=== PATIENT | female | born 2000 | race Caucasian/White ===

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

== ENCOUNTER → 2024-06-02 | Outpatient (CLI) | payer SELFPAY ==
[2024-06-02 17:40] LABS: Estradiol 39.9 pg/mL; Follicle Stimulating Hormone 7.5 mIU/mL; T4 Free Direct 1.64 ng/dL (0.76-1.46); Thyroid Stim Hormone (TSH) 1.61 uIU/mL (0.358-3.74)
[2024-06-04 04:08] LABS: PROLACTIN 21.2 ng/mL (4.8-33.4)
[2024-06-09 09:10] LABS: 17-Hydroxyprogesterone 49 ng/dL (.)
== END | disposition home or self-care (01) ==
LOC: LAB 16:26
PROVIDERS: Referring Provider Nurse Practitioner Family; Visit Provider Nurse Practitioner Family
DX: N97.9 Female infertility, unspecified (principal)
CPT/HCPCS: 36415; 82627; 82670; 83001; 83498; 84146; 84439; 84443; 82626

== ENCOUNTER → 2024-06-11 | Outpatient (CLI) | payer SELFPAY ==
--- NOTE | 2024-06-11 | US_ITS ---
STUDY: ULTRASOUND OF THE FEMALE PELVIS - COMPLETE REASON FOR EXAM: Female, 23 years old. Female infertility LMP: Unknown. TECHNIQUE: Transabdominal and Transvaginal TECHNICAL QUALITY: Adequate. COMPARISON: None. FINDINGS: The uterus is anteflexed and is in a midline position. The uterus measures 8.4 x 4.6 x 3.5 cm. Normal uterine cervix. The endometrium measures 9.7 mm in thickness, and is hyperechoic. There is no demonstrated endometrial mass. There is no demonstrated myometrial mass. I.U.D. - The patient does not have an I.U.D. The right ovary is visualized. The right ovary measures 2. 2 x 1.4 x 1.5 cm. There is no right ovarian cyst or ovarian mass. There is no visualized right adnexal mass or complex lesion. There is normal arterial and normal venous vascularity. The left ovary is visualized. The left ovary measures 2.6 x 1.6 x 1.5 cm. There is no left ovarian cyst or ovarian mass. There is no visualized left adnexal mass or complex lesion. There is normal arterial and normal venous vascularity. There is no fluid in the cul-de-sac. The pre void volume of the bladder was 356 ml. The post void volume of the bladder was less than 5 ml. Polycystic ovary disease: No. US/Pelvic w/ Transvaginal IMPRESSION: No suspicious sonographic findings Electronically Signed: Latrell Munoz MD at 11:28 EDT ,
== END | disposition home or self-care (01) ==
LOC: US 14:15
PROVIDERS: Referring Provider Nurse Practitioner Family; Visit Provider Nurse Practitioner Family
DX: N97.9 Female infertility, unspecified (principal)
CPT/HCPCS: 76830; 76856

== ENCOUNTER → 2024-08-03 | Outpatient (CLI) | payer SELFPAY ==
[2024-08-03 16:38] LABS: Absolute Lymphocyte Count 4.67 X10^3/uL (0.83-4.51); Absolute Neutrophil Count 6.8 X10^3/uL (2.0-7.7); Basophil# 0.08 X10^3/uL; Basophil% 0.6 % (0-1); Eosinophil# 0.27 X10^3/uL; Eosinophils% 2.1 % (0-5); Hemoglobin 13.6 g/dL (12.0-15.0); Lymphocyte # 4.67 X10^3/ul (0.83-4.51); Lymphocyte % 36.4 % (19-41); Mean Corp Hgb Conc 32.4 g/dL (32-36); Mean Corpuscular Hgb 28.4 pg (27.0-32.0); Mean Corpuscular Volume 87.7 fL (81-99); Mean Platelet Vol. 10.1 fl (6.2-12.0); Monocyte# 0.96 X10^3/uL; Monocyte% 7.5 % (0-10); NRBC Flagged by Analyzer 0 % (0-5); Platelet Count 484 K/mm3 (150-450); RBC Distribution Width CV 12.4 % (11.6-14.6); RBC Distribution Width SD 39.8 fl (35.1-43.9); Red Blood Count 4.79 M/mm3 (4.2-5.4); White Blood Count 12.8 K/mm3 (4.4-11.0)
== END | disposition home or self-care (01) ==
LOC: LAB 15:36
PROVIDERS: Referring Provider Nurse Practitioner Women's Health; Visit Provider Nurse Practitioner Women's Health
DX: N97.9 Female infertility, unspecified (principal)
CPT/HCPCS: 36415; 85025

== ENCOUNTER → 2024-10-19 | Outpatient (CLI) | payer SELFPAY | END | disposition home or self-care (01) | PROVIDERS: Referring Provider Nurse Practitioner Women's Health; Visit Provider Nurse Practitioner Women's Health | DX: N97.0 Female infertility associated with anovulation (principal) ==

== ENCOUNTER → 2024-11-19 | Outpatient (CLI) | payer SELFPAY ==
[2024-11-19 17:22] LABS: Free T3 3.3 pg/mL (2.18-3.98); T4 Free Direct 1.87 ng/dL (0.76-1.46)
[2024-11-24 18:07] LABS: Testosterone Free 2.8 pg/mL (0.0-4.2)
== END | disposition home or self-care (01) ==
PROVIDERS: Referring Provider Obstetrics & Gynecology; Visit Provider Obstetrics & Gynecology
DX: E28.2 Polycystic ovarian syndrome (principal); N94.6 Dysmenorrhea, unspecified
CPT/HCPCS: 36415; 84402; 84439; 84443; 84481

== ENCOUNTER 2024-12-28 07:54 | Day surgery (SDC) | payer SELFPAY ==
[2024-12-11 10:43] LABS: Hematocrit 44.7 % (37-47); Hemoglobin 15.2 g/dL (12.0-15.0); Mean Corpuscular Volume 85.1 fL (81-99); Mean Platelet Vol. 9.5 fl (6.2-12.0); Platelet Count 485 K/mm3 (150-450); RBC Distribution Width CV 12.9 % (11.6-14.6); Red Blood Count 5.25 M/mm3 (4.2-5.4); White Blood Count 10.4 K/mm3 (4.4-11.0)
[2024-12-11 10:44] LABS: Internal QC Validated? YES +Cl - CLEAR BKGD; Pregnancy, Urine Negative Negative
--- NOTE | 2024-12-27 17:28 | HP.PCM_ITS ---
History and Physical Date of Admission: 12/28/24 [facility] [address], [address] [place] [address] OFFICE VISIT Date of Service: 11/19/24 MR#: [id number] Acct: [id number] Name: LEATHA JESSICA Rep #: [id number] : 2000 Provider: Dr. Navya Lloyd MD Age/Sex: 24/F Location: [facility] [place] Status: Signed Intake Vital Signs 07/21/2408:47 11/19/2514:17 Height 5 ft 7 in 5 ft 7 in Weight: 254 lb 4 oz BMI 39.8 BP 132/83 H Intake Visit Reasons: Surgical consult Chief Complaint: Fertility consult Creative Specialist Required: No Is patient in pain?: No Allergies No Known Allergies Allergy (Verified 11/19/24 15:19) Medications ?Medication ?Instructions ?Recorded ?Confirmed ?Type Saccharomyces boulardii 250 mg 250 mg PO BID 07/21/24 11/19/24 History capsule (Daily Probiotic (S. boulardii)) cyanocobalamin-liver extract tablet tab PO 07/21/24 11/19/24 History vitamin no.167-folic acid tab PO 07/21/24 11/19/24 History 400 mcg-dha 25 mg chewable tablet (One-A-Day ) letrozole 2.5 mg tablet 2.5 mg PO DAILY #5 tabs 10/01/24 11/19/24 Rx Is last menstrual period known: Yes Last Menstrual Period: 10/11/24 Post menopausal: No Patient : No : No PFSH Surgical History (Updated 11/19/24 @ 15:[address] 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 she take ibuprofen with some relief. 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 any additional risk factors identified: none Female Reproductive History Last Menstrual Period: 10/11/24 Cycle Length: >35 Questions: metorrhagia: No, sexually active: Yes, dyspareunia: No and PCB: No History 0 Elective abortions Hx Para Spontaneous abortions Hx # Term Pregnancies Ectopic pregnancies Hx # Pregnancies Multiple births # of living children ROS Const Constitutional: Reports system reviewed and no additional complaints, except as documented Eyes Eyes: Reports system reviewed and no additional complaints, except as documented ENT ENT: Reports system reviewed and no additional complaints, except as documented Cardio Card: Denies chest pain Resp Resp: Denies cough or dyspnea GI GI: Denies abdominal pain or change in bowel habits : Reports as per HPI; Denies nipple discharge Musc Musc: Denies arthralgias, back pain or muscle weakness Skin Skin/Breast: Denies alopecia, change in hair, dry skin, breast mass, breast pain, breast skin changes or nipple discharge Neuro Neuro: Reports system reviewed and no additional complaints, except as documented Psych Psych: Reports system reviewed and no additional complaints, except as documented Endo Endo: Denies cold intolerance, excessive sweating, heat intolerance or polydipsia Law/Lymph Hematologic/Lymphatic: Denies easy bleeding, Denies easy bruising and Denies lymphadenopathy Exam Const General: cooperative and no acute distress Orientation: oriented x3 HENMT Head: normal to inspection and normocephalic Ears: hearing grossly normal bilaterally and external ears normal Nose: external nose normal and nares normal Face and sinus: normal facial exam Eyes General: appearance normal, both eyes and all related structures Neck Neck: normal visual inspection Thyroid: thyroid normal Chest Chest palpation & inspection: normal inspection of the chest Resp Effort & Inspection: normal respiratory effort GI Inspection: normal to inspection and non-distended Palpation: soft and no hepatosplenomegaly Musc Other: gross motor intact no deficits, full bilateral strength Skin General: no rashes or lesions noted Neuro General: patient alert, patient awake, moves all extremities and no focal motor deficits Cognition: normal cognition Speech: speech normal Motor: muscle tone normal throughout Extrem General: normal to inspection and no pedal edema Psych Appearance: grossly normal Mental Status: mental status grossly normal Mood: congruent mood Affect: normal affect Speech and Movement: speech and movement normal Attitude: cooperative Judgment: judgment good Coding Level of Care Code Off vis,est,level 4 Diagnoses Irregular periods/menstrual cycles N92.6 Infertility Polycystic ovarian syndrome E28.2 Dysmenorrhea N94.6 Assessment and Plan Assessment and Plan (1) Irregular periods/menstrual cycles: Status: Acute (2) Infertility: Status: Acute Comment: Normal OAR and spouse's SA. couldn't tolerate HSG (3) Polycystic ovarian syndrome: Status: Acute (4) Dysmenorrhea: Status: Acute Comment: plan diagnostic laparoscopy chromotubation Plan After discussing the patient's diagnosis and treatment plan options, patient wishes to proceed with surgical management. I have discussed with the patient the risks, benefits, and alternatives of the procedure which include but are not limited to risks of anesthesia, bleeding, infection, possible damage to bowel, bladder, or surrounding vasculature which could lead to additional surgery to evaluate any complications. Patient agrees to procedure and wishes to proceed. ACOG/uptodate references given for additional information regarding procedure. 11/19/24 1556 <Electronically signed by Navya Lloyd MD> Date Navya Lloyd MD Cosigner Signature: Date (if applicable) CC: ~
[2024-12-28] VITALS (12 sets, daily range): BP systolic 96–142; BP diastolic 55–97; PULSE 75–101; RESP 16; TEMP 36.4–37; O2SAT 92–100; BMI 39.4
[2024-12-28 08:24] LABS: Internal QC Validated? YES +Cl - CLEAR BKGD; Pregnancy, Urine Negative Negative
[2024-12-28] MEDS: 0.9% Normal Saline (1000mL) 1,000 ML 15 ML IV (08:29)
--- NOTE | 2024-12-28 08:47 | PCM.PRE.AN2 ---
ASA Classification* ASA Classification ASA Classification: 3 Assessment & Plan Anesthesia* Anesthesia Assessment Anesthesia Assessment: Discussed sedation and/or anesthesia options, risks, benefits, and alternatives with patient/parents/legal guardian/POA. Questions invited. The patient/parents/legal guardian/POA seems to understand and agrees to proceed with anesthesia plan. Reviewed the physical assessment, medical history, allergy history and patient home medications list prior to surgery/procedure/anesthetic and documented any changes. Performed airway and anesthesia risk assessments. Anesthesia Type Anesthesia Type: General History Source History Obtained from:: Patient and Chart Anesthesia Focused Assessment* Temperature: 97.5 F Pulse Rate: 101 Blood Pressure: 142/97 Respiratory Rate: 16 Pulse Ox: 100 Oxygen Delivery Method: Room Air Airway Assessment Mouth opens: >3 cm Mallampati Score: IV Teeth Condition: Intact Neck Range of motion (ROM): Full ROM Focused Labs Anesthesia Preop lab: CBC WBC 10.4 K/mm3 (4.4-11.0) 12/11/24 10:12/11/24 RBC 5.25 M/mm3 (4.2-5.4) 12/11/24 10:24 12/11/24 Hgb 15.2 g/dL (12.0-15.0) H 12/11/24 10:24 12/11/24 Hct 44.7 % (37-47) 12/11/24 10:24 12/11/24 Plt Count 485 K/mm3 (150-450) H 12/11/24 10:24 12/11/24 CHEMISTRY Potassium 3.4 mmol/L (3.5-5.1) L 07/28/19 03:35 07/28/19 Sodium 139 mmol/L (136-145) 07/28/19 03:35 07/28/19 BUN 6 mg/dL (7-18) L 07/28/19 03:35 07/28/19 Creatinine 0.88 mg/dL (0.55-1.02) 07/28/19 03:35 07/28/19 Glucose 102 mg/dL (74-106) 07/28/19 03:35 07/28/19 TSH 1.560 uIU/mL (0.358-3.740) 11/19/24 16:23 11/19/24 COAG Urine Test Negative Negative 12/28/24 08:10 12/28/24 Pre-Assessment Diagnosis/Proposed Procedure Planned Operative Procedure(s): Diagnostic Laparoscopy, Chromtubation Anesthesia History Anesthesia History - doctor chiropractic: Anesthesia History - doctor chiropractic Hx Hospitalization No 12/03/24 10:05 Any Problems With Anesthesia No 12/03/24 10:05 Cholinesterase deficiency No 12/03/24 10:05 You/Your Family Experience No 12/03/24 10:05 fever (hyperthermia) with Relationship Recent Exposure to Contagious No 12/28/24 08:20 Disease Does patient have nerve No 12/03/24 10:05 stimulator Patient instructed to have device shut off --Does patient have Pacemaker No 12/28/24 08:20 or ICD? When Was Last Pacemaker Check QUESTION #4 FULL TEXT: You/Your Family Experience fever (hyperthermia) with Anesthesia Last Oral Intake Last Oral intake: Last Oral Intake NPO since 04:00 12/28/24 08:20 Meds taken in AM with sips of water? Meds patient instructed to take am of surgery Any additional information?: Yes NPO since: 04:00 (Patient water at 4 AM.) PONV PONV - doctor chiropractic: PONV - doctor chiropractic Female Yes 12/03/24 10:05 HX of Motion Sickness Yes 12/03/24 10:05 HX of N/V After Surgery No 12/03/24 10:05 Non-Smoker Yes 12/03/24 10:05 Duration of Surgery greater No 12/03/24 10:05 than 60 minutes Number of Risk Factors 3 12/03/24 10:05 PONV Score Moderate Risk 12/03/24 10:05 Height & Weight Height & Weight: Anesthesia: Height & Weight Height 5 ft 7 in 12/28/24 08:20 Weight: 114.305 kg 12/28/24 08:20 Body Mass Index (BMI) 39.4 12/28/24 08:20 Respiratory Assessment Respiratory Assessment - doctor chiropractic: Respiratory Tract Infection Hx - doctor chiropractic Hx Respiratory Tract Infection No 12/03/24 10:05 STOP Sleep Apnea STOP Sleep Apnea - doctor chiropractic: STOP Sleep Apnea - doctor chiropractic Hx Hypertension No 12/03/24 10:05 Hx Sleep Apnea No 12/03/24 10:05 CPAP BIPAP Do you snore loudly (louder No 12/03/24 10:05 than talking or can be heard Do you often feel tired/ No 12/03/24 10:05 fatigued/ sleepy during daytime? Has anyone observed you stop No 12/03/24 10:05 breathing during sleep? STOP Results Negative 12/03/24 10:05 QUESTION #5 FULL TEXT : Do you snore loudly (louder than talking or can be heard through closed doors)? 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 Specify any problems Hx of Preganancy in last 3 No 12/03/24 10:05 Months Nurse Filling Out Transfusion VLEHMAN 12/03/24 10:05 & Questions: Date: 12/03/24 12/03/24 10:05 Time: 10:10 12/03/24 10:05 Patient unable to answer at this time (ie. confused, unrespo /Reproduction History /Reproductive History - doctor chiropractic: /Reproductive Hx- doctor chiropractic Hx Now No 12/03/24 10:05 Gestational Age (in weeks): EDC: Hx Hx Para Hx Section SAB No 12/03/24 10:05 Active Medications Active Medications: Current Medications Generic Name Dose Route Start Last Admin Trade Name Freq PRN Reason Stop Dose Admin Sodium Chloride 1,000 mls @ 15 mls/hr 12/28/24 08:10 12/28/24 08:29 IV 01/02/25 21:29 15 mls/hr .Q48H WILIAN Administration Protocol PFSH Medical History Vertigo Wears contact lenses Non-smoker Home Medications ?Medication ?Instructions ?Recorded ?Last Taken ?Type Saccharomyces boulardii 250 mg 250 mg PO BID 07/21/24 Unknown History capsule (Daily Probiotic (S. 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
[2024-12-28] MEDS: Methylene Blue 1% 100 MG/10 ML VIAL (09:39)
[2024-12-28] MEDS: Bupivacaine 0.25% 30 ML Vial (10:07)
--- NOTE | 2024-12-28 10:21 | PCM.POST.ANE ---
Anesthesia: Postop Eval I Current Vital Signs Temperature: 97.6 F Pulse Rate: 98 Blood Pressure: 107/74 Respiratory Rate: 16 Pulse Ox: 95 Oxygen Delivery Method: Room Air Assessment Airway patent: Yes Spontaneous unlabored respirations: Yes Mental status: Awake and Calm nausea: No Vomiting: No Anesthesia Complication: No Fluid Hydration Crystalloid volume administer (ml): 800 Total IV fluid infused: 800 Progress Note Anesthesia document: Postop Eval 1 completed: Yes
[2024-12-28] MEDS: HYDROcodone Bitartrate/Apap 5/325 Tablet PO (11:41)
--- NOTE | 2024-12-28 12:00 | DCINST_ITS ---
Discharge Instructions Diet Discharge Diet: No restrictions DC O2, CPAP, BIPAP needs Home O2 Discharge instructions: No Dressing / Incision Discharge Activity: Return to Normal Activity, May Not Drive ( while taking narcotic pain meds, when pain free), May Shower and May Take a Tub Bath (in 7 days) May resume sexual activity in: 1 week Weight Bearing Status: Full weight bearing Dressing / Incision Call your doctor if your incision/area has: Continuous Slow Oozing, Sudden Increased Bleeding, Increased Pain/ Swelling, Increased Redness and Foul Smelling Discharge Call your doctor if you observe: Fever of 101 or Higher, Using more than 1 pad per hour, Shortness of breath, Chest pain and Uncontrolled pain Suture Line Care: Avoid Pulling/Pushing and Avoid Pinching/Bending Remove Dressing in: 1 week (if present) Cleanse incision/area with: Soap & Water and Keep Dressing Clean & Dry Follow Up Care When: Call to make an appointment with your doctor for a fu/incision check in 1- 2 weeks. Test Results: Test results from this visit will be discussed in further detail at your follow- up appointment, if applicable. Discharge Plan Admission Attending Provider: Navya Lloyd Primary Care Provider: Yuli Silveira Primary Instructions Print Language: Bengali Discharge Orders/Prescriptions Prescriptions: New oxycodone-acetaminophen [Percocet] 5-325 mg tablet 1 tab PO Q4H PRN (Reason: pain) 7 Days Qty: 10 0RF naproxen 500 mg tablet 500 mg PO BID PRN PRN (Reason: Pain) Qty: 30 1RF No Action One-A-Day 400 mcg- 25 mg tablet,chewable 1 tab PO DAILY Saccharomyces boulardii [Daily Probiotic (S. boulardii)] 250 mg capsule 250 mg PO BID cyanocobalamin-liver extract Tablet 1 tab PO DAILY letrozole 2.5 mg tablet 2.5 mg PO DAILY Qty: 5 2RF Patient Comments: STARTING AFTER SURGERY Rx Instructions: start on day 3 of cycle and take for 5 days Referrals / Follow Up: Care PhysicianYuli Primary [Primary Care Provider] - Disposition Disposition (needs filled in before D/C Order can be placed): Home, Self Care
--- NOTE | 2024-12-28 12:00 | PCM.OPRPT ---
Problems Associated Problem List Diagnoses (1) Dysmenorrhea: (2) Polycystic ovarian syndrome: (3) Infertility: (4) Irregular periods/menstrual cycles: Multi Select Codes Urinary/Genital Urinary/Genital CPT Codes: 31974 Chromotubation, 30786 Lysis of adhesions, laproscopic and Other Procedure See Report (89870) Operative Report (Standard) Operative Information Date of Procedure: 12/28/24 Pre-Operative Diagnosis: See problem list Post-Operative Diagnosis: Same plus pelvic adhesions and bilateral tubal patency Surgery/Procedure Performed: Diagnostic laparoscopy lysis of adhesions chromotubation microsoft net developer: Yes Finish Photographer: Mitzy Gotti Tasks completed by billing assistant: Opening & closing Additional assistant clinical nurse manager?: No Type of Anesthesia: General RN Documented Start/Stop Times: Operation Date: 12/28/24 09:30 Case Time Into Pre-Op 12/28/24 08:05 Anesthesia Start 12/28/24 09:08 Into Room 12/28/24 09:08 Procedure Start 12/28/24 09:39 Procedure End 12/28/24 10:08 Anesthesia End 12/28/24 10:16 Out of Room 12/28/24 10:16 Into Recovery 12/28/24 10:21 Into Phase II Recovery 12/28/24 11:27 Out of Recovery 12/28/24 11:27 Out of Phase II 12/28/24 12:48 Out of Pre-Op Procedure Start Time: 09:39 Procedure Stop Time: 10:08 Select all DRAINS/GRAFTS/IMPLANTS that apply: Drains (toledo) Drain details: removed after draining bladder at beginning of procedure Estimated Blood Loss: 50 Specimen collected: No Description of surgery: Patient was taken to the operating room and placed under general anesthesia was prepped and draped in normal sterile fashion in the dorsolithotomy position. Cervix was grasped with a single-tooth tenaculum and dilated to allow passage of a uterine manipulator. Attention was then paid to the abdomen and umbilicus was grasped with towel clamps after injecting with quarter percent Marcaine and an intraumbilical incision was made with a scalpel and Veress needle entering into the abdomen confirmed to be intra-abdominal with a low opening pressure and the abdomen was insufflated with CO2 gas. 5 mm trocar was placed under direct visualization without complication. 5 mm left lower quadrant port was placed without complication. Pelvis was noted to be within normal limits except for small amount of left sigmoid colon adhesions to the left pelvic sidewall and left ovarian to ovarian fossa adhesions. These were taken down with the LigaSure device without complication. Hemoblast was placed over the area. Chromotubation was performed and bilateral tubal patency was seen. Upper abdomen was inspected and no abnormality seen. All instruments were removed from the abdomen and vagina and port sites were closed with 4-0 Monocryl. No other abnormalities or complications seen. Surgical Findings: sigmoid colon to abdominal wall adhesions mild Complications Complications: No
--- NOTE | 2024-12-28 18:18 | POSTOPAN2_ITS ---
Anesthesia Postop Eval I Sum Postop Eval Completion status Anesthesia document: Postop Eval 1 completed: Yes Anesthesia Postop Eval I Summary Anesthesia Postop Eval I Summary: Anesthesia Postop Eval I: Assessment Summary Airway patent Yes 12/28/24 10:29 DIRECTOR SMB SALES.[email or web address] Spontaneous unlabored Yes 12/28/24 10:29 DIRECTOR SMB SALES.GDOTT respirations Mental status Awake,Calm 12/28/24 10:29 DIRECTOR SMB SALES.GDOTT nausea No 12/28/24 10:29 DIRECTOR SMB SALES.GDOTT Vomiting No 12/28/24 10:29 DIRECTOR SMB SALES.GDOTT Anesthesia Postop Eval I: Fluid Summary Crystalloid volume administer 800 12/28/24 10:29 DIRECTOR SMB SALES.GDOTT (ml) Colloids volume administered ( ml) Blood Product volume administered (ml) Total IV fluid infused 800 12/28/24 10:29 DIRECTOR SMB SALES.GDOTT Anesthesia Postop Eval I: Summary Notes Anesthesia Complication No 12/28/24 10:29 DIRECTOR SMB SALES.GDOTT Anesthesia Complication Comment: Post-operative progress note Anesthesia: Postop Eval II Evaluation Mental status: Awake and Calm Pain Level: 1 nausea: No Vomiting: No Complications Anesthesia Complication: No
--- NOTE | 2024-12-28 18:18 | PCM.POSTANE2 ---
Anesthesia Postop Eval I Sum Postop Eval Completion status Anesthesia document: Postop Eval 1 completed: Yes Anesthesia Postop Eval I Summary Anesthesia Postop Eval I Summary: Anesthesia Postop Eval I: Assessment Summary Airway patent Yes 12/28/24 10:29 PROFESSOR OF INDUSTRIAL TECHNOLOGY.GDOTT Spontaneous unlabored Yes 12/28/24 10:29 PROFESSOR OF INDUSTRIAL TECHNOLOGY.GDOTT respirations Mental status Awake,Calm 12/28/24 10:29 PROFESSOR OF INDUSTRIAL TECHNOLOGY.GDOTT nausea No 12/28/24 10:29 PROFESSOR OF INDUSTRIAL TECHNOLOGY.GDOTT Vomiting No 12/28/24 10:29 PROFESSOR OF INDUSTRIAL TECHNOLOGY.GDOTT Anesthesia Postop Eval I: Fluid Summary Crystalloid volume administer 800 12/28/24 10:29 PROFESSOR OF INDUSTRIAL TECHNOLOGY.GDOTT (ml) Colloids volume administered ( ml) Blood Product volume administered (ml) Total IV fluid infused 800 12/28/24 10:29 PROFESSOR OF INDUSTRIAL TECHNOLOGY.GDOTT Anesthesia Postop Eval I: Summary Notes Anesthesia Complication No 12/28/24 10:29 PROFESSOR OF INDUSTRIAL TECHNOLOGY.GDOTT Anesthesia Complication Comment: Post-operative progress note Anesthesia: Postop Eval II Evaluation Mental status: Awake and Calm Pain Level: 1 nausea: No Vomiting: No Complications Anesthesia Complication: No
== END 2024-12-28 12:49 | disposition home or self-care (01) ==
LOC: SDC 07:55 → AC 07:57
PROVIDERS: Referring Provider Obstetrics & Gynecology; Visit Provider Obstetrics & Gynecology
PROC: (CPT 49320; principal; 2024-12-28 09:15)
DX: N97.9 Female infertility, unspecified (principal); N94.6 Dysmenorrhea, unspecified; N92.6 Irregular menstruation, unspecified; E28.2 Polycystic ovarian syndrome; N73.6 Female pelvic peritoneal adhesions (postinfective)
CPT/HCPCS: 58660; 58350; 00840; 36415; 81025; 85027; 86850; 86900; 86901; J2405

== ENCOUNTER → 2025-01-21 | Outpatient (CLI) | payer SELFPAY ==
--- NOTE | 2025-01-21 11:46 | US_ITS ---
PROCEDURE: THYROID REASON FOR EXAM: ABNORMAL THYROID BLOOD TEST TECHNIQUE: Thyroid ultrasound COMPARISON: None. FINDINGS: Right thyroid lobe measures 5.4 cm x 1.6 cm x 1.7 cm. Left thyroid lobe measures 4 cm x 1.5 cm x 1.2 cm. Isthmus thickness is3.6 mm. Thyroid Size: Mild enlargement of the right lobe of the thyroid. Background Echotexture: Normal Thyroid Nodules: None US/Thyroid IMPRESSION: Mild enlargement of the right lobe of the thyroid gland. No sonographic abnorm ality is seen. Reading Location: [place] [id number]
== END | disposition home or self-care (01) ==
LOC: US 11:44
PROVIDERS: Referring Provider Obstetrics & Gynecology; Visit Provider Obstetrics & Gynecology
DX: R79.89 Other specified abnormal findings of blood chemistry (principal)
CPT/HCPCS: 76536

== ENCOUNTER → 2025-01-27 | Outpatient (CLI) | payer SELFPAY ==
[2025-01-27 12:30] LABS: ALB/GLOB Ratio 1.3 RATIO (0.9-2.4); AST(SGOT) 20 U/L (<=31); Alanine Aminotransfer ALT/SGPT 7 U/L (<=34); Albumin, Serum 4.4 g/dL (3.5-5.0); Alkaline Phosphatase 72 U/L (35-104); Anion Gap 14 (5-15); BUN 12 mg/dL (4-19); BUN/Creat Ratio 16.6 RATIO (10-20); Calcium,Total 9.9 mg/dL (7.6-11.0); Carbon Dioxide 22.7 mmol/L (21.0-32.0); Chloride 104 mmol/L (98-108); Creatinine, Serum 0.69 mg/dL (0.70-1.20); EST Glomerular Filtration Rate 126 (>60); Globulin 3.5 g/dL (2.2-4.2); Glucose 84 mg/dL (70-99); Potassium 3.8 mmol/L (3.3-5.1); Sodium Level 140 mmol/L (133-145); Total Bilirubin 0.38 mg/dL (0.00-1.30)
[2025-01-31 10:08] LABS: Anti-Centromere B Ab <0.2 AI (0.0-0.9); Anti-Chromatin 0.3 AI (0.0-0.9); Anti-Jo <0.2 AI (0.0-0.9); Anti-Nuclear Antibody Test Positive (.); Anti-Scleroderma-70 AB <0.2 AI (0.0-0.9); Anti-dsDNA Ab <1 IU/mL (0-9); RNP Ab 0.3 AI (0.0-0.9); SJOGREN'S Anti-SS-A test < 0.2 AI (0.0-0.9); SJOGREN'S Anti-SS-B test < 0.2 AI (0.0-0.9); Smith Ab <0.2 AI (0.0-0.9)
== END | disposition home or self-care (01) ==
LOC: BIMLAB 10:46
PROVIDERS: PCP Internal Medicine; Visit Provider Internal Medicine
DX: R79.89 Other specified abnormal findings of blood chemistry (principal)
CPT/HCPCS: 36415; 80053; 86038; 86225; 86235

== ENCOUNTER 2025-03-15 07:16 | Day surgery (SDC) | payer SELFPAY ==
--- NOTE | 2025-03-01 08:38 | PAT.ANE_ITS ---
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 When Was Last Pacemaker Check QUESTION #4 FULL TEXT: You/Your Family Experience fever (hyperthermia) with Anesthesia Last Oral Intake Last Oral intake: Last Oral Intake NPO since Meds taken in AM with sips of water? Meds patient instructed to take am of surgery PONV PONV - government affairs specialist: PONV - government affairs specialist Female Yes 03/01/25 08:34 HX of Motion Sickness No 03/01/25 08:34 HX of N/V After Surgery No 03/01/25 08:34 Non-Smoker Yes 03/01/25 08:34 Duration of Surgery greater No 03/01/25 08:34 than 60 minutes Number of Risk Factors 2 03/01/25 08:34 PONV Score Moderate Risk 03/01/25 08:34 Height & Weight Height & Weight: Anesthesia: Height & Weight Height 5 ft 7 in 01/17/25 13:07 Respiratory Assessment Respiratory Assessment - government affairs specialist: Respiratory Tract Infection Hx - government affairs specialist Hx Respiratory Tract Infection No 03/01/25 08:34 STOP Sleep Apnea STOP Sleep Apnea - government affairs specialist: STOP Sleep Apnea - government affairs specialist Hx Hypertension No 03/01/25 08:34 Hx Sleep Apnea No 03/01/25 08:34 CPAP BIPAP Do you snore loudly (louder No 03/01/25 08:34 than talking or can be heard Do you often feel tired/ No 03/01/25 08:34 fatigued/ sleepy during daytime? Has anyone observed you stop No 03/01/25 08:34 breathing during sleep? STOP Results Negative 03/01/25 08:34 QUESTION #5 FULL TEXT : Do you snore loudly (louder than talking or can be heard through closed doors)? 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 Specify any problems Hx of Preganancy in last 3 No 03/01/25 08:34 Months Nurse Filling Out Transfusion NBUCHER 03/01/25 08:34 & Questions: Date: 03/01/25 03/01/25 08:34 Time: 08:35 03/01/25 08:34 Patient unable to answer at this time (ie. confused, unrespo /Reproduction History /Reproductive History - government affairs specialist: /Reproductive Hx- government affairs specialist Hx Now No 03/01/25 08:34 Gestational Age (in weeks): EDC: Hx Hx Para Hx Section SAB No 03/01/25 08:34 PFSH Medical History Vertigo Wears contact lenses Non-smoker Home Medications ?Medication ?Instructions ?Recorded ?Last Taken ?Type Saccharomyces boulardii 250 mg 250 mg PO BID 07/21/24 Unknown History capsule (Daily Probiotic (S. boulardii)) cyanocobalamin-liver extract tablet 1 tab PO DAILY 10/03 Unknown History vitamin no.167-folic acid 1 tab PO DAILY 07/11 12/03 Unknown History 400 mcg-dha 25 mg chewable tablet (One-A-Day ) CONTINUOUS STILL OPERATOR 2 cap PO DAILY 01/27/25 Unkn own History black cumin seed 2 cap PO DAILY 01/27/25 Unkn own History magnesium 200 mg tablet 200 mg PO QDAY 01/27/25 Unkn own History meth cpg 2 cap PO DAILY 01/27/25 Unkn own History inositol 2,000 mg-D chiro inositol 1 ea PO DAILY 03/01 Unknown History 50 mg oral powder packet (Ovasitol) Allergy/AdvReac Type Severity Reaction Status Date / Time No Known Allergies Allergy Verified 03/01/25 08:30 Family History (Updated 01/27/25 @ 10:[address] Abby Haas MD) Father Hemolytic anemia Lupus Surgical History (Updated 03/01/25 @ 08:36 by Reba Pan) H/O laparoscopy (~12/2024) H/O eye surgery Social History (Updated 01/27/25 @ 10:[address] 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 current occupational exposures/hazards: No pets and animals: Yes leisure activities: fishing history of recent travel: No sexually active: Yes Smoking Status: Never smoker second hand exposure: No alcohol intake: current alcohol intake frequency: holidays/special occasions only substance use type: does not use well-balanced diet: about half the time caffeine: Yes eating out: 1-3 times/week during the past year weight has: increased > 10 lbs what type of physical activity do you participate in: none frequency: 1-2 times per week duration: other rashmi/shinto: Pentecostalism seatbelt use: always do you feel safe at home: Yes additional social history: - Dashawn Audit: Pertinent Findings Pertinent Findings EKG Perinent findings: July 28, 2019. Sinus tachycardia at 107 bpm. Nonspecific T wave abnormality. Recommendation Anesthesia Recommendation Anesthesia recommendation: OPTIMIZED for anesthesia
[2025-03-15] VITALS (8 sets, daily range): BP systolic 92–140; BP diastolic 64–85; PULSE 80–110; RESP 16–18; TEMP 36.4–37.2; O2SAT 92–99; BMI 39.6
[2025-03-15 07:35] LABS: Internal QC Validated? YES +Cl - CLEAR BKGD; Pregnancy, Urine Negative Negative
[2025-03-15] MEDS: Lactated Ringers 1,000 ML 15 ML IV (07:44)
--- NOTE | 2025-03-15 08:06 | PCM.PRE.AN2 ---
ASA Classification* ASA Classification ASA Classification: 2 Assessment & Plan Anesthesia* Anesthesia Assessment Anesthesia Assessment: Discussed sedation and/or anesthesia options, risks, benefits, and alternatives with patient/parents/legal guardian/POA. Questions invited. The patient/parents/legal guardian/POA seems to understand and agrees to proceed with anesthesia plan. Reviewed the physical assessment, medical history, allergy history and patient home medications list prior to surgery/procedure/anesthetic and documented any changes. Performed airway and anesthesia risk assessments. Anesthesia Type Anesthesia Type: MAC History Source History Obtained from:: Patient and Chart Anesthesia Focused Assessment* Temperature: 97.6 F Pulse Rate: 110 Blood Pressure: 139/85 Respiratory Rate: 18 Pulse Ox: 99 Oxygen Delivery Method: Room Air Airway Assessment Mouth opens: >3 cm Mallampati Score: III Teeth Condition: Intact Neck Range of motion (ROM): Full ROM Focused Labs Anesthesia Preop lab: CBC WBC 10.4 K/mm3 (4.4-11.0) 12/11/24 10:12/11/24 RBC 5.25 M/mm3 (4.2-5.4) 12/11/24 10:12/11/24 Hgb 15.2 g/dL (12.0-15.0) H 12/11/24 10:24 12/11/24 Hct 44.7 % (37-47) 12/11/24 10:24 12/11/24 Plt Count 485 K/mm3 (150-450) H 12/11/24 10:24 12/11/24 CHEMISTRY Potassium 3.8 mmol/L (3.3-5.1) 01/27/25 10:47 01/27/25 Sodium 140 mmol/L (133-145) 01/27/25 10:47 01/27/25 BUN 12 mg/dL (4-19) 01/27/25 10:47 01/27/25 Creatinine 0.69 mg/dL (0.70-1.20) L 01/27/25 10:47 01/27/25 Glucose 84 mg/dL (70-99) 01/27/25 10:47 01/27/25 TSH 1.560 uIU/mL (0.358-3.740) 11/19/24 16:23 11/19/24 COAG Urine Test Negative Negative 03/15/25 07:25 03/15/25 Pre-Assessment Diagnosis/Proposed Procedure Planned Operative Procedure(s): HYMENECTOMY Anesthesia History Anesthesia History - education teacher: Anesthesia History - education teacher Hx Hospitalization No 03/01/25 08:34 Any Problems With Anesthesia No 03/01/25 08:34 Cholinesterase deficiency No 03/01/25 08:34 You/Your Family Experience No 03/01/25 08:34 fever (hyperthermia) with Relationship Recent Exposure to Contagious No 03/15/25 07:38 Disease Does patient have nerve No 03/01/25 08:34 stimulator Patient instructed to have device shut off --Does patient have Pacemaker No 03/15/25 07:38 or ICD? When Was Last Pacemaker Check QUESTION #4 FULL TEXT: You/Your Family Experience fever (hyperthermia) with Anesthesia Last Oral Intake Last Oral intake: Last Oral Intake NPO since 04:00 03/15/25 07:38 Meds taken in AM with sips of water? Meds patient instructed to take am of surgery Any additional information?: Yes NPO since: 04:00 (Patient water at 4 AM.) PONV PONV - education teacher: PONV - education teacher Female Yes 03/01/25 08:34 HX of Motion Sickness No 03/01/25 08:34 HX of N/V After Surgery No 03/01/25 08:34 Non-Smoker Yes 03/01/25 08:34 Duration of Surgery greater No 03/01/25 08:34 than 60 minutes Number of Risk Factors 2 03/01/25 08:34 PONV Score Moderate Risk 03/01/25 08:34 Height & Weight Height & Weight: Anesthesia: Height & Weight Height 5 ft 7 in 03/15/25 07:38 Weight: 115 kg 03/15/25 07:38 Body Mass Index (BMI) 39.6 03/15/25 07:38 Respiratory Assessment Respiratory Assessment - education teacher: Respiratory Tract Infection Hx - education teacher Hx Respiratory Tract Infection No 03/01/25 08:34 STOP Sleep Apnea STOP Sleep Apnea - education teacher: STOP Sleep Apnea - education teacher Hx Hypertension No 03/01/25 08:34 Hx Sleep Apnea No 03/01/25 08:34 CPAP BIPAP Do you snore loudly (louder No 03/01/25 08:34 than talking or can be heard Do you often feel tired/ No 03/01/25 08:34 fatigued/ sleepy during daytime? Has anyone observed you stop No 03/01/25 08:34 breathing during sleep? STOP Results Negative 03/01/25 08:34 QUESTION #5 FULL TEXT : Do you snore loudly (louder than talking or can be heard through closed doors)? 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 Specify any problems Hx of Preganancy in last 3 No 03/01/25 08:34 Months Nurse Filling Out Transfusion [facility]BU[facility] 03/01/25 08:34 & Questions: Date: 03/01/25 03/01/25 08:34 Time: 08:35 03/01/25 08:34 Patient unable to answer at this time (ie. confused, unrespo /Reproduction History /Reproductive History - education teacher: /Reproductive Hx- education teacher Hx Now No 03/01/25 08:34 Gestational Age (in weeks): EDC: Hx Hx Para Hx Section SAB No 03/11/25 15:50 Active Medications Active Medications: Current Medications Generic Name Dose Route Start Last Admin Trade Name Freq PRN Reason Stop Dose Admin Lactated Ringer's 1,000 mls @ 15 mls/hr 03/15/25 07:30 03/15/25 07:44 IV 15 mls/hr .Q48H WILIAN Administration Cefazolin Sodium 2 gm/ Sodium 110 mls @ 150 mls/hr 03/15/25 07:27 Chloride IV 03/15/25 08:10 X1 ONE PFSH Medical History Vertigo Wears contact lenses Non-smoker Home Medications ?Medication ?Instructions ?Recorded ?Last Taken ?Type Saccharomyces boulardii 250 mg 250 mg PO BID 07/21/24 03/14/25 History capsule (Daily Probiotic (S. boulardii)) cyanocobalamin-liver extract tablet 1 tab PO DAILY 07/21/24 03/14/25 History vitamin no.167-folic acid 1 tab PO DAILY 07/21/24 03/14/25 History 400 mcg-dha 25 mg chewable tablet (One-A-Day ) VIDEO TECHNICIAN 2 cap PO DAILY 01/27/25 03/14/25 History black cumin seed 2 cap PO DAILY 01/27/25 03/14/25 History magnesium 200 mg tablet 200 mg PO QDAY 01/27/25 03/14/25 History meth cpg 2 cap PO DAILY 01/27/25 03/14/25 History inositol 2,000 mg-D chiro inositol 1 ea PO DAILY 03/01/25 03/14/25 History 50 mg oral powder packet (Ovasitol) Allergy/AdvReac Type Severity Reaction Status Date / Time No Known Allergies Allergy Verified 03/15/25 07:38 Family History Father Hemolytic anemia Lupus Surgical History H/O laparoscopy (~12/2024) H/O eye surgery Social History adopted: No household members: spouse number of children: 0 current occupational status: employed 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[employer], 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 current occupational exposures/hazards: No pets and animals: Yes leisure activities: fishing history of recent travel: No sexually active: Yes Smoking Status: Never smoker second hand exposure: No alcohol intake: current alcohol intake frequency: holidays/special occasions only substance use type: does not use well-balanced diet: about half the time caffeine: Yes eating out: 1-3 times/week during the past year weight has: increased > 10 lbs what type of physical activity do you participate in: none frequency: 1-2 times per week duration: other rashmi/zoroastrian: Yazidi seatbelt use: always do you feel safe at home: Yes additional social history: - Dashawn Review of Systems (Anesthesia) ROS Narrative System reviewed and no additional complaints, except as documented.
--- NOTE | 2025-03-15 09:39 | PCM.HP.BLA ---
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 2 cap PO DAILY 01/27/25 03/01/25 History black cumin seed 2 cap PO DAILY 01/27/25 03/01/25 History magnesium 200 mg tablet 200 mg PO QDAY 01/27/25 03/01/25 History meth cpg 2 cap PO DAILY 01/27/25 03/01/25 History inositol 2,000 mg-D chiro inositol 1 ea PO DAILY 03/01/25 03/01/25 History 50 mg oral powder packet (Ovasitol) Is last menstrual period known: Yes Last Menstrual Period: 02/16/25 Post menopausal: No Patient : No : No PFSH Medical History Vertigo Wears contact lenses Non-smoker Surgical History H/O laparoscopy (~12/2024) H/O eye surgery Family History Father Hemolytic anemia Lupus Social History adopted: No household members: spouse number of children: 0 current occupational status: employed 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[employer], 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 current occupational exposures/hazards: No pets and animals: Yes leisure activities: fishing history of recent travel: No sexually active: Yes Smoking Status: Never smoker second hand exposure: No alcohol intake: current alcohol intake frequency: holidays/special occasions only substance use type: does not use well-balanced diet: about half the time caffeine: Yes eating out: 1-3 times/week during the past year weight has: increased > 10 lbs what type of physical activity do you participate in: none frequency: 1-2 times per week duration: other rashmi/catholic: Mormon seatbelt use: always do you feel safe at home: Yes additional social history: - Dashawn HPI 6 wk FU/preop Hymenectomy Details: LEATHA JESSICA is a 24 year old who presents for preop prior to hymenetcomy for dyspareunia. Female Reproductive History Last Menstrual Period: 02/16/25 Menopausal Symptoms: No night sweats History 0 Elective abortions Hx Para Spontaneous abortions Hx # Term Pregnancies Ectopic pregnancies Hx # Pregnancies Multiple births # of living children ROS Const Constitutional: Denies fatigue, night sweats, weight gain or weight loss ENT ENT: Reports system reviewed and no additional complaints, except as documented Cardio Card: Denies chest pain Resp Resp: Denies cough or dyspnea GI GI: Reports as per HPI; Denies abdominal pain, constipation, nausea or vomiting : Denies nipple discharge, urinary frequency, urinary incontinence, urinary hesitancy, urinary urgency, vaginal discharge, vaginal dryness, vaginal odor or vaginal pruritus Musc Musc: Denies arthralgias, back pain or muscle weakness Skin Skin/Breast: Denies alopecia, change in hair, dry skin, breast mass, breast pain, breast skin changes or nipple discharge Neuro Neuro: Reports system reviewed and no additional complaints, except as documented Psych Psych: Reports system reviewed and no additional complaints, except as documented Endo Endo: Denies cold intolerance, excessive sweating, heat intolerance or polydipsia Law/Lymph Hematologic/Lymphatic: Denies easy bleeding, Denies easy bruising and Denies lymphadenopathy Exam Const General: cooperative, healthy appearing, comfortable and no acute distress Orientation: alert HENMT Head: normal to inspection and normocephalic Ears: hearing grossly normal bilaterally and external ears normal Nose: external nose normal and nares normal Face and sinus: normal facial exam Neck Neck: normal visual inspection and no lymphadenopathy Thyroid: thyroid normal Chest Chest palpation & inspection: normal inspection of the chest Resp Effort & Inspection: normal respiratory effort Auscultation: clear to auscultation bilaterally Cardio Rate: regular rate Rhythm: regular rhythm Heart Sounds: S1 normal and S2 normal GI Inspection: normal to inspection and non-distended Palpation: soft and no hepatosplenomegaly Musc Other: gross motor intact no deficits, full bilateral strength Skin General: no rashes or lesions noted Neuro General: patient alert, patient awake, moves all extremities and no focal motor deficits Motor: muscle tone normal throughout Extrem General: normal to inspection and no pedal edema Psych Appearance: grossly normal Mental Status: mental status grossly normal Affect: normal affect Speech and Movement: speech and movement normal Coding Level of Care Code No Charge Diagnoses Dyspareunia Assessment and Plan Assessment and Plan (1) Dyspareunia: Status: Acute Comment: discussed hymenectomy if PFPT and dilators unsuccessful now after some dilation done at time of laparoscopy Plan After discussing the patient's diagnosis and treatment plan options, patient wishes to proceed with surgical management. I have discussed with the patient the risks, benefits, and alternatives of the procedure which include but are not limited to risks of anesthesia, bleeding, infection, possible damage to bowel, bladder, or surrounding vasculature which could lead to additional surgery to evaluate any complications. Patient agrees to procedure and wishes to proceed. ACOG/uptodate references given for additional information regarding procedure. UPDATE- I have seen the patient and performed any clinically relevant updates to the history and physical exam. Navya Lloyd MD
[2025-03-15] MEDS: Bupivacaine 0.25% 30 ML Vial (10:16)
[2025-03-15] MEDS: Cefazolin 2 GM in 0.9% Normal Saline (100mL Bag) 100 ML IV (10:23)
--- NOTE | 2025-03-15 10:30 | PCM.OPRPT ---
Problems Associated Problem List Diagnoses (1) Dyspareunia: Procedures Urinary/Genital [id number]: [id number] PARTIAL HYMENECTOMY OR REVISION Operative Report (Standard) Operative Information Date of Procedure: 03/15/25 Pre-Operative Diagnosis: Dyspareunia intact hymen Post-Operative Diagnosis: Same Surgery/Procedure Performed: Hymenectomy cartridge loader: No Type of Anesthesia: Local and MAC RN Documented Start/Stop Times: Operation Date: 03/15/25 08:50 Case Time Into Pre-Op 03/15/25 07:22 Out of Pre-Op 03/15/25 09:52 Anesthesia Start 03/15/25 09:55 Into Room 03/15/25 09:55 Procedure Start 03/15/25 10:15 Procedure Start Time: 10:15 Procedure Stop Time: 10:30 Select all DRAINS/GRAFTS/IMPLANTS that apply: None Estimated Blood Loss: 75 Specimen collected: No Description of surgery: Patient was prepped and draped in the normal sterile fashion in the dorsolithotomy position. The perineal body and vaginal navarro were injected with quarter percent Marcaine. Area was inspected and the posterior and lateral aspects of the hymenal ring were excised and interrupted sutures of 3-0 Vicryl Rapide were used to close and obtain hemostasis. 2 fingers were inserted easily without complication at the end of the procedure. Surgical Findings: Intact hymen Complications Complications: No
--- NOTE | 2025-03-15 10:33 | DCINST_ITS ---
Discharge Instructions Diet Discharge Diet: No restrictions DC O2, CPAP, BIPAP needs Home O2 Discharge instructions: No Dressing / Incision Discharge Activity: Return to Normal Activity, May Shower and May Take a Tub Bath (after 1 week) May resume sexual activity in: 4-6 weeks (after seen by physician ) Weight Bearing Status: Weight bearing as tolerated Lifting Restrictions: none Dressing / Incision Call your doctor if you observe: Fever of 101 or Higher, Using more than 1 pad per hour, Shortness of breath and Uncontrolled pain Follow Up Care Please Follow Up With: Navya Lloyd MD When: Call [phone] to schedule appointment. Test Results: Test results from this visit will be discussed in further detail at your follow- up appointment, if applicable. Discharge Plan Admission Attending Provider: Navya Lloyd Primary Care Provider: Abby Haas Instructions Print Language: Spanish Discharge Orders/Prescriptions Prescriptions: No Action One-A-Day 400 mcg- 25 mg tablet,chewable 1 tab PO DAILY Saccharomyces boulardii [Daily Probiotic (S. 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
--- NOTE | 2025-03-15 10:44 | PCM.POST.ANE ---
Anesthesia: Postop Eval I Current Vital Signs Temperature: 98.3 F Pulse Rate: 95 Blood Pressure: 140/72 Respiratory Rate: 18 Pulse Ox: 92 Oxygen Delivery Method: Room Air Assessment Airway patent: Yes Spontaneous unlabored respirations: Yes Mental status: Awake nausea: No Vomiting: No Anesthesia Complication: No Fluid Hydration Crystalloid volume administer (ml): 500 Total IV fluid infused: 500 Progress Note Anesthesia document: Postop Eval 1 completed: Yes
--- NOTE | 2025-03-15 12:00 | POSTOPAN2_ITS ---
Anesthesia Postop Eval I Sum Postop Eval Completion status Anesthesia document: Postop Eval 1 completed: Yes Anesthesia Postop Eval I Summary Anesthesia Postop Eval I Summary: Anesthesia Postop Eval I: Assessment Summary Airway patent Yes 03/15/25 10:45 HAND [email or web address] Spontaneous unlabored Yes 03/15/25 10:45 HAND [email or web address].ACAR respirations Mental status Awake 03/15/25 10:45 HAND [email or web address].ACAR nausea No 03/15/25 10:45 HAND [email or web address].ACAR Vomiting No 03/15/25 10:45 HAND [email or web address].ACAR Anesthesia Postop Eval I: Fluid Summary Crystalloid volume administer 500 03/15/25 10:45 HAND [email or web address].ACAR (ml) Colloids volume administered ( ml) Blood Product volume administered (ml) Total IV fluid infused 500 03/15/25 10:45 HAND [email or web address].ACAR Anesthesia Postop Eval I: Summary Notes Anesthesia Complication No 03/15/25 10:45 HAND [email or web address].ACAR Anesthesia Complication Comment: Post-operative progress note Anesthesia: Postop Eval II Evaluation Mental status: Awake and Calm Pain Level: 0 nausea: No Vomiting: No Complications Anesthesia Complication: No
--- NOTE | 2025-03-15 12:00 | PCM.POSTANE2 ---
Anesthesia Postop Eval I Sum Postop Eval Completion status Anesthesia document: Postop Eval 1 completed: Yes Anesthesia Postop Eval I Summary Anesthesia Postop Eval I Summary: Anesthesia Postop Eval I: Assessment Summary Airway patent Yes 03/15/25 10:45 DIRECTOR BUSINESS MANAGEMENT.[email or web address] Spontaneous unlabored Yes 03/15/25 10:45 DIRECTOR BUSINESS MANAGEMENT.ACAR respirations Mental status Awake 03/15/25 10:45 DIRECTOR BUSINESS MANAGEMENT.ACAR nausea No 03/15/25 10:45 DIRECTOR BUSINESS MANAGEMENT.ACAR Vomiting No 03/15/25 10:45 DIRECTOR BUSINESS MANAGEMENT.ACAR Anesthesia Postop Eval I: Fluid Summary Crystalloid volume administer 500 03/15/25 10:45 DIRECTOR BUSINESS MANAGEMENT.ACAR (ml) Colloids volume administered ( ml) Blood Product volume administered (ml) Total IV fluid infused 500 03/15/25 10:45 DIRECTOR BUSINESS MANAGEMENT.ACAR Anesthesia Postop Eval I: Summary Notes Anesthesia Complication No 03/15/25 10:45 DIRECTOR BUSINESS MANAGEMENT.ACAR Anesthesia Complication Comment: Post-operative progress note Anesthesia: Postop Eval II Evaluation Mental status: Awake and Calm Pain Level: 0 nausea: No Vomiting: No Complications Anesthesia Complication: No
== END 2025-03-15 11:21 | disposition home or self-care (01) ==
LOC: SDC 07:16 → AC 07:28
PROVIDERS: Anesthesiology; PCP Internal Medicine; Referring Provider Obstetrics & Gynecology; Visit Provider Obstetrics & Gynecology
PROC: (CPT 56700; principal; 2025-03-15 08:40)
DX: N94.10 Unspecified dyspareunia (principal)
CPT/HCPCS: 56700; 00940; 81025; J2405

== ENCOUNTER → 2025-05-30 | Outpatient (CLI) | payer SELFPAY ==
[2025-06-02 05:08] LABS: Chlamydia By Nucleic Acid AMP Negative (Negative); Gonococcus By Nucleic Acid AMP Negative (Negative)
== END | disposition home or self-care (01) ==
LOC: LABSPEC 15:57
PROVIDERS: PCP Internal Medicine; Referring Provider Obstetrics & Gynecology; Visit Provider Obstetrics & Gynecology
DX: O09.90 Supervision of high risk pregnancy, unspecified, unspecified trimester (principal); Z3A.00 Weeks of gestation of pregnancy not specified
CPT/HCPCS: 87086; 87088; 87491; 87591

== ENCOUNTER → 2025-06-11 | Outpatient (CLI) | payer SELFPAY ==
--- OUTSIDE RECORDS SUMMARY | 2025-06-11 11:39 | XMS RPT_ITS | CCD ---
Author Organization [facility] Care Team Providers Care Rehabilitation Tech Name Role Phone HERLORELEI, CHICA Unavailable Unavailable BURNSTINE, JUSTO Unavailable Unavailable STRONG, PEGGY H Unavailable Unavailable HERTLE, CHICA Unavailable Unavailable STRONG, PEGGY H Unavailable Unavailable AHMET MCGRAW Unavailable Unavailabl e HERTLE, CHICA Unavailable Unavailable HERTLE, CHICA Unavailable Unavailable STRONG, PEGGY H Unavailable Unavailable HERTLE, CHICA Unavailable Unavailable STRONG, PEGGY H Unavailable Unavailable STRONG, PEGGY H Unavailable Unavailable O'RAMIREZ, KAVON SURFACE LOGGING SYSTEMS LOGGER Admitting Unavailable O'RAMIREZ, KAVON SURFACE LOGGING SYSTEMS LOGGER Attending Unavailable O'RAMIREZ, KAVON SURFACE LOGGING SYSTEMS LOGGER Primary Care Unavailable Care Physician, No Primary Primary Care Provider Unavailable Patrick SURFACE LOGGING SYSTEMS LOGGER-CLigia Attending Provider [phone] [place] SURFACE LOGGING SYSTEMS LOGGER-CLigia Referring Provider [phone] Care Physician, No Primary Referring Provider Un available Dr. Navya Lloyd MD Attending Provider Dr. Navya Lloyd MD Referring Provider Dr. Navya Lloyd MD Other Provider [phone] Dr. Abby Haas MD Attending Provider Dr. Abby Haas MD Primary Care Provider [phone] Care Physician, No Primary Primary Care Provider Unavailable Dr. Navya Lloyd MD Attending Provider Dr. Navya Lloyd MD Referring Provider Care Physician, No Primary Referring Provider Un available Care Physician, No Primary Primary Care Provider Unavailable Care Physician, No Primary Referring Provider Un available Dr. Navya Lloyd MD Attending Provider Dr. Navya Lloyd MD Referring Provider Dr. Navya Lloyd MD Other Provider Samina ESTES, Dr. Mora Referring Provider Care Physician, No Primary Referring Provider Un available Samina ESTES, Dr. Mora Primary Care Provider [place], Abby Primary Care Unavailable Marcanthony, Navya Attending Unavailable Marcanthony, Navya Consulting Unavailable Marcanthony, Navya Referring Unavailable Patrick, Ligia Referring Unavailable [place], Ligia Attending Unavailable Care Physician, No Primary Primary Care Unava ilable Patrick, Ligia Referring Unavailable [place], Ligia Attending Unavailable Care Physician, No Primary Primary Care Unava ilable Marcanthony, Navya Referring Unavailable Care Physician, No Primary Primary Care Unava ilable Marcanthony, Navya Attending Unavailable Marcanthony, Navya Consulting Unavailable Marcanthony, Navya Referring Unavailable Marcanthony, Navya Attending Unavailable Marcanthony, Navya Consulting Unavailable Care Physician, No Primary Primary Care Unava ilable Care Physician, No Primary Referring Unava ilable [place], Abby Primary Care Unavailable Marcanthony, Navya Attending Unavailable Care Physician, No Primary Primary Care Unava ilable Cheyenne Son Referring Unavailable Cheyenne Son Attending Unavailable MarcanthNavya bañuelos Referring Unavailable Care Physician, No Primary Primary Care Unava ilable Marcanthony, Navya Attending Unavailable Care Physician, No Primary Primary Care Unava ilable Marcanthsarmad, Navya Attending Unavailable MarcanthonyNavya Referring Unavailable [place], Abby Primary Care Unavailable Marcanthony, Navya Referring Unavailable Marcanthony, Navya Attending Unavailable Care Physician, No Primary Referring Unava ilable Samina, Abby Primary Care Unavailable Marcanthony, Navya Attending Unavailable Marcanthony, Navya Referring Unavailable Samina, Abby Primary Care Unavailable Marcanthony, Navya Attending Unavailable Marcanthony, Navya Referring Unavailable Marcanthony, Navya Attending Unavailable Care Physician, No Primary Primary Care Unava ilable Samina, Abby Primary Care Unavailable Samina, Abby Attending Unavailable Samina, Abby Referring Unavailable [place], Abby Primary Care Unavailable Marcanthony, Navya Attending Unavailable [place], Abby Referring Unavailable [place], Abby Primary Care Unavailable Navya Lloyd Attending Unavailable Care Physician, No Primary Referring Unava ilable Care Physician, No Primary Primary Care Unava ilable Navya Lloyd Attending Unavailable Care Physician, No Primary Referring Unava ilable Navya Lloyd Attending Unavailable Care Physician, No Primary Primary Care Unava ilable Care Physician, No Primary Referring Unava ilable Abby Haas Attending Unavailable Care Physician, No Primary Primary Care Unava ilable Care Physician, No Primary Referring Unava ilable Ligia Nguyen Attending Unavailable Care Physician, No Primary Primary Care Unava ilable Medications Current Medications Medication Drug Class(es) Dates Sig (Normalized) Sig (Original) Cyanocobalamin-Liver Extract tablet (6 sources) Start: 07-21-2024 Cyanocobalamin-Live r Extract tablet Active 1 {tbl} PO DAILY July 21, 2024 12:00am COUNTRY PRINTER (6 sources) Start: 01-27-2025 COUNTRY PRINTER Active 2 NMA PO DAILY January 27, 2025 12:00am Start: 01-27-2025 COUNTRY PRINTER Active PO DAILY January 27, 2025 12:00am 2 capsules Magnesium (9 sources) Start: 05-27-2025 take 1 tablet by jaden th once daily as needed Magnesium 200 mg tablet Active 200 mg PO daily as needed May 27, 2025 1:09pm Start: 01-27-2025 End: 05-27-2025 take 1 tablet by mouth once daily Magnesium 200 mg tablet Discontinued 200 mg PO daily January 27, 2025 12:00am May 27, 2025 1:10pm Start: 01-27-2025 take 1 tablet by jaden th once daily Magnesium 200 mg tablet Active 200 mg PO daily January 27, 2025 12:00am meth cpg capsule (6 sources) Start: 01-27-2025 take 2 capsules by m outh once daily meth cpg capsule Active 2 NMA PO DAILY January 27, 2025 12:00am 2 capsules daily Start: 01-27-2025 take 2 capsules by m outh once daily meth cpg capsule Active PO January 27, 2025 12:00am 2 capsules daily Mv-Mins 33-Owfw-Gmgna No.1-Dha (Pnv-[place]burg) 28-1-300 mg capsule (3 sources) Start: 05-27-2025 Mv-Mins 71-Iro n-Folic No.1-Dha (Pnv-[place]) 28-1-300 mg capsule Active NMA PO May 27, 2025 12:00am saccharomyces boulardii 250 mg oral capsule (6 sources) Start: 07-21-2024 take 1 capsule by mouth twice daily Saccharomyces Boulardii (Daily Probiotic (S. Boulardii)) 250 mg capsule Active 250 mg PO TWICE A DAY July 21, 2024 12:00am Completed/Discontinued Medications Medication Drug Class(es) Dates Sig (Normalized) Sig (Original) acetaminophen 325 mg / oxyCODONE hydrochloride 5 mg oral tablet (6 sources) Opioid Agonist Start: 12-28-2024 End: 01-17-2025 Oxycodone-Acetamin ophen (Percocet) 5-325 mg tablet Discontinued 1 {tbl} PO Q4H as needed for pain 10 7 0 December 28, 2024 January 17, 2025 1:05pm Dysmenorrhea Dysmenorrhea, unspecified azithromycin 500 mg oral tablet (6 sources) Macrolide Antimicrobial Start: 07-28-2019 End: 06-02-2024 take 1 tablet by mouth once daily Azithromycin 500 MG tablet Discontinued 500 mg PO DAILY 4 0 July 28, 2019 12:00am June 02, 2024 3:26pm black cumin seed capsule (6 sources) Start: 01-27-2025 End: 05-27-2025 take 1 capsule by mouth once daily black cumin seed capsule Discontinued 2 NMA PO DAILY January 27, 2025 12:00am May 27, 2025 1:08pm 3 capsules Start: 01-27-2025 take 1 capsule by mo uth once daily black cumin seed capsule Active 2 NMA PO DAILY January 27, 2025 12:00am 3 capsules Start: 01-27-2025 take 1 capsule by mo uth once daily black cumin seed capsule Active PO DAILY January 27, 2025 12:00am 3 capsules escitalopram 5 mg oral tablet (4 sources) Serotonin Reuptake Inhibitor Start: 02-09-2025 End: 03-01-2025 take 1 tablet by mouth once daily Escitalopram Oxalate (Lexapro) 5 mg tablet Discontinued 5 mg PO daily 30 1 February 09, 2025 12:00am March 01, 2025 8:31am Inositol-D Chiro Inositol (Ovasitol) 2,000-50 mg powder in packet (4 sources) Start: 03-01-2025 End: 05-27-2025 Inositol-D Chiro Inositol (Ovasitol) 2,000-50 mg powder in packet Discontinued 1 NMA PO DAILY March 01, 2025 12:00am May 27, 2025 1:09pm Start: 03-01-2025 Inositol-D Chi ro Inositol (Ovasitol) 2,000-50 mg powder in packet Active 1 NMA PO DAILY March 01, 2025 12:00am letrozole 2.5 mg oral tablet (6 sources) Aromatase Inhibitor Start: 10-01-2024 End: 01-27-2025 take 3 tablets by mouth once daily Letrozole 2.5 mg tablet Discontinued 2.5 mg PO DAILY 03 11October 01, 2024 1:00am January 27, 2025 9:59am start on day 3 of cycle and take for 5 days LORazepam 0.5 mg oral tablet (6 sources) Benzodiazepine Start: 10-11-2024 End: 11-19-2024 take 1 tablet by mouth once daily as needed Lorazepam (Ativan) 0.5 mg tablet Discontinued 0.5 mg PO daily as needed for take 30 min prior to appointment October 11, 2024 1:00am November 19, 2024 4:19pm medroxyPROGESTERone acetate 10 mg oral tablet (6 sources) Progestin Start: 09-13-2024 End: 11-19-2024 Medroxyprogesterone 10 mg tablet Discontinued 10 mg PO daily September 13, 2024 1:00am November 19, 2024 4:19pm Take daily X 10 days to induce menses. Repeat every 3 months if no spontaneous menses naproxen 500 mg oral tablet (6 sources) Nonsteroidal Anti-inflammatory Drug Start: 12-28-2024 End: 01-17-2025 take 1 tablet by mouth twice daily as needed for pain Naproxen 500 mg tablet Discontinued 500 mg PO TWICE DAILY NEEDED as needed for Pain 30 December 28, 2024 1:00am January 17, 2025 1:05pm No.167-Folic Acid-Dha (One-A-Day ) 400 mcg- 25 mg tablet,chewable (6 sources) Start: 07-21-2024 End: 05-27-2025 No.167-Folic Acid-Dha (One-A-Day ) 400 mcg- 25 mg tablet,chewable Discontinued 1 {tbl} PO DAILY July 21, 2024 12:00am May 27, 2025 1:09pm Start: 07-21-2024 No.16 7-Folic Acid-Dha (One-A-Day ) 400 mcg- 25 mg tablet,chewable Active 1 {tbl} PO DAILY July 21, 2024 12:00am Problems Active Problems Problem Classification Problem Date Documented Date Episodic/Chronic Administrative/social admission (4 sources) First encounter by subject; Translations: [Persons encountering health services in other specified circumstances] 01-27-2025 Episodic Anxiety disorders (10 sources) Mild anxiety; Translations: [Anxiety disorder, unspecified] Onset: 05-30-2025 01-27-2025 Chronic Comment on above: mild, non-medicated Female infertility (2 sources) Female infertility, unspecified; Translations: [Female infertility associated with anovulation] Onset: 11-18-2024 Chronic Hemorrhage during ; abruptio placenta; placenta previa (5 sources) Subchorionic hematoma; Translations: [Other hemorrhage in early ] Onset: 05-30-2025 05-30-2025 Episodic Menstrual disorders (20 sources) Irregular menstruation, unspecified; Translations: [Irregular periods] Onset: 03-26-2024 06-02-2024 Chronic Comment on above: plan diagnostic lapa roscopy chromotubation Other complications of (5 sources) Maternal obesity complicating , childbirth and the puerperium, antepartum; Translations: [Obesity complicating , unspecified trimester] 05-27-2025 Chronic Comment on above: HgbA1c Other complications of (1 source) Obesity complicating , unspecified trimester; Translations: [Obesity complicating , unspecified trimester] Onset: 05-30-2025 Chronic Other complications of (5 sources) High risk ; Translations: [Supervision of high risk , unspecified, unspecified trimester] 05-30-2025 Episodic Comment on above: , [place] 01/05/26, H magali Tamez Other complications of (1 source) Supervision of high risk , unspecified, unspecified trimester; Translations: [Supervision of high risk , unspecified, unspecified trimester] Onset: 06-05-2025 Episodic Other endocrine disorders (14 sources) Polycystic ovary syndrome; Translations: [Polycystic ovarian syndrome] 11-19-2024 Chronic Comment on above: hga1c ordered Other endocrine disorders (2 sources) Polycystic ovarian syndrome; Translations: [Polycystic ovarian syndrome] Onset: 01-11-2025 Chronic Other female genital disorders (20 sources) Dyspareunia; Translations: [Dyspareunia] 01-17-2025 Chronic Comment on above: discussed hymenectom y if PFPT and dilators unsuccessful now after some dilation done at time of laparoscopy Other female genital disorders (1 source) Unspecified dyspareunia; Translations: [Unspecified dyspareunia] Onset: 03-23-2025 Chronic Other and delivery including normal (5 sources) ; Translations: [Encounter for supervision of normal , unspecified, unspecified trimester] 05-30-2025 Episodic Comment on above: elects NIPT with gen gino Pneumonia (except that caused by tuberculosis or sexually transmitted disease) (6 sources) Community acquired pneumonia; Translations: [Pneumonia, unspecified organism] 07-29-2019 Episodic Residual codes; unclassified (11 sources) Infertile 11-19-2024 Episodic Comment on above: Normal OAR and spous e's SA. couldn't tolerate HSG Residual codes; unclassified (6 sources) History of eye AND/OR adnexa surgery; Translations: [Other specified postprocedural states] 11-19-2024 Episodic Comment on above: NASTAGMIS Residual codes; unclassified (4 sources) Medication refused; Translations: [Immunization not carried out because of patient refusal] 01-27-2025 Episodic Residual codes; unclassified (6 sources) Family history of lupus erythematosus 01-27-2025 Episodic Comment on above: Pt Father Residual codes; unclassified (5 sources) Varicella status; Translations: [Other specified health status] 05-30-2025 Episodic Comment on above: labs ordered, thinks she may have been vaccinated Residual codes; unclassified (1 source) Other specified health status; Translations: [Other specified health status] Onset: 05-30-2025 Episodic Residual codes; unclassified (1 source) 9 weeks gestation of ; Translations: [9 weeks gestation of ] Onset: 05-30-2025 Episodic Thyroid disorders (4 sources) Goiter; Translations: [Nontoxic goiter, unspecified] 01-27-2025 Chronic Past or Other Problems Problem Classification Problem Date Documented Da te Episodic/Chronic Other screening for suspected conditions (not mental disorders or infectious disease) (11 sources) Thyroid function tests abnormal; Translations: [Other specified abnormal findings of blood chemistry] Onset: 02-03-2025 11-26-2024 Episodic Results Test Name Value Interpretation Reference Range Facility Chlamydia/GC JESUS aptimaon CHLAMY,NUC ACID Negative Normal Negative [facility] Comment on above: Performed By: #### M 100.2200, L7000.1800 ####[facility] [address] [place], [place], [id number] GC BY NUC ACID Negative Normal Negative [facility] Comment on above: Result Comment: Perf ormed at: =G - [facility] [address] [id number] Er Medical Technician: Amaya Tompkins MD, Phone: [phone] Performed By: #### Dontae 100.2200, L7000.1800 ####[facility] [address] [place], [address] Urine Cultureon 06-02-2025 [facility] Mixed Gram Positive Organisms Franklin Count 11,000-25,000 MIXC Mixed contaminants. Submit a new specimen if indicated. Normal [facility] Comment on above: Performed By: #### Dontae 100.2200, L7000.1800 ####[facility] [address] [place], [address] Chlamydia trachomatis rRNA d etection by probe and target amplification methodOrdered By: Navya Lloyd on 05-30-2025 C. trachomatis rRNA JESUS+probe Ql (Unsp spec) Negative Negative [facility] Neisseria gonorrhoeae nuclei c acid detection by amplified probe techniqueOrdered By: Navya Lloyd on 05-30-2025 N. gonorrhoeae DNA JESUS+probe Ql (Unsp spec) Negative Negative [facility] Comment on above: Performed at: =G - [facility] [address] [place] [id number] Director: Amaya Tompkins MD, Phone: [phone] Supervisor Inspecting Office Visit Reporton 05-30-2025 Supervisor Inspecting Office Visit Report [facility] [place] [address], [address] [place] [address] OFFICE VISIT Date of Service: 05/30/25 MR#: [id number] Acct: [id number] Name: LEATHA JESSICA Rep #: [id number] : 2000 Provider: Dr. Navya hyde MD Age/Sex: 24/F Location: [facility] Status: Signed Intake Vital Signs 04/26/25 13:10 05/27/25 14:14 05/30/25 13:06 Height 5 ft 7 in 5 ft 7 in 5 ft 7 in Weight: 250 lb BMI 39.1 BP 133/85 H Intake Visit Reasons: *EST* NOB LMP 03/25, [place] 12/30 Planimeter Operator Required: No Is patient in pain?: No Allergies No Known Allergies Allergy (Verified 05/30/25 13:09) Medications ???Medication ???Instructions ???Recorded ???Confirmed ???Type Saccharomyces boulardii 250 mg 250 mg PO BID 07/21/24 05/30/25 Hi story capsule (Daily Probiotic (S. boulardii)) cyanocobalamin-liver extract tablet 1 tab PO DAILY 07/21/24 5 History COUNTRY PRINTER 2 cap PO DAILY 01/27/25 05/30/25 H istory meth cpg 2 cap PO DAILY 01/27/25 05/30/25 H istory magnesium 200 mg tablet 200 mg PO QDAY PRN 05/27/25 History multivit-min no.71-iron fum 28 cap PO 05/27/25 05/30/25 History mg-folate no.1 1 mg-dha 300 mg capsule (PNV-[place]burg) Last Menstrual Period: 03/25/25 Zika: Zika virus screening: Negative : No PFSH PFSH Medical History Irregular periods/menstrual cycles Vertigo Wears contact lenses Non-smoker Surgical History History of hymenectomy H/O laparoscopy ( 12/2024) H/O eye surgery Family History Father Hemolytic anemia Lupus Social History adopted: No household members: spouse housing: house number of children: 0 current occupational status: employed 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[employer], 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 current occupational exposures/hazards: No pets and animals: Yes pets and animals: dog(s) leisure activities: fishing history of recent travel: Yes ([place], [place], [place]- [place]) out of state: Yes out of country: No sexually active: Yes Smoking Status: Never smoker second hand exposure: No alcohol intake: current alcohol intake frequency: holidays/special occasions only details: Not while substance use type: does not use well-balanced diet: about half the time caffeine: Yes (occasionally) Type: carbonated beverages Number of servings: 1 eating out: 1-3 times/week during the past year weight has: remained stable what type of physical activity do you participate in: none rashmi/quaker: Presybeterian seatbelt use: always do you feel safe at home: Yes additional social history: - [employer] History 1 Elective abortions Hx Para 0 Spontaneous abortions Hx # Term Pregnancies Ectopic pregnancies Hx # Pregnancies Multiple births # of living children HPI *EST* NOB LMP 03/25, [place] 12/30 Details: LEATHA JESSICA is a 24 year old who presents for New OB visit. OB Visit [place] Calculator Estimated Delivery Date Method Current WG Current Estimate 01/05/26 Ultrasound #1 8w 4d Other Estimates 12/30/25 LMP (Certain) 9w 3d Estimated Due Date: 12/30/25 Expected Delivery Route/Plan Labor Preferences- CB/BF classes: [] labor support person: [] labor intervention preferences: [] pain management options preferred: [] cut cord/dad catch: [] : [] PP control planned: [] discussed possible routes of delivery and associated risks: [] special requests: [] Specific Issue/Plans Covid status: [] Flu vaccine: [] Tdap vaccine: [] Rhogam: [] LARC form signed: [] Problem list reviewed and updated with the most current plan of care details and appropriate orders placed. Relevant counseling for the gestational age provided. Continue routine care and follow up unless otherwise noted in visit notes/problem list details Initial Weight: Not Recorded Date -???-???-???-???-???-??? -???-???-???-???-???-??? - EGA Weight BP Urine Prot -???-???-???-???-???-??? -???-???-???-???-???-??? - Glucose FHR FuHt Pres Dilation -???-???-???-???-???-??? -???-???-???-???-???-??? - Effaced St Visit Note 05/30/25 -???-???-???-???-???-??? -???-???-???-???-???-??? - 8w 4d 250 lb 133/85 -???-???-???-???-???-??? -???-???-???-???-???-??? - 175 -???-???-???-???-???-??? -???-???-???-???-???-??? - SM- CRL 2.05 cm NOT cons with lmp but consistent with day 19 LH and day 20 intercourse Menstrual History Last Menstrual Period: 03/25/25 Reported LMP: definite Normal amount/duration: Yes Frequency in days: 30-32 since December On hormonal BC at conception: No hCG+: 04/25/25 Antepartum Record Genetic (more content not included)... Normal [facility] Urine cultureOrdered By: Nadir Lloyd on 05-30-2025 Bacteria identified Cx Nom (U) Positive Abnormal [facility] Office Visit Reporton 2024 Office Visit Report [facility] [address] [place] [address] OFFICE VISIT Date of Service: 05/27/25 MR#: [id number] Acct: [id number] Patient: LEATHA JESSICA Rep #: [id number] : 2000 Provider: Dr. Navya hyde MD Age/Sex: 24/F Location: [facility] Status: Signed Intake Vital Signs 04/26/25 13:10 05/27/25 14:14 Height 5 ft 7 in 5 ft 7 in Weight: 250 lb 6 oz BMI 39.2 BP 118/68 Blood Pressure Location Lt brachial Position Sitting Intake Visit Reasons: PRE NEW OB, COMFIRM PREG, VITALS 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 EST CARE- WC PT/CONSENT ONLY Planimeter Operator Required: No Is patient in pain?: No Allergies No Known Allergies Allergy (Verified 05/30/25 13:09) Medications ???Medication ???Instructions ???Recorded ???Confirmed ???Type Saccharomyces boulardii 250 mg 250 mg PO BID 07/21/24 05/30/25 Hi story capsule (Daily Probiotic (S. boulardii)) cyanocobalamin-liver extract tablet 1 tab PO DAILY 07/21/24 5 History COUNTRY PRINTER 2 cap PO DAILY 01/27/25 05/30/25 H istory meth cpg 2 cap PO DAILY 01/27/25 05/30/25 H istory magnesium 200 mg tablet 200 mg PO QDAY PRN 05/27/25 History multivit-min no.71-iron fum 28 cap PO 05/27/25 05/30/25 History mg-folate no.1 1 mg-dha 300 mg capsule (PNV-Freeburg) Is last menstrual period known: Yes Last menstrual period: 03/25/25 Post menopausal: No Patient : Yes Nurse's Note: Pt here for secondary amenorrhea. Vitals WNL. PNOB questions completed. Problem list, allergies, and medications updated. First trimester ACOG education completed. Assessment and Plan Assessment and Plan (1) Unknown varicella vaccination status: Status: Acute Comment: labs ordered, thinks she may have been vaccinated (2) Supervision of high-risk : Status: Acute Comment: , [place] 01/05/26, Dashawn (3) : Status: Acute Qualifiers: Weeks of gestation: 9 weeks Qualified Code(s): Z3A.09 - 9 weeks gestation of Comment: elects NIPT with gender (4) Obesity affecting : Status: Acute Comment: HgbA1c (5) Anxiety: Status: Acute Comment: mild, non-medicated (6) Polycystic ovarian syndrome: Status: Acute Comment: hga1c ordered Orders: Orders CBC W/Diff, Automated 05/27/25 O09.90 - Supervision of high risk , unspecified, unspecified trimester Type Screen 05/27/25 O09.90 - Supervision of high risk , unspecified, unspecified trimester Rubella IgG 05/27/25 O09.90 - Supervision of high risk , unspecified, unspecified trimester Hepatitis C Antibody 05/27/25 O09.90 - Supervision of high risk , unspecified, unspecified trimester Hepatitis B Surface Antigen 05/27/25 O09.90 - Supervision of high risk , unspecified, unspecified trimester Culture, Urine 05/30/25 O09.90 - Supervision of high risk , unspecified, unspecified trimester Syphilis Antibodies 05/27/25 O09.90 - Supervision of high risk , unspecified, unspecified trimester Chlamydia/GC JESUS aptima 05/30/25 O09.90 - Supervision of high risk , unspecified, unspecified trimester HIV 05/27/25 O09.90 - Supervision of high risk , unspecified, unspecified trimester Hemoglobin A1c 05/27/25 O09.90 - Supervision of high risk , unspecified, unspecified trimester, O99.210 - Obesity complicating , unspecified trimester EWELINA 05/27/25 O09.90 - Supervision of high risk , unspecified, unspecified trimester 05/31/25 1359 Date Navya Cordero Signature: Date (if applicable) CC: Normal [facility] Supervisor Inspecting Office Visit Reporton 04-07-2025 Supervisor Inspecting Office Visit Report [facility] [place] [address], [address] [place] [address] OFFICE VISIT Date of Service: 04/07/25 MR#: [id number] Acct: [id number] Name: LEATHA JESSICA Rep #: [id number] : 2000 Provider: Dr. Navya hyde MD Age/Sex: 24/F Location: [facility] Status: Signed Intake Vital Signs 01/17/25 13:07 03/15/25 07:38 04/07/25 10:59 04/07/25 11:03 Height 5 ft 7 in 5 ft 7 in 5 ft 7 in 5 ft 7 in Weight: 251 lb 2 oz BMI 39.3 BP 147/78 H Intake Visit Reasons: 2 wk Hymenectomy Planimeter Operator Required: No Is patient in pain?: No Allergies No Known Allergies Allergy (Verified 04/07/25 10:59) Medications ???Medication ???Instructions ???Recorded ???Confirmed ???Type Saccharomyces boulardii 250 mg 250 mg PO BID 07/21/24 04/07/25 Hi story capsule (Daily Probiotic (S. boulardii)) cyanocobalamin-liver extract tablet 1 tab PO DAILY 07/21/24 5 History vitamin no.167-folic acid 1 tab PO DAILY 07/21/24 04/07/25 History 400 mcg-dha 25 mg chewable tablet (One-A-Day ) COUNTRY PRINTER 2 cap PO DAILY 01/27/25 04/07/25 H istory black cumin seed 2 cap PO DAILY 01/27/25 04/07/25 H istory magnesium 200 mg tablet 200 mg PO QDAY 01/27/25 04/07/25 H istory meth cpg 2 cap PO DAILY 01/27/25 04/07/25 H istory inositol 2,000 mg-D chiro inositol 1 ea PO DAILY 03/01/25 04/07/25 History 50 mg oral powder packet (Ovasitol) Post menopausal: No Patient : No : No PFSH Medical History Vertigo Wears contact lenses Non-smoker Surgical History H/O laparoscopy ( 12/2024) H/O eye surgery Family History Father Hemolytic anemia Lupus Social History adopted: No household members: spouse number of children: 0 current occupational status: employed 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[employer] current occupational exposures/hazards: No pets and animals: Yes leisure activities: fishing history of recent travel: No sexually active: Yes Smoking Status: Never smoker second hand exposure: No alcohol intake: current alcohol intake frequency: holidays/special occasions only substance use type: does not use well-balanced diet: about half the time caffeine: Yes eating out: 1-3 times/week during the past year weight has: increased > 10 lbs what type of physical activity do you participate in: none frequency: 1-2 times per week duration: other rashmi/quaker: Presybeterian seatbelt use: always do you feel safe at home: Yes additional social history: - Dashawn HPI 2 wk Hymenectomy Details: LEATHA JESSICA is a 24 year old who presents for postop visit doing well felt like it was an easy recovery no significant bleeding or crmaping stitches didn't bother her. History 0 Elective abortions Hx Para Spontaneous abortions Hx # Term Pregnancies Ectopic pregnancies Hx # Pregnancies Multiple births # of living children ROS Const Constitutional: Reports system reviewed and no additional complaints, except as documented : Reports system reviewed and no additional complaints, except as documented Exam Const General: cooperative, healthy appearing, comfortable and no acute distress Other: well healed normal introitus with good capacity Coding Level of Care Code No Charge Diagnoses Dyspareunia Assessment and Plan Assessment and Plan (1) Dyspareunia: Status: Acute Comment: discussed hymenectomy if PFPT and dilators unsuccessful now after some dilation done at time of laparoscopy Plan if persistent dysparuenia recommend PFPT referral 04/07/25 1126 Date Navya Lloyd MD Cosigner Signature: Date (if applicable) CC: Normal [facility] Discharge Instructionon Discharge Instruction [facility] Medical Records Department [address] [place] [address] Instructions for Home/Discharge Instructions 03/15/25 1033 MR#: [id number] Acct: [id number] Name: LEATHA JESSICA Rep #: [id number] : 2000 From: Navya Lloyd MD PCP: Dr. Abby Haas MD Status:REG [facility] [place] Discharge Instructions Diet Discharge Diet: No restrictions DC O2, CPAP, BIPAP needs Home O2 Discharge instructions: No Dressing / Incision Discharge Activity: Return to Normal Activity, May Shower and May Take a Tub Bath (after 1 week) May resume sexual activity in: 4-6 weeks (after seen by physician ) Weight Bearing Status: Weight bearing as tolerated Lifting Restrictions: none Dressing / Incision Call your doctor if you observe: Fever of 101 or Higher, Using more than 1 pad per hour, Shortness of breath and Uncontrolled pain Follow Up Care Please Follow Up With: Navya Lloyd MD When: Call [phone] to schedule appointment. Test Results: Test results from this visit will be discussed in further detail at your follow-up appointment, if applicable. Discharge Plan Admission Attending Provider: Navya Lloyd Primary Care Provider: Abby Haas Instructions Print Language: Swedish Discharge Orders/Prescriptions Prescriptions: No Action One-A-Day 400 mcg- 25 mg tablet,chewable 1 tab PO DAILY Saccharomyces boulardii [Daily Probiotic (S. boulardii)] 250 mg capsule 250 mg PO BID cyanocobalamin-liver extract Tablet 1 tab PO DAILY magnesium 200 mg tablet 200 mg PO QDAY COUNTRY PRINTER 2 cap PO DAILY black cumin seed capsule 2 cap PO DAILY Rx Instructions: 3 capsules meth cpg capsule 2 cap PO DAILY Patient Comments: cardiovascular health Rx Instructions: 2 capsules daily Ovasitol 2,000-50 mg powder in packet 1 ea PO DAILY Referrals / Follow Up: Abby Haas MD [Primary Care Provider] - Disposition Disposition (needs filled in before D/C Order can be placed): Home, Self Care 03/15/25 103 Navya Lloyd MD CC: Dr. Abby Haas MD Signed [facility] MR/POSTOP.ANE 03-15-2025 MR/POSTOP.[facility] Medical Records Department [address] [place] [address] Anesthesia Postop Eval I 03/15/251043 MR#: [id number] Acct: [id number] Name: LEATHA JESSICA Rep #: [id number] : 2000 24 From: Demarco Swartz CRNA PCP: Dr. Abby Haas MD Status:REG [facility] [place] Y Race: C Location: [place] [address] Anesthesia: Postop Eval I Current Vital Signs Temperature: 98.3 F Pulse Rate: 95 Blood Pressure: 140/72 Respiratory Rate: 18 Pulse Ox: 92 Oxygen Delivery Method: Room Air Assessment Airway patent: Yes Spontaneous unlabored respirations: Yes Mental status: Awake nausea: No Vomiting: No Anesthesia Complication: No Fluid Hydration Crystalloid volume administer (ml): 500 Total IV fluid infused: 500 Progress Note Anesthesia document: Postop Eval 1 completed: Yes 03/15/251044 Date Demarco Swartz LACROSSE COACH Cosigner Signature: Date CC: Signed [facility] MR/JCNBOBYE3or 03-15-2025 MR/POSTOPAN2 [facility] Medical Records Department [address] [place] [address] Anesthesia Postop Eval II 03/15/25 1200 MR#: [id number] Acct: [id number] Name: LEATHA JESSICA RANJAN Rep #: [id number] : 2000 24 From: Rika Toussaint PCP: Dr. Abby Haas MD Status:DEP [facility] [place] Y Race: C Location: [facility] [place] Anesthesia Postop Eval I Sum Postop Eval Completion status Anesthesia document: Postop Eval 1 completed: Yes Anesthesia Postop Eval I Summary Anesthesia Postop Eval I Summary: Anesthesia Postop Eval I: Assessment Summary Airway patent Yes 03/15/25 10:45 LACROSSE [email or web address].ACAR Spontaneous unlabored Yes 03/15/25 10:45 LACROSSE COACH.ACAR respirations Mental status Awake 03/15/25 10:45 LACROSSE COACH.ACAR nausea No 03/15/25 10:45 LACROSSE COACH.ACAR Vomiting No 03/15/25 10:45 LACROSSE COACH.ACAR Anesthesia Postop Eval I: Fluid Summary Crystalloid volume administer 500 03/15/25 10:45 LACROSSE COACH.ACAR (ml) Colloids volume administered ( ml) Blood Product volume administered (ml) Total IV fluid infused 500 03/15/25 10:45 LACROSSE COACH.ACAR Anesthesia Postop Eval I: Summary Notes Anesthesia Complication No 03/15/25 10:45 LACROSSE COACH.ACAR Anesthesia Complication Comment: Post-operative progress note Anesthesia: Postop Eval II Evaluation Mental status: Awake and Calm Pain Level: 0 nausea: No Vomiting: No Complications Anesthesia Complication: No 03/15/25 1201 Date Rika Cordero Signature: Date CC: Signed Normal [facility] Operative Reporton 5 Operative Report [facility] Medical Records Department [address] [place] [address] Operative Report 03/15/25 1030 MR#: [id number] Acct: [id number] Name: LEATHA JESSICA Rep #: [id number] : 2000 24 From: Navya Lloyd MD PCP: Dr. Abby Haas MD Status:[facility] Location: [place] [address] Problems Associated Problem List Diagnoses (1) Dyspareunia: Procedures Urinary/Genital 52xxx-59xxx: 47954 PARTIAL HYMENECTOMY OR REVISION Operative Report (Standard) Operative Information Date of Procedure: 03/15/25 Pre-Operative Diagnosis: Dyspareunia intact hymen Post-Operative Diagnosis: Same Surgery/Procedure Performed: Hymenectomy air hoist operator: No Type of Anesthesia: Local and MAC RN Documented Start/Stop Times: Operation Date: 03/15/25 08:50 Case Time Into Pre-Op 03/15/25 07:22 Out of Pre-Op 03/15/25 09:52 Anesthesia Start 03/15/25 09:55 Into Room 03/15/25 09:55 Procedure Start 03/15/25 10:15 Procedure Start Time: 10:15 Procedure Stop Time: 10:30 Select all DRAINS/GRAFTS/IMPLANTS that apply: None Estimated Blood Loss: 75 Specimen collected: No Description of surgery: Patient was prepped and draped in the normal sterile fashion in the dorsolithotomy position. The perineal body and vaginal navarro were injected with quarter percent Marcaine. Area was inspected and the posterior and lateral aspects of the hymenal ring were excised and interrupted sutures of 3-0 Vicryl Rapide were used to close and obtain hemostasis. 2 fingers were inserted easily without complication at the end of the procedure. Surgical Findings: Intact hymen Complications Complications: No 03/15/25 1033 Cosigner Signature (if applicable): CC: Dr. Abby Haas MD; Dr. Navya Lloyd MD Signed Normal [facility] ,Urineon 03-15-2025 Beta HCG ( test) Ql (U) Negative Normal [facility] Comment on above: Result Comment: Very dilute urine specimens, as indicated by a low specific gravity, may not contain inside sales account representative levels of hCG. If is still suspected, a first morning urine specimen should be collected 48 hours later and tested. Performed By: #### L 400.7600 ####[facility] [address] [place], [place], [id number] Urine testOrdered By: Nathanael Krishnamurthy on 03-15-2025 HCG ( test) Ql (U) Negative [facility] Comment on above: Very dilute urine sp ecimens, as indicated by a low specificgravity, may not contain inside sales account representative levels of hCG. If is still suspected, a first morning urinespecimen should be collected 48 hours later and tested. Supervisor Inspecting Office Visit Reporton 03-11-2025 Supervisor Inspecting Office Visit Report [facility] [address] [place] [address], [address] [place] [address] OFFICE VISIT Date of Service: 03/11/25 MR#: [id number] Acct: [id number] Name: LEATHA JESSICA Rep #: [id number] : 2000 Provider: Dr. Navya hyde MD Age/Sex: 24/F Location: [facility] [place] Status: Signed Intake Vital Signs 01/17/25 13:07 01/27/25 10:01 03/11/25 15:43 Height 5 ft 7 in 5 ft 7 in 5 ft 7 in Weight: 250 lb 253 lb BMI 39.1 39.6 BP 130/82 H 135/82 H Blood Pressure Location Lt brachial Position Sitting Respiration 18 Pulse 94 Pulse Source Monitor Temp 97.6 F L Pulse Oximetry (%) 97 Oxygen Delivery Method room air Intake Visit Reasons: 6 wk FU/preop Hymenectomy Planimeter Operator Required: No Is patient in pain?: No Allergies No Known Allergies Allergy (Verified 03/11/25 15:46) Medications ???Medication ???Instructions ???Recorded ???Confirmed ???Type Saccharomyces boulardii 250 mg 250 mg PO BID 07/21/24 03/01/25 Hi story capsule (Daily Probiotic (S. boulardii)) cyanocobalamin-liver extract tablet 1 tab PO DAILY 07/21/24 5 History vitamin no.167-folic acid 1 tab PO DAILY 07/21/24 03/01/25 History 400 mcg-dha 25 mg chewable tablet (One-A-Day ) COUNTRY PRINTER 2 cap PO DAILY 01/27/25 03/01/25 H istory black cumin seed 2 cap PO DAILY 01/27/25 03/01/25 H istory magnesium 200 mg tablet 200 mg PO QDAY 01/27/25 03/01/25 H istory meth cpg 2 cap PO DAILY 01/27/25 03/01/25 H istory inositol 2,000 mg-D chiro inositol 1 ea PO DAILY 03/01/25 03/01/25 History 50 mg oral powder packet (Ovasitol) Is last menstrual period known: Yes Last Menstrual Period: 02/16/25 Post menopausal: No Patient : No : No PFSH Medical History Vertigo Wears contact lenses Non-smoker Surgical History H/O laparoscopy ( 12/2024) H/O eye surgery Family History Father Hemolytic anemia Lupus Social History adopted: No household members: spouse number of children: 0 current occupational status: employed 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[employer] current occupational exposures/hazards: No pets and animals: Yes leisure activities: fishing history of recent travel: No sexually active: Yes Smoking Status: Never smoker second hand exposure: No alcohol intake: current alcohol intake frequency: holidays/special occasions only substance use type: does not use well-balanced diet: about half the time caffeine: Yes eating out: 1-3 times/week during the past year weight has: increased > 10 lbs what type of physical activity do you participate in: none frequency: 1-2 times per week duration: other rashmi/quaker: Presybeterian seatbelt use: always do you feel safe at home: Yes additional social history: - Dashawn HPI 6 wk FU/preop Hymenectomy Details: LEAHTA JESSICA is a 24 year old who presents for preop prior to hymenetcomy for dyspareunia. Female Reproductive History Last Menstrual Period: 02/16/25 Menopausal Symptoms: No night sweats History 0 Elective abortions Hx Para Spontaneous abortions Hx # Term Pregnancies Ectopic pregnancies Hx # Pregnancies Multiple births # of living children ROS Const Constitutional: Denies fatigue, night sweats, weight gain or weight loss ENT ENT: Reports system reviewed and no additional complaints, except as documented Cardio Card: Denies chest pain Resp Resp: Denies cough or dyspnea GI GI: Reports as per HPI; Denies abdominal pain, constipation, nausea or vomiting : Denies nipple discharge, urinary frequency, urinary incontinence, urinary hesitancy, urinary urgency, vaginal discharge, vaginal dryness, vaginal odor or vaginal pruritus Musc Musc: Denies arthralgias, back pain or muscle weakness Skin Skin/Breast: Denies alopecia, change in hair, dry skin, breast mass, breast pain, breast skin changes or nipple discharge Neuro Neuro: Reports system reviewed and no additional complaints, except as documented Psych Psych: Reports system reviewed and no additional complaints, except as documented Endo Endo: Denies cold intolerance, excessive sweating, heat intolerance or polydipsia Law/Lymph Hematologic/Lymphatic: Denies easy bleeding, Denies easy bruising and Denies lymphadenopathy Exam Const General: cooperative, healthy appearing, comfortable and no acute distress Orientation: alert HENMT Head: normal to inspection and normocephalic Ears: hearing grossly normal bilaterally and external ears normal Nose: external nose normal and nares normal Face and sinus: normal facia (more content not included)... Normal [facility] MR/PAT.ANEon 03-01-2025 MR/PAT.[facility] Medical Records Department [address] [place] [address] PAT - Anesthesia 03/01/25 0838 MR#: [id number] Acct: [id number] Name: LEATHA JESSICA Rep #: [id number] : 2000 24 From: Nathanael Krishnamurthy MD PCP: Dr. Abby Haas MD Status:PRE [facility] [place] Y Race: C Location: [facility] Pre-Assessment Diagnosis/Proposed Procedure Planned Operative Procedure(s): HYMENECTOMY Anesthesia History Anesthesia History - scalper operator: Anesthesia History - scalper operator Hx Hospitalization No 03/01/25 08:34 Any Problems With Anesthesia No 03/01/25 08:34 Cholinesterase deficiency No 03/01/25 08:34 You/Your Family Experience No 03/01/25 08:34 fever (hyperthermia) with Relationship Recent Exposure to Contagious No 12/28/24 08:20 Disease Does patient have nerve No 03/01/25 08:34 stimulator Patient instructed to have device shut off --Does patient have Pacemaker or ICD? When Was Last Pacemaker Check QUESTION #4 FULL TEXT: You/Your Family Experience fever (hyperthermia) with Anesthesia Last Oral Intake Last Oral intake: Last Oral Intake NPO since Meds taken in AM with sips of water? Meds patient instructed to take am of surgery PONV PONV - scalper operator: PONV - scalper operator Female Yes 03/01/25 08:34 HX of Motion Sickness No 03/01/25 08:34 HX of N/V After Surgery No 03/01/25 08:34 Non-Smoker Yes 03/01/25 08:34 Duration of Surgery greater No 03/01/25 08:34 than 60 minutes Number of Risk Factors 2 03/01/25 08:34 PONV Score Moderate Risk 03/01/25 08:34 Height Weight Height Weight: Anesthesia: Height Weight Height 5 ft 7 in 01/17/25 13:07 Respiratory Assessment Respiratory Assessment - scalper operator: Respiratory Tract Infection Hx - scalper operator Hx Respiratory Tract Infection No 03/01/25 08:34 STOP Sleep Apnea STOP Sleep Apnea - scalper operator: STOP Sleep Apnea - scalper operator Hx Hypertension No 03/01/25 08:34 Hx Sleep Apnea No 03/01/25 08:34 CPAP BIPAP Do you snore loudly (louder No 03/01/25 08:34 than talking or can be heard Do you often feel tired/ No 03/01/25 08:34 fatigued/ sleepy during daytime? Has anyone observed you stop No 03/01/25 08:34 breathing during sleep? STOP Results Negative 03/01/25 08:34 QUESTION #5 FULL TEXT : Do you snore loudly (louder than talking or can be heard through closed doors)? Tobacco Use History Tobacco Use History - scalper operator: Tobacco Use History - scalper operator Tobacco Use Smoking Status Never smoker 03/01/25 08:34 Hx Tobacco Use No 03/01/25 08:34 Years Smoking Packs Smoked per Day Smoking Cessation Date was within the last 15 years Hx Smoking Cessation Date Hx Smoking Cessation Counseling Hematologic Medial History Hematologic Hx - scalper operator: Hematologic Medical Hx - patient transition specialist Hx of Blood Transfusion No 03/01/25 08:34 Hx of Transfusion in last 3 No 03/01/25 08:34 Months Date of Last Transfusion (if within last 3 months) Ever experience any problems No 04/22/25 08:34 with transfusion(s)? Specify any problems Hx of Preganancy in last 3 No 03/01/25 08:34 Months Nurse Filling Out Transfusion NBUCHER 03/01/25 08:34 Questions: Date: 03/01/25 03/01/25 08:34 Time: 08:35 03/01/25 08:34 Patient unable to answer at this time (ie. confused, unrespo /Reproduction History /Reproductive History - scalper operator: /Reproductive Hx- scalper operator Hx Now No 03/01/25 08:34 Gestational Age (in weeks): EDC: Hx Hx Para Hx Section SAB No 03/01/25 08:34 PFSH Medical History Vertigo Wears contact lenses Non-smoker Home Medications ???Medication ???Instructions ???Recorded ???Last Taken ???Type Saccharomyces boulardii 250 mg 250 mg PO BID 07/21/24 Unknown His tory capsule (Daily Probiotic (S. boulardii)) cyanocobalamin-liver extract tablet 1 tab PO DAILY 07/21/24 Unknown History vitamin no.167-folic acid 1 tab PO DAILY 07/21/24 Unknown History 400 mcg-dha 25 mg chewable tablet (One-A-Day ) COUNTRY PRINTER 2 cap PO DAILY 01/27/25 Unknown Hi story black cumin seed 2 cap PO DAILY 01/27/25 Unknown Hi story magnesium 200 mg tablet 200 mg PO QDAY 01/27/25 Unknown Hi story meth cpg 2 cap PO DAILY 01/27/25 Unknown Hi story inositol 2,000 mg-D chiro inositol 1 ea PO DAILY 03/01/25 Unknown H istory 50 mg oral powder packet (Ovasitol) Allergy/AdvReac Type Severity Reaction Status Date / Time No Known Allergies Allergy Verified 03/01/25 08:30 (more content not included)... Normal [facility] NAS Comprehensive Panelon ANTI-DNA (DS)AB <1 Normal 0-9 [facility] Comment on above: Result Comment: Nega tive <5 Equivocal 5 - 9 Positive >9 Performed By: #### L 3100.7950, L3410.9998, L500.4050, L3100.5440 ####[facility] [address] [place], [place], [id number] ANTISCLERODERM <0.2 Normal 0.0-0.9 [facility] Comment on above: Performed By: #### L 3100.7950, L3410.9998, L500.4050, L3100.5440 ####[facility] [address] [place], [place], [phone] Antinuclear Antibody, IFAon 01-31-2025 NAS, IFA Positive Abnormal . [facility] Comment on above: Result Comment: Nega tive <1:80 Borderline 1:80 Positive >1:80 Performed By: #### L 3100.7950, L3410.9998, L500.4050, L3100.5440 ####[facility] [address] [place], [place], [id number] NAS-NOTE Comment Normal . [facility] Comment on above: Result Comment: Inez dunlap Potential Disease Association Homogeneous Systemic Lupus Erythematosus, Drug Induced Systemic Lupus Erythematosus, Chronic Autoimmune hepatitis, Juvenile Idiopathic Arthritis Speckled Sjogren Syndrome, Systemic Lupus Erythematosus, Subacute Cutaneous Lupus, Lupus, Congenital Heart Block, Mixed Connective Tissue Disease, Scleroderma-diffuse, Scleroderma-Autoimmune Myositis Overlap Syndrome, Systemic Lupus Uchjecwsgczif-Neflrdyczub-Fhuuacccll Myositis Overlap Syndrome, Systemic Autoimmune Rheumatic Disease, Undifferentiated Connective Tissue Disease Nucleolar Systemic Sclerosis, Scleroderma-Autoimmune Myositis Overlap Syndrome, Sjogren Syndrome, Raynaud phenomenon, Pulmonary Arterial Hypertension, Systemic Autoimmune Rheumatic Disease, Cancer Centromere Scleroderma-CREST, Limited Cutaneous SSc, Raynaud's Phenomenon, Primary Biliary Cholangitis Nuclear Dot Primary Biliary Cholangitis Nuclear Primary Biliary Cholangitis, Autoimmune Membrane Hepatitis/Liver disease, Systemic Autoimmune Rheumatic Disease, Autoimmune Cytopenias, Linear Scleroderma, Antiphospholipid Syndrome Performed at: [address] [id number] Er Medical Technician: Thony Patel PhD, Phone: [phone] Performed By: #### L 3100.7950, L3410.9998, L500.4050, L3100.5440 ####[facility] [address], [address] CENTRIOLE TNP Normal . [facility] Comment on above: Performed By: #### L 3100.7950, L3410.9998, L500.4050, L3100.5440 ####[facility] [address] [place], [address] CENTROMERE PAT. TNP Normal . [facility] Comment on above: Performed By: #### L 3100.7950, L3410.9998, L500.4050, L3100.5440 ####[facility] [address] [place], [address] HOMOGENEOUS PAT 1:640 Abnormal . [facility] Comment on above: Result Comment: ICAP nomenclature: AC-1 Performed By: #### L 3100.7950, L3410.9998, L500.4050, L3100.5440 ####[facility] [address] [place], [address] MIDBODY TNP Normal . [facility] Comment on above: Performed By: #### L 3100.7950, L3410.9998, L500.4050, L3100.5440 ####[facility] [address] [place], [address] NUCLEAR DOT TNP Normal . [facility] Comment on above: Performed By: #### L 3100.7950, L3410.9998, L500.4050, L3100.5440 ####[facility] [address] [place], [address] NUCLEAR MEMBRAN TNP Normal . [facility] Comment on above: Performed By: #### L 3100.7950, L3410.9998, L500.4050, L3100.5440 ####[facility] [address] [place], [address] NUCLEOLAR PAT. TNP Normal . [facility] Comment on above: Performed By: #### L 3100.7950, L3410.9998, L500.4050, L3100.5440 ####[facility] [address] [place], [address] PNCA TNP Normal . [facility] Comment on above: Performed By: #### L 3100.7950, L3410.9998, L500.4050, L3100.5440 ####[facility] [address] [place], [address] SPECKLED PAT. TNP Normal . [facility] Comment on above: Performed By: #### L 3100.7950, L3410.9998, L500.4050, L3100.5440 ####[facility] [address] [place], [address] SPINDLE APPARAT TNP Normal . [facility] Comment on above: Performed By: #### L 3100.7950, L3410.9998, L500.4050, L3100.5440 ####[facility] [address] [place], [address] L3410.9998on 01-28-2025 [facility] Mis. COMMENT Normal . [facility] Comment on above: Order Comment: [id number] 5Thyroid Profile Result Comment: Test Ordered: [id number] Thyroid Panel Thyroxine (T4) 13.8 [H ] ug/dL CB Reference Range: 4.5-12.0 T3 Uptake 27 % CB Reference Range: 24-39 Free Thyroxine Index 3.7 CB Reference Range: 1.2-4.9 Performed at: - [facility] [address] [id number] Er Medical Technician: Thony Patel PhD, Phone: [phone] Performed By: #### L 3100.7950, L3410.9998, L500.4050, L3100.5440 ####[facility] [address] [place], [address] Anion gap in Serum or Plasma Ordered By: Abby Haas on 01-27-2025 Anion gap [Moles/Vol] 14 mmol/L -15 [facility] Antinuclear antibody (NAS) a ssayOrdered By: Abby Haas on 01-27-2025 Anti-Nuclear Antibody Screen Positive High . [facility] Comment on above: Negative <1:80 Borde rline 1:80 Positive >1:80 BUN/creatinine ratioOrdered By: Abby Haas on 01-27-2025 Urea nitrogen/Creatinine [Mass ratio] 16.6 mg/mg 10-20 [facility] Bilirubin, totalOrdered By: Abby Haas on 01-27-2025 Bilirubin [Mass/Vol] 0.38 mg/dL 0.00-1.30 [facility] Carbon dioxide, total [Moles /volume] in Central venous bloodOrdered By: Abby Haas on 01-27-2025 CO2 [Moles/Vol] 22.7 mmol/L 21.0-32.0 [facility] Centromere B antibody assayO rdered By: Abby Haas on 01-27-2025 Centromere B Antibody [facility] Comment on above: Test not performed Centromere B Antibody <0.2 AI 0.0-0.9 [facility] Comment on above: Previous reported re sult: TNP AIEdited by: STEVE on 01/31/25:1008 AMENDED REPORT 01/31/25 1008 ANTI-CENT B previously reported as: Test not performed Centromere pattern antinucle ar antibody (NAS) detectionOrdered By: Abby Haas on 01-27-2025 Centrosomal nuclear Ab pattern IF Ql (S) [facility] Comment on above: Test not performed Centrosomal nuclear Ab patte rn IF Ql (S)Ordered By: Abby Haas on 01-27-2025 Anti-Nuclear Ab Centromere Pattern [facility] Comment on above: Test not performed Chloride assayOrdered By: Raghav Haas on 01-27-2025 Chloride [Moles/Vol] 104 mmol/L 98-108 [facility] Chromatin antibody assayOrde red By: Abby Haas on 01-27-2025 Antichromatin Antibodies [facility] Comment on above: Test not performed Antichromatin Antibodies 0.3 AI 0.0-0.9 [facility] Comment on above: Previous reported re sult: TNP AIEdited by: STEVE on 01/31/25:1008 AMENDED REPORT 01/31/25 1008 ANTICHROMATIN previously reported as: Test not performed Comprehensive Metabolic Prof ilon 01-27-2025 Albumin [Mass/Vol] 4.4 g/dL Normal 3.5-5.0 [facility] Comment on above: Order Comment: with free T4 index Performed By: #### L 3100.7950, L3410.9998, L500.4050, L3100.5440 ####[facility] [address] [place], [address] Albumin/Globulin [Mass ratio] 1.3 {ratio} Normal 0.9-2.4 [facility] Comment on above: Order Comment: with free T4 index Performed By: #### L 3100.7950, L3410.9998, L500.4050, L3100.5440 ####[facility] [address] [place], [address] ALK PHOS 72 U/L Normal 35-104 [facility] Comment on above: Order Comment: with free T4 index Performed By: #### L 3100.7950, L3410.9998, L500.4050, L3100.5440 ####[facility] [address] [place], [address] ALT [Catalytic activity/Vol] 7 U/L Normal <=34 [facility] Comment on above: Order Comment: with free T4 index Performed By: #### L 3100.7950, L3410.9998, L500.4050, L3100.5440 ####[facility] [address] [place], [address] AST [Catalytic activity/Vol] 20 U/L Normal <=31 [facility] Comment on above: Order Comment: with free T4 index Performed By: #### L 3100.7950, L3410.9998, L500.4050, L3100.5440 ####[facility] [address] [place], [address] Bilirubin [Mass/Vol] 0.38 mg/dL Normal 0.00-1.30 [facility] Comment on above: Order Comment: with free T4 index Performed By: #### L 3100.7950, L3410.9998, L500.4050, L3100.5440 ####[facility] [address] [place], [address] BUN/CRE 16.6 RATIO Normal 10-20 [facility] Comment on above: Order Comment: with free T4 index Performed By: #### L 3100.7950, L3410.9998, L500.4050, L3100.5440 ####[facility] [address] [place], [address] Calcium [Mass/Vol] 9.9 mg/dL Normal 7.6-11.0 [facility] Comment on above: Order Comment: with free T4 index Performed By: #### L 3100.7950, L3410.9998, L500.4050, L3100.5440 ####[facility] [address] [place], [address] Chloride [Moles/Vol] 104 mmol/L Normal 98-108 [facility] Comment on above: Order Comment: with free T4 index Performed By: #### L 3100.7950, L3410.9998, L500.4050, L3100.5440 ####[facility] [address] [place], [address] CO2 [Moles/Vol] 22.7 mmol/L Normal 21.0-32.0 [facility] Comment on above: Order Comment: with free T4 index Performed By: #### L 3100.7950, L3410.9998, L500.4050, L3100.5440 ####[facility] [address] [place], [address] Creatinine [Mass/Vol] 0.69 mg/dL Low 0.70-1.20 [facility] Comment on above: Order Comment: with free T4 index Performed By: #### L 3100.7950, L3410.9998, L500.4050, L3100.5440 ####[facility] [address] [place], [address] GAP 14 Normal 5-15 [facility] Comment on above: Order Comment: with free T4 index Performed By: #### L 3100.7950, L3410.9998, L500.4050, L3100.5440 ####[facility] [address] [place], [address] GFR/1.73 sq M.predicted among non-blacks MDRD (S/P/Bld) [Vol rate/Area] 126 mL/min/{1.73_m2} Normal >60 [facility] Comment on above: Order Comment: with free T4 index Result Comment: mL/m in/1.73m2 CKD-EPI Creatinine Equation (2020) Performed By: #### L 3100.7950, L3410.9998, L500.4050, L3100.5440 ####[facility] [address] [place], [address] Globulin (S) [Mass/Vol] 3.5 g/dL Normal 2.2-4.2 [facility] Comment on above: Order Comment: with free T4 index Performed By: #### L 3100.7950, L3410.9998, L500.4050, L3100.5440 ####[facility] [address] [place], [address] Glucose [Mass/Vol] 84 mg/dL Normal 70-99 [facility] Comment on above: Order Comment: with free T4 index Performed By: #### L 3100.7950, L3410.9998, L500.4050, L3100.5440 ####[facility] [address] [place], [address] Potassium [Moles/Vol] 3.8 mmol/L Normal 3.3-5.1 [facility] Comment on above: Order Comment: with free T4 index Performed By: #### L 3100.7950, L3410.9998, L500.4050, L3100.5440 ####[facility] [address] [place], [address] Sodium [Moles/Vol] 140 mmol/L Normal 133-145 [facility] Comment on above: Order Comment: with free T4 index Performed By: #### L 3100.7950, L3410.9998, L500.4050, L3100.5440 ####[facility] [address] [place], [address] T PROT 8.0 g/dL Normal 5.9-8.4 [facility] Comment on above: Order Comment: with free T4 index Performed By: #### L 3100.7950, L3410.9998, L500.4050, L3100.5440 ####[facility] [address] [place], [address] Urea nitrogen [Mass/Vol] 12 mg/dL Normal 4-19 [facility] Comment on above: Order Comment: with free T4 index Performed By: #### L 3100.7950, L3410.9998, L500.4050, L3100.5440 ####[facility] [address] [place], [address] DNA double strand Ab Qn (S)O rdered By: Abby Haas on 01-27-2025 Anti-Double Strand DNA Antibody <1 IU/mL 0-9 [facility] Comment on above: Negative <5 Equivoca l 5 - 9 Positive >9 GFR/1.73 sq M.predicted nithya g non-blacks MDRD (S/P/Bld) [Vol rate/Area]Ordered By: Abby Haas on 01-27-2025 Estimated GFR (MDRD) Non-Af Amer 126 >60 [facility] Comment on above: mL/min/1.73m2 CKD-EP I Creatinine Equation (2020) Glomerular filtration rate ( GFR) estimation/1.73 sq m using serum, plasma, or whole bOrdered By: Abby Haas on 01-27-2025 GFR/1.73 sq M.predicted among non-blacks MDRD (S/P/Bld) [Vol rate/Area] 126 mL/min/{1.73_m2} >60 [facility] Comment on above: mL/min/1.73m2 CKD-EP I Creatinine Equation (2020) Nerissa-1 antibody assayOrdered B y: Abby Haas on 01-27-2025 NERISSA-1 Antibody [facility] Comment on above: Test not performed NERISSA-1 Antibody <0.2 AI 0.0-0.9 [facility] Comment on above: Previous reported re sult: TNP AIEdited by: STEVE on 01/31/25:1008 AMENDED REPORT 01/31/25 1008 ANTI-NERISSA previously reported as: Test not performed Laboratory - Chemistry and C hemistry - challengeOrdered By: Abby Haas on 01-27-2025 AST [Catalytic activity/Vol] 20 U/L <32 [facility] Midbody Ab IF (S) [Titer]Ord ered By: Abby Haas on 01-27-2025 Anti-Nuclear Ab Midbody Pattern [facility] Comment on above: Test not performed Mitotic spindle apparatus Ab [Titer]Ordered By: Abby Haas on 01-27-2025 NAS Spindle Apparatus Pattern [facility] Comment on above: Test not performed Multiple nuclear dots nuclea r IgG pattern IF (S) [Titer]Ordered By: Abby Haas on 01-27-2025 Anti-Nuclear Ab Nuclear Dot Pattern [facility] Comment on above: Test not performed No Panel InformationOrdered By: Abby Haas on 01-27-2025 Anti-Nuclear Antibody Comment 2 Comment . [facility] Comment on above: Pattern Potential Di sease Association Homogeneous Systemic Lupus Erythematosus, Drug Induced Systemic Lupus Erythematosus, Chronic Autoimmune hepatitis, Juvenile Idiopathic Arthritis Speckled Sjogren Syndrome, Systemic Lupus Erythematosus, Subacute Cutaneous Lupus, Lupus, Congenital Heart Block, Mixed Connective Tissue Disease, Scleroderma-diffuse, Scleroderma-Autoimmune Myositis Overlap Syndrome, Systemic Lupus Myxgmcarbafun-Qdcnzjvcmqj-Tlduuheabu Myositis Overlap Syndrome, Systemic Autoimmune Rheumatic Disease, Undifferentiated Connective Tissue Disease Nucleolar Systemic Sclerosis, Scleroderma-Autoimmune Myositis Overlap Syndrome, Sjogren Syndrome, Raynaud phenomenon, Pulmonary Arterial Hypertension, Systemic Autoimmune Rheumatic Disease, Cancer Centromere Scleroderma-CREST, Limited Cutaneous SSc, Raynaud's Phenomenon, Primary Biliary Cholangitis Nuclear Dot Primary Biliary Cholangitis Nuclear Primary Biliary Cholangitis, AutoimmuneMembrane Hepatitis/Liver disease, Systemic Autoimmune Rheumatic Disease, Autoimmune Cytopenias, Linear Scleroderma, Antiphospholipid Syndrome Performed at: [address] [id number] Director: Thony Patel PhD, Phone: [phone] Nuclear membrane pores nucle ar Ab pattern IF Ql (S)Ordered By: Abby Haas on 01-27-2025 NAS Nuclear Membrane Pattern [facility] Comment on above: Test not performed Nucleolar nuclear Ab pattern (S) [Titer]Ordered By: Abby Haas on 01-27-2025 Anti-Nuclear Ab Nucleolar Pattern [facility] Comment on above: Test not performed PCNA extractable nuclear Ab IF (S) [Titer]Ordered By: Abby Haas on 01-27-2025 Anti-Nuclear Ab PCNA Pattern [facility] Comment on above: Test not performed Potassium (Unsp spec) [Mass/ Vol]Ordered By: Abby Haas on 01-27-2025 Potassium [Moles/Vol] 3.8 mmol/L 3.3-5.1 [facility] Potassium measurement (mass/ volume)Ordered By: Abby Haas on 01-27-2025 Potassium (Unsp spec) [Mass/Vol] 3.8 mmol/L 3.3-5.1 [facility] MANAGER INPATIENT abOrdered By: Abby dorman on 01-27-2025 MANAGER INPATIENT Antibody [facility] Comment on above: Test not performed MANAGER INPATIENT Antibody 0.3 AI 0.0-0.9 [facility] Comment on above: Previous reported re sult: TNP AIEdited by: STEVE on 01/31/25:1008 AMENDED REPORT 01/31/25 1008 MANAGER INPATIENT Ab previously reported as: Test not performed Rim nuclear Ab pattern (S) [ Titer]Ordered By: Abby Haas on 01-27-2025 Anti-Nuclear Ab Homogeneous Pattern 1:640 High . [facility] Comment on above: ICAP nomenclature: A C-1 SCL-70 extractable nuclear A b Qn (S)Ordered By: Abby Haas on 01-27-2025 Scl-70 (Scleroderma) Antibody <0.2 AI 0.0-0.9 [facility] SS-A IgG antibody assayOrder ed By: Abby Haas on 01-27-2025 SS-A/Ro IgG Antibody TNP [facility] Comment on above: Test not performed SS-A/Ro IgG Antibody < 0.2 AI 0.0-0.9 [facility] Comment on above: Previous reported re sult: TNP AIEdited by: STEVE on 01/31/25:1008 AMENDED REPORT 01/31/25 1008 Anti-SS-A previously reported as: Test not performed SS-B IgG antibody assayOrder ed By: Abby Haas on 01-27-2025 SS-B/La IgG Antibody [facility] Comment on above: Test not performed SS-B/La IgG Antibody < 0.2 AI 0.0-0.9 [facility] Comment on above: Previous reported re sult: TNP AIEdited by: STEVE on 01/31/25:1008 AMENDED REPORT 01/31/25 1008 Anti-SS-B previously reported as: Test not performed Serum DNA double strand anti body assay (units/volume)Ordered By: Abby Haas on 01-27-2025 DNA double strand Ab Qn (S) [IU]/mL 0-9 [facility] Comment on above: Negative <5 Equivoca l 5 - 9 Positive >9 Serum Scl-70 antibody assay (units/volume)Ordered By: Abby Haas on 01-27-2025 SCL-70 extractable nuclear Ab Qn (S) <0.2 AI 0.0-0.9 [facility] Serum antinuclear antibody ( NAS) detection with nuclear membrane pores pattern by immOrdered By: Abby Haas on 01-27-2025 Nuclear membrane pores nuclear Ab pattern IF Ql (S) [facility] Comment on above: Test not performed Serum centriole antibody tit er by immunofluorescenceOrdered By: Abby Haas on 01-27-2025 Anti-Nuclear Ab Centriole Pattern [facility] Comment on above: Test not performed Serum creatinine measurement (mass/volume)Ordered By: Abby Haas on 01-27-2025 Creatinine [Mass/Vol] 0.69 mg/dL Low 0.70-1.20 [facility] Serum globulin measurementOr dered By: Abby Haas on 01-27-2025 Globulin (S) [Mass/Vol] 3.5 g/dL 2.2-4.2 [facility] Serum glucose measurement (m ass/volume)Ordered By: Abby Haas on 01-27-2025 Glucose [Mass/Vol] 84 mg/dL 70-99 [facility] Serum midbody antibody titer by immunofluorescenceOrdered By: Abby Haas on 01-27-2025 Midbody Ab IF (S) [Titer] [facility] Comment on above: Test not performed Serum multiple nuclear dot p attern antinuclear IgG antibody (NAS) titer by immunofluoOrdered By: Abby Haas on 01-27-2025 Multiple nuclear dots nuclear IgG pattern IF (S) [Titer] [facility] Comment on above: Test not performed Serum nucleolar nuclear anti body pattern titerOrdered By: Abby Haas on 01-27-2025 Nucleolar nuclear Ab pattern (S) [Titer] [facility] Comment on above: Test not performed Serum or plasma alanine gtz otransferase (ALT) measurementOrdered By: Abby Haas on 01-27-2025 ALT [Catalytic activity/Vol] 7 U/L <35 [facility] Serum or plasma albumin mary urement (mass/volume)Ordered By: Abby Haas on 01-27-2025 Albumin [Mass/Vol] 4.4 g/dL 3.5-5.0 [facility] Serum or plasma albumin/glob ulin mass ratioOrdered By: Abby aHas on 01-27-2025 Albumin/Globulin [Mass ratio] 1.3 {ratio} 0.9-2.4 [facility] Serum or plasma alkaline jeny sphatase measurementOrdered By: Abby Haas on 01-27-2025 ALP [Catalytic activity/Vol] 72 U/L 35-104 [facility] Serum or plasma calcium mary urement (mass/volume)Ordered By: Abby Haas on 01-27-2025 Calcium [Mass/Vol] 9.9 mg/dL 7.6-11.0 [facility] Serum or plasma mitotic spin dle apparatus antibody titerOrdered By: Abby Haas on 01-27-2025 Mitotic spindle apparatus Ab [Titer] [facility] Comment on above: Test not performed Serum or plasma urea nitroge n measurement (mass/volume)Ordered By: Abby Haas on 01-27-2025 Urea nitrogen [Mass/Vol] 12 mg/dL - [facility] Serum proliferating cell nuc lear antigen (PCNA) antibody titer by immunofluorescenceOrdered By: Abby aHas on 01-27-2025 PCNA extractable nuclear Ab IF (S) [Titer] [facility] Comment on above: Test not performed Serum smooth nuclear envelop e pattern antinuclear antibody (NAS) titerOrdered By: Abby Haas on 01-27-2025 Rim nuclear Ab pattern (S) [Titer] 1:640 High . [facility] Comment on above: ICAP nomenclature: A C-1 Serum speckled pattern antin uclear antibody (NAS) titerOrdered By: Abby Haas on 01-27-2025 Speckled nuclear Ab pattern (S) [Titer] [facility] Comment on above: Test not performed Titus antibody assayOrdered By: Abby Haas on 01-27-2025 SM Antibody [facility] Comment on above: Test not performed SM Antibody <0.2 AI 0.0-0.9 [facility] Comment on above: Previous reported re sult: TNP AIEdited by: STEVE on 01/31/25:1008 AMENDED REPORT 01/31/25 1008 TITUS Ab previously reported as: Test not performed Sodium levelOrdered By: Jaime Haas on 01-27-2025 Sodium [Moles/Vol] 140 mmol/L 133-145 [facility] Speckled nuclear Ab pattern (S) [Titer]Ordered By: Abby Haas on 01-27-2025 Anti-Nuclear Ab Atyp Speckled Inez [facility] Comment on above: Test not performed Total proteinOrdered By: Joe Haas on 01-27-2025 Protein [Mass/Vol] 8.0 g/dL 5.9-8.4 [facility] Internal Medicine Office Vis saloni 01-26-2025 Internal Medicine Office Visit [facility] [address] [place] [address] [place] [address] OFFICE VISIT Date of Service: 01/27/25 MR#: [id number] Acct: [id number] Name: LEATHA JESSICA Rep #: [id number] : 2000 Provider: Dr. 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 boulardii)) cyanocobalamin-liver extract tablet 1 tab PO DAILY 07/21/24 5 History vitamin no.167-folic acid 1 tab PO DAILY 07/21/24 01/27/25 History 400 mcg-dha 25 mg chewable tablet (One-A-Day ) COUNTRY [employer]INTER PO DAILY 01/27/25 History black cumin seed PO DAILY 01/27/25 History magnesium 200 mg tablet 200 mg PO QDAY 01/27/25 01/27/25 H istory meth cpg PO 01/27/25 History PFSH Medical History Vertigo Wears contact lenses Non-smoker Surgical History (Updated 01/27/25 @ 10:[address] Abby Haas MD) H/O laparoscopy H/O eye surgery Family History (Updated 01/27/25 @ 10:[address] 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 current occupational exposures/hazards: No pets and animals: Yes leisure activities: fishing history of recent travel: No sexually active: Yes Smoking Status: Never smoker second hand exposure: No alcohol intake: current alcohol intake frequency: holidays/special occasions only substance use type: does not use well-balanced diet: about half the time caffeine: Yes eating out: 1-3 times/week during the past year weight has: increased > 10 lbs what type of physical activity do you participate in: none frequency: 1-2 times per week duration: other rashmi/quaker: Presybeterian seatbelt use: always do you feel safe at home: Yes additional social history: - Dashawn HPI HPI 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 EST CARE- PT/CONSENT ONLY Details: LEATHA JESSICA, is a 24 F who presents to the office today to establish care. She hasn't had a PCP before. She is not due for any routine blood work. She is up to date on her pap smear and follows with OBGYN. She doesn't want any immunizations. She doesn't smoke and doesn't take any prescription medications. She reports she is eating healthy and staying active. The patient had been having some problems with infertility, irregular menstrual periods as well as weight difficulties for which her OBGYN did thyroid labs. Her TSH was normal, however, her free T4 was elevated on two different draws and she recommended she see a PCP for further assessment. The patient later underwent a thyroid US which showed mild thyromegaly without other findings. She has no other questions or concerns at this time. ROS Const Constitutional: Positive for fatigue; No body ache, chills, excessive sweating, fever(s), frequent falls, headache(s), snoring, weakness, weight change, sleep problems, abnormal sleep pattern or change in appetite Eyes Eyes: No blurry vision, change in vision, eye pain or Light sensitivity ENT ENT: No abnormal hearing, ear or mastoid pain, tinnitus, nasal congestion, headache(s), difficulty swallowing, neck pain or sore throat Resp Respiratory: No cough, shortness of breath, snoring or wheezing Cardio Cardiology: Positive for palpitations (with anxiety); No chest pain at rest, chest pain with exertion, excessive sweating, shortness of breath, dyspnea on exertion, lightheadedness, orthopnea or other (no leg swelling) Gastro GI: No abdominal pain, change in bowel habits, constipation, cramping, diarrhea, difficulty swallowing, nausea/dyspepsia or vomiting Genitourinary-Female: Positive for other (irregular menstrual periods); No difficulty urinating, burning urination, painful urination, urinary incontinence, urinary frequency, abnormal vaginal bleeding or pelvic pain Musc Musculoskeletal: No abnormal gait, joint pain, back pain, limited range of motion, neck pain, numbness or tingling Skin (more content not included)... Normal [facility] Thyroidon 01-21-2025 Thyroid [facility] [address] [place] [address] [id number] Thyroid MR#: [id number] Acct: [id number] Name: LEATHA JESSICA Rep #: [id number] : 2000 F 24 From: Berry lucas MD PCP: Care Physician,No Primary Status: [facility] Study: Thyroid Date of Exam: 01/21/25 Exam# [id number] Ordering Dr: Navya Lloyd PROCEDURE: THYROID REASON FOR EXAM: ABNORMAL THYROID BLOOD TEST TECHNIQUE: Thyroid ultrasound COMPARISON: None. FINDINGS: Right thyroid lobe measures 5.4 cm x 1.6 cm x 1.7 cm. Left thyroid lobe measures 4 cm x 1.5 cm x 1.2 cm. Isthmus thickness is3.6 mm. Thyroid Size: Mild enlargement of the right lobe of the thyroid. Background Echotexture: Normal Thyroid Nodules: None US/Thyroid IMPRESSION: Mild enlargement of the right lobe of the thyroid gland. No sonographic abnormality is seen. Reading Location: [place] [address] CC: Dr. Navya Lloyd MD; No Primary Care Physician Associate Curator: Signed Normal [facility] Supervisor Inspecting Office Visit Reporton 01-17-2025 Supervisor Inspecting Office Visit Report [facility] [address], [address] [place] [address] OFFICE VISIT Date of Service: 01/17/25 MR#: [id number] Acct: [id number] Name: LEATHA JESSICA Rep #: [id number] : 2000 Provider: Dr. 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 admits to unable to have penetrative sex, has bene using at home insemination kits. History 0 Elective abortions Hx Para Spontaneous abortions Hx # Term Pregnancies Ectopic pregnancies Hx # Pregnancies Multiple births # of living children ROS Const Constitutional: Reports system reviewed and no additional complaints, except as documented GI GI: Denies abdominal pain, cramping, nausea or vomiting : Denies pelvic pain, urinary frequency, urinary incontinence, urinary urgency, vaginal discharge, vaginal dryness or vaginal odor Exam Const General: cooperative, healthy appearing, comfortable and no acute distress GI Inspection: normal to inspection Palpation: soft and nontender Other: Incisions: C/D/I Coding Level of Care Code No Charge Diagnoses Dyspareunia Assessment and Plan Assessment and Plan (1) Dyspareunia: Status: Acute Comment: discussed hymenectomy if PFPT and dilators unsuccessful now after some dilation done at time of laparoscopy Orders: Orders Thyroid Today R79.89 - Other specified abnormal findings of blood chemistry Plan Problem list updated and treatment plans were reviewed with the patient and relevant educational handouts given. See problem list details for specific plan information. thyroid us ordered. hold off on femara for now 01/17/25 6889 Date Navya Cordero Signature: Date (if applicable) CC: Normal [facility] Discharge Instructionon 12-11 Discharge Instruction [facility] Medical Records Department [address] [place] [address] Instructions for Home/Discharge Instructions 12/28/24 1200 MR#: [id number] Acct: [id number] Name: LEATHA JESSICA Rep #: [id number] : 2000 24 From: Navya Lloyd MD PCP: Care Physician,No Primary Status:REG SDC Discharge Instructions Diet Discharge Diet: No restrictions DC O2, CPAP, BIPAP needs Home O2 Discharge instructions: No Dressing / Incision Discharge Activity: Return to Normal Activity, May Not Drive ( while taking narcotic pain meds, when pain free), May Shower and May Take a Tub Bath (in 7 days) May resume sexual activity in: 1 week Weight Bearing Status: Full weight bearing Dressing / Incision Call your doctor if your incision/area has: Continuous Slow Oozing, Sudden Increased Bleeding, Increased Pain/ Swelling, Increased Redness and Foul Smelling Discharge Call your doctor if you observe: Fever of 101 or Higher, Using more than 1 pad per hour, Shortness of breath, Chest pain and Uncontrolled pain Suture Line Care: Avoid Pulling/Pushing and Avoid Pinching/Bending Remove Dressing in: 1 week (if present) Cleanse incision/area with: Soap Water and Keep Dressing Clean Dry Follow Up Care When: Call to make an appointment with your doctor for a fu/incision check in 1-2 weeks. Test Results: Test results from this visit will be discussed in further detail at your follow-up appointment, if applicable. Discharge Plan Admission Attending Provider: Navya Lloyd Primary Care Provider: Care Physician,No Primary Instructions Print Language: Swedish Discharge Orders/Prescriptions Prescriptions: New oxycodone-acetaminophen [Percocet] 5-325 mg tablet 1 tab PO Q4H PRN (Reason: pain) 7 Days Qty: 10 0RF naproxen 500 mg tablet 500 mg PO BID PRN PRN (Reason: Pain) Qty: 30 1RF No Action One-A-Day 400 mcg- 25 mg tablet,chewable 1 tab PO DAILY Saccharomyces boulardii [Daily Probiotic (S. boulardii)] 250 mg capsule 250 mg PO BID cyanocobalamin-liver extract Tablet 1 tab PO DAILY letrozole 2.5 mg tablet 2.5 mg PO DAILY Qty: 5 2RF Patient Comments: STARTING AFTER SURGERY Rx Instructions: start on day 3 of cycle and take for 5 days Referrals / Follow Up: Care Physician,No Primary [Primary Care Provider] - Disposition Disposition (needs filled in before D/C Order can be placed): Home, Self Care 12/28/24 1204 Navya Lloyd MD CC: No Primary Care Physician Signed [facility] MR/POSTOP.ANE 12-28-2024 MR/POSTOP.[facility] Medical Records Department [address] [place] [address] Anesthesia Postop Eval I 12/28/24 102 MR#: [id number] Acct: [id number] Name: LEATHA JESSICA Rep #: [id number] : 2000 24 From: Rika Toussaint PCP: Care Physician,No Primary Status:REG SDC Y Race: C Location: [place] [address] Anesthesia: Postop Eval I Current Vital Signs Temperature: 97.6 F Pulse Rate: 98 Blood Pressure: 107/74 Respiratory Rate: 16 Pulse Ox: 95 Oxygen Delivery Method: Room Air Assessment Airway patent: Yes Spontaneous unlabored respirations: Yes Mental status: Awake and Calm nausea: No Vomiting: No Anesthesia Complication: No Fluid Hydration Crystalloid volume administer (ml): 800 Total IV fluid infused: 800 Progress Note Anesthesia document: Postop Eval 1 completed: Yes 12/28/24 1029 Date Rika Cordero Signature: Date CC: Signed [facility] MR/[id number] 12-28-2024 [facility] Records Department [address] [facility] [place] [address] Anesthesia Postop Eval II 12/28/24 1818 MR#: [id number] Acct: [id number] Name: JASKARANLEATHA Rep #: [id number] : 2000 24 From: Nathanael Krishnamurthy MD PCP: Care Physician,No Primary Status:[facility] Y Race: C Location: [facility] [place] Anesthesia Postop Eval I Sum Postop Eval Completion status Anesthesia document: Postop Eval 1 completed: Yes Anesthesia Postop Eval I Summary Anesthesia Postop Eval I Summary: Anesthesia Postop Eval I: Assessment Summary Airway patent Yes 12/28/24 10:29 [email or web address] [email or web address] Spontaneous unlabored Yes 12/28/24 10:29 LACROSSE COACH.GDOTT respirations Mental status Awake,Calm 12/28/24 10:29 LACROSSE COACH.GDOTT nausea No 12/28/24 10:29 LACROSSE COACH.GDOTT Vomiting No 12/28/24 10:29 LACROSSE COACH.GDOTT Anesthesia Postop Eval I: Fluid Summary Crystalloid volume administer 800 12/28/24 10:29 LACROSSE COACH.GDOTT (ml) Colloids volume administered ( ml) Blood Product volume administered (ml) Total IV fluid infused 800 12/28/24 10:29 LACROSSE COACH.GDOTT Anesthesia Postop Eval I: Summary Notes Anesthesia Complication No 12/28/24 10:29 LACROSSE COACH.GDOTT Anesthesia Complication Comment: Post-operative progress note Anesthesia: Postop Eval II Evaluation Mental status: Awake and Calm Pain Level: 1 nausea: No Vomiting: No Complications Anesthesia Complication: No 12/28/248 Date Nathanael Krishnamurthy MD Cosigner Signature: Date CC: Signed Normal [facility] Operative Reporton 5 Operative Report [facility] Medical Records Department [address] [place] [address] Operative Report 12/28/24 1200 MR#: [id number] Acct: [id number] Name: LEATHA JESSICA Rep #: [id number] : 2000 24 From: Navya Lloyd MD PCP: Care Physician,No Primary Status:[facility] Location: [facility] [place] Problems Associated Problem List Diagnoses (1) Dysmenorrhea: (2) Polycystic ovarian syndrome: (3) Infertility: (4) Irregular periods/menstrual cycles: Multi Select Codes Urinary/Genital Urinary/Genital CPT Codes: 16118 Chromotubation, 29659 Lysis of adhesions, laproscopic and Other Procedure See Report ([id number]) Operative Report (Standard) Operative Information Date of Procedure: 12/28/24 Pre-Operative Diagnosis: See problem list Post-Operative Diagnosis: Same plus pelvic adhesions and bilateral tubal patency Surgery/Procedure Performed: Diagnostic laparoscopy lysis of adhesions chromotubation air hoist operator: Yes Electrician Powerhouse: Mitzy Gotti Tasks completed by casting assistant: Opening closing Additional language assistant?: No Type of Anesthesia: General RN Documented Start/Stop Times: Operation Date: 12/28/24 09:30 Case Time Into Pre-Op 12/28/24 08:05 Anesthesia Start 12/28/24 09:08 Into Room 12/28/24 09:08 Procedure Start 12/28/24 09:39 Procedure End 12/28/24 10:08 Anesthesia End 12/28/24 10:16 Out of Room 12/28/24 10:16 Into Recovery 12/28/24 10:21 Into Phase II Recovery 12/28/24 11:27 Out of Recovery 12/28/24 11:27 Out of Phase II 12/28/24 12:48 Out of Pre-Op Procedure Start Time: 09:39 Procedure Stop Time: 10:08 Select all DRAINS/GRAFTS/IMPLANTS that apply: Drains (toledo) Drain details: removed after draining bladder at beginning of procedure Estimated Blood Loss: 50 Specimen collected: No Description of surgery: Patient was taken to the operating room and placed under general anesthesia was prepped and draped in normal sterile fashion in the dorsolithotomy position. Cervix was grasped with a single-tooth tenaculum and dilated to allow passage of a uterine manipulator. Attention was then paid to the abdomen and umbilicus was grasped with towel clamps after injecting with quarter percent Marcaine and an intraumbilical incision was made with a scalpel and Veress needle entering into the abdomen confirmed to be intra-abdominal with a low opening pressure and the abdomen was insufflated with CO2 gas. 5 mm trocar was placed under direct visualization without complication. 5 mm left lower quadrant port was placed without complication. Pelvis was noted to be within normal limits except for small amount of left sigmoid colon adhesions to the left pelvic sidewall and left ovarian to ovarian fossa adhesions. These were taken down with the LigaSure device without complication. Hemoblast was placed over the area. Chromotubation was performed and bilateral tubal patency was seen. Upper abdomen was inspected and no abnormality seen. All instruments were removed from the abdomen and vagina and port sites were closed with 4-0 Monocryl. No other abnormalities or complications seen. Surgical Findings: sigmoid colon to abdominal wall adhesions mild Complications Complications: No 12/28/24 1643 Cosigner Signature (if applicable): CC: Dr. Navya Lloyd MD; No Primary Care Physician Signed Normal [facility] ,Urineon 12-28-2024 Beta HCG ( test) Ql (U) Negative [facility] Comment on above: Result Comment: Very dilute urine specimens, as indicated by a low specific gravity, may not contain inside sales account representative levels of hCG. If is still suspected, a first morning urine specimen should be collected 48 hours later and tested. Performed By: #### L 400.7600 #### [facility] [address] [facility] [place], [place], [address] Type AND Screenon 12-28-2024 Ab SCREEN GEL Negative Normal [facility] Comment on above: Order Comment: S Performed By: #### B TS ####[facility] [address] [place], [place], [address] Urine testOrdered By: Navya Lloyd on 12-28-2024 HCG ( test) Ql (U) Negative [facility] Comment on above: Very dilute urine sp ecimens, as indicated by a low specificgravity, may not contain inside sales account representative levels of hCG. If is still suspected, a first morning urinespecimen should be collected 48 hours later and tested. ,Urineon 12-14-2024 Beta HCG ( test) Ql (U) Normal [facility] Comment on above: Result Comment: NO U RINE COLLECTED. PATIENT HAD PREG URINE TEST DONE ON 12-11-24 Performed By: #### L 400.7600 #### [facility] [address] [place], [address] INTERNAL QC OK? Normal [facility] Comment on above: Result Comment: NO U RINE COLLECTED. PATIENT HAD PREG URINE TEST DONE ON 12-11-24 Performed By: #### L 400.7600 #### [facility] [address] [place], [address] RECORD KIT LOT# Normal [facility] Comment on above: Result Comment: NO U RINE COLLECTED. PATIENT HAD PREG URINE TEST DONE ON 12-11-24 Performed By: #### L 400.7600 #### [facility] [address] [place], [address] CBC-Complete Blood Cnt No Di ffon 12-11-2024 Erythrocyte distribution width (RBC) [Ratio] 12.9 % Normal 11.6-14.6 [facility] Comment on above: Performed By: #### L 400.7600, L100.0500, BTSPAT #### [facility] [address] [place], [address] Hematocrit (Bld) [Volume fraction] 44.7 % Normal 37-47 [facility] Comment on above: Performed By: #### L 400.7600, L100.0500, BTSPAT #### [facility] [address] [place], [address] Hemoglobin (Bld) [Mass/Vol] 15.2 g/dL High 12.0-15.0 [facility] Comment on above: Performed By: #### L 400.7600, L100.0500, BTSPAT #### [facility] [address] [place], [address] MCH (RBC) [Entitic mass] 29.0 pg Normal 27.0-32.0 [facility] Comment on above: Performed By: #### L 400.7600, L100.0500, BTSPAT #### [facility] [address] [place], [address] MCHC (RBC) [Mass/Vol] 34.0 g/dL Normal 32-36 [facility] Comment on above: Performed By: #### L 400.7600, L100.0500, BTSPAT #### [facility] [address] [place], [address] MCV (RBC) [Entitic vol] 85.1 fL Normal 81-99 [facility] Comment on above: Performed By: #### L 400.7600, L100.0500, BTSPAT #### [facility] [address] [place], [address] Platelet mean volume (Bld) [Entitic vol] 9.5 fL Normal 6.2-12.0 [facility] Comment on above: Performed By: #### L 400.7600, L100.0500, BTSPAT #### [facility] [address] [place], [address] Platelets (Bld) [#/Vol] 485 10*3/uL High 150-450 [facility] Comment on above: Performed By: #### L 400.7600, L100.0500, BTSPAT #### [facility] [address] [place], [address] RBC (Bld) [#/Vol] 5.25 10*6/uL Normal 4.2-5.4 [facility] Comment on above: Performed By: #### L 400.7600, L100.0500, BTSPAT #### [facility] [address] [place], [address] RDW SD 40.0 fl Normal 35.1-43.9 [facility] Comment on above: Performed By: #### L 400.7600, L100.0500, BTSPAT #### [facility] [address] [place], [place], [address] WBC (Bld) [#/Vol] 10.4 10*3/uL Normal 4.4-11.0 [facility] Comment on above: Performed By: #### L 400.7600, L100.0500, BTSPAT #### [facility] [address] [place], [address] Erythrocyte distribution wid th ratioOrdered By: Navya Lloyd on 12-11-2024 Erythrocyte distribution width (RBC) [Ratio] 12.9 % 11.6-14.6 [facility] Erythrocyte distribution wid th standard deviationOrdered By: Navya Lloyd on 12-11-2024 Erythrocyte distribution width (RBC) [Entitic vol] 40.0 fL 35.1-43.9 [facility] Erythrocyte distribution width (RBC) [Ratio] 40.0 fl 35.1-43.9 [facility] Hematocrit Auto (Bld) [Volum e fraction]Ordered By: Navya Lloyd on 12-11-2024 Hematocrit (Bld) [Volume fraction] 44.7 % 37-47 [facility] Hemoglobin measurementOrdere d By: Navya Lloyd on 12-11-2024 Hemoglobin (Bld) [Mass/Vol] 15.2 g/dL High 12.0-15.0 [facility] MCV (mean corpuscular volume ) determinationOrdered By: Navya Lloyd on 12-11-2024 MCV (RBC) [Entitic vol] 85.1 fL 81-99 [facility] Mean corpuscular hemoglobin (MCH) determinationOrdered By: Navya Lloyd on 12-11-2024 MCH (RBC) [Entitic mass] 29.0 pg 27.0-32.0 [facility] Mean corpuscular hemoglobin concentration (MCHC) determinationOrdered By: Navya Lloyd on 12-11-2024 MCHC (RBC) [Mass/Vol] 34.0 g/dL 32-36 [facility] Mean platelet volume determi nationOrdered By: Navya Lloyd on 12-11-2024 Platelet mean volume (Bld) [Entitic vol] 9.5 fL 6.2-12.0 [facility] Platelet countOrdered By: Ajit Lloyd on 12-11-2024 Platelets (Bld) [#/Vol] 485 10*3/uL High 150-450 [facility] ,Urineon 12-11-2024 Beta HCG ( test) Ql (U) Negative Normal [facility] Comment on above: Result Comment: Very dilute urine specimens, as indicated by a low specific gravity, may not contain inside sales account representative levels of hCG. If is still suspected, a first morning urine specimen should be collected 48 hours later and tested. Performed By: #### L 400.7600, L100.0500, BTSPAT #### [facility] [address], [address] RBC Auto (Bld) [#/Vol]Ordere d By: Navya Lloyd on 12-11-2024 RBC (Bld) [#/Vol] 5.25 10*6/uL 4.2-5.4 [facility] Type AND Screen - PAT ONLYon 12-11-2024 Ab SCREEN GEL Negative Normal [facility] Comment on above: Order Comment: Surge ry Date: 12/14/24 Reason for Laboratory Test PREOP [id number] No N N S DIAG LAP, CHROMOTUBATION Performed By: #### L 400.7600, L100.0500, BTSPAT #### [facility] [address] [place], [address] ABO and Rh group Nom (Bld) Blood group O Rh(D) positive Normal [facility] Comment on above: Order Comment: Surge ry Date: 12/14/24 Reason for Laboratory Test PREOP [id number] No N N S DIAG LAP, CHROMOTUBATION Performed By: #### L 400.7600, L100.0500, BTSPAT #### [facility] [address] [place], [address] White blood cell (WBC) count Ordered By: Navya Lloyd on 12-11-2024 WBC (Bld) [#/Vol] 10.4 10*3/uL 4.4-11.0 [facility] Testosterone Freeon 11-24-19 TESTOSTER FREE 2.8 pg/mL Normal 0.0-4.2 [facility] Comment on above: Result Comment: Perf ormed at: [facility] [id number] [place] Medical Technician: Johan Engel MD, Phone: [phone] Performed By: #### L 3400.4800, L501.85635, L506.0400, L501.9520 ####[facility] [address] [place], [place], [id number] Direct serum free thyroxine (FT4) measurementOrdered By: Navya Lloyd on 11-19-2024 Free T4 [Mass/Vol] 1.87 ng/dL High 0.76-1.46 [facility] Free T3on 11-19-2024 Free T3 [Mass/Vol] 3.3 pg/mL Normal 2.18-3.98 [facility] Comment on above: Performed By: #### L 3400.4800, L501.27166, L506.0400, L501.9520 #### [facility] [address] [place], [place], [address] Free [id number] By: Navya le on 11-19-2024 Free Triiodothyronine (T3) pg/dL 3.3 pg/mL 2.18-3.98 [facility] Supervisor Inspecting Office Visit Reporton 11-19-2024 Supervisor Inspecting Office Visit Report [facility] [address], [address] [place] [address] OFFICE VISIT Date of Service: 11/19/24 MR#: [id number] Acct: [id number] Name: LEATHA JESSICA Rep #: [id number] : 2000 Provider: Dr. Navya hyde MD Age/Sex: 24/F Location: [facility] Status: Signed Intake Vital Signs 07/21/24 08:47 11/19/24 15:17 Height 5 ft 7 in 5 ft 7 in Weight: 254 lb 4 oz BMI 39.8 BP 132/83 H Intake Visit Reasons: Surgical consult Chief Complaint: Fertility consult Planimeter Operator Required: No Is patient in pain?: No Allergies No Known Allergies Allergy (Verified 11/19/24 15:19) Medications ???Medication ???Instructions ???Recorded ???Confirmed ???Type Saccharomyces boulardii 250 mg 250 mg PO BID 07/21/24 11/19/24 History capsule (Daily Probiotic (S. boulardii)) cyanocobalamin-liver extract tablet tab PO 07/21/24 11/19/24 History vitamin no.167-folic acid tab PO 07/21/24 11/19/24 History 400 mcg-dha 25 mg chewable tablet (One-A-Day ) letrozole 2.5 mg tablet 2.5 mg PO DAILY #5 tabs 10/01/24 11/19/24 Rx Is last menstrual period known: Yes Last Menstrual Period: 10/11/24 Post menopausal: No Patient : No : No PFSH Surgical History (Updated 11/19/24 @ 15:[address] 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 she take ibuprofen with some relief. 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 any additional risk factors identified: none Female Reproductive History Last Menstrual Period: 10/11/24 Cycle Length: >35 Questions: metorrhagia: No, sexually active: Yes, dyspareunia: No and PCB: No History 0 Elective abortions Hx Para Spontaneous abortions Hx # Term Pregnancies Ectopic pregnancies Hx # Pregnancies Multiple births # of living children ROS Const Constitutional: Reports system reviewed and no additional complaints, except as documented Eyes Eyes: Reports system reviewed and no additional complaints, except as documented ENT ENT: Reports system reviewed and no additional complaints, except as documented Cardio Card: Denies chest pain Resp Resp: Denies cough or dyspnea GI GI: Denies abdominal pain or change in bowel habits : Reports as per HPI; Denies nipple discharge Musc Musc: Denies arthralgias, back pain or muscle weakness Skin Skin/Breast: Denies alopecia, change in hair, dry skin, breast mass, breast pain, breast skin changes or nipple discharge Neuro Neuro: Reports system reviewed and no additional complaints, except as documented Psych Psych: Reports system reviewed and no additional complaints, except as documented Endo Endo: Denies cold intolerance, excessive sweating, heat intolerance or polydipsia Law/Lymph Hematologic/Lymphatic: Denies easy bleeding, Denies easy bruising and Denies lymphadenopathy Exam Const General: cooperative and no acute distress Orientation: oriented x3 HENMN Head: normal to inspection and normocephalic Ears: hearing grossly normal bilaterally and external ears normal Nose: external nose normal and nares normal Face and sinus: normal facial exam Eyes General: appearance normal, both eyes and all related structures Neck Neck: normal visual inspection Thyroid: thyroid normal Chest Chest palpation inspection: normal inspection of the chest Resp Effort Inspection: normal respiratory effort GI Inspection: normal to inspection and non-distended Palpation: soft and (more content not included)... Normal [facility] T4 Free Directon 11-19-2024 T4 FREE DIRECT 1.87 ng/dL High 0.76-1.46 [facility] Comment on above: Performed By: #### L 3400.4800, L501.25936, L506.0400, L501.9520 ####[facility] [address] [place], [address] TSH QnOrdered By: aNvya martinimohan on 11-19-2024 Thyroid Stimulating Hormone (TSH) 1.560 uIU/mL 0.358-3.74 0 [facility] Testosterone Free [Mass/Vol] Ordered By: Navya Lloyd on 11-19-2024 Free Testosterone 2.8 pg/mL 0.0-4.2 [facility] Comment on above: Performed at: [address] [id number] Director: Johan Engel MD, Phone: [phone] Thyroid Stim Hormone (TSH)on 11-19-2024 TSH 1.560 uIU/mL Normal 0.358-3.74 0 [facility] Comment on above: Performed By: #### L 3400.4800, L501.70080, L506.0400, L501.9520 #### [facility] [address] [place], [address] Miscellaneous Lab Procedureo n 08-11-2024 [facility] LAB TEST Normal [facility] Comment on above: Order Comment: DIREC T SENDOUT REPROSOURSE Result Comment: Sent directly to testing facility per ordering physician. Performed By: #### L 801.1541, L100.0100 ####[facility] [address] [place], [address] CBC W/Diff, Automatedon 09-2 Absolute Lymph 4.67 X10 3/uL High 0.83-4.51 [facility] Comment on above: Performed By: #### L 801.1541, L100.0100 ####[facility] [address] [place], [address] Absolute Neut 6.8 X10 3/uL Normal 2.0-7.7 [facility] Comment on above: Performed By: #### L 801.1541, L100.0100 ####[facility] [address] [place], [address] Basophils/100 WBC (Bld) 0.6 % Normal 0-1 [facility] Comment on above: Performed By: #### L 801.1541, L100.0100 ####[facility] [address] [place], [address] Eosinophils/100 WBC (Bld) 2.1 % Normal 0-5 [facility] Comment on above: Performed By: #### L 801.1541, L100.0100 ####[facility] [address] [place], [address] Erythrocyte distribution width (RBC) [Ratio] 12.4 % Normal 11.6-14.6 [facility] Comment on above: Performed By: #### L 801.1541, L100.0100 ####[facility] [address] [place], [address] Hematocrit (Bld) [Volume fraction] 42.0 % Normal 37-47 [facility] Comment on above: Performed By: #### L 801.1541, L100.0100 ####[facility] [address] [place], [address] Hemoglobin (Bld) [Mass/Vol] 13.6 g/dL Normal 12.0-15.0 [facility] Comment on above: Performed By: #### L 801.1541, L100.0100 ####[facility] [address] [place], [address] IG% 0.400 Normal 0.0-0.9 [facility] Comment on above: Result Comment: IG% - Immature Granulocytes (promyelocytes, myelocytes and metamyelocytes) > 1% indicates that a LEFT SHIFT is Present. Performed By: #### L 801.1541, L100.0100 ####[facility] [address] [place], [address] Lymphocytes/100 WBC (Bld) 36.4 % Normal 19-41 [facility] Comment on above: Performed By: #### L 801.1541, L100.0100 ####[facility] [address] [place], [address] MCH (RBC) [Entitic mass] 28.4 pg Normal 27.0-32.0 [facility] Comment on above: Performed By: #### L 801.1541, L100.0100 ####[facility] [address] [place], [address] MCHC (RBC) [Mass/Vol] 32.4 g/dL Normal 32-36 [facility] Comment on above: Performed By: #### L 801.1541, L100.0100 ####[facility] [address] [place], [address] MCV (RBC) [Entitic vol] 87.7 fL Normal 81-99 [facility] Comment on above: Performed By: #### L 801.1541, L100.0100 ####[facility] [address] [place], [address] Monocytes/100 WBC (Bld) 7.5 % Normal 0-10 [facility] Comment on above: Performed By: #### L 801.1541, L100.0100 ####[facility] [address] [place], [address] Neutrophils/100 WBC (Bld) 53.0 % Normal 47-70 [facility] Comment on above: Performed By: #### L 801.1541, L100.0100 ####[facility] [address] [place], [address] Nucleated RBC (Bld) [#/Vol] 0 10*3/uL Normal 0-5 [facility] Comment on above: Performed By: #### L 801.1541, L100.0100 ####[facility] [address] [place], [address] Platelet mean volume (Bld) [Entitic vol] 10.1 fL Normal 6.2-12.0 [facility] Comment on above: Performed By: #### L 801.1541, L100.0100 ####[facility] [address] [place], [address] Platelets (Bld) [#/Vol] 484 10*3/uL High 150-450 [facility] Comment on above: Performed By: #### L 801.1541, L100.0100 ####[facility] [address] [place], [address] RBC (Bld) [#/Vol] 4.79 10*6/uL Normal 4.2-5.4 [facility] Comment on above: Performed By: #### L 801.1541, L100.0100 ####[facility] [address] [place], [address] RDW SD 39.8 fl Normal 35.1-43.9 [facility] Comment on above: Performed By: #### L 801.1541, L100.0100 ####[facility] [address] [place], [address] WBC (Bld) [#/Vol] 12.8 10*3/uL High 4.4-11.0 [facility] Comment on above: Performed By: #### L 801.1541, L100.0100 ####[facility] [address] [place], [address] Supervisor Inspecting Office Visit Reporton 07-21-2024 Supervisor Inspecting Office Visit Report [facility]'[address], [address] [place] [id number] OFFICE VISIT Date of Service: 07/21/24 MR#: [id number] Acct: [id number] Name: LEATHA JESSICA Rep #: [id number] : 2000 Provider: HELDER kc Age/Sex: 24/F Location: [facility] Status: Signed Intake Vital Signs 06/02/24 15:50 07/21/24 08:35 07/21/24 08:47 Height 5 ft 7 in 5 ft 7 in 5 ft 7 in Weight: 248 lb 8 oz BMI 38.9 BP 118/74 Intake Visit Reasons: Fertility Consult Chief Complaint: Fertility consult Planimeter Operator Required: No Is patient in pain?: No Allergies No Known Allergies Allergy (Verified 07/21/24 08:34) Medications ???Medication ???Instructions ???Recorded ???Confirmed ???Type Saccharomyces boulardii 250 mg 250 mg PO BID 07/21/24 07/21/24 History capsule (Daily Probiotic (S. boulardii)) cyanocobalamin-liver extract tablet tab PO 07/21/24 07/21/24 History vitamin no.167-folic acid tab PO 07/21/24 07/21/24 History 400 mcg-dha 25 mg chewable tablet (One-A-Day ) Is last menstrual period known: Yes Last Menstrual Period: 06/25/24 Post menopausal: No Patient : No : No PFSH Family History Father Hemolytic anemia Social History Smoking Status: Never smoker alcohol intake: current alcohol intake frequency: holidays/special occasions only substance use type: does not use caffeine: Yes what type of physical activity do you participate in: none seatbelt use: always do you feel safe at home: Yes additional social history: - Dashawn HPI Fertility Consult Details: LEATHA JESSICA is a 24 year old who presents for infertility consult. Menses are every 33-38 days, lasting 5 days. This is more regular then had been. No contraception >1 year. Does have +OPT about 15 days prior to onset of menses. Both she and , [place] see naturopathic chiropractor. She stopped her supplements of adrenals and her estrogen cream. He is taking adrenal supp and SP cleanse and she is unsure what that is. She did see Michael Son SURFACE LOGGING SYSTEMS LOGGER for initially and labs normal. 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 any additional risk factors identified: none Female Reproductive History Last Menstrual Period: 06/25/24 Cycle Length: >35 Questions: metorrhagia: No, sexually active: Yes, dyspareunia: No and PCB: No History 0 Elective abortions Hx Para Spontaneous abortions Hx # Term Pregnancies Ectopic pregnancies Hx # Pregnancies Multiple births # of living children ROS Const Constitutional: Reports system reviewed and no additional complaints, except as documented Eyes Eyes: Reports system reviewed and no additional complaints, except as documented GI GI: Denies abdominal pain or change in bowel habits : Reports as per HPI Exam Const General: cooperative and no acute distress Orientation: oriented x3 HENMT Head: normal to inspection and normocephalic Eyes General: appearance normal, both eyes and all related structures Neck Neck: normal visual inspection Resp Effort Inspection: normal respiratory effort Neuro Cognition: normal cognition Speech: speech normal Psych Appearance: grossly normal Mood: congruent mood Affect: normal affect Speech and Movement: speech and movement normal Attitude: cooperative Judgment: judgment good Coding Level of Care Code Off vis,est,level 3 Diagnoses Irregular periods/menstrual cycles N92.6 Infertility Assessment and Plan Assessment and Plan (1) Irregular periods/menstrual cycles: Status: Acute (2) Infertility: Status: Acute Orders: Orders CBC W/Diff, Automated Today N92.6 - Irregular menstruation, unspecified Plan Day 3 labs and semen analysis for spouse. Check progesterone but she typically ovulates after day 28 and will have done with +OPT at home HSG If above normal will do femara for 3 cycles. Discussed use, benefits, risks and side effects of femara. Written information given. 07/21/24912 Date Ligia Patrick NP SURFACE [employer]GGING [employer]S LOGGER-C Cosigner Signature: Date (more content not included)... Normal [facility] Pelvic w/ Transvaginalon Pelvic w/ Transvaginal [facility] [address] [place] [address] Pelvic w/ Transvaginal MR#: [id number] Acct: [id number] Name: LEATHA JESSICA Rep #: [id number] : 2000 F 23 From: Chavez Munoz MD PCP: Care Physician,No Primary Status: REG CLI Study: Pelvic w/ Transvaginal Date of Exam: 06/11/24 Exam# [id number] Ordering Dr: Cheyenne Son [id number] STUDY: ULTRASOUND OF THE FEMALE PELVIS - COMPLETE REASON FOR EXAM: Female, 23 years old. Female infertility LMP: Unknown. TECHNIQUE: Transabdominal and Transvaginal TECHNICAL QUALITY: Adequate. COMPARISON: None. FINDINGS: The uterus is anteflexed and is in a midline position. The uterus measures 8.4 x 4.6 x 3.5 cm. Normal uterine cervix. The endometrium measures 9.7 mm in thickness, and is hyperechoic. There is no demonstrated endometrial mass. There is no demonstrated myometrial mass. I.U.D. - The patient does not have an I.U.D. The right ovary is visualized. The right ovary measures 2. 2 x 1.4 x 1.5 cm. There is no right ovarian cyst or ovarian mass. There is no visualized right adnexal mass or complex lesion. There is normal arterial and normal venous vascularity. The left ovary is visualized. The left ovary measures 2.6 x 1.6 x 1.5 cm. There is no left ovarian cyst or ovarian mass. There is no visualized left adnexal mass or complex lesion. There is normal arterial and normal venous vascularity. There is no fluid in the cul-de-sac. The pre void volume of the bladder was 356 ml. The post void volume of the bladder was less than 5 ml. Polycystic ovary disease: No. US/Pelvic w/ Transvaginal IMPRESSION: No suspicious sonographic findings Electronically Signed: Latrell Munoz MD at 11:28 EDT , CC: HELDER Son; No Primary Care Physician Associate Curator: Signed Normal [facility] Progress Noteon 09-30-2017 Director Of Optimization Authentication Interface Message Text Chief ComplaintPatient presents with Post-op ExamHistory of Presenting Problem:HPI Post S/P EOM Surgery 5 days ago, magali pO sleeping minimal pian eyes openBilateral medial rectus recession of 3.0 mm, and bilateral inferior rectusrecession of 5.0 mm. Last edited by Chica Brady MD on 09/30/2017 2:47 PM. (History)Ocular History:Ocular HistoryPast Medical History:History reviewed. No pertinent past medical history.Past Surgical History:Procedure Laterality Date EYE MUSCLE SURGERY Bilateral 09/25/2017 EYE SIX MUSCLE SURGERY performed by Chica Brady [place] [facility] [place] Systems:ABEL complete ROS was performed. Pertinent positives have been documented above orare in the HPI. All other systems were negative.Allergies:No Known AllergiesMedications:Cur rent Outpatient PrescriptionsMedication Sig Dispense Refill HYDROcodone-Acetaminophe n (HYCET) 2.5-108 MG/5ML solution Take 16.2 mL (8.1mg) by mouth every 6 hours as needed for Pain for up to 5 days 120 mL 0 HYDROcodone-Acetaminophe n (HYCET) 2.5-108 MG/5ML solution Take 16.2 mL (8.1mg) by mouth every 6 hours as needed for Pain for up to 5 days 120 mL 0No current facility-administered medications for this visit.Family Medical History:Family HistoryProblem Relation Age of Onset Amblyopia Brother Other Brother oculocutaneous albanism Glaucoma Neg Hx Macular Degen Neg Hx ChildHD Cataract Neg Hx Diabetes Neg HxSocial History:Social HistorySocial HistorySocial History Marital status: Single Spouse name: N/A Number of children: N/A Years of education: N/ASocial History Main Topics Smoking status: Never Smoker Smokeless tobacco: Never Used Alcohol use No Drug use: No Sexual activity: Not AskedOther Topics Concern NoneSocial History Narrative NoneExam:Physical ExamBase Eye Exam Visual Acuity (HOTV - Blocked) Right Left Dist sc 20/100 20/200 Tonometry (10:53 AM) Right Left Pressure sft sft Pupils Pupils APD Right PERRL None Left PERRL None Visual Cnaales (Counting fingers) Right Left Full FullStrabismus Exam Method: Alternate cover Ortho 0 0 0 Ortho 0 0 0 Ortho 0 0 Ortho 0 0 Ortho 0 0 0 Ortho 0 0 0 Nystagmus: Yes: Infantile Nystagmus AHP: Yes: straight Jerk r in r jerk l in l, M/A, M/F horizontal all positions, no LC, ++++decreases with convergence, 12-14 OTTO SBV and decreased [place] and improved VASlit Lamp and Fundus Exam External Exam Right Left External Normal Normal Slit Lamp Exam Right Left Lids/Lashes Normal Normal Conjunctiva/Sclera Subconjunctival hemorrhage Subconjunctival hemorrhage Cornea Clear Clear Anterior Chamber Deep and quiet Deep and quiet Iris Transillumination defects Transillumination defects Lens Clear Clear Vitreous Normal Normal Fundus Exam Right Left Disc Small disc Small disc C/D Ratio 0.2 0.2 Macula Foveal hypoplasia Foveal hypoplasia Vessels Normal NormalRefraction Wearing Rx Sphere Right -2.25 Left -3.25Impression/Plan/Rec ommendations:The patient was oriented to time, place, and person as appropriate for age andcomorbidities.1. Infantile nystagmus syndrome2. Albinism3. Anomalous head position4. Myopia, bilateral5. Disorder of optic nerve, bilateral6. Congenital hypoplasia of fovea centralisDOing well p EOM Surgery OUTdex OU BID x 5 daysCL's in 1 weekF/U 3 mos Normal [facility] H&Jerry 09-25-2017 Director Of Optimization Authentication Interface Message Text If an H&P was completed within 30 days prior to registration or inpatientadmission, an updated is required. (See below)____ H&P reviewed, patient examined, no changes have occurred since H&Pcompleted.I discussed the risks benefits and alternatives of operative correction with theparent(s)/guardian(s) /belt sander(s). The risks may include but are notlimited to:1. Loss of vision - partial or complete2. Loss of eye3. Hemorrhage4. Reoperation5. Infection6. Loss of LifeThe benefits may include but are not limited to:1. Improvement of visual functionThe parent(s)/guardian(s)/fo ster parent(s) voiced understanding, were allowed toask questions and had these questions answered. They were presented withalternatives including no surgery and gave permission to proceed. I certify that I have discussed the following with the minor patient and thepatient s parent, legal guardian or authorized adult:1. The risks of addiction and overdose associated with a controlled substancecontaining an opioid;2. The increased risk of addiction to controlled substances of individualssuffering from both mental and substance abuse disorders:3. The dangers of taking controlled substances containing opioids withbenzodiazepines, alcohol or other central nervous system depressants:4. Any other information in the patient counseling information section of [facility] for the medication required by Federal law necessary. Normal [facility] HCG,Urineon 09-25-2017 HCG.beta subunit ( test) Ql (U) Negative Normal [facility] Comment on above: Order Comment: If ur ine specimen unobtainable, please obtain serum HCG. Result Comment: Nonp regnant females and males-Negative females-Positive Performed By: #### H CGUR ####[address] [phone] Progress Noteon 07-29-2017 Director Of Optimization Authentication Interface Message Text Chief ComplaintPatient presents with NystagmusHistory of Presenting Problem:HPI NystagmusIn both eyes. Disease is present since childhood. Duration of 15 years.Movement is side to side. Occurring at random times. Since onset it isgradually worsening. Associated symptoms include blurred vision and head tilt.Negative for headache, eye pain and droopy eyelid. CommentsIs current contact lens wearer Last edited by Eryn Torres MA on 07/29/2017 8:13 AM. (History)Ocular History:Ocular HistoryPast Medical History:History reviewed. No pertinent past medical history.History reviewed. No pertinent surgical history.Review of Systems:Review of SystemsConstitutional: Negative for chills, diaphoresis, fever, malaise/fatigue andweight loss.HENT: Negative for hearing loss.Eyes: Positive for blurred vision. Negative for double vision, photophobia,pain, discharge and redness.Neurological: Negative for dizziness, tingling, sensory change, speech change,focal weakness, seizures and weakness.Endo/Heme/Aller gies: Does not bruise/bleed easily.A complete ROS was performed. Pertinent positives have been documented above orare in the HPI. All other systems were negative.Allergies:No Known AllergiesMedications:No current outpatient prescriptions on file.Current Facility-Administered MedicationsMedication Dose Route Frequency Provider Last Rate Last Dose cyclopentolate (CYCLODRYL) 1 % ophthalmic solution 1 Drop 1 Drop Both EyesOnce Chica Brady MD phenylephrine ophthalmic solution 0.0625 mL 1 Drop Both Eyes Once MD Kristian tropicamide (MYDRIACYL) 1 % ophthalmic solution 1 Drop 1 Drop Both Eyes OnceChica Brady MDFamily Medical History:Family HistoryProblem Relation Age of Onset Amblyopia Brother Glaucoma Neg Hx Macular Degen Neg Hx ChildHD Cataract Neg Hx Diabetes Neg HxSocial History:Social HistorySocial HistorySocial History Marital status: Single Spouse name: N/A Number of children: N/A Years of education: N/ASocial History Main Topics Smoking status: Never Smoker Smokeless tobacco: Never Used Alcohol use None Drug use: None Sexual activity: Not AskedOther Topics Concern NoneSocial History NarrativeExam:Physical ExamBase Eye Exam Visual Acuity (HOTV - Blocked) Right LeftDist cc 20/50 20/60 Correction: Contacts DVA OU 20/50Tonometry (12:47 PM) Right LeftPressure 12 13Pupils Pupils APDRight PERRL NoneLeft PERRL NoneVisual Canales (Counting fingers) Right LeftResult Full FullAdditional Tests Color Right LeftIshihara 08/19 08/19Stereo Fly: + Animals: 0/3 Circles: 11/18Strabismus Exam Method: Alternate cover Distance Near Near +3.00DS Near Bifocals Ortho 0 0 0 Ortho 0 0 0 R Tilt Ortho 0 0 Ortho 0 0 Ortho L Tilt 0 0 0 Ortho 0 0 0 DVD: DVD: Nystagmus: Yes: Infantile Nystagmus AHP: Yes: Chin up, Left face turn Jerk r in r jerk l in l, M/A, M/F horizontal all positions, no LC, ++++decreases with convergence, 12-14 OTTO SBV and decreased [place] and improved VASlit Lamp and Fundus Exam External Exam Right Left External Normal NormalSlit Lamp Exam Right Left Lids/Lashes Normal Normal Conjunctiva/Sclera White and quiet White and quiet Cornea Clear Clear Anterior Chamber Deep and quiet Deep and quiet Iris Transillumination defects Transillumination defects Lens Clear Clear Vitreous Normal NormalFundus Exam Right Left Disc Small disc Small disc C/D Ratio 0.2 0.2 Macula Foveal hypoplasia Foveal hypoplasia Vessels Normal Normal Periphery no pigment no pigmentRefraction Wearing Rx SphereRight -2.25Left -3.25Impression/Plan/Rec ommendations:The patient was oriented to time, place, and person as appropriate for age andcomorbidities.1. Infantile nystagmus syndrome2. Albinism3. Anomalous head position4. Myopia, bilateral5. Disorder of optic nerve, bilateral6. Congenital hypoplasia of fovea centralisEOM Surgery OU BMrecess/BIrecessContact s continueI discussed the risks benefits and alternatives of operative correction with theparent(s)/guardian(s) /belt sander(s). The risks may include but are notlimited to:1. Loss of vision - partial or complete2. Loss of eye3. Hemorrhage4. Reoperation5. Infection6. Loss of LifeThe benefits may include but are not limited to:1. Improvement of visual functionThe parent(s)/guardian(s)/fo ster parent(s) voiced understanding, were allowed toask questions and had these questions answered. They were presented withalternatives including no surgery and gave permission to proceed. Normal [facility] Vital Signs Date Time Vital Sign Value Performing Clinician Radha mcnair 05-30-2025 13:06-0400 Body height 170.18 cm No Primary Care Physician [facility] 05-30-2025 13:06-0400 Body mass index (BMI) [Ratio] 39.1 kg/m2 No Primary Care Physician [facility] 05-30-2025 13:06-0400 Body weight 113.39 kg No Primary Care Physician [facility] 05-30-2025 13:06-0400 Diastolic blood pressure 85 mm[Hg] No Primary Care Physician [facility] 05-30-2025 13:06-0400 Systolic blood pressure 133 mm[Hg] No Primary Care Physician [facility] 05-27-2025 14:14-0400 Body mass index (BMI) [Ratio] 39.2 kg/m2 No Primary Care Physician [facility] 05-27-2025 14:14-0400 Body weight 113.56 kg No Primary Care Physician [facility] 05-27-2025 14:14-0400 Diastolic blood pressure 68 mm[Hg] No Primary Care Physician [facility] 05-27-2025 14:14-0400 Systolic blood pressure 118 mm[Hg] No Primary Care Physician [facility] 04-07-2025 11:03-0400 Body height 170.18 cm No Primary Care Physician [facility] 04-07-2025 11:03-0400 Body mass index (BMI) [Ratio] 39.3 kg/m2 No Primary Care Physician [facility] 04-07-2025 11:03-0400 Body weight 113.9 kg No Primary Care Physician [facility] 04-07-2025 11:03-0400 Diastolic blood pressure 78 mm[Hg] No Primary Care Physician [facility] 04-07-2025 11:03-0400 Systolic blood pressure 147 mm[Hg] No Primary Care Physician [facility] 03-15-2025 10:55-0400 Body temperature 98.9 [degF] No Primary Care Physician [facility] 03-15-2025 10:55-0400 Diastolic blood pressure 82 mm[Hg] No Primary Care Physician [facility] 03-15-2025 10:55-0400 Heart rate 80 /min No Primary Care Physician [facility] 03-15-2025 10:55-0400 Respiratory rate 16 /min No Primary Care Physician [facility] 03-15-2025 10:55-0400 SaO2% (BldA) [Mass fraction] 98 % No Primary Care Physician [facility] 03-15-2025 10:55-0400 Systolic blood pressure 92 mm[Hg] No Primary Care Physician [facility] 03-15-2025 07:38-0400 Body mass index (BMI) [Ratio] 39.6 kg/m2 No Primary Care Physician [facility] 03-15-2025 07:38-0400 Body weight 115 kg No Primary Care Physician [facility] 03-11-2025 15:43-0400 Body mass index (BMI) [Ratio] 39.6 kg/m2 No Primary Care Physician [facility] 03-11-2025 15:43-0400 Body weight 114.75 kg No Primary Care Physician [facility] 03-11-2025 15:43-0400 Diastolic blood pressure 82 mm[Hg] No Primary Care Physician [facility] 03-11-2025 15:43-0400 Systolic blood pressure 135 mm[Hg] No Primary Care Physician [facility] 01-27-2025 10:01-0400 Body height 170.18 cm No Primary Care Physician [facility] 01-27-2025 10:01-0400 Body mass index (BMI) [Ratio] 39.1 kg/m2 No Primary Care Physician [facility] 01-27-2025 10:01-0400 Body temperature 97.6 [degF] No Primary Care Physician [facility] 01-27-2025 10:01-0400 Body weight 113.39 kg No Primary Care Physician [facility] 01-27-2025 10:01-0400 Diastolic blood pressure 82 mm[Hg] No Primary Care Physician [facility] 01-27-2025 10:01-0400 Heart rate 94 /min No Primary Care Physician [facility] 01-27-2025 10:01-0400 Respiratory rate 18 /min No Primary Care Physician [facility] 01-27-2025 10:01-0400 SaO2% (BldA) [Mass fraction] 97 % No Primary Care Physician [facility] 01-27-2025 10:01-0400 Systolic blood pressure 130 mm[Hg] No Primary Care Physician [facility] 01-17-2025 13:06-0400 Body mass index (BMI) [Ratio] 39 kg/m2 No Primary Care Physician [facility] 01-17-2025 13:06-0400 Body weight 113.11 kg No Primary Care Physician [facility] 01-17-2025 13:06-0400 Diastolic blood pressure 78 mm[Hg] No Primary Care Physician [facility] 01-17-2025 13:06-0400 Systolic blood pressure 112 mm[Hg] No Primary Care Physician [facility] 12-28-2024 12:38-0500 Body temperature 98.3 [degF] No Primary Care Physician [facility] 12-28-2024 12:38-0500 Diastolic blood pressure 68 mm[Hg] No Primary Care Physician [facility] 12-28-2024 12:38-0500 Heart rate 97 /min No Primary Care Physician [facility] 12-28-2024 12:38-0500 Respiratory rate 16 /min No Primary Care Physician [facility] 12-28-2024 12:38-0500 SaO2% (BldA) [Mass fraction] 97 % No Primary Care Physician [facility] 12-28-2024 12:38-0500 Systolic blood pressure 113 mm[Hg] No Primary Care Physician [facility] 12-28-2024 10:45-0500 Inhaled oxygen flow rate 2 L/min No Primary Care Physician [facility] 12-28-2024 08:20-0500 Body mass index (BMI) [Ratio] 39.4 kg/m2 No Primary Care Physician [facility] 12-28-2024 08:20-0500 Body weight 114.3 kg No Primary Care Physician [facility] 11-19-2024 15:17-0500 Body mass index (BMI) [Ratio] 39.8 kg/m2 No Primary Care Physician [facility] 11-19-2024 15:17-0500 Body weight 115.32 kg No Primary Care Physician [facility] 11-19-2024 15:17-0500 Diastolic blood pressure 83 mm[Hg] No Primary Care Physician [facility] 11-19-2024 15:17-0500 Systolic blood pressure 132 mm[Hg] No Primary Care Physician [facility] Encounters Encounter Date Encounter Type Care Provider Facility Start: 05-30-2025 End: 05-30-2025 ambulatory No Primary Care Physician -Laboratory Specimen Start: 05-30-2025 End: 05-30-[address] Navya Lloyd MD -Laboratory Specimen Work Phone: Start: 05-30-2025 End: 05-30-[address] Navya Lloyd MD -[facility] Work Phone: Start: 05-30-2025 End: 05-30-2025 ambulatory No Primary Care Physician -[facility] Start: 05-30-2025 End: 05-30-2025 ambulatory Abby [place] Facility:[facility] Start: 05-27-2025 End: 05-27-[address] Navya Lloyd MD -[facility] Work Phone: Start: 05-27-2025 End: 05-27-2025 ambulatory No Primary Care Physician -[facility] Start: 04-07-2025 End: 04-07-[address] Navya Lloyd MD -[facility] Work Phone: Start: 04-07-2025 End: 04-07-2025 ambulatory No Primary Care Physician [facility] Work Phone: Start: 03-23-2025 Encounter for other preprocedural examination Navya Lloyd [facility] Start: 03-15-2025 ambulatory Abby Samina Facility :[facility] Start: 03-15-2025 Non-patient / Non-visit Dr. Ajit Lloyd MD -[facility] Start: 03-15-2025 End: 03-15-2025 Admission to same day surgery center Dr. Navya Lloyd MD -[facility] Start: 03-15-2025 End: 03-15-2025 ambulatory Navya Lloyd Facility:[facility] Start: 03-11-2025 End: 03-11-[address] Navya Lloyd MD -[facility] Work Phone: Start: 03-11-2025 End: 03-11-2025 ambulatory No Primary Care Physician Facility:[facility] Start: 01-27-2025 End: 01-27-[address] Abby Haas MD -[facility] Work Phone: Start: 01-27-2025 End: 01-27-2025 ambulatory No Primary Care Physician [facility] Work Phone: Start: 01-27-2025 End: 01-27-2025 ambulatory Abby Haas Facility:[facility] Start: 01-21-2025 End: 01-21-2025 ambulatory No Primary Care Physician [facility] Work Phone: Start: 01-21-2025 End: 01-21-[address] Navya Lloyd MD -Ultrasound, [facility] Work Phone: Start: 01-21-2025 End: 01-21-2025 ambulatory Navya Lloyd Facility:[facility] Start: 01-17-2025 End: 01-17-[address] Navya Lloyd MD -[facility] Work Phone: Start: 01-17-2025 End: 01-17-2025 ambulatory No Primary Care Physician Facility:[facility] Start: 12-28-2024 Non-patient / Non-visit Dr. Ajit Lloyd MD -[facility] Start: 12-28-2024 End: 12-28-2024 Admission to same day surgery center Dr. Navya Lloyd MD -[facility] Start: 12-28-2024 End: 12-28-2024 ambulatory Navya Lloyd Facility:[facility] Start: 12-27-2024 ambulatory Navya Lloyd Faci lity:[facility] Start: 12-27-2024 Non-patient / Non-visit Dr. Ajit Lloyd MD -[facility] Start: 11-19-2024 End: 11-19-[address] Navya Lloyd MD -[facility] Work Phone: Start: 11-19-2024 End: 11-19-2024 ambulatory No Primary Care Physician Facility:[facility] Start: 11-19-2024 End: 11-19-2024 ambulatory No Primary Care Physician Facility:[facility] Start: 10-19-2024 End: 10-19-2024 Patient encounter procedure Ligia Nguyen [employer] -Radiology, [facility] Work Phone: Start: 10-19-2024 End: 10-19-2024 ambulatory Ligia Nguyen Facility:[facility] Start: 08-03-2024 End: 08-03-2024 ambulatory Ligia Nguyen Facility:[facility] Start: 07-21-2024 End: 07-21-2024 ambulatory No Primary Care Physician Facility:[facility] Start: 06-11-2024 End: 06-11-2024 ambulatory No Primary Care Physician Facility:[facility] Start: 03-26-2024 End: 03-26-2024 ambulatory KAVON [employer] [facility] Start: 09-30-2017 End: 09-30-2017 Ambulatory [facility] Start: 09-25-2017 End: 09-25-2017 Ambulatory [facility] Start: 09-15-2017 End: 09-15-2017 Ambulatory [facility] Start: 07-29-2017 End: 07-29-2017 Ambulatory [facility] Procedures Date Procedure Procedure Detail Performing Clinician Start: 05-30-2025 Urine culture No Primar y Care Physician Start: 01-27-2025 NAS measurement No Prim veronica Care Physician Comment on above: Negative <1:80 Borde rline 1:80 Positive >1:80 Start: 01-27-2025 Antibody titer measurement No Primary Care Physician Comment on above: Test not performed Start: 01-27-2025 Antibody to centrome re measurement No Primary Care Physician Comment on above: Previous reported re sult: TNP AIEdited by: STEVE on 01/31/25:1008 AMENDED REPORT 01/31/25 1008 ANTI-CENT B previously reported as: Test not performed Start: 01-27-2025 Antibody to extracta ble nuclear antigen measurement No Primary Care Physician Comment on above: Previous reported re sult: TNP AIEdited by: JANETTCE on 01/31/25:1008 AMENDED REPORT 01/31/25 1008 TITUS Ab previously reported as: Test not performed Start: 01-27-2025 Antibody to NERISSA-1 measurement No Primary Care Physician Comment on above: Previous reported re sult: TNP AIEdited by: JANETTCE on 01/31/25:1008 AMENDED REPORT 01/31/25 1008 ANTI-NERISSA previously reported as: Test not performed Start: 01-27-2025 Antibody to lupus La protein measurement No Primary Care Physician Comment on above: Previous reported re sult: TNP AIEdited by: STEVE on 01/31/25:1008 AMENDED REPORT 01/31/25 1008 Anti-SS-B previously reported as: Test not performed Start: 01-27-2025 Antibody to SS-A measurement No Primary Care Physician Comment on above: Previous reported re sult: TNP AIEdited by: STEVE on 01/31/25:1008 AMENDED REPORT 01/31/25 1008 Anti-SS-A previously reported as: Test not performed Start: 01-27-2025 Autoantibody measurement No Primary Care Physician Comment on above: Previous reported re sult: TNP AIEdited by: STEVE on 01/31/25:1008 AMENDED REPORT 01/31/25 1008 ANTICHROMATIN previously reported as: Test not performed Start: 01-27-2025 MANAGER INPATIENT antibody measurement No Primary Care Physician Comment on above: Previous reported re sult: TNP AIEdited by: JANETTCE on 01/31/25:1008 AMENDED REPORT 01/31/25 1008 MANAGER INPATIENT Ab previously reported as: Test not performed Start: 01-21-2025 US scan of thyroid No P [facility] Physician Plan of Treatment Date Care Activity Detail Author Start: 03-15-2025 Anesthesia vaginal procedure w/biopsy nos ANESTH VAGINAL PROCEDURES [facility] Start: 03-15-2025 Prtl hymenectomy/revj hymenal ring PRTL HYMNCTMY/REVJ HYMNL RNG [facility] Start: 03-15-2025 Ambulation without limitation [facility] Start: 03-15-2025 Medical regimen orders management [facility] Start: 03-15-2025 Medication education [facility] Start: 03-15-2025 Patient discharge [facility] Start: 03-15-2025 Procedure discontinued [facility] Start: 03-15-2025 Taking patient vital signs [facility] Start: 03-15-2025 Vital signs measurements [facility] Start: 03-15-2025 [facility] Start: 01-27-2025 [facility] Start: 12-28-2024 Anesthesia intraperitoneal lower abd w/laps nos ANESTH SURG LOWER ABDOMEN [facility] Start: 12-28-2024 Chromotubation oviduct w/materials REOPEN FALLOPIAN TUBE [facility] Start: 12-28-2024 Laparoscopy w/lysis of adhesions LAPAROSCOPY LYSIS [facility] Start: 12-28-2024 Ambulation without limitation [facility] Start: 12-28-2024 Medical regimen orders management [facility] Start: 12-28-2024 Medication education [facility] Start: 12-28-2024 Patient discharge [facility] Start: 12-28-2024 Procedure discontinued [facility] Start: 12-28-2024 Taking patient vital signs [facility] Start: 12-28-2024 Vital signs measurements [facility] Start: 12-28-2024 [facility] Antibody to Scl-70 measurement [facility] CBC W Auto Different ial panel - Blood [facility] Chlamydia deoxyribon ucleic acid detection [facility] DNA double strand Ab [Units/volume] in Serum [facility] Hemoglobin A1c/Hemoglobin.total in Blood [facility] Hepatitis C antibody measurement [facility] Nuclear Ab [Titer] i n Serum by Immunofluorescence [facility] Patient referral [facility] Work Phone: Procedure [facility] Rubella IgG measurement [facility] Serologic test for syphilis [facility] Payers Date Payer Category Payer Self-pay 2024 Unknown [id number] 2002 Unknown [id number] 2.16.8 [id number] Unknown [id number] Unknown [id number] 2.16.8 [id number] Unknown [id number] 2.16.8 [id number] Unknown [id number] 2.16.8 [id number] Unknown [id number] 2.16.8 40.1.010820.3.579.2.462 Unknown [id number] 2.16.8 40.1.735586.3.579.2.462 Unknown [id number] 2.16.8 40.1.634814.3.579.2.462 Unknown [id number] 2.16.8 40.1.885243.3.579.2.462 Unknown [id number] 2.16.8 40.1.456820.3.579.2.462 Unknown [id number] 2.16.8 40.1.067304.3.579.2.462 Unknown [id number] 2.16.8 40.1.301964.3.579.2.462 Unknown [id number] 2.16.8 40.1.262646.3.579.2.462 Unknown [id number] 2.16.8 40.1.468988.3.579.2.462 Unknown [id number] 2.16.8 40.1.304731.3.579.2.462 Unknown [id number] 2.16.8 40.1.714670.3.579.2.462 Unknown [id number] 2.16.8 40.1.147605.3.579.2.462 Unknown [id number] 2.16.8 40.1.033642.3.579.2.462 Unknown [id number] 2.16.8 40.1.418404.3.579.2.462 Unknown [id number] 2.16.8 40.1.982845.3.579.2.462 Unknown [id number] 2.16.8 40.1.402275.3.579.2.462 Unknown [id number] 2.16.8 [id number] Social History Date Type Detail Facility Start: 01-27-2025 End: 05-30-2025 Tobacco smoking status NHIS Never smoked tobacco (finding) [facility] Start: 07-28-2019 Non-smoker Non-smoker [facility] Start: 01-31-2025 End: 02-03-2025 Sex Female (finding) [facility] Start: 2000 Sex Assigned At Female [facility] Gender Identity Identifies as fe male gender (finding) [facility] Sexual Orientation Heterosexual (finding) [facility] NEGATED: Highlighted row Not [facility] Medical Equipment Procedure Code Equipment Code Equipment Origin al Text Equipment Identifier Dates Laparoscopy, diagnostic Collagen haemostatic agent, non-antimicrobial ()[id number] FDA Start: 12-28-2024 Goals Date Patient Goal Desired Activity /State Mental Status Date Assessment Result Facility 03-15-2025 Cognitive function Voice/Name [facility] Work Phone: 12-28-2024 Cognitive function Voice/Name;Touch/Shaki ng [facility] Work Phone: Clinical Notes 11-19-2024 to 05-30-2025 Note Date & Type Note Facility 05-30-2025 Progress note Note Date/Time May 30, 2025 1:59pm [facility] [address], [address] [place] [address] OFFICE VISIT Date of Service: 05/30/25 MR#: [id number] Acct: [id number] Name: LEATHA JESSICA Rep #: [id number] : 2000 Provider: Dr. Patrice Lloyd MD Age/Sex: 24/F Location: [facility] Status: Signed Intake Vital Signs 04/26/25 13:10 05/27/25 14:14 05/30/25 13:06 Height 5 ft 7 in 5 ft 7 in 5 ft 7 in Weight: 250 lb BMI 39.1 BP 133/85 H Intake Visit Reasons: *EST* NOB LMP 03/25, [facility] 12/30 Planimeter Operator Required: No Is patient in pain?: No Allergies No Known Allergies Allergy (Verified 05/30/25 13:09) Medications ?Medication ?Instructions ?Recorded ?Confirmed ?Type Saccharomyces boulardii 250 mg 250 mg PO BID 07/21/24 05/30/25 History capsule (Daily Probiotic (S. 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 01/27/2505/11 History meth cpg 2 cap PO DAILY 01/27/2505/11 History magnesium 200 mg tablet 200 mg PO QDAY PRN 05/27/25 05/30/25 History multivit-min no.71-iron fum 28 cap PO 05/27/25 5 History mg-folate no.1 1 mg-dha 300 mg capsule (PNV-[place]) Last Menstrual Period: 03/25/25 Zika: Zika virus screening: Negative : No PFSH PFSH Medical History Irregular periods/menstrual cycles Vertigo Wears contact lenses Non-smoker Surgical History History of hymenectomy H/O laparoscopy (~12/2024) H/O eye surgery Family History Father Hemolytic anemia Lupus Social History adopted: No household members: spouse housing: house number of children: 0 current occupational status: employed 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[employer], 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 current occupational exposures/hazards: No pets and animals: Yes pets and animals: dog(s) leisure activities: fishing history of recent travel: Yes ([place], [place], [place]- May) out of state: Yes out of country: No sexually active: Yes Smoking Status: Never smoker second hand exposure: No alcohol intake: current alcohol intake frequency: holidays/special occasions only details: Not while substance use type: does not use well-balanced diet: about half the time caffeine: Yes (occasionally) Type: carbonated beverages Number of servings: 1 eating out: 1-3 times/week during the past year weight has: remained stable what type of physical activity do you participate in: none rashmi/quaker: Presybeterian seatbelt use: always do you feel safe at home: Yes additional social history: - [employer] History 1 Elective abortions Hx Para 0 Spontaneous abortions Hx # Term Pregnancies Ectopic pregnancies Hx # Pregnancies Multiple births # of living children HPI *EST* NOB LMP 03/25, [place] 12/30 Details: LEATHA JESSICA is a 24 year old who presents for New OB visit. OB Visit [facility] Calculator Estimated Delivery Date Method Current WG Current Estimate 01/05/26 Ultrasound #1 8w 4d Other Estimates 12/30/25 LMP (Certain) 9w 3d Estimated Due Date: 12/30/25 Expected Delivery Route/Plan Labor Preferences- CB/BF classes: [] labor support person: [] labor intervention preferences: [] pain management options preferred: [] cut cord/dad catch: [] : [] PP control planned: [] discussed possible routes of delivery and associated risks: [] special requests: [] Specific Issue/Plans Covid status: [] Flu vaccine: [] Tdap vaccine: [] Rhogam: [] LARC form signed: [] Problem list reviewed and updated with the most current plan of care details and appropriate orders placed. Relevant counseling for the gestational age provided. Continue routine care and follow up unless otherwise noted in visit notes/problem list details Initial Weight: Not Recorded Date -?-?-?-?-?-?-?-?-?-?-?-?- EGA Weight BP Urine Prot -?-?-?-?-?-?-?-?-?-?-?-?- Glucose FHR FuHt Pres Dilation -?-?-?-?-?-?-?-?-?-?-?-?- Effaced St Visit Note 05/30/25 -?-?-?-?-?-?-?-?-?-?-?-?- 8w 4d 250 lb 133/85 -?-?-?-?-?-?-?-?-?-?-?-?- 175 -?-?-?-?-?-?-?-?-?-?-?-?- SM- CRL 2.05 cm NOT cons with lmp but consistent with day 19 LH and day 20 intercourse Menstrual History Last Menstrual Period: 03/25/25 Reported LMP: definite Normal amount/duration: Yes Frequency in days: 30-32 since December On hormonal BC at conception: No hCG+: 04/25/25 Antepartum Record Genetic Screening: Congenital Heart Defect: Other, Neural Tube Defect: Other, Hemoglobinopathy Or Carrier: Patient (Father Lupus & Hemolytic anemia), Cystic Fibrosis: Other, Chromosome Abnormality: Partner (Maternal Uncle Down Syndrome), Jason-Sachs: Other, Hemophilia: Other, Intellectual Disability/Autism: Other, Recurrent Loss/Stillbirth: Other, Other Structural Defect: Other, Other Genetic Disease: Other and Maternal Metabolic Disorder: Other Infection History: Live with someone with TB or Exposed to TB: No, Patient or Partner has history of Genital Herpes: No, Rash or Viral illness since last mentrual period: No, Prior GBS-Infected child: No, History of STD: No, HIV Infection: No, History of Hepatitis: No, Recent travel outside of [place]: No, Concern for hepatitis exposure: No, Varicella immune: No (unknown) and Covid Vaccinated: No Medical History Medical History: Positive: Auto-immune disorder (PCOS), Psychiatric (anxiety-mild non medicated), Tarp Repairer surgery (laparoscopic, hymenectomy), Operations/hospitalizations (eye surgery), 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) and Other (Obesity) and Negative: Diabetes, Hypertension, Heart disease, Kidney disease/UTI, Neurologic/epilepsy, Depression/ depression, Hepatitis/liver disease, Varicosities/phlebitis, Thyroid dysfunction, Trauma/domestic violence, History of blood transfusions, D (Rh) Sensitized, Pulmonary (e.g.,TB,Asthma), Seasonal allergies, Drug/latex allergies/reactions, Breast, Anesthetic complications, History of abnormal pap, Uterine anomaly/xavier, Anti-retroviral treatment and Relevant family history ACOG First Trimester First Trimester: Desire for , Alcohol, Tobacco Cessation, Illicit/Recreational Drug/Substance Use, Intimate Partner Violence, Barriers to care, Unstable Housing, Communication Barriers, Environmental/Work Hazards, Anticipated Course of Care, Toxoplasmosis Precations, Use of Any medications, Sexual activity, Exercise, Dental Care, Sauna/Hot tub use, Seat Belt use, Childbirth classes/Hospital facilities, Travel, Indications for Ultrasound and Screening for Aneuploidy; Discussed ROS Const Reports system reviewed and no additional complaints, except as documented, Reports fatigue and Denies fever(s) Eyes Reports system reviewed and no additional complaints, except as documented ENT Reports system reviewed and no additional complaints, except as documented Card Denies chest pain and Denies dyspnea Resp Reports system reviewed and no additional complaints, except as documented, Denies cough and Denies dyspnea GI Denies abdominal pain and Reports nausea Reports system reviewed and no additional complaints, except as documented Musc Reports system reviewed and no additional complaints, except as documented Skin/Breast Reports system reviewed and no additional complaints, except as documented Neuro Yes system reviewed and no additional complaints, except as documented Psych Reports system reviewed and no additional complaints, except as documented Endo Reports system reviewed and no additional complaints, except as documented and Reports fatigue Exam Const General: healthy appearing, comfortable and no acute distress Orientation: alert [facility] Head: normal to inspection, normocephalic and atraumatic Ears: hearing grossly normal bilaterally and external ears normal Nose: external nose normal and nares normal Mouth: oral mucosae normal Teeth and gingiva: dentition normal Eyes General: appearance normal, both eyes and all related structures Neck Neck: normal visual inspection, no lymphadenopathy and supple Thyroid: thyroid normal Chest Chest palpation & inspection: normal inspection of the chest Breast inspection: normal inspection of the breasts and normal inspection of the axillae Breast palpation: normal palpation of the breasts and normal palpation of the axillae Resp Effort & Inspection: normal respiratory effort GI Inspection: normal to inspection Palpation: soft and no hepatosplenomegaly General: bladder normal to palpation External Female Exam: normal external appearance and normal appearance of the urethra Urethra: normal appearance of the urethra Speculum Exam - Vagina: normal appearance of the vagina and normal vaginal discharge Speculum Exam - Cervix: normal appearance of the cervix Bimanual Exam- Vagina & Uterus: normal bimanual exam, bladder normal to palpation, non-tender and other Bimanual Exam- Adnexa, other: non-tender Skin General: no rashes or lesions noted Neuro Motor: muscle tone normal throughout and no movement abnormalities noted Extrem General: normal to inspection and full ROM Supplemental Info ACOG book given and patient encouraged to read about nutrition, exercise, weight gain, and food avoidance in . Coding Level of Care Code OB Routine Diagnoses Unknown varicella vaccination status Z78.9 Supervision of high-risk O09.90 9 weeks gestation of Z3A.09 Weeks of gestation: 9 weeks Obesity affecting O99.210 Anxiety F41.9 Polycystic ovarian syndrome E28.2 Subchorionic hemorrhage in first trimester O20.8 Assessment and Plan Assessment and Plan (1) Unknown varicella vaccination status: Status: Acute Comment: labs ordered, thinks she may have been vaccinated (2) Supervision of high-risk : Status: Acute Comment: , [place] 01/05/26, [place] (3) : Status: Acute Qualifiers: Weeks of gestation: 9 weeks Qualified Code(s): Z3A.09 - 9 weeks gestation of Comment: elects NIPT with gender (4) Obesity affecting : Status: Acute Comment: HgbA1c (5) Anxiety: Status: Acute Comment: mild, non-medicated (6) Polycystic ovarian syndrome: Status: Acute Comment: hga1c ordered (7) Subchorionic hemorrhage in first trimester: Status: Acute 05/30/25 8515 <Electronically signed by Navya shirley MD> Date _ Navya Lloyd MD [facility] Signature: Date (if applicable) CC: ~ [facility] Work Phone: [phone]) 150-938907-21-2025 [facility] [address] [place] [address], [address] [place], [place] [id number] OFFICE VISIT Date of Service: 05/30/25 MR#: [id number] Acct: [id number] Name: LEATHA JESSICA Rep #: [id number] : 2000 Provider: Dr. Patrice Lloyd MD Age/Sex: 24/F Location: [facility] Status: Signed Intake Vital Signs 04/26/25 13:10 05/27/25 14:14 05/30/25 13:06 Height 5 ft 7 in 5 ft 7 in 5 ft 7 in Weight: 250 lb BMI 39.1 BP 133/85 H Intake Visit Reasons: *EST* NOB LMP 03/25, [place] 12/30 Planimeter Operator Required: No Is patient in pain?: No Allergies No Known Allergies Allergy (Verified 05/30/25 13:09) Medications ?Medication ?Instructions ?Recorded ?Confirmed ?Type Saccharomyces boulardii 250 mg 250 mg PO BID 07/21/24 05/30/25 History capsule (Daily Probiotic (S. 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 01/27/2505/11 History meth cpg 2 cap PO DAILY 01/27/2505/11 History magnesium 200 mg tablet 200 mg PO QDAY PRN 05/27/25 05/30/25 History multivit-min no.71-iron fum 28 cap PO 05/27/25 5 History mg-folate no.1 1 mg-dha 300 mg capsule (PNV-[place]) Last Menstrual Period: 03/25/25 Zika: Zika virus screening: Negative : No PFSH PFSH Medical History Irregular periods/menstrual cycles Vertigo Wears contact lenses Non-smoker Surgical History History of hymenectomy H/O laparoscopy (~12/2024) H/O eye surgery Family History Father Hemolytic anemia Lupus Social History adopted: No household members: spouse housing: house number of children: 0 current occupational status: employed 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[employer], 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 current occupational exposures/hazards: No pets and animals: Yes pets and animals: dog(s) leisure activities: fishing history of recent travel: Yes ([place], [place], [place]- May) out of state: Yes out of country: No sexually active: Yes Smoking Status: Never smoker second hand exposure: No alcohol intake: current alcohol intake frequency: holidays/special occasions only details: Not while substance use type: does not use well-balanced diet: about half the time caffeine: Yes (occasionally) Type: carbonated beverages Number of servings: 1 eating out: 1-3 times/week during the past year weight has: remained stable what type of physical activity do you participate in: none rashmi/quaker: Presybeterian seatbelt use: always do you feel safe at home: Yes additional social history: - [employer]- [employer] History 1 Elective abortions Hx Para 0 Spontaneous abortions Hx # Term Pregnancies Ectopic pregnancies Hx # Pregnancies Multiple births # of living children HPI *EST* NOB LMP 03/25, [place] 12/30 Details: LEATHA JESSICA is a 24 year old who presents for New OB visit. OB Visit [place] Calculator Estimated Delivery Date Method Current WG Current Estimate 01/05/26 Ultrasound #1 8w 4d Other Estimates 12/30/25 LMP (Certain) 9w 3d Estimated Due Date: 12/30/25 Expected Delivery Route/Plan Labor Preferences- CB/BF classes: [] labor support person: [] labor intervention preferences: [] pain management options preferred: [] cut cord/dad catch: [] : [] PP control planned: [] discussed possible routes of delivery and associated risks: [] special requests: [] Specific Issue/Plans Covid status: [] Flu vaccine: [] Tdap vaccine: [] Rhogam: [] LARC form signed: [] Problem list reviewed and updated with the most current plan of care details and appropriate ordersplaced. Relevant counseling for the gestational age provided. Continue routine care and follow up unless otherwise noted in visit notes/problem list details Initial Weight: Not Recorded Date -?-?-?-?-?-?-?-?-?-?-?-?- EGA Weight BP Urine Prot -?-?-?-?-?-?-?-?-?-?-?-?- Glucose FHR FuHt Pres Dilation -?-?-?-?-?-?-?-?-?-?-?-?- Effaced St Visit Note 05/30/25 -?-?-?-?-?-?-?-?-?-?-?-?- 8w 4d 250 lb 133/85 -?-?-?-?-?-?-?-?-?-?-?-?- 175 -?-?-?-?-?-?-?-?-?-?-?-?- SM- CRL 2.05 cm NOT cons with lmp but consistent with day 19 LH and day 20 intercourse Menstrual History Last Menstrual Period: 03/25/25 Reported LMP: definite Normal amount/duration: Yes Frequency in days: 30-32 since December On hormonal BC at conception: No hCG+: 04/25/25 Antepartum Record Genetic Screening: Congenital Heart Defect: Other, Neural Tube Defect: Other, Hemoglobinopathy Or Carrier: Patient (Father Lupus & Hemolytic anemia), Cystic Fibrosis: Other, Chromosome Abnormality: Partner (Maternal Uncle Down Syndrome), Jason-Sachs: Other, Hemophilia: Other, Intellectual Disability/Autism: Other, Recurrent Loss/Stillbirth: Other, Other Structural Defect: Other,Other Genetic Disease: Other and Maternal Metabolic Disorder: Other Infection History: Live with someone with TB or Exposed to TB: No, Patient or Partner has history of Genital Herpes: No, Rash or Viral illness since last mentrual period: No, Prior GBS-Infected child: No, History of STD: No, HIV Infection: No, History of Hepatitis: No, Recent travel outside of [place]: No, Concern for hepatitis exposure: No, Varicella immune: No (unknown) and Covid Vaccinated: No Medical History Medical History: Positive: Auto-immune disorder (PCOS), Psychiatric (anxiety- mild non medicated), Tarp Repairer surgery (laparoscopic, hymenectomy), Operations/hospitalizations (eye surgery), 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) and Other (Obesity) and Negative: Diabetes, Hypertension, Heart disease, Kidney disease/UTI, Neurologic/epilepsy, Depression/ depression, Hepatitis/liver disease, Varicosities/phlebitis, Thyroid dysfunction, Trauma/domestic violence, History of blood transfusions, D (Rh) Sensitized, Pulmonary (e.g.,TB,Asthma), Seasonal allergies, Drug/latex allergies/reactions, Breast, Anesthetic complications, History of abnormal pap, Uterine anomaly/xavier, Anti-retroviral treatment and Relevant family history ACOG First Trimester First Trimester: Desire for , Alcohol, Tobacco Cessation, Illicit/Recreational Drug/Substance Use, Intimate Partner Violence, Barriers to care, Unstable Housing, Communication Barriers, Environmental/Work Hazards, Anticipated Course of Care, Toxoplasmosis Precations, Use of Any med ications, Sexual activity, Exercise, Dental Care, Sauna/Hot tub use, Seat Belt use, Childbirth classes/Hospital facilities, Travel, Indications for Ultrasound and Screening for Aneuploidy; Discussed ROS Const Reports system reviewed and no additional complaints, except as documented, Reports fatigue and Denies fever(s) Eyes Reports system reviewed and no additional complaints, except as documented ENT Reports system reviewed and no additional complaints, except as documented Card Denies chest pain and Denies dyspnea Resp Reports system reviewed and no additional complaints, except as documented, Denies cough and Deniesdyspnea GI Denies abdominal pain and Reports nausea Reports system reviewed and no additional complaints, except as documented Musc Reports system reviewed and no additional complaints, except as documented Skin/Breast Reports system reviewed and no additional complaints, except as documented Neuro Yes system reviewed and no additional complaints, except as documented Psych Reports system reviewed and no additional complaints, except as documented Endo Reports system reviewed and no additional complaints, except as documented and Reports fatigue Exam Const General: healthy appearing, comfortable and no acute distress Orientation: alert [facility] Head: normal to inspection, normocephalic and atraumatic Ears: hearing grossly normal bilaterally and external ears normal Nose: external nose normal and nares normal Mouth: oral mucosae normal Teeth and gingiva: dentition normal Eyes General: appearance normal, both eyes and all related structures Neck Neck: normal visual inspection, no lymphadenopathy and supple Thyroid: thyroid normal Chest Chest palpation & inspection: normal inspection of the chest Breast inspection: normal inspection of the breasts and normal inspection of the axillae Breast palpation: normal palpation of the breasts and normal palpation of the axillae Resp Effort & Inspection: normal respiratory effort GI Inspection: normal to inspection Palpation: soft and no hepatosplenomegaly General: bladder normal to palpation External Female Exam: normal external appearance and normal appearance of the urethra Urethra: normal appearance of the urethra Speculum Exam - Vagina: normal appearance of the vagina and normal vaginal discharge Speculum Exam - Cervix: normal appearance of the cervix Bimanual Exam- Vagina & Uterus: normal bimanual exam, bladder normal to palpation, non-tender and other Bimanual Exam- Adnexa, other: non-tender Skin General: no rashes or lesions noted Neuro Motor: muscle tone normal throughout and no movement abnormalities noted Extrem General: normal to inspection and full ROM Supplemental Info ACOG book given and patient encouraged to read about nutrition, exercise, weight gain, and food avoidance in . Coding Level of Care Code OB Routine Diagnoses Unknown varicella vaccination status Z78.9 Supervision of high-risk O09.90 9 weeks gestation of Z3A.09 Weeks of gestation: 9 weeks Obesity affecting O99.210 Anxiety F41.9 Polycystic ovarian syndrome E28.2 Subchorionic hemorrhage in first trimester O20.8 Assessment and Plan Assessment and Plan (1) Unknown varicella vaccination status: Status: Acute Comment: labs ordered, thinks she may have been vaccinated (2) Supervision of high-risk : Status: Acute Comment: , [place] 01/05/26, [place]awn (3) : Status: Acute Qualifiers: Weeks of gestation: 9 weeks Qualified Code(s): Z3A.09 - 9 weeks gestation of Comment: elects NIPT with gender (4) Obesity affecting : Status: Acute Comment: HgbA1c (5) Anxiety: Status: Acute Comment: mild, non-medicated (6) Polycystic ovarian syndrome: Status: Acute Comment: hga1c ordered (7) Subchorionic hemorrhage in first trimester: Status: Acute 05/30/25 1359 casper ESTES> Date _ Navya Lloyd MD [facility] Signature: Date (if applicable) CC: ~ [facility]05-29-2025 [facility] [address] [place] [address], [address] [place] [address] OFFICE VISIT Date of Service: 04/07/25 MR#: [id number] Acct: [id number] Name: LEATHA JESSICA Rep #: [id number] : 2000 Provider: Dr. Patrice Lloyd MD Age/Sex: 24/F Location: [facility] Status: Signed Intake Vital Signs 01/17/25 13:07 03/15/25 07:38 04/07/25 10:59 04/07/25 11:03 Height 5 ft 7 in 5 ft 7 in 5 ft 7 in 5 ft 7 in Weight: 251 lb 2 oz BMI 39.3 BP 147/78 H Intake Visit Reasons: 2 wk Hymenectomy Planimeter Operator Required: No Is patient in pain?: No Allergies No Known Allergies Allergy (Verified 04/07/25 10:59) Medications ?Medication ?Instructions ?Recorded ?Confirmed ?Type Saccharomyces boulardii 250 mg 250 mg PO BID 07/21/24 04/07/25 History capsule (Daily Probiotic (S. boulardii)) cyanocobalamin-liver extract tablet 1 tab PO DAILY 10/0304/07/25 History vitamin no.167-folic acid 1 tab PO DAILY 07/1104/07/25 History 400 mcg-dha 25 mg chewable tablet (One-A-Day ) COUNTRY PRINTER 2 cap PO DAILY 01/27/2503/11 History black cumin seed 2 cap PO DAILY 01/27/2503/11 History magnesium 200 mg tablet 200 mg PO QDAY 01/27/2503/11 History meth cpg 2 cap PO DAILY 01/27/2503/11 History inositol 2,000 mg-D chiro inositol 1 ea PO DAILY 03/0104/07/25 History 50 mg oral powder packet (Ovasitol) Post menopausal: No Patient : No : No PFSH Medical History Vertigo Wears contact lenses Non-smoker Surgical History H/O laparoscopy (~12/2024) H/O eye surgery Family History Father Hemolytic anemia Lupus Social History adopted: No household members: spouse number of children: 0 current occupational status: employed 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[employer], 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 current occupational exposures/hazards: No pets and animals: Yes leisure activities: fishing history of recent travel: No sexually active: Yes Smoking Status: Never smoker second hand exposure: No alcohol intake: current alcohol intake frequency: holidays/special occasions only substance use type: does not use well-balanced diet: about half the time caffeine: Yes eating out: 1-3 times/week during the past year weight has: increased > 10 lbs what type of physical activity do you participate in: none frequency: 1-2 times per week duration: other rashmi/quaker: Presybeterian seatbelt use: always do you feel safe at home: Yes additional social history: - [employer] HPI 2 wk Hymenectomy Details: LEATHA JESSICA is a 24 year old who presents for postop visit doing well felt like it was an easy recovery no significant bleeding or crmaping stitches didn't bother her. History 0 Elective abortions Hx Para Spontaneous abortions Hx # Term Pregnancies Ectopic pregnancies Hx # Pregnancies Multiple births # of living children ROS Const Constitutional: Reports system reviewed and no additional complaints, except as documented : Reports system reviewed and no additional complaints, except as documented Exam Const General: cooperative, healthy appearing, comfortable and no acute distress Other: well healed normal introitus with good capacity Coding Level of Care Code No Charge Diagnoses Dyspareunia Assessment and Plan Assessment and Plan (1) Dyspareunia: Status: Acute Comment: discussed hymenectomy if PFPT and dilators unsuccessful now after some dilation done at time of laparoscopy Plan if persistent dysparuenia recommend PFPT referral 04/07/25 1126 casper ESTES> Date _ Navya Lloyd MD [facility] Signature: Date (if applicable) CC: ~ [facility]05-06-2025 [facility] Medical Records Department [address] [place] [address] History Physical Exam 03/15/25 0939 MR#: [id number] Acct: [id number] Name: LEATHA JESSICA Rep #: [id number] : 2000 24 From: Navya Lloyd MD PCP: Dr. Abby Haas MD Status:[facility] Location: [place] [address] History and Physical Date of Admission: 03/15/25 Intake Vital Signs 01/17/2513:07 01/27/2510:01 03/11/2515:43 Height 5 ft 7 in 5 ft 7 in 5 ft 7 in Weight: 250 lb 253 lb BMI 39.1 39.6 BP 130/82 H 135/82 H Blood Pressure Location Lt brachial Position Sitting Respiration 18 Pulse 94 Pulse Source Monitor Temp 97.6 F L Pulse Oximetry (%) 97 Oxygen Delivery Method room air Intake Visit Reasons: 6 wk FU/preop Hymenectomy Planimeter Operator Required: No Is patient in pain?: No Allergies No Known Allergies Allergy (Verified 03/11/25 15:46) Medications ???Medication ???Instructions ???Recorded ???Confirmed ???Type Saccharomyces boulardii 250 mg 250 mg PO BID 07/21/24 03/01/25 History capsule (Daily Probiotic (S. boulardii)) cyanocobalamin-liver extract tablet 1 tab PO DAILY 07/21/24 03/01/25 History vitamin no.167-folic acid 1 tab PO DAILY 07/21/24 03/01/25 History 400 mcg-dha 25 mg chewable tablet (One-A-Day ) COUNTRY PRINTER 2 cap PO DAILY 01/27/25 03/01/25 History black cumin seed 2 cap PO DAILY 01/27/25 03/01/25 History magnesium 200 mg tablet 200 mg PO QDAY 01/27/25 03/01/25 History meth cpg 2 cap PO DAILY 01/27/25 03/01/25 History inositol 2,000 mg-D chiro inositol 1 ea PO DAILY 03/01/25 03/01/25 History 50 mg oral powder packet (Ovasitol) Is last menstrual period known: Yes Last Menstrual Period: 02/16/25 Post menopausal: No Patient : No : No PFSH Medical History Vertigo Wears contact lenses Non-smoker Surgical History H/O laparoscopy ( 12/2024) H/O eye surgery Family History Father Hemolytic anemia Lupus Social History adopted: No household members: spouse number of children: 0 current occupational status: employed 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[employer], 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 current occupational exposures/hazards: No pets and animals: Yes leisure activities: fishing history of recent travel: No sexually active: Yes Smoking Status: Never smoker second hand exposure: No alcohol intake: current alcohol intake frequency: holidays/special occasions only substance use type: does not use well-balanced diet: about half the time caffeine: Yes eating out: 1-3 times/week during the past year weight has: increased > 10 lbs what type of physical activity do you participate in: none frequency: 1-2 times per week duration: other rashmi/quaker: Presybeterian seatbelt use: always do you feel safe at home: Yes additional social history: - [place] HPI 6 wk FU/preop Hymenectomy Details: LEATHA JESSICA is a 24 year old who presents for preop prior to hymenetcomy for dyspareunia. Female Reproductive History Last Menstrual Period: 02/16/25 Menopausal Symptoms: No night sweats History 0 Elective abortions Hx Para Spontaneous abortions Hx # Term Pregnancies Ectopic pregnancies Hx # Pregnancies Multiple births # of living children ROS Const Constitutional: Denies fatigue, night sweats, weight gain or weight loss ENT ENT: Reports system reviewed and no additional complaints, except as documented Cardio Card: Denies chest pain Resp Resp: Denies cough or dyspnea GI GI: Reports as per HPI; Denies abdominal pain, constipation, nausea or vomiting : Denies nipple discharge, urinary frequency, urinary incontinence, urinary hesitancy, urinary urgency, vaginal discharge, vaginal dryness, vaginal odor or vaginal pruritus Musc Musc: Denies arthralgias, back pain or muscle weakness Skin Skin/Breast: Denies alopecia, change in hair, dry skin, breast mass, breast pain, breast skin changes or nipple discharge Neuro Neuro: Reports system reviewed and no additional complaints, except as documented Psych Psych: Reports system reviewed and no additional complaints, except as documented Endo Endo: Denies cold intolerance, excessive sweating, heat intolerance or polydipsia Law/Lymph Hematologic/Lymphatic: Denies easy bleeding, Denies easy bruising and Denies lymphadenopathy Exam Const General: cooperative, healthy appearing, comfortable and no acute distress Orientation: alert [facility] Head: normal to inspection and normocephalic Ears: hearing grossly normal bilaterally and external ears normal Nose: external nose normal and nares normal Face and sinus: (more content not included)...[facility] 03-11-2025 Evaluation note* Diagnosis Onset Date Resolution Status Admit Date Dyspareunia resolved March 11, 2025 3:32pm Dyspareunia resolved March 15, 2025 7:16am Dyspareunia resolved April 07 10:53am Anxiety acute May 30 1:00pm Obesity affecting acute May 30, 2025 1:00pm Polycystic ovarian syndrome acute May 30, 2025 1:00pm acute May 30 1:00pm Subchorionic hemorrhage in first trimester acute May 30, 2025 1:00pm Supervision of high-risk acute May 30, 2025 1:00pm Unknown varicella vaccinatio n status acute May 30, 2025 1:00pm [facility] Work Phone: 1(565) 299-228005-02-2025 Evaluation note* Diagnosis Onset Date Resolution Status Admit Date Dyspareunia resolved March 11, 2025 3:32pm Dyspareunia resolved March 15, 2025 7:16am Dyspareunia resolved April 07 10:53am Anxiety acute May 27 12:51pm Obesity affecting acute May 27, 2025 12:51pm Polycystic ovarian syndrome acute May 27, 2025 12:51pm acute May 27 12:51pm Supervision of high-risk acute May 27, 2025 12:51pm Unknown varicella vaccinatio n status acute May 27, 2025 12:51pm Anxiety acute May 30 1:00pm Obesity affecting acute May 30, 2025 1:00pm Polycystic ovarian syndrome acute May 30, 2025 1:00pm acute May 30 1:00pm Subchorionic hemorrhage in first trimester acute May 30, 2025 1:00pm Supervision of high-risk acute May 30, 2025 1:00pm Unknown varicella vaccinatio n status acute May 30, 2025 1:00pm [facility] Work Phone: 1(398) 576-326503-20-2025 Evaluation note* Diagnosis Onset Date Resolution Status Admit Date Abnormal thyroid blood test acute January 27, 2025 9:53am Immunization declined noneactive Mar 2024 9:53am Family history of lupus noneactive M 2024 9:53am Mild anxiety noneactive January 27, 2025 9:53am Establishing care with new doctor, encounter for noneactive January 9:53am Enlarged thyroid noneactive January 272024 9:53am Dyspareunia acute March 11, 2025 3:32pm Dyspareunia acute March 15, 2025 7:16am Dyspareunia acute April 07 10:53am [facility] Work Phone: [phone] Radiology Diagnostic study note [facility] [address] [place] [address] Thyroid MR#: [id number] Acct: [id number] Name: LEATHA JESSICA Rep #: [id number] : 2000 F 24 From: Garth Swartz MD PCP: Care Physician,No Primary Status: REG CLI Study:Thyroid Date of Exam: 01/21/25 Exam# [id number] Ordering Dr: Navya Rivero MD PROCEDURE: THYROID REASON FOR EXAM: ABNORMAL THYROID BLOOD TEST TECHNIQUE: Thyroid ultrasound COMPARISON: None. FINDINGS: Right thyroid lobe measures 5.4 cm x 1.6 cm x 1.7 cm. Left thyroid lobe measures 4 cm x 1.5 cm x 1.2 cm. Isthmus thickness is3.6 mm. Thyroid Size: Mild enlargement of the right lobe of the thyroid. Background Echotexture: Normal Thyroid Nodules: None US/Thyroid IMPRESSION: Mild enlargement of the right lobe of the thyroid gland. No sonographic abnormality is seen. Reading Location: [place] [address] CC: Dr. Navya Lloyd MD; No Primary Care Physician ~ Associate Curator: Signed [facility]02-18-2025 Evaluation note* Diagnosis Onset Date Resolution Status Admit Date Dysmenorrhea acute December 7:54am Infertility acute December 7:54am Irregular periods/menstrual cycles acute December 28 025 7:54am Polycystic ovarian syndrome acute December 28, 2024 7:54am Dyspareunia acute January 17 12:49pm Abnormal thyroid blood test acute January 27, 2025 9:53am Immunization declined noneactive Jan 9:53am Family history of lupus noneactive M 2024 9:53am Mild anxiety noneactive January 27, 2025 9:53am Establishing care with new doctor, encounter for noneactive January 9:53am Enlarged thyroid noneactive January 272024 9:53am Dyspareunia acute March 11, 2025 3:32pm Dyspareunia acute March 15, 2025 7:16am Dyspareunia acute April 07 10:53am [facility] Work Phone: 1(448) 803-834002-17-2025 [facility] Medical Records Department [address] [place], [place] [id number] History Physical Exam 12/27/24 1728 MR#: [id number] Acct: [id number] Name: LEATHA JESSICA Rep #: [id number] : 2000 24 From: Navya Lloyd MD PCP: Care Physician,No Primary Status:PRE [facility] Location: [facility] History and Physical Date of Admission: 12/28/24 [facility] [address] [place] [address], [address] [place] [address] OFFICE VISIT Date of Service: 11/19/24 MR#: [id number] Acct: [id number] Name: LEATHA JESSICA Rep #: [id number] : 2000 Provider: Dr. Navya Lloyd MD Age/Sex: 24/F Location: [facility] Status: Signed Intake Vital Signs 07/21/2408:47 11/19/2514:17 Height 5 ft 7 in 5 ft 7 in Weight: 254 lb 4 oz BMI 39.8 BP 132/83 H Intake Visit Reasons: Surgical consult Chief Complaint: Fertility consult Planimeter Operator Required: No Is patient in pain?: No Allergies No Known Allergies Allergy (Verified 11/19/24 15:19) Medications ???Medication ???Instructions ???Recorded ???Confirmed ???Type Saccharomyces boulardii 250 mg 250 mg PO BID 07/21/24 11/19/24 History capsule (Daily Probiotic (S. boulardii)) cyanocobalamin-liver extract tablet tab PO 07/21/24 11/19/24 History vitamin no.167-folic acid tab PO 07/21/24 11/19/24 History 400 mcg-dha 25 mg chewable tablet (One-A-Day ) letrozole 2.5 mg tablet 2.5 mg PO DAILY #5 tabs 10/01/24 11/19/24 Rx Is last menstrual period known: Yes Last Menstrual Period: 10/11/24 Post menopausal: No Patient : No : No PFSH Surgical History (Updated 11/19/24 @ 15:[address] 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 she take ibuprofen with some relief. 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 any additional risk factors identified: none Female Reproductive History Last Menstrual Period: 10/11/24 Cycle Length: >35 Questions: metorrhagia: No, sexually active: Yes, dyspareunia: No and PCB: No History 0 Elective abortions Hx Para Spontaneous abortions Hx # Term Pregnancies Ectopic pregnancies Hx # Pregnancies Multiple births # of living children ROS Const Constitutional: Reports system reviewed and no additional complaints, except as documented Eyes Eyes: Reports system reviewed and no additional complaints, except as documented ENT ENT: Reports system reviewed and no additional complaints, except as documented Cardio Card: Denies chest pain Resp Resp: Denies cough or dyspnea GI GI: Denies abdominal pain or change in bowel habits : Reports as per HPI; Denies nipple discharge Musc Musc: Denies arthralgias, back pain or muscle weakness Skin Skin/Breast: Denies alopecia, change in hair, dry skin, breast mass, breast pain, breast skin changes or nipple discharge Neuro Neuro: Reports system reviewed and no additional complaints, except as documented Psych Psych: Reports system reviewed and no additional complaints, except as documented Endo Endo: Denies cold intolerance, excessive sweating, heat intolerance or polydipsia Law/Lymph Hematologic/Lymphatic: Denies easy bleeding, Denies easy bruising and Denies lymphadenopathy Exam Const General: cooperative and no acute distress Or (more content not included)...[facility]01-10-2025 Evaluation note* Diagnosis Onset Date Resolution Status Admit Date Dysmenorrhea acute November 3:01pm Infertility acute November 19, 2024 3:01pm Irregular periods/menstrual cycles acute November 19 3:01pm Polycystic ovarian syndrome acute November 19, 2024 3:01pm Dysmenorrhea acute December 7:54am Infertility acute December 7:54am Irregular periods/menstrual cycles acute December 28 025 7:54am Polycystic ovarian syndrome acute December 28, 2024 7:54am Dyspareunia acute January 17 025 12:49pm Abnormal thyroid blood test acute January 27, 2025 9:53am Immunization declined noneactive [facility] 2024 9:53am Family history of lupus noneactive [facility] 2024 9:53am Mild anxiety noneactive January 27, 2025 9:53am Establishing care with new doctor, encounter for noneactive January 9:53am Enlarged thyroid noneactive January 272024 9:53am [facility] Work Phone: Progress note Author Navya Lloyd [facility] Note Date/Time April 07, 2025 11:26 am [facility] [address] [place] [address], [address] [place] [address] OFFICE VISIT Date of Service: 04/07/25 MR#: [id number] Acct: [id number] Name: LEATHA JESSICA Rep #: [id number] : 2000 Provider: Dr. Patrice Lloyd MD Age/Sex: 24/F Location: [facility] Status: Signed Intake Vital Signs 01/17/25 13:07 03/15/25 07:38 04/07/25 10:59 04/07/25 11:03 Height 5 ft 7 in 5 ft 7 in 5 ft 7 in 5 ft 7 in Weight: 251 lb 2 oz BMI 39.3 BP 147/78 H Intake Visit Reasons: 2 wk Hymenectomy Planimeter Operator Required: No Is patient in pain?: No Allergies No Known Allergies Allergy (Verified 04/07/25 10:59) Medications ?Medication ?Instructions ?Recorded ?Confirmed ?Type Saccharomyces boulardii 250 mg 250 mg PO BID 07/21/24 04/07/25 History capsule (Daily Probiotic (S. boulardii)) cyanocobalamin-liver extract tablet 1 tab PO DAILY 10/0304/07/25 History vitamin no.167-folic acid 1 tab PO DAILY 07/1104/07/25 History 400 mcg-dha 25 mg chewable tablet (One-A-Day ) COUNTRY PRINTER 2 cap PO DAILY 01/27/2503/11 History black cumin seed 2 cap PO DAILY 01/27/2503/11 History magnesium 200 mg tablet 200 mg PO QDAY 01/27/2503/11 History meth cpg 2 cap PO DAILY 01/27/2503/11 History inositol 2,000 mg-D chiro inositol 1 ea PO DAILY 03/0104/07/25 History 50 mg oral powder packet (Ovasitol) Post menopausal: No Patient : No : No PFSH Medical History Vertigo Wears contact lenses Non-smoker Surgical History H/O laparoscopy (~12/2024) H/O eye surgery Family History Father Hemolytic anemia Lupus Social History adopted: No household members: spouse number of children: 0 current occupational status: employed 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[employer] current occupational exposures/hazards: No pets and animals: Yes leisure activities: fishing history of recent travel: No sexually active: Yes Smoking Status: Never smoker second hand exposure: No alcohol intake: current alcohol intake frequency: holidays/special occasions only substance use type: does not use well-balanced diet: about half the time caffeine: Yes eating out: 1-3 times/week during the past year weight has: increased > 10 lbs what type of physical activity do you participate in: none frequency: 1-2 times per week duration: other rashmi/quaker: Pres[employer]beterian seatbelt use: always do you feel safe at home: Yes additional social history: - Dashawn HPI 2 wk Hymenectomy Details: LEATHA JESSICA is a 24 year old who presents for postop visit doing well felt like it was an easy recovery no significant bleeding or crmaping stitches didn't bother her. History 0 Elective abortions Hx Para Spontaneous abortions Hx # Term Pregnancies Ectopic pregnancies Hx # Pregnancies Multiple births # of living children ROS Const Constitutional: Reports system reviewed and no additional complaints, except as documented : Reports system reviewed and no additional complaints, except as documented Exam Const General: cooperative, healthy appearing, comfortable and no acute distress Other: well healed normal introitus with good capacity Coding Level of Care Code No Charge Diagnoses Dyspareunia Assessment and Plan Assessment and Plan (1) Dyspareunia: Status: Acute Comment: discussed hymenectomy if PFPT and dilators unsuccessful now after some dilation done at time of laparoscopy Plan if persistent dysparuenia recommend PFPT referral 04/07/25 1126 <Electronically signed by Navya shirley MD> Date _ [facility] Signature: Date (if applicable) CC: ~ [facility] Work Phone: Reason for referral (narrative)No reason for referral information availableWFisher-[facility] Work Phone: Summary Purpose Family History No Family History Records Found Relationship Condition Age at Onset Recorded Date/T mike father Hemolytic anemia Unknown Lupus Unknown Advance Directives No Advanced Directives Records Found Advance Directive Response Recorded Date/ Time Living Will No December 03 11:05am Do you have a Healthcare Power of Surveyor'S Assistant? No December 03, 2024 11:05am Advance Directive Response Recorded Date/ Time Living Will No December 03 11:05am Do you have a Healthcare Power of Surveyor'S Assistant? No December 03, 2024 11:05am Living Will No March 01, 2025 8:34am Do you have a Healthcare Power of Surveyor'S Assistant? No March 01, 2025 8:34am Advance Directive Response Recorded Date/ Time Living Will No March 01, 2025 8:34am Do you have a Healthcare Power of Surveyor'S Assistant? 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 EST CARE - PT/CONSENT ONLY January 27, 2025 9:53am Reason for Visit Admit Date Dysmenorrhea November 19, 2024 3 :01pm Infertility November 19, 2024 3 :01pm Irregular periods/menstrual cycles Janua 2024 3:01pm Polycystic ovarian syndrome November 3:01pm Dysmenorrhea December 28, 2024 7:54am Infertility December 28, 2024 7:54am Irregular periods/menstrual cycles u 2024 7:54am Polycystic ovarian syndrome December 7:54am Dyspareunia January 17, 2025 12: 49pm Abnormal thyroid blood test January 27, 2025 9:53am Immunization declined January 27, 2025 9 :53am Family history of lupus January 27, 2025 9:53am Mild anxiety January 27, 2025 9:5 3am Establishing care with new doctorgracie for January 27, 2025 9:53am Enlarged thyroid January 27, 2025 9:5 3am Chief Complaint Admit Date Diagnostic Laparoscopy, Chromtubation Fe bruary 2024 5:28pm Diagnostic Laparoscopy, Chromtubation Fe bruary 2024 7:54am Diagnostic Laparoscopy, Chromtubation Fe bruary 2024 12:00pm 3 WK F/U January 17, 2025 12: 49pm ABM FINDING IN BLOOD January 21, 2025 11 :44am 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 EST CARE - PT/CONSENT ONLY January 27, 2025 9:53am 6 wk FU/preop Hymenectomy March 11, 2025 3:32pm Hymenectomy March 15, 2025 7:16am Hymenectomy March 15, 2025 9:39am 2 wk Hymenectomy April 07, 2025 10:53 am Reason for Visit Admit Date Dysmenorrhea December 28, 2024 7:54am Infertility December 28, 2024 7:54am Irregular periods/menstrual cycles u 2024 7:54am Polycystic ovarian syndrome December 7:54am Dyspareunia January 17, 2025 12: 49pm Abnormal thyroid blood test January 27, 2025 9:53am Immunization declined January 27, 2025 9 :53am Family history of lupus January 27, 2025 9:53am Mild anxiety January 27, 2025 9:5 3am Establishing care with new doctorgracieer for January 27, 2025 9:53am Enlarged thyroid January 27, 2025 9:5 3am Dyspareunia March 11, 2025 3:32pm Dyspareunia March 15, 2025 7:16am Dyspareunia April 07, 2025 10:53 am Chief Complaint Admit Date 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 EST CARE - WC PT/CONSENT ONLY January 27, 2025 9:53am 6 wk FU/preop Hymenectomy March 11, 2025 3:32pm Hymenectomy March 15, 2025 7:16am Hymenectomy March 15, 2025 9:39am 2 wk Hymenectomy April 07, 2025 10:53 am PRE NEW OB COMFIRM PREG, VITALS May 272024 12:51pm Reason for Visit Admit Date Abnormal thyroid blood test January 27, 2025 9:53am Immunization declined January 27, 2025 9 :53am Family history of lupus January 27, 2025 9:53am Mild anxiety January 27, 2025 9:5 3am Establishing care with new doctorgracie nter for January 27, 2025 9:53am Enlarged thyroid January 27, 2025 9:5 3am Dyspareunia March 11, 2025 3:32pm Dyspareunia March 15, 2025 7:16am Dyspareunia April 07, 2025 10:53 am Chief Complaint Admit Date 6 wk FU/preop Hymenectomy March 11, 2025 3:32pm Hymenectomy March 15, 2025 7:16am Hymenectomy March 15, 2025 9:39am 2 wk Hymenectomy April 07, 2025 10:53 am PRE NEW OB COMFIRM PREG, VITALS May 272024 12:51pm *EST* NOB LMP 03/25, [place] 12/30May 30, 2025 1:00pm Reason for Visit Admit Date Dyspareunia March 11, 2025 3:32pm Dyspareunia March 15, 2025 7:16am Dyspareunia April 07, 2025 10:53 am Anxiety May 30, 2025 1:00 pm Obesity affecting May 30, 2 025 1:00pm Polycystic ovarian syndrome May 30, 2 025 1:00pm May 30, 2025 1:00 pm Subchorionic hemorrhage in first trimest er May 30, 2025 1:00pm Supervision of high-risk May 30, 2025 1:00pm Unknown varicella vaccination status May 1:00pm Reason for Visit Admit Date Dyspareunia March 11, 2025 3:32pm Dyspareunia March 15, 2025 7:16am Dyspareunia April 07, 2025 10:53 am Anxiety May 27, 2025 12:5 1pm Obesity affecting May 27, 2 025 12:51pm Polycystic ovarian syndrome May 27, 2 025 12:51pm May 27, 2025 12:5 1pm Supervision of high-risk May 27, 2025 12:51pm Unknown varicella vaccination status May 12:51pm Anxiety May 30, 2025 1:00 pm Obesity affecting May 30, 2 025 1:00pm Polycystic ovarian syndrome May 30, 2 025 1:00pm May 30, 2025 1:00 pm Subchorionic hemorrhage in first trimest er May 30, 2025 1:00pm Supervision of high-risk May 30, 2025 1:00pm Unknown varicella vaccination status May 1:00pm Additional Source Comments INFORMATION SOURCE (unrecogn ized section and content) DATE CREATED AUTHOR 05/05/2018 [facility] DATE CREATED AUTHOR AUTHOR'S ORGANIZ ATION 03/29/2024 [facility] DATE CREATED AUTHOR AUTHOR'S ORGANIZ ATION [facility] Care Teams (unrecognized sec tion and content) Team Status: Active Member Role Status Dates Dr. Abby Haas MD Primary Care Provider Active Team Status: Active Member Role Status Dates No Primary Care Physician Primary Care Provider Active Start: December 27, 2024 Dr. Navya Lloyd MD Attending Provider Active Start: December 27, 2024 Dr. Navya Lloyd MD Referring Provider Active Start: December 27, 2024 Dr. Navya Lloyd MD Other Provider Active Start: December 27, 2024 Team Status: Inactive Member Role Status Dates No Primary Care Physician Primary Care Provider Active Start: December 28, 2024 End: December 28, 2024 Dr. Navya Lloyd MD Attending Provider Active Start: December 28, 2024 End: December 28, 2024 Dr. Navya Lloyd MD Referring Provider Active Start: December 28, 2024 End: December 28, 2024 Team Status: Active Member Role Status Dates No Primary Care Physician Primary Care Provider Active Start: December 28, 2024 Dr. Navya Lloyd MD Attending Provider Active Start: December 28, 2024 Dr. Navya Lloyd MD Referring Provider Active Start: December 28, 2024 Dr. Navya Lloyd MD Other Provider Active Start: December 28, 2024 Team Status: Inactive Member Role Status Dates No Primary Care Physician Primary Care Provider Active Start: January 17, 2025 End: January 17, 2025 No Primary Care Physician Referring Provider Active Start: January 17, 2025 End: January 17, 2025 Dr. Navya Lloyd MD Attending Provider Active Start: January 17, 2025 End: January 17, 2025 Team Status: Inactive Member Role Status Dates No Primary Care Physician Primary Care Provider Active Start: January 21, 2025 End: January 21, 2025 Dr. Navya Lloyd MD Attending Provider Active Start: January 21, 2025 End: January 21, 2025 Dr. Navya Lloyd MD Referring Provider Active Start: January 21, 2025 End: January 21, 2025 Team Status: Inactive Member Role Status Dates No Primary Care Physician Primary Care Provider Active Start: January 27, 2025 End: January 27, 2025 No Primary Care Physician Referring Provider Active Start: January 27, 2025 End: January 27, 2025 Dr. Abby Haas MD Attending Provider Active Start: January 27, 2025 End: January 27, 2025 Team Status: Inactive Member Role Status Dates Dr. Abby Haas MD Primary Care Provider Active Start: January 27, 2025 End: January 27, 2025 Dr. Abby Haas MD Attending Provider Active Start: January 27, 2025 End: January 27, 2025 Team Status: Inactive Member Role Status Dates No Primary Care Physician Referring Provider Active Start: March 11, 2025 End: March 11, 2025 Dr. Navya Lloyd MD Attending Provider Active Start: March 11, 2025 End: March 11, 2025 Dr. Abby Haas MD Primary Care Provider Active Start: March 11, 2025 End: March 11, 2025 Team Status: Inactive Member Role Status Dates Dr. Navya Lloyd MD Attending Provider Active Start: March 15, 2025 End: March 15, 2025 Dr. Navya Lloyd MD Referring Provider Active Start: March 15, 2025 End: March 15, 2025 Dr. Abby Haas MD Primary Care Provider Active Start: March 15, 2025 End: March 15, 2025 Team Status: Active Member Role Status Dates Dr. Navya Lloyd MD Attending Provider Active Start: March 15, 2025 Dr. Navya Lloyd MD Referring Provider Active Start: March 15, 2025 Dr. Navya Lloyd MD Other Provider Active Start: March 15, 2025 Dr. Abby Haas MD Primary Care Provider Active Start: March 15, 2025 Team Status: Inactive Member Role Status Dates No Primary Care Physician Referring Provider Active Start: April 07, 2025 End: April 07, 2025 Dr. Navya Llyod MD Attending Provider Active Start: April 07, 2025 End: April 07, 2025 Dr. Abby Haas MD Primary Care Provider Active Start: April 07, 2025 End: April 07, 2025 Team Status: Inactive Member Role Status Dates No Primary Care Physician Primary Care Provider Active Start: October 19, 2024 End: October 19, 2024 Ligia Nguyen SURFACE LOGGING SYSTEMS LOGGER, SURFACE LOGGING SYSTEMS LOGGER-C Attending Provider Active Start: October 19, 2024 End: October 19, 2024 Ligia Nguyen SURFACE LOGGING SYSTEMS LOGGER, SURFACE LOGGING SYSTEMS LOGGER-C Referring Provider Active Start: October 19, 2024 End: October 19, 2024 Team Status: Inactive Member Role Status Dates No Primary Care Physician Primary Care Provider Active Start: November 19, 2024 End: November 19, 2024 No Primary Care Physician Referring Provider Active Start: November 19, 2024 End: November 19, 2024 Dr. Navya Lloyd MD Attending Provider Active Start: November 19, 2024 End: November 19, 2024 Team Status: Inactive Member Role Status Dates No Primary Care Physician Primary Care Provider Active Start: November 19, 2024 End: November 19, 2024 Dr. Navya Lloyd MD Attending Provider Active Start: November 19, 2024 End: November 19, 2024 Dr. Navya Lloyd MD Referring Provider Active Start: November 19, 2024 End: November 19, 2024 Team Status: Active Member Role Status Dates Dr. Abby Haas MD Primary Care Provider Active Start: January 27, 2025 Dr. Abby Haas MD Attending Provider Active Start: January 27, 2025 Team Status: Active Member Role/Relationship Status Dates Dr. Abby Haas MD Primary Care Provider Active Team Status: Inactive Member Role/Relationship Status Dates No Primary Care Physician Primary Care Provider Active Start: January 27, 2025 End: January 27, 2025 No Primary Care Physician Referring Provider Active Start: January 27, 2025 End: January 27, 2025 Dr. Abby Haas MD Attending Provider Active Start: January 27, 2025 End: January 27, 2025 Team Status: Inactive Member Role/Relationship Status Dates Dr. Abby Haas MD Primary Care Provider Active Start: January 27, 2025 End: January 27, 2025 Dr. Abby Haas MD Attending Provider Active Start: January 27, 2025 End: January 27, 2025 Team Status: Inactive Member Role/Relationship Status Dates No Primary Care Physician Referring Provider Active Start: March 11, 2025 End: March 11, 2025 Dr. Navya Lloyd MD Attending Provider Active Start: March 11, 2025 End: March 11, 2025 Dr. Abby Haas MD Primary Care Provider Active Start: March 11, 2025 End: March 11, 2025 Team Status: Inactive Member Role/Relationship Status Dates Dr. Navya Lloyd MD Attending Provider Active Start: March 15, 2025 End: March 15, 2025 Dr. Navya Lloyd MD Referring Provider Active Start: March 15, 2025 End: March 15, 2025 Dr. Abby Haas MD Primary Care Provider Active Start: March 15, 2025 End: March 15, 2025 Team Status: Active Member Role/Relationship Status Dates Dr. Navya Lloyd MD Attending Provider Active Start: March 15, 2025 Dr. Navya Lloyd MD Referring Provider Active Start: March 15, 2025 Dr. Navya Lloyd MD Other Provider Active Start: March 15, 2025 Dr. Abby Haas MD Primary Care Provider Active Start: March 15, 2025 Team Status: Inactive Member Role/Relationship Status Dates No Primary Care Physician Referring Provider Active Start: April 07, 2025 End: April 07, 2025 Dr. Navya Lloyd MD Attending Provider Active Start: April 07, 2025 End: April 07, 2025 Dr. Abby Haas MD Primary Care Provider Active Start: April 07, 2025 End: April 07, 2025 Team Status: Inactive Member Role/Relationship Status Dates Dr. Abby Haas MD Primary Care Provider Active Start: May 27, 2025 End: May 27, 2025 Dr. Abby Haas MD Referring Provider Active Start: May 27, 2025 End: May 27, 2025 Dr. Navya Lloyd MD Attending Provider Active Start: May 27, 2025 End: May 27, 2025 Team Status: Inactive Member Role/Relationship Status Dates No Primary Care Physician Referring Provider Active Start: March 11, 2025 End: March 11, 2025 Dr. Navya Lloyd MD Attending Provider Active Start: March 11, 2025 End: March 11, 2025 Dr. Abby Haas MD Primary Care Provider Active Start: March 11, 2025 End: March 11, 2025 Team Status: Inactive Member Role/Relationship Status Dates Dr. Navya Lloyd MD Attending Provider Active Start: March 15, 2025 End: March 15, 2025 Dr. Navya Lloyd MD Referring Provider Active Start: March 15, 2025 End: March 15, 2025 Dr. Abby Haas MD Primary Care Provider Active Start: March 15, 2025 End: March 15, 2025 Team Status: Active Member Role/Relationship Status Dates Dr. Navya Lloyd MD Attending Provider Active Start: March 15, 2025 Dr. Navya Lloyd MD Referring Provider Active Start: March 15, 2025 Dr. Navya Lloyd MD Other Provider Active Start: March 15, 2025 Dr. Abby Haas MD Primary Care Provider Active Start: March 15, 2025 Team Status: Inactive Member Role/Relationship Status Dates No Primary Care Physician Referring Provider Active Start: April 07, 2025 End: April 07, 2025 Dr. Navya Lloyd MD Attending Provider Active Start: April 07, 2025 End: April 07, 2025 Dr. Abby Haas MD Primary Care Provider Active Start: April 07, 2025 End: April 07, 2025 Team Status: Inactive Member Role/Relationship Status Dates Dr. Abby Haas MD Primary Care Provider Active Start: May 27, 2025 End: May 27, 2025 Dr. Abby Haas MD Referring Provider Active Start: May 27, 2025 End: May 27, 2025 Dr. Navya Lloyd MD Attending Provider Active Start: May 27, 2025 End: May 27, 2025 Team Status: Inactive Member Role/Relationship Status Dates Dr. Abby Haas MD Primary Care Provider Active Start: May 30, 2025 End: May 30, 2025 Dr. Abby Haas MD Referring Provider Active Start: May 30, 2025 End: May 30, 2025 Dr. Navya Lloyd MD Attending Provider Active Start: May 30, 2025 End: May 30, 2025 Team Status: Inactive Member Role/Relationship Status Dates Dr. Abby Haas MD Primary Care Provider Active Start: May 30, 2025 End: May 30, 2025 Dr. Navya Lloyd MD Attending Provider Active Start: May 30, 2025 End: May 30, 2025 Dr. Navya Lloyd MD Referring Provider Active Start: May 30, 2025 End: May 30, 2025 FOR RECORDS PERTAINING TO PATIENTS WHO ARE OR HAVE BEEN ENROLLED IN A CHEMICAL DEPENDENCY/SUBSTANCEABUSE PROGRAM, SOME INFORMATION MAY BE OMITTED. This clinical summary was aggregated from multiple sources. Caution should be exercised in using it in the provision of clinical care. This summary normalizes information from multiple sources, and as a consequence, information in this document may materially change the coding, format and clinical context of patient data. In addition, data may be omitted in some cases. CLINICAL DECISIONS SHOULD BE BASED ON THE PRIMARY CLINICAL RECORDS. [facility] [employer] provides no warranty or guarantee of the accuracy or completeness of information in this document.
[2025-06-11 12:11] LABS: Hematocrit 42.0 % (37-47); Hemoglobin 14.3 g/dL (12.0-15.0); Immature Granulocytes Count 0.050 X10^3/uL (0.0-0.0); Mean Corp Hgb Conc 34.0 g/dL (32-36); Mean Corpuscular Volume 85.2 fL (81-99); Mean Platelet Vol. 9.6 fl (6.2-12.0); NRBC Flagged by Analyzer 0 % (0-5); Platelet Count 462 K/mm3 (150-450); RBC Distribution Width CV 13.0 % (11.6-14.6); RBC Distribution Width SD 40.0 fl (35.1-43.9); Red Blood Count 4.93 M/mm3 (4.2-5.4); White Blood Count 12.3 K/mm3 (4.4-11.0)
[2025-06-11 13:25] LABS: HIV Nonreactive (Nonreactive); Hepatitis B Surface Antigen Nonreactive (Nonreactive); Hepatitis C Antibody Nonreactive (Nonreactive); Syphilis Antibodies Nonreactive (Nonreactive)
== END | disposition home or self-care (01) ==
LOC: LAB 11:36
PROVIDERS: PCP Internal Medicine; Referring Provider Obstetrics & Gynecology; Visit Provider Obstetrics & Gynecology
DX: O09.90 Supervision of high risk pregnancy, unspecified, unspecified trimester (principal); Z3A.00 Weeks of gestation of pregnancy not specified
CPT/HCPCS: 36415; 83036; 85025; 86703; 86762; 86780; 86803; 86850; 86900; 86901; 87340

== ENCOUNTER → 2025-06-17 | Outpatient (CLI) | payer SELFPAY | END | disposition home or self-care (01) | LOC: BWCLAB 13:45 | PROVIDERS: PCP Internal Medicine; Referring Provider Obstetrics & Gynecology; Visit Provider Obstetrics & Gynecology | DX: O09.91 Supervision of high risk pregnancy, unspecified, first trimester (principal); Z3A.00 Weeks of gestation of pregnancy not specified | CPT/HCPCS: 36415 ==

== ENCOUNTER 2025-06-28 16:33 | Emergency (ER) | payer SELFPAY ==
[2025-06-28 16:35] VITALS: BP 140/80; PULSE 102; PULSE 108; RESP 18; RESP 19; TEMP 36.6; O2SAT 100; BMI 38.8
--- NOTE | 2025-06-28 16:51 | EKG12_ITS ---
Test Reason : UPPER CHEST PAIN Blood Pressure : */* mmHG Vent. Rate : 93 BPM Atrial Rate : 93 BPM P-R Int : 138 ms QRS Dur : 92 ms QT Int : 356 ms P-R-T Axes : 46 55 5 degrees QTcB Int : 442 ms Normal sinus rhythm Normal ECG Confirmed by MALIA ESTES, GREG ([id number]), editorial specialist LIBAN DEGROOT ([id number]) on 06/29/2025 9:39:07 AM Referred By: Confirmed By: GREG FINLEY MD
--- NOTE | 2025-06-28 17:03 | EX.ED.DYSGE1 ---
HPI History of Present Illness Chief Complaint: Abd Pain Informant: patient Narrative Narrative: Patient is a 24-year-old female with history of anxiety and PCOS presenting with chest pain. Patient states she works from home. She has sudden onset of pain to the left of her sternum (upper area). Started to radiate to the middle of her chest and into her back and then her entire abdomen. States she is never had a pain so severe. She has not worsened over the course of 30 to 40 minutes. She tried to put heat on it with no relief. She called 911 was brought to the emergency room. She denies any associated shortness of breath or difficulty breathing. Denies any fever or chills. Denies any recent cough. Has a history of DVT or PE. Denies any recent urinary symptoms, abnormal vaginal discharge or bleeding. She is 12 weeks 5 days and follows with Dr. Shamar Kerns. She has a hard time describing the pain but states it was severe and initially states it was like an intense pressure and stabbing. When asked if it felt ripping or tearing she did say yes. She notes that and route here she felt a sudden pop and then had relief of her chest pain and now just feels sore. She did have an episode where her right arm felt weak. States she is feeling much better right now. She denies any abnormal indigestion. States her back pain is in her upper back. Denies any family history of any connective tissue disease or Marfan's. States her father did have lupus. PFSH PFS Medical History Irregular periods/menstrual cycles Vertigo Wears contact lenses Non-smoker Home Medications ?Medication ?Instructions ?Recorded ?Last Taken ?Type Saccharomyces boulardii 250 mg 250 mg PO BID 07/21/24 03/14/25 History capsule (Daily Probiotic (S. 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 DAILY 01/27/25 03/14/25 History meth cpg 2 cap PO DAILY 01/27/25 03/14/25 History magnesium 200 mg tablet 200 mg PO QDAY PRN 05/27/25 Unknown History multivit-min no.71-iron fum 28 cap PO 05/27/25 Unknown History mg-folate no.1 1 mg-dha 300 mg capsule ([facility]) Allergy/AdvReac Type Severity Reaction Status Date / Time No Known Allergies Allergy Verified 06/28/25 16:47 Family History Father Hemolytic anemia Lupus Surgical History History of hymenectomy H/O laparoscopy (~12/2024) H/O eye surgery Social History adopted: No household members: spouse housing: house number of children: 0 current occupational status: employed 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[employer], 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 current occupational exposures/hazards: No pets and animals: Yes pets and animals: dog(s) leisure activities: fishing history of recent travel: Yes ([place], [place], [place]- May) out of state: Yes out of country: No sexually active: Yes Smoking Status: Never smoker second hand exposure: No alcohol intake: current alcohol intake frequency: holidays/special occasions only details: Not while substance use type: does not use well-balanced diet: about half the time caffeine: Yes (occasionally) Type: carbonated beverages Number of servings: 1 eating out: 1-3 times/week during the past year weight has: remained stable what type of physical activity do you participate in: none rashmi/moravian: Mormonism seatbelt use: always do you feel safe at home: Yes additional social history: - [employer] ROS ROS ED Constitutional Constitutional ED: Denies chills, fever(s) or sweats Eyes Eyes: Denies change in vision Cardiovascular Cardiovascular: Reports chest pain; Denies palpitations or racing heartbeat Respiratory/Chest Respiratory/Chest: Denies cough or dyspnea Gastrointestinal Gastrointestinal: Reports abdominal pain; Denies constipation, diarrhea, nausea or vomiting Genitourinary Genitourinary ED: Denies dysuria, hematuria or urinary frequency Musculoskeletal Musculoskeletal: Reports back pain; Denies arthralgias or myalgias Integumentary Denies rash Neurologic Neurologic: Reports weakness; Denies paresthesias Psychiatric Psychiatric: Reports anxiety Hematologic/Lymphatic Hematologic/Lymphatic: Denies easy bleeding or easy bruising EXAM Physical Exam Const Vital Signs: 06/28/25 16:35 06/28/25 16:35 06/28/25 16:50 Temperature 97.8 F 97.8 F Temperature Source Oral Oral Pulse Rate 108 H 102 H Respiratory Rate 19 H 18 Respiratory Effort Normal Non-Labored Respiratory Pattern Normal Blood Pressure 140/80 H 140/80 H Blood Pressure Mean 100 100 Pulse Ox 100 100 Oxygen Delivery Method Room Air Room Air 06/28/25 18:34 06/28/25 19:10 06/28/25 20:48 Temperature 98.6 F 98.6 F Temperature Source Oral Pulse Rate 97 96 99 Respiratory Rate 22 H 17 17 Respiratory Effort Respiratory Pattern Blood Pressure 107/63 120/63 108/64 Blood Pressure Mean 77 82 78 Pulse Ox 99 100 97 Oxygen Delivery Method Room Air Room Air Positive well nourished and well developed General Appearance ED: well developed HEENT Reports moist mucous membranes Eyes PERRL Neck supple and no JVD Chest Wall inspection of chest normal and palpation of chest normal Chest Narrative: No chest wall crepitus Resp normal respiratory effort and clear to auscultation bilaterally Cardio regular rhythm and no murmurs Rate: tachycardic GI normal to inspection, nondistended, normoactive bowel sounds and non-tender GI Narrative: No pulsatile mass Inspection: Negative for abdominal distention Back/Spine no CVA tenderness Thoracic Spine / Upper Back: Negative for thoracic spinal tenderness Extremity normal to inspection Extremity Narrative: 2+ radial and DP pulses present General Extremety ED: Negative for edema General Extremity: Negative for edema Neuro oriented x3, CN's II-XII intact bilaterally and no sensory deficits noted Sensorium / Orientation: alert Motor Exam: strength 5/5 throughout; Negative for general weakness Psych mental status grossly normal Mood & Affect: anxious Skin no rashes or lesions noted and no wounds MDM MDM MDM Narrative Medical decision making narrative: Patient is followed for sudden onset of chest pain that radiated to her thoracic back and her diffuse abdomen. She is 13 weeks . Differential includes atypical chest pain, aortic dissection, pulmonary emboli, pneumonia, electrolyte derangements, complication associate with the . Discussed with patient that I am concerned for aortic dissection given her sudden onset of chest pain rating to her back and abdomen. She is mildly tachycardic upon arrival. Did discussed the theoretical risk to the baby with radiation exposure however stated that I would recommend CTA of the chest abdomen pelvis to rule out dissection given that this would be the recommendation from [employer] and if she has a life-threatening illness/process it is more important to have this diagnosis sent to miss it. Patient expresses concern for this. There is any other way for testing. I did states that there are still a chance of missing dissection but we can start with D-dimer and chest x-ray and reevaluate at that point. Patient would prefer to do this. D-dimer, lactate, chest x-ray, EKG, CBC and BMP is obtained. Patient did also request an ultrasound of her abdomen to make sure that everything is okay with the baby given her prior severe abdominal pain. I will perform a bedside ultrasound. Bedside ultrasound shows intrauterine gestation with heart tones of 154 and activity. No free fluid appreciated in the abdomen. Patient continues to have improvement of symptoms despite any intervention in the emergency room. Her D-dimer is normal. Her high since he troponin is less than 6 x 2. Lactate is normal. These would be suggestive of not having an acute aortic dissection. Discussed again with patient's that despite these reassuring labs I cannot definitively rule out aortic dissection given her presentation today. Discussed that if we miss this diagnosis is to be life-threatening to both her and the baby and could cause or permanent disability. Patient understood this but still would like to not undergo CTA. Discussed that she does have a leukocytosis and I cannot explain this at this time. Is no IV source of infection. She states that her white blood cell count was elevated couple days when she had lab work for her [employer]. Suspicion for PE given her normal D-dimer and her HPI however. Patient is discharged home. Given return precautions including worsening chest pain, syncope, numbness, weakness of extremities or any strokelike symptoms. She verbalized understand this. Patient does have capacity for medical decision making at this time in the right to refuse CTA. Lab Data Attestation: I reviewed the patient's lab results. Labs: Laboratory Results - last 24 hr 06/28/25 06/28/25 17:19 19:05 WBC 19.3 H RBC 4.78 Hgb 14.1 Hct 40.7 MCV 85.1 MCH 29.5 MCHC 34.6 RDW Std Deviation 39.0 RDW Coeff of Zhang 12.8 Plt Count 475 H MPV 9.8 Immature Gran % (Auto) 0.400 Neut % (Auto) 79.2 H Lymph % (Auto) 14.0 L Nash % (Auto) 5.1 Eos % (Auto) 0.8 Baso % (Auto) 0.5 Absolute Neuts (auto) 15.3 H Absolute Lymphs (auto) 2.70 Nucleated RBC % 0 D-Dimer Quant (PE/DVT) < 0.27 L Sodium 134 Potassium 3.5 Chloride 100 Carbon Dioxide 18.6 L Anion Gap 16 H BUN 4 Creatinine 0.52 L Estim Creat Clear Calc 219.67 Est GFR (MDRD) Non-Af 135 BUN/Creatinine Ratio 8.2 L Glucose 91 Lactic Acid 1.6 Calcium 9.8 Total Bilirubin 0.16 AST 50 H ALT 22 Alkaline Phosphatase 65 Troponin T High Sens < 6 Troponin T Hi Sens 2 Hr < 6 Total Protein 7.5 Albumin 4.2 Globulin 3.4 Albumin/Globulin Ratio 1.2 Radiography Diagnostic Testing: Clinical Impression(s) from Imaging Studies Chest X-Ray 06/28/25 17:40 IMPRESSION: No acute cardiopulmonary disease. Reading Location: [id number] Rhythm Strip Rhythm Strip: Sinus Rhythm Rate: 93 Ectopy: None EKG Initial EKG: Attestation: I personally reviewed and interpreted this EKG as follows: Interpretation: Sinus Rhythm Comments: Normal sinus rhythm rate of 93 bpm Normal axis Normal intervals Normal ST segments Prior EKG tracings: available for review Prior: Unchanged Discharge Plan Triage Chief Complaint: Abd Pain ED Provider: Amy Ramsey Dx/Rx/DC Orders Clinical Impression: Chest pain during , Instructions: ED Chest Pain, Uncertain Cause Prescriptions: No Action Saccharomyces boulardii [Daily Probiotic (S. 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 The remainder of your workup was largely normal. As we discussed we are not able to fully test for aortic dissection. Should you have further chest pain, feel lightheaded, passout or have any numbness or tingling of your extremities please go to the nearest emergency room. There were no signs of a blood clot based on your blood work today. Please follow-up with your [employer]ER or family doctor as needed. Print Language: Guinean Disposition Disposition: Home, Self Care Discharge Date/Time: 06/28/25 20:49
[2025-06-28 17:36] LABS: Hematocrit 40.7 % (37-47); Hemoglobin 14.1 g/dL (12.0-15.0); Immature Granulocytes Count 0.070 X10^3/uL (0.0-0.0); Mean Corp Hgb Conc 34.6 g/dL (32-36); Mean Corpuscular Volume 85.1 fL (81-99); Mean Platelet Vol. 9.8 fl (6.2-12.0); NRBC Flagged by Analyzer 0 % (0-5); Platelet Count 475 K/mm3 (150-450); RBC Distribution Width CV 12.8 % (11.6-14.6); RBC Distribution Width SD 39.0 fl (35.1-43.9); Red Blood Count 4.78 M/mm3 (4.2-5.4); White Blood Count 19.3 K/mm3 (4.4-11.0)
--- NOTE | 2025-06-28 17:40 | RAD_ITS ---
PROCEDURE: CHEST 1 VIEW (PORTABLE) 06/28/2025 REASON FOR EXAM: CHEST PAIN TECHNIQUE: Frontal view of the chest. COMPARISON: 07/28/2019 FINDINGS: Lungs/Pleura: Clear. No pneumothorax or sizable pleural effusion. Heart/Mediastinum: Normal in size. Bones/Soft tissues: Unremarkable. RAD/Chest 1 View (Portable) IMPRESSION: No acute cardiopulmonary disease. Reading Location: [id number]
[2025-06-28 17:59] LABS: D-Dimer Quantitative (DVT/PE) < 0.27 FEU/ug/m (0.27-0.49)
[2025-06-28 18:34] VITALS: BP 107/63; PULSE 97; RESP 22; O2SAT 99
[2025-06-28 18:34] LABS: AST(SGOT) 50 U/L (<=31); Alanine Aminotransfer ALT/SGPT 22 U/L (<=34); Albumin, Serum 4.2 g/dL (3.5-5.0); Alkaline Phosphatase 65 U/L (35-104); Anion Gap 16 (5-15); BUN 4 mg/dL (4-19); BUN/Creat Ratio 8.2 RATIO (10-20); Calcium,Total 9.8 mg/dL (7.6-11.0); Carbon Dioxide 18.6 mmol/L (21.0-32.0); Chloride 100 mmol/L (98-108); Estimated Creatinine Clearance 219.67 ml/min (50-250); Globulin 3.4 g/dL (2.2-4.2); Glucose 91 mg/dL (70-99); Potassium 3.5 mmol/L (3.3-5.1); Troponin T High Sensitivity < 6 ng/L (<=14)
[2025-06-28 19:10] VITALS: BP 120/63; PULSE 96; RESP 17; TEMP 37; O2SAT 100
[2025-06-28 19:49] LABS: Troponin T High Sens 2 HR < 6 ng/L (<=14)
[2025-06-28 20:48] VITALS: BP 108/64; PULSE 99; RESP 17; TEMP 37; O2SAT 97
== END 2025-06-28 20:49 | disposition home or self-care (01) ==
PROVIDERS: Emergency Provider Emergency Medicine; PCP Internal Medicine; Visit Provider Emergency Medicine
DX: O26.891 Other specified pregnancy related conditions, first trimester (principal); R07.9 Chest pain, unspecified; R10.9 Unspecified abdominal pain; Z3A.13 13 weeks gestation of pregnancy
CPT/HCPCS: 71045; 80053; 83605; 84484; 85025; 85379; 93005; 99285; A4216

== ENCOUNTER → 2025-10-10 | Outpatient (CLI) | payer SELFPAY ==
[2025-10-10 12:03] LABS: Hematocrit 36.3 % (37-47); Hemoglobin 12.2 g/dL (12.0-15.0); Immature Granulocytes Count 0.090 X10^3/uL (0.0-0.0); Mean Corp Hgb Conc 33.6 g/dL (32-36); Mean Corpuscular Volume 88.1 fL (81-99); Mean Platelet Vol. 9.8 fl (6.2-12.0); NRBC Flagged by Analyzer 0 % (0-5); Platelet Count 385 K/mm3 (150-450); RBC Distribution Width CV 13.5 % (11.6-14.6); RBC Distribution Width SD 43.0 fl (35.1-43.9); Red Blood Count 4.12 M/mm3 (4.2-5.4); White Blood Count 13.6 K/mm3 (4.4-11.0)
[2025-10-10 13:06] LABS: Glucose Challenge Gest 1H 50g 115 mg/dL (70-140); HIV Nonreactive (Nonreactive); Syphilis Antibodies Nonreactive (Nonreactive)
== END | disposition home or self-care (01) ==
PROVIDERS: PCP Internal Medicine; Visit Provider Obstetrics & Gynecology
DX: O09.90 Supervision of high risk pregnancy, unspecified, unspecified trimester (principal); Z3A.00 Weeks of gestation of pregnancy not specified
CPT/HCPCS: 36415; 82950; 85025; 86703; 86780

== ENCOUNTER 2025-10-21 22:02 | Emergency (ER) | payer SELFPAY ==
[2025-10-21 22:03] VITALS: BP 136/80; PULSE 99; RESP 18; TEMP 36.7; O2SAT 100; BMI 39.1
--- NOTE | 2025-10-21 22:39 | EKG12_ITS ---
Test Reason : DYSRHYTHMIA Blood Pressure : */* mmHG Vent. Rate : 92 BPM Atrial Rate : 92 BPM P-R Int : 140 ms QRS Dur : 92 ms QT Int : 354 ms P-R-T Axes : 26 42 -8 degrees QTcB Int : 437 ms Normal sinus rhythm Nonspecific ST and T wave abnormality Abnormal ECG Confirmed by DEJA ESTES, KEY ([id number]), video effects editor LIBAN DEGROOT ([id number]) on 10/24/2025 6:39:33 AM Referred By: Confirmed By: KEY SHORT MD
--- OUTSIDE RECORDS SUMMARY | 2025-10-21 22:45 | XMS RPT_ITS | CCD ---
Author Organization [facility] Care Team Providers Care Center Medical Specialist Name Role Phone O'RAMIREZ KAVON FOOD AND BEVERAGE DIRECTOR Admitting Unavailable O'RAMRIEZ, KAVON FOOD AND BEVERAGE DIRECTOR Attending Unavailable O'RAMIREZ, KAVON FOOD AND BEVERAGE DIRECTOR Primary Care Unavailable Care Physician, No Primary Primary Care Provider Unavailable Patrick AVERYCLigia Attending Provider [phone] Patrick FOOD AND BEVERAGE DIRECTOR-CLigia Referring Provider Care Physician, No Primary Referring Provider Un available Dr. Navya Lloyd MD Attending Provider Dr. Navya Lloyd MD Referring Provider [phone] Dr. Navya Lloyd MD Other Provider [phone] Dr. Abby Haas MD Attending Provider Dr. Abby Haas MD Primary Care Provider [phone] Care Physician, No Primary Primary Care Provider Unavailable Dr. Navya Lloyd MD Attending Provider Dr. Navya Lloyd MD Referring Provider [phone] Care Physician, No Primary Referring Provider Un available Care Physician, No Primary Primary Care Provider Unavailable Care Physician, No Primary Referring Provider Un available Dr. Navya Lloyd MD Attending Provider [phone] Dr. Navya Lloyd MD Referring Provider Dr. Navya Lloyd MD Other Provider [phone] Dr. Abby Haas MD Referring Provider Care Physician, No Primary Referring Provider Un available Dr. Abby Haas MD Primary Care Provider [phone] Leyda Capellan CNM Attending Provider Roxy GARCIA, Dr. Reyes Emergency Provider [phone] Care Physician, No Primary Referring Provider Un available Gabino ESTES, Dr. Mendosa Attending Physician Samina ESTES, Dr. Mora Primary Care Physician Dr. Navya Lloyd MD Referring Provider Leyda Capellan CNM Attending Physician Roxy GARCIA, Dr. Reyes Attending Physician Dr. Amy Ramsey DO Emergency Department Physi shameka Chastity Barr DO, Dr. Escalante Attending Physician PEGGY GILLILAND Primary Care Unavailable AVA KIRKLAND Attending Unavailable LEYDA CAPELLAN Referring Unavailable Samina ESTES, Dr. Mora Primary Care Physician Gabino ESTES, Dr. Mendosa Attending Physician Samina, Abby Referring Unavailable Samina, Abby Primary Care Unavailable Leyda Capellan Attending Unavailable Care Physician, No Primary Referring Unava ilable Navya Lloyd Attending Unavailable Leming, Abby Primary Care Unavailable Care Physician, No Primary Primary Care Unava ilable MarcanthNavya bañuelos Referring Unavailable Luis DanielanthNavya bañuelos Attending Unavailable Navya Lloyd Consulting Unavailable Care Physician, No Primary Primary Care Unava ilable MarcanthonyNavya Referring Unavailable MarcanthonyNavya Consulting Unavailable MarcanthonyNavya Attending Unavailable MarcanthonyNavya Attending Unavailable MarcanthNavya bañuelos Referring Unavailable Leming, Abby Primary Care Unavailable Samina, Abby Primary Care Unavailable MarcanthonyNavya Referring Unavailable MarcanthonyNavya Attending Unavailable MarcanthNavya bañuelos Referring Unavailable Samina, Abby Primary Care Unavailable MarcanthNavya bañuelos Attending Unavailable Care Physician, No Primary Primary Care Unava ilable [place] FOOD AND BEVERAGE DIRECTOR, Ligia Referring Unavailable [place] [employer]OD AND BEVERAGE DIRECTOR, Ligia Attending Unavailable Luis DanielanthonyNavya Attending Unavailable Samina, Abby Primary Care Unavailable MarcanthonyNavya Consulting Unavailable MarcanthonyNavya Referring Unavailable Leming, Abby Referring Unavailable Leming, Abby Primary Care Unavailable Leyda Capellan Attending Unavailable Leming, Abby Referring Unavailable Samina, Abby Primary Care Unavailable Marcanthony, Navya Attending Unavailable Care Physician, No Primary Primary Care Unava ilable Care Physician, No Primary Referring Unava ilable Marcanthony, Navya Attending Unavailable Care Physician, No Primary Primary Care Unava ilable Care Physician, No Primary Referring Unava ilable Samina, Abby Attending Unavailable Care Physician, No Primary Referring Unava ilable Marcanthony, Navya Attending Unavailable Samina, Abby Primary Care Unavailable Samina, Abby Referring Unavailable Marcanthony, Navya Attending Unavailable Leming, Abby Primary Care Unavailable Care Physician, No Primary Primary Care Unava ilable Marcanthony, Navya Referring Unavailable Marcanthony, Navya Attending Unavailable Amy Ramsey Attending Unavailable Leming, Abby Primary Care Unavailable Marcanthony, Navya Referring Unavailable Marcanthony, Navya Attending Unavailable Leming, Abby Primary Care Unavailable Care Physician, No Primary Primary Care Unava ilable Marcanthony, Navya Referring Unavailable Marcanthony, Navya Attending Unavailable Leming, Abby Attending Unavailable Leming, Abby Primary Care Unavailable Care Physician, No Primary Primary Care Unava ilable Marcanthony, Navya Referring Unavailable Marcanthony, Navya Attending Unavailable Samina, Abby Referring Unavailable Marcanthony, Navya Attending Unavailable Leming, Abby Primary Care Unavailable Care Physician, No Primary Primary Care Unava ilable Care Physician, No Primary Referring Unava ilable Marcanthony, Navya Attending Unavailable Leming, Abby Referring Unavailable Samina, Abby Primary Care Unavailable Leyda Capellan Attending Unavailable Samina, Abby Referring Unavailable Ava Caro Attending Unavailabl e Leming, Abby Primary Care Unavailable Medications Current Medications Medication Drug Class(es) Dates Sig (Normalized) Sig (Original) Cyanocobalamin-Liver Extract tablet (13 sources) Start: 07-21-2024 Cyanocobalamin-Live r Extract tablet Active 1 {tbl} PO DAILY July 21, 2024 12:00am Complies with drug therapy Start: 07-21-2024 Cyanocobalamin -Liver Extract tablet Active 1 {tbl} PO DAILY July 21, 2024 12:00am WELDING MANAGER (13 sources) Start: 01-27-2025 WELDING MANAGER Active 2 N MA PO DAILY January 27, 2025 12:00am Complies with drug therapy Start: 01-27-2025 WELDING MANAGER Active 2 N MA PO DAILY January 27, 2025 12:00am Start: 01-27-2025 WELDING MANAGER Active PO DAILY January 27, 2025 12:00am 2 capsules Magnesium (20 sources) Start: 05-27-2025 take 1 tablet by jaden th once daily as needed Magnesium 200 mg tablet Active 200 mg PO daily as needed May 27, 2025 1:09pm Complies with drug therapy Start: 05-27-2025 take 1 tablet by jaden [...] January 27, 2025 12:00am meth cpg capsule (13 sources) Start: 01-27-2025 take 2 capsules by m outh once daily meth cpg capsule Active 2 NMA PO DAILY January 27, 2025 12:00am 2 capsules daily Complies with drug therapy Start: 01-27-2025 take 2 capsules by m outh once daily meth cpg capsule Active 2 NMA PO DAILY January 27, 2025 12:00am 2 capsules daily Start: 01-27-2025 take 2 capsules by m outh once daily meth cpg capsule Active PO January 27, 2025 12:00am 2 capsules daily Mv-Mins 21-Omvv-Eqmbv No.1-D silveira (Pnv-Otto) 28-1-300 mg capsule (10 sources) Start: 05-27-2025 Mv-Mins 71-Iro n-Folic No.1-Dha (Pnv-Otto) 28-1-300 mg capsule Active NMA PO May 27, 2025 12:00am Complies with drug therapy Start: 05-27-2025 Mv-Mins 71-Iro n-Folic No.1-Dha (Pnv-Otto) 28-1-300 mg capsule Active NMA PO May 27, 2025 12:00am saccharomyces boulardii 250 mg oral capsule (13 sources) Start: 07-21-2024 take 1 capsule by mouth twice daily Saccharomyces Boulardii (Daily Probiotic (S. Boulardii)) 250 mg capsule Active 250 mg PO TWICE A DAY July 21, 2024 12:00am Complies with drug therapy Completed/Discontinued Medications Medication Drug Class(es) Dates Sig (Normalized) Sig (Original) acetaminophen 325 mg / oxyCODONE hydrochloride 5 mg oral tablet (13 sources) Opioid Agonist Start: 12-28-2024 End: 01-17-2025 Oxycodone-Acetamin ophen (Percocet) 5-325 mg tablet Discontinued 1 {tbl} PO Q4H as needed for pain 10 7 0 December 28, 2024 January 17, 2025 1:05pm Dysmenorrhea Dysmenorrhea, unspecified azithromycin 500 mg oral tablet (13 sources) Macrolide Antimicrobial Start: 07-28-2019 End: 06-02-2024 take 1 tablet by mouth once daily Azithromycin 500 MG tablet Discontinued 500 mg PO DAILY 4 0 July 28, 2019 12:00am June 02, 2024 3:26pm black cumin seed capsule (13 sources) Start: 01-27-2025 End: 05-27-2025 take 1 [...] 3 capsules escitalopram 5 mg oral tablet (11 sources) Serotonin Reuptake Inhibitor Start: 02-09-2025 End: 03-01-2025 take 1 tablet by mouth once daily Escitalopram Oxalate (Lexapro) 5 mg tablet Discontinued 5 mg PO daily 30 1 February 09, 2025 12:00am March 01, 2025 8:31am Inositol-D Chiro Inositol (Ovasitol) 2,000-50 mg powder in packet (11 sources) Start: 03-01-2025 End: 05-27-2025 Inositol-D Chiro Inositol (Ovasitol) 2,000-50 mg powder in packet Discontinued 1 NMA PO DAILY March 01, 2025 12:00am May 27, 2025 1:09pm Start: 03-01-2025 Inositol-D Chi ro Inositol (Ovasitol) 2,000-50 mg powder in packet Active 1 NMA PO DAILY March 01, 2025 12:00am letrozole 2.5 mg oral tablet (13 sources) Aromatase Inhibitor Start: 10-01-2024 End: 01-27-2025 take 3 tablets by mouth once daily Letrozole 2.5 mg tablet Discontinued 2.5 mg PO DAILY 03 11October 01, 2024 1:00am January 27, 2025 9:59am start on day 3 of cycle and take for 5 days LORazepam 0.5 mg oral tablet (13 sources) Benzodiazepine Start: 10-11-2024 End: 11-19-2024 take 1 tablet by mouth once daily as needed Lorazepam (Ativan) 0.5 mg tablet Discontinued 0.5 mg PO daily as needed for take 30 min prior to appointment October 11, 2024 1:00am November 19, 2024 4:19pm medroxyPROGESTERone acetate 10 mg oral tablet (13 sources) Progestin Start: 09-13-2024 End: 11-19-2024 Medroxyprogesterone 10 mg tablet Discontinued 10 mg PO daily September 13, 2024 1:00am November 19, 2024 4:19pm Take daily X 10 days to induce menses. Repeat every 3 months if no spontaneous menses naproxen 500 mg oral tablet (13 sources) Nonsteroidal Anti-inflammatory Drug Start: 12-28-2024 End: 01-17-2025 take 1 tablet by mouth twice daily as needed for pain Naproxen 500 mg tablet Discontinued 500 mg PO TWICE DAILY NEEDED as needed for Pain 30 December 28, 2024 1:00am January 17, 2025 1:05pm No.167-Folic Acid-Dha (One-A-Day ) 400 mcg- 25 mg tablet,chewable (13 sources) Start: 07-21-2024 End: 05-27-2025 No.167-Folic Acid-Dha (One-A-Day ) 400 mcg- 25 mg tablet,chewable Discontinued 1 {tbl} PO DAILY July 21, 2024 12:00am May 27, 2025 1:09pm Start: 07-21-2024 No.16 7-Folic Acid-Dha (One-A-Day ) 400 mcg- 25 mg tablet,chewable Active 1 {tbl} PO DAILY July 21, 2024 12:00am Problems Active Problems Problem Classification Problem Date Documented Date Episodic/Chronic Abdominal pain (1 source) Unspecified abdominal pain; Translations: [Unspecified abdominal pain] Onset: 07-03-2025 Episodic Administrative/social admission (4 sources) First encounter by subject; Translations: [Persons encountering health services in other specified circumstances] 01-27-2025 Episodic Anxiety disorders (20 sources) Mild anxiety; Translations: [Anxiety disorder, unspecified] Onset: 09-15-2025 01-27-2025 Chronic Comment on above: mild, non-medicated Female infertility (2 sources) Female infertility, unspecified; Translations: [Female infertility associated with anovulation] Onset: 11-18-2024 Chronic Hemorrhage during ; abruptio placenta; placenta previa (20 sources) Subchorionic hematoma; Translations: [Other hemorrhage in early ] Onset: 08-15-2025 05-30-2025 Episodic Menstrual disorders (20 sources) Irregular menstruation, unspecified; Translations: [Irregular periods] Onset: 03-26-2024 06-02-2024 Chronic Comment on above: plan diagnostic lapa roscopy chromotubation Other complications of (20 sources) Maternal obesity complicating , childbirth and the puerperium, antepartum; Translations: [Obesity complicating , unspecified trimester] 05-27-2025 Chronic Comment on above: HgbA1c Other complications of (1 source) Obesity complicating , unspecified trimester; Translations: [Obesity complicating , unspecified trimester] Onset: 09-15-2025 Chronic Other complications of (20 sources) High risk ; Translations: [Supervision of high risk , unspecified, unspecified trimester] 05-30-2025 Episodic Comment on above: , [facility] 01/05/26, H magali Tamez Other complications of (7 sources) Chest pain; Translations: [Chest pain during ] 06-28-2025 Episodic Other complications of (1 source) Supervision of high risk , unspecified, unspecified trimester; Translations: [Supervision of high risk , unspecified, unspecified trimester] Onset: 09-15-2025 Episodic Other endocrine disorders (20 sources) Polycystic ovary syndrome; Translations: [Polycystic ovarian [...] 03-23-2025 Chronic Other and delivery including normal (20 sources) ; Translations: [Encounter for supervision of normal , unspecified, unspecified trimester] 05-30-2025 Episodic Comment on above: elects NIPT with gen gino NIPT low risk. gende r male (PT DOESN'T KNOW GENDER YET) Pneumonia (except that caused by tuberculosis or sexually transmitted disease) (13 sources) Community acquired pneumonia; Translations: [Pneumonia, unspecified organism] 07-29-2019 Episodic Residual codes; unclassified (18 sources) Infertile 11-19-2024 Episodic Comment on above: Normal OAR and spous e's SA. couldn't tolerate HSG Residual codes; unclassified (13 sources) History of eye AND/OR adnexa surgery; Translations: [Other specified postprocedural states] 11-19-2024 Episodic Comment on above: NASTAGMIS Residual codes; unclassified (4 sources) Medication refused; Translations: [Immunization not carried out because of patient refusal] 01-27-2025 Episodic Residual codes; unclassified (13 sources) Family history of lupus erythematosus 01-27-2025 Episodic Comment on above: Pt Father Residual codes; unclassified (20 sources) Varicella status; Translations: [Other specified health status] 05-30-2025 Episodic Comment on above: labs ordered, thinks she may have been vaccinated Residual codes; unclassified (1 source) 24 weeks gestation of ; Translations: [24 weeks gestation of ] Onset: 09-15-2025 Episodic Residual codes; unclassified (1 source) Other specified health status; Translations: [Other specified health status] Onset: 08-15-2025 Episodic Residual codes; unclassified (1 source) 19 weeks gestation of ; Translations: [19 weeks gestation of ] Onset: 08-15-2025 Episodic Thyroid disorders (4 sources) Goiter; Translations: [Nontoxic goiter, unspecified] 01-27-2025 Chronic Past or Other Problems Problem Classification Problem Date Documented Da te Episodic/Chronic Other screening for suspected conditions (not mental disorders or infectious disease) (18 sources) Thyroid function tests abnormal; Translations: [Other specified abnormal findings of blood chemistry] Onset: 02-03-2025 11-26-2024 Episodic Residual codes; unclassified (1 source) 9 weeks gestation of ; Translations: [9 weeks gestation of ] Onset: 05-30-2025 Episodic Results Test Name Value Interpretation Reference Range Facility Grey Roll Worker Office Visit Reporton 09-15-2025 Grey Roll Worker Office Visit Report [facility] [address], [address] [place] [address] OFFICE VISIT Date of Service: 09/15/25 MR#: [id number] Acct: [id number] Name: LEATHA JESSICA Rep #: [id number] : 2000 Provider: Dr. Navya hyde MD Age/Sex: 25/F Location: [facility] [place] Status: Signed Intake Vital Signs 07/01/25 11:37 07/28/25 11:01 08/15/25 15:17 09/15/25 08:55 Height 5 ft 7 in 5 ft 7 in 5 ft 7 in 5 ft 7 in Weight: 253 lb 8 oz BMI 39.6 BP 128/83 H Intake Visit Reasons: 23wk ob Manager Urgent Care Required: No Is patient in pain?: No Allergies No Known Allergies Allergy (Verified 09/15/25 08:54) Medications ???Medication ???Instructions ???Recorded ???Confirmed ???Type Saccharomyces boulardii 250 mg 250 mg PO BID 07/21/24 09/15/25 Hi story capsule (Daily Probiotic (S. boulardii)) cyanocobalamin-liver extract tablet 1 tab PO DAILY 07/21/24 5 History WELDING MANAGER 2 cap PO DAILY 01/27/25 09/15/25 H istory meth cpg 2 cap PO DAILY 01/27/25 09/15/25 H istory magnesium 200 mg tablet 200 mg PO QDAY PRN 05/27/25 History multivit-min no.71-iron fum 28 cap PO 05/27/25 09/15/25 History mg-folate no.1 1 mg-dha 300 mg capsule (PNV-Otto) Last Menstrual Period: 03/25/25 Zika: Zika virus [...] physical activity do you participate in: none rahsmi/protestant: Mandaeism seatbelt use: always do you feel safe at home: Yes additional social history: - [employer] History 1 Elective abortions Hx Para 0 Spontaneous abortions Hx # Term Pregnancies Ectopic pregnancies Hx # Pregnancies Multiple births # of living children HPI 23wk ob Details: LEATHA JESSICA is a 25 year old who presents for routine OB visit. OB Visit [place] Calculator Estimated Delivery Date Method Current WG Current Estimate 01/05/26 Ultrasound #1 24w 0d Other Estimates 12/30/25 LMP (Certain) 24w 6d Expected Delivery Route/Plan Labor Preferences- CB/BF classes: [] labor support person: [] labor intervention preferences: [] pain management options preferred: [] cut cord/dad catch: [] : [] PP control planned: [] discussed possible routes of delivery and associated risks: [] special requests: [] Specific Issue/Plans Covid status: [] Flu vaccine: declined Tdap vaccine: [] Rhogam: [] LARC form signed: [] Problem list reviewed and updated with the most current plan of care details and appropriate orders placed. Relevant counseling for the gestational age provided. Continue routine care and follow up unless otherwise noted in visit notes/problem list details Initial Weight: Not Recorded Date -???-???-???-???-??? -???-???-???-???-??? -???-???- EGA Weight BP Urine Prot -???-???-???-???-??? -???-???-???-???-??? -???-???- Glucose FHR FuHt Pres Dilation -???-???-???-???-??? -???-???-???-???-??? -???-???- Effaced St Visit Note 05/30/25 -???-???-???-???-??? -???-???-???-???-??? -???-???- 8w 4d 250 lb 133/85 -???-???-???-???-??? -???-???-???-???-??? -???-???- 175 -???-???-???-???-??? -???-???-???-???-??? -???-???- SM- CRL 2.05 cm NOT cons with lmp but consistent with day 19 LH and day 20 intercourse 06/17/25 -???-???-???-???-??? -???-???-???-???-??? -???-???- 11w 1d 248 lb 5 oz 133/85 Negative -???-???-???-???-??? -???-???-???-???-??? -???-???- Negative 160 -???-???-???-???-??? -???-???-???-???-??? -???-???- KW- no vb/cr amping. NOB labs to (more content not included)... Normal [facility] Grey Roll Worker Office Visit Reporton 08-15-2025 Grey Roll Worker Office Visit Report [facility]'s [address], [address] [place] [address] OFFICE VISIT Date of Service: 08/15/25 MR#: [id number] Acct: [id number] Name: LEATHA JESSICA Rep #: [id number] : 2000 Provider: CARMELITA Rivera ams Age/Sex: 25/F Location: [facility] [place] Status: Signed Intake Vital Signs 06/17/25 14:17 07/28/25 11:01 08/15/25 15:17 Height 5 ft 7 in 5 ft 7 in 5 ft 7 in Weight: 249 lb 9 oz BMI 39.0 BP 133/86 H Intake Visit Reasons: 19wk ob Chief Complaint: 19wk OB Manager Urgent Care Required: No Is patient in pain?: No Allergies No Known Allergies Allergy (Verified 08/15/25 15:15) Medications ???Medication ???Instructions ???Recorded ???Confirmed ???Type Saccharomyces boulardii 250 mg 250 mg PO BID 07/21/24 08/15/25 Hi story capsule (Daily Probiotic (S. boulardii)) cyanocobalamin-liver extract tablet 1 tab PO DAILY 07/21/24 5 History WELDING MANAGER 2 cap PO DAILY 01/27/25 08/15/25 H istory meth cpg 2 cap PO DAILY 01/27/25 08/15/25 H istory magnesium 200 mg tablet 200 mg PO QDAY PRN 05/27/25 History multivit-min no.71-iron fum 28 cap PO 05/27/25 08/15/25 History mg-folate no.1 1 mg-dha 300 mg capsule (PNV-Otto) Last Menstrual Period: 03/25/25 : No Have you fallen in the past year?: No PFSH PFSH Medical History Irregular periods/menstrual cycles Vertigo Wears contact lenses Non-smoker Surgical History History of hymenectomy H/O laparoscopy ( 12/2024) H/O eye surgery Family History Father Hemolytic anemia Lupus Social History adopted: No household members: spouse housing: house number of children: 0 current occupational status: employed 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 OB Visit [facility] Calculator Estimated Delivery Date Method Current WG Current Estimate 01/05/26 Ultrasound #1 19w 4d Other Estimates 12/30/25 LMP (Certain) 20w 3d Expected Delivery Route/Plan Labor Preferences- CB/BF classes: [...] list details Initial Weight: Not Recorded Date -???-???-???-???-??? -???-???-???-???-??? -???-???- EGA Weight BP Urine Prot -???-???-???-???-??? -???-???-???-???-??? -???-???- Glucose FHR FuHt Pres Dilation -???-???-???-???-??? -???-???-???-???-??? -???-???- Effaced St Visit Note 05/30/25 -???-???-???-???-??? -???-???-???-???-??? -???-???- 8w 4d 250 lb 133/85 -???-???-???-???-??? -???-???-???-???-??? -???-???- 175 -???-???-???-???-??? -???-???-???-???-??? -???-???- SM- CRL 2.05 cm NOT cons with lmp but consistent with day 19 LH and day 20 intercourse 06/17/25 -???-???-???-???-??? -???-???-???-???-??? -???-???- 11w 1d 248 lb 5 oz 133/85 Negative -???-???-???-???-??? -???-???-???-???-??? -???-???- Negative 160 -???-???-???-???-??? -???-???-???-???-??? -???-???- KW- no vb/cr amping. NOB labs today. MFM US ordered. / (more content not included)... Normal [facility] - Chemistry and C hemistry - challengeOrdered By: Ava Barr on 07-28-2025 Glucose Ql (U) Negative [facility] - UrinalysisOrder ed By: Ava Barr on 07-28-2025 Protein Ql (U) Negative [facility] Grey Roll Worker Office Visit Reporton 07-28-2025 Grey Roll Worker Office Visit Report [facility]'s [address], [address] [place] [address] OFFICE VISIT Date of Service: 07/28/25 MR#: [id number] Acct: [id number] Name: LEATHA JESSICA Rep #: [id number] : 2000 Provider: Dr. Ava Alba DO Age/Sex: 25/F Location: [facility] [place] Status: Signed Intake Vital Signs 05/30/25 13:06 05/30/25 14:02 07/01/25 11:37 07/28/25 10:57 07/28/25 11:01 Height 5 ft 7 in 5 ft 7 in 5 ft 7 in 5 ft 7 in 5 ft 7 in Weight: 244 lb 3 oz 246 lb 2 oz BMI 38.2 38.5 BP 124/86 H 131/88 H Intake Visit Reasons: 16wk ob Chief Complaint: 16 Week OB Manager Urgent Care Required: No Is patient in pain?: No Allergies No Known Allergies Allergy (Verified 07/28/25 10:57) Medications ???Medication ???Instructions ???Recorded ???Confirmed ???Type Saccharomyces boulardii 250 mg 250 mg PO BID 07/21/24 07/28/25 Hi story capsule (Daily Probiotic (S. boulardii)) cyanocobalamin-liver extract tablet 1 tab PO DAILY 07/21/24 5 History WELDING MANAGER 2 cap PO DAILY 01/27/25 07/28/25 H istory meth cpg 2 cap PO DAILY 01/27/25 07/28/25 H istory magnesium 200 mg tablet 200 mg PO QDAY PRN 05/27/25 History multivit-min no.71-iron fum 28 cap PO 05/27/25 07/28/25 History mg-folate no.1 1 mg-dha 300 mg capsule (PNV-Otto) Last Menstrual Period: 03/25/25 Zika: Zika virus screening: Negative : No PFSH PFSH Medical History Irregular periods/menstrual cycles Vertigo Wears contact lenses Non-smoker Surgical History History of hymenectomy H/O laparoscopy ( 12/2024) H/O eye surgery Family History Father Hemolytic anemia Lupus Social History adopted: No household members: spouse housing: house number of children: 0 current occupational status: employed 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 OB Visit [place] Calculator Estimated Delivery Date Method Current WG Current Estimate 01/05/26 Ultrasound #1 17w 0d Other Estimates 12/30/25 LMP (Certain) 17w 6d Expected Delivery Route/Plan Labor Preferences- CB/BF classes: [...] list details Initial Weight: Not Recorded Date -???-???-???-???-??? -???-???-???-???-??? -???-???- EGA Weight BP Urine Prot -???-???-???-???-??? -???-???-???-???-??? -???-???- Glucose FHR FuHt Pres Dilation -???-???-???-???-??? -???-???-???-???-??? -???-???- Effaced St Visit Note 05/30/25 -???-???-???-???-??? -???-???-???-???-??? -???-???- 8w 4d 250 lb 133/85 -???-???-???-???-??? -???-???-???-???-??? -???-???- 175 -???-???-???-???-??? -???-???-???-???-??? -???-???- SM- CRL 2.05 cm NOT cons with lmp but consistent with day 19 LH and day 20 intercourse 06/17/25 -???-???-???-???-??? -???-???-???-???-??? -???-???- 11w 1d 248 lb 5 oz 133/85 Negative -???-???-???-???-??? -???-???-???-???-??? -???-???- Negative 160 -??? (more content not included)... Normal [facility] - Chemistry and C hemistry - challengeOrdered By: Leyda Capellan on 07-01-2025 Glucose Ql (U) Negative [facility] - UrinalysisOrder ed By: Leyda Capellan on 07-01-2025 Protein Ql (U) Negative [facility] Grey Roll Worker Office Visit Reporton 07-01-2025 [facility] Worker [facility] [address] [place] [address], [address] [place] [address] OFFICE VISIT Date of Service: 07/01/25 MR#: [id number] Acct: [id number] Name: LEATHA JESSICA Rep #: [id number] : 2000 Provider: CARMELITA Rivera ams Age/Sex: 24/F Location: [facility] Status: Signed Intake Vital Signs 04/26/25 13:10 06/28/25 16:35 07/01/25 11:37 Height 5 ft 7 in 5 ft 7 in 5 ft 7 in Weight: 244 lb 3 oz BMI 38.2 BP 124/86 H Intake Visit Reasons: 12 wk ob Chief Complaint: 12wk OB Manager Urgent Care Required: No Is patient in pain?: No Allergies No Known Allergies Allergy (Verified 07/01/25 11:34) Medications ???Medication ???Instructions ???Recorded ???Confirmed ???Type Saccharomyces boulardii 250 mg 250 mg PO BID 07/21/24 07/01/25 Hi story capsule (Daily Probiotic (S. boulardii)) cyanocobalamin-liver extract tablet 1 tab PO DAILY 07/21/24 5 History WELDING MANAGER 2 cap PO DAILY 01/27/25 07/01/25 H istory meth cpg 2 cap PO DAILY 01/27/25 07/01/25 H istory magnesium 200 mg tablet 200 mg PO QDAY PRN 05/27/25 History multivit-min no.71-iron fum 28 cap PO 05/27/25 07/01/25 History mg-folate no.1 1 mg-dha 300 mg capsule (PNV-Otto) Last Menstrual Period: 03/25/25 : No PFSH PFSH Medical History Irregular [...] physical activity do you participate in: none rashmi/protestant: Mandaeism seatbelt use: always do you feel safe at home: Yes additional social history: - [employer]- [employer] History 1 Elective abortions Hx Para 0 Spontaneous abortions Hx # Term Pregnancies Ectopic pregnancies Hx # Pregnancies Multiple births # of living children HPI 12 wk ob Details: LEATHA JESSICA is a 24 year old who presents for routine OB visit. OB Visit [facility] Calculator Estimated Delivery Date Method Current WG Current Estimate 01/05/26 Ultrasound #1 13w 1d Other Estimates 12/30/25 LMP (Certain) 14w 0d Expected Delivery Route/Plan Labor Preferences- CB/BF classes: [...] list details Initial Weight: Not Recorded Date -???-???-???-???-??? -???-???-???-???-??? -???-???- EGA Weight BP Urine Prot -???-???-???-???-??? -???-???-???-???-??? -???-???- Glucose FHR FuHt Pres Dilation -???-???-???-???-??? -???-???-???-???-??? -???-???- Effaced St Visit Note 05/30/25 -???-???-???-???-??? -???-???-???-???-??? -???-???- 8w 4d 250 lb 133/85 -???-???-???-???-??? -???-???-???-???-??? -???-???- 175 -???-???-???-???-??? -???-???-???-???-??? -???-???- SM- CRL 2.05 cm NOT cons with lmp but consistent with day 19 LH and day 20 intercourse 06/17/25 -???-???-???-???-??? -???-???-???-???-??? -???-???- 11w 1d 248 lb 5 oz 133/85 Negative -???-???-???-???-??? -???-???-???-???-??? -???-???- Negative 160 -???-???-???-???-??? -???-???-???-???-??? -???-???- KW- no vb/cr amping. NOB labs today. MFM US ordered. 07/01/25 -???-???-???-???-??? -???-???-? (more content not included)... Normal [facility] 12 Lead EKGon 06-28-2025 12 Lead EKG [facility] Cardiovascular Services [address] [place] [address] 12 Lead EKG 06/28/25 1702 MR#: [id number] Acct: [id number] Name: LEATHA JESSICA Rep #: [id number] : 2000 24 From: Brenton Maria MD Attending Dr: Status: DEP ER Ordering Dr: Amy Ramsey DO Date: 06/28/25 Location: ED Sex: F C Admitted: Test Reason : UPPER CHEST PAIN Blood Pressure : */* mmHG Vent. Rate : 93 BPM Atrial Rate : 93 BPM P-R Int : 138 ms QRS Dur : 92 ms QT Int : 356 ms P-R-T Axes : 46 55 5 degrees QTcB Int : 442 ms Normal sinus rhythm Normal ECG Confirmed by BRENTON MARIA MD ([id number]), editor managing newspaper LIBAN DEGROOT ([id number]) on 06/29/2025 9:39:07 AM Referred By: Confirmed By: BRENTON MARIA MD 06/29/25 0939 Date Brenton Maria MD CC: Dr. Abby Haas MD; Dr. Amy Ramsey DO Signed Normal [facility] Absolute lymphocyte countOrd ered By: Amy Ramsey on 06-28-2025 Lymphocytes Auto (Unsp spec) [#/Vol] 2.70 10*3/uL 0.83-4.51 [facility] Absolute neutrophil countOrd ered By: Amy Ramsey on 06-28-2025 Neutrophils (Bld) [#/Vol] 15.3 10*3/uL High 2.0-7.7 [facility] Anion gap in Serum or Plasma Ordered By: Amy Ramsey on 06-28-2025 Anion gap [Moles/Vol] 16 mmol/L High 5-15 [facility] Automated lymphocyte count a s percentage of total leukocytesOrdered By: Amy Ramsey on 06-28-2025 Lymphocytes/100 WBC Auto (Unsp spec) 14.0 % Low 19-41 [facility] BUN/creatinine ratioOrdered By: Amy Ramsey on 06-28-2025 Urea nitrogen/Creatinine [Mass ratio] 8.2 mg/mg Low 10-20 [facility] Basophil percentageOrdered B y: Amy Ramsey on 06-28-2025 Basophils/100 WBC (Bld) 0.5 % 0-1 [facility] Bilirubin, totalOrdered By: Amy Ramsey on 06-28-2025 Bilirubin [Mass/Vol] 0.16 mg/dL 0.00-1.30 [facility] CBC W/Diff, Automatedon 06-10 Absolute Lymph 2.70 X10 3/uL Normal 0.83-4.51 [facility] Comment on above: Performed By: #### L 100.0100, L500.4050, L503.6005, L501.4021 #### [facility] [address] [place], [address] Absolute Neut 15.3 X10 3/uL High 2.0-7.7 [facility] Comment on above: Performed By: #### L 100.0100, L500.4050, L503.6005, L501.4021 #### [facility] [address] [place], [address] Basophils/100 WBC (Bld) 0.5 % Normal 0-1 [facility] Comment on above: Performed By: #### L 100.0100, L500.4050, L503.6005, L501.4021 #### [facility] [address] [place], [address] Eosinophils/100 WBC (Bld) 0.8 % Normal 0-5 [facility] Comment on above: Performed By: #### L 100.0100, L500.4050, L503.6005, L501.4021 #### [facility] [address] [place], [address] Erythrocyte distribution width (RBC) [Ratio] 12.8 % Normal 11.6-14.6 [facility] Comment on above: Performed By: #### L 100.0100, L500.4050, L503.6005, L501.4021 #### [facility] [address] [place], [address] Hematocrit (Bld) [Volume fraction] 40.7 % Normal 37-47 [facility] Comment on above: Performed By: #### L 100.0100, L500.4050, L503.6005, L501.4021 #### [facility] [address] [place], [address] Hemoglobin (Bld) [Mass/Vol] 14.1 g/dL Normal 12.0-15. 0 [facility] Comment on above: Performed By: #### L 100.0100, L500.4050, L503.6005, L501.4021 #### [facility] [address] [place], [address] IG% 0.400 Normal 0.0-0.9 [facility] Comment on above: Result Comment: IG% - Immature Granulocytes (promyelocytes, myelocytes and metamyelocytes) > 1% indicates that a LEFT SHIFT is Present. Performed By: #### L 100.0100, L500.4050, L503.6005, L501.4021 #### [facility] [address] [place], [address] Lymphocytes/100 WBC (Bld) 14.0 % Low 19-41 [facility] Comment on above: Performed By: #### L 100.0100, L500.4050, L503.6005, L501.4021 #### [facility] [address] [place], [address] MCH (RBC) [Entitic mass] 29.5 pg Normal 27.0-32.0 [facility] Comment on above: Performed By: #### L 100.0100, L500.4050, L503.6005, L501.4021 #### [facility] [address] [place], [address] MCHC (RBC) [Mass/Vol] 34.6 g/dL Normal 32-36 [facility] Comment on above: Performed By: #### L 100.0100, L500.4050, L503.6005, L501.4021 #### [facility] [address] [place], [address] MCV (RBC) [Entitic vol] 85.1 fL Normal 81-99 [facility] Comment on above: Performed By: #### L 100.0100, L500.4050, L503.6005, L501.4021 #### [facility] [address] [place], [address] Monocytes/100 WBC (Bld) 5.1 % Normal 0-10 [facility] Comment on above: Performed By: #### L 100.0100, L500.4050, L503.6005, L501.4021 #### [facility] [address] [place], [address] Neutrophils/100 WBC (Bld) 79.2 % High 47-70 [facility] Comment on above: Performed By: #### L 100.0100, L500.4050, L503.6005, L501.4021 #### [facility] [address] [place], [address] Nucleated RBC (Bld) [#/Vol] 0 10*3/uL Normal 0-5 [facility] Comment on above: Performed By: #### L 100.0100, L500.4050, L503.6005, L501.4021 #### [facility] [address] [place], [address] Platelet mean volume (Bld) [Entitic vol] 9.8 fL Normal 6.2-12.0 [facility] Comment on above: Performed By: #### L 100.0100, L500.4050, L503.6005, L501.4021 #### [facility] [address] [place], [address] Platelets (Bld) [#/Vol] 475 10*3/uL High 150-450 [facility] Comment on above: Performed By: #### L 100.0100, L500.4050, L503.6005, L501.4021 #### [facility] [address] [place], [address] RBC (Bld) [#/Vol] 4.78 10*6/uL Normal 4.2-5.4 [facility] Comment on above: Performed By: #### L 100.0100, L500.4050, L503.6005, L501.4021 #### [facility] [address] [place], [address] RDW SD 39.0 fl Normal 35.1-43.9 [facility] Comment on above: Performed By: #### L 100.0100, L500.4050, L503.6005, L501.4021 #### [facility] [address] [place], [address] WBC (Bld) [#/Vol] 19.3 10*3/uL High 4.4-11.0 [facility] Comment on above: Performed By: #### L 100.0100, L500.4050, L503.6005, L501.4021 #### [facility] [address] [place], [address] Carbon dioxide, total [Moles /volume] in Central venous bloodOrdered By: Amy Ramsey on 08-19-2025 CO2 [Moles/Vol] 18.6 mmol/L Low 21.0-32.0 [facility] Chest 1 View (Portable)on Chest 1 View (Portable) [facility] Imaging Services [address] [place], [place] [address] Chest 1 View (Portable) MR#: [id number] Acct: [id number] Name: LEATHA JESSICA Rep #: [id number] : 2000 F 24 From: Navjot Rene MD PCP: Dr. Abby Haas MD Status: PRE ER Study: Chest 1 View (Portable) Date of Exam: 06/28/25 Exam# [id number] Ordering Dr: Amy Ramsey DO PROCEDURE: CHEST 1 VIEW (PORTABLE) 06/28/2025 REASON FOR EXAM: CHEST PAIN TECHNIQUE: Frontal view of the chest. COMPARISON: 07/28/2019 FINDINGS: Lungs/Pleura: Clear. No pneumothorax or sizable pleural effusion. Heart/Mediastinum: Normal in size. Bones/Soft tissues: Unremarkable. RAD/Chest 1 View (Portable) IMPRESSION: No acute cardiopulmonary disease. Reading Location: [id number] CC: Dr. Abby Haas MD; Dr. Amy Ramsey DO Credit Risk Modeler: Signed Normal [facility] Chloride assayOrdered By: Deangelo Ramsey on 06-28-2025 Chloride [Moles/Vol] 100 mmol/L 98-108 [facility] Comprehensive Metabolic Prof ilon 06-28-2025 Albumin [Mass/Vol] 4.2 g/dL Normal 3.5-5.0 [facility] Comment on above: Performed By: #### L 100.0100, L500.4050, L503.6005, L501.4021 #### [facility] [address] [place], [place], [address] Albumin/Globulin [Mass ratio] 1.2 {ratio} Normal 0.9-2.4 [facility] Comment on above: Performed By: #### L 100.0100, L500.4050, L503.6005, L501.4021 #### [facility] [address] [place], [address] ALK PHOS 65 U/L Normal 35-104 [facility] Comment on above: Performed By: #### L 100.0100, L500.4050, L503.6005, L501.4021 #### [facility] [address] [place], [address] ALT [Catalytic activity/Vol] 22 U/L Normal <=34 [facility] Comment on above: Performed By: #### L 100.0100, L500.4050, L503.6005, L501.4021 #### [facility] [address] [place], [address] AST [Catalytic activity/Vol] 50 U/L High <=31 [facility] Comment on above: Performed By: #### L 100.0100, L500.4050, L503.6005, L501.4021 #### [facility] [address] [place], [address] Bilirubin [Mass/Vol] 0.16 mg/dL Normal 0.00-1.30 [facility] Comment on above: Performed By: #### L 100.0100, L500.4050, L503.6005, L501.4021 #### [facility] [address] [place], [address] BUN/CRE 8.2 RATIO Low 10-20 [facility] Comment on above: Performed By: #### L 100.0100, L500.4050, L503.6005, L501.4021 #### [facility] [address] [place], [address] Calcium [Mass/Vol] 9.8 mg/dL Normal 7.6-11.0 [facility] Comment on above: Performed By: #### L 100.0100, L500.4050, L503.6005, L501.4021 #### [facility] [address] [place], [address] Chloride [Moles/Vol] 100 mmol/L Normal 98-108 [facility] Comment on above: Performed By: #### L 100.0100, L500.4050, L503.6005, L501.4021 #### [facility] [address] [place], [address] CO2 [Moles/Vol] 18.6 mmol/L Low 21.0-32.0 [facility] Comment on above: Performed By: #### L 100.0100, L500.4050, L503.6005, L501.4021 #### [facility] [address] [place], [address] Creatinine [Mass/Vol] 0.52 mg/dL Low 0.70-1.20 [facility] Comment on above: Performed By: #### L 100.0100, L500.4050, L503.6005, L501.4021 #### [facility] [address] [place], [address] ECRCL 219.67 ml/min Normal 50-250 [facility] Comment on above: Performed By: #### L 100.0100, L500.4050, L503.6005, L501.4021 #### [facility] [address] [place], [address] GAP 16 High 5-15 [facility] Comment on above: Performed By: #### L 100.0100, L500.4050, L503.6005, L501.4021 #### [facility] [address] [place], [address] GFR/1.73 sq M.predicted among non-blacks MDRD (S/P/Bld) [Vol rate/Area] 135 mL/min/{1.73_m2} Normal >60 [facility] Comment on above: Result Comment: mL/m in/1.73m2 CKD-EPI Creatinine Equation (2020) Performed By: #### L 100.0100, L500.4050, L503.6005, L501.4021 #### [facility] [address] [place], [address] Globulin (S) [Mass/Vol] 3.4 g/dL Normal 2.2-4.2 [facility] Comment on above: Performed By: #### L 100.0100, L500.4050, L503.6005, L501.4021 #### [facility] [address] [place], [address] Glucose [Mass/Vol] 91 mg/dL Normal 70-99 [facility] Comment on above: Performed By: #### L 100.0100, L500.4050, L503.6005, L501.4021 #### [facility] [address] [place], [address] Potassium [Moles/Vol] 3.5 mmol/L Normal 3.3-5.1 [facility] Comment on above: Performed By: #### L 100.0100, L500.4050, L503.6005, L501.4021 #### [facility] [address] [place], [address] Sodium [Moles/Vol] 134 mmol/L Normal 133-145 [facility] Comment on above: Performed By: #### L 100.0100, L500.4050, L503.6005, L501.4021 #### [facility] [address] [place], [address] T PROT 7.5 g/dL Normal 5.9-8.4 [facility] [facility] Comment on above: Performed By: #### L 100.0100, L500.4050, L503.6005, L501.4021 #### [facility] [address] [place], [address] Urea nitrogen [Mass/Vol] 4 mg/dL Normal - [facility] Comment on above: Performed By: #### L 100.0100, L500.4050, L503.6005, L501.4021 #### [facility] [address] [place], [address] D-Dimer Quantitative (DVT/PE )on 06-28-2025 D-DIMER QUANT < 0.27 Low 0.27-0.49 [facility] Comment on above: Result Comment: NORM AL D-Dimer level (<0.50) indicates no DVT or PE. Performed By: #### L 100.0100, L500.4050, L503.6005, L501.4021 #### [facility] [address] [facility] [place], [address] Emergency Department Summary on 06-28-2025 Emergency Department Summary [facility] Medical Records Department [address] [place] [address] Emergency Department Summary 06/28/25 MR#: [id number] Acct: [id number] Name: LEATHA JESSICA Rep #: [id number] : 2000 24 From: Amy Ramsey DO PCP: Dr. Abby Haas MD Status:DEP ER Location: ED HPI History of Present Illness Chief Complaint: Abd Pain Informant: patient Narrative Narrative: Patient is a 24-year-old female with history of anxiety and PCOS presenting with chest pain. Patient states she works from home. She has sudden onset of pain to the left of her sternum (upper area). Started to radiate to the middle of her chest and into her back and then her entire abdomen. States she is never had a pain so severe. She has not worsened over the course of 30 to 40 minutes. She tried to put heat on it with no relief. She called 911 was brought to the emergency room. She denies any associated shortness of breath or difficulty breathing. Denies any fever or chills. Denies any recent cough. Has a history of DVT or PE. Denies any recent urinary symptoms, abnormal vaginal discharge or bleeding. She is 12 weeks 5 days and follows with Dr. Shamar Kerns. She has a hard time describing the pain but states it was severe and initially states it was like an intense pressure and stabbing. When asked if it felt ripping or tearing she did say yes. She notes that and route here she felt a sudden pop and then had relief of her chest pain and now just feels sore. She did have an episode where her right arm felt weak. States she is feeling much better right now. She denies any abnormal indigestion. States her back pain is in her upper back. Denies any family history of any connective tissue disease or Marfan's. States her father did have lupus. PFSH PFSH Medical History Irregular periods/menstrual cycles Vertigo Wears contact lenses Non-smoker Home Medications ???Medication ???Instructions ???Recorded ???Last Taken ???Type Saccharomyces boulardii 250 mg 250 mg PO BID 07/21/24 03/14/25 Hi story capsule (Daily Probiotic (S. boulardii)) cyanocobalamin-liver extract tablet 1 tab PO DAILY 07/21/24 5 History WELDING MANAGER 2 cap PO DAILY 01/27/25 03/14/25 H istory meth cpg 2 cap PO DAILY 01/27/25 03/14/25 H istory magnesium 200 mg tablet 200 mg PO QDAY PRN 05/27/25 Unknow n History multivit-min no.71-iron fum 28 cap PO 05/27/25 Unknown History mg-folate no.1 1 mg-dha 300 mg capsule (PNV-Otto) Allergy/AdvReac Type Severity Reaction Status Date / Time No Known Allergies Allergy Verified 06/28/25 16:47 Family History Father Hemolytic anemia Lupus Surgical History History of hymenectomy H/O laparoscopy ( 12/2024) H/O eye surgery Social History adopted: No household members: spouse housing: house number of children: 0 current occupational status: employed 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[employer], 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 current occupational exposures/hazards: No pets and animals: Yes pets and animals: dog(s) leisure activities: fishing history of recent travel: Yes ([place], [place], - May) out of state: Yes out of [...] physical activity do you participate in: none rashmi/protestant: Mandaeism seatbelt use: always do you feel safe at home: Yes additional social history: - [employer] ROS ROS ED Constitutional Constitutional ED: Denies chills, fever(s) or sweats Eyes Eyes: Denies change in vision Cardiovascular Cardiovascular: Reports chest pain; Denies palpitations or racing heartbeat Respiratory/Chest Respiratory/Chest: Denies cough or dyspnea Gastrointestinal Gastrointestinal: Reports abdominal pain; Denies constipation, diarrhea, nausea or vomiting Genitourinary Genitourinary ED: Denies dysuria, hematuria or urinary frequency Musculoskeletal Musculoskeletal: Reports back pain; Denies arthralgias or myalgias Integumentary Denies rash Neurologic Neurologic: Reports weakness; Denies paresthesias Psychiatric Psychiatric: Reports anxiety Hematologic/Lymphati c Hematologic/Lymphati c: Denies easy bleeding or easy bruising EXAM Physical Exam Const Vital Signs: 06/28/25 16:35 06/28/25 16:35 06/28/25 16:50 (more content not included)... Normal [facility] Eosinophil percentageOrdered By: Amy Ramsey on 06-28-2025 Eosinophils/100 WBC (Bld) 0.8 % 0-5 [facility] Erythrocyte distribution wid th ratioOrdered By: Amy Ramsey on 06-28-2025 Erythrocyte distribution width (RBC) [Ratio] 12.8 % 11.6-14.6 [facility] Erythrocyte distribution wid th standard deviationOrdered By: Amy Ramsey on 06-28-2025 Erythrocyte distribution width (RBC) [Ratio] 39.0 fl 35.1-43.9 [facility] Glomerular filtration rate ( GFR) estimation/1.73 sq m using serum, plasma, or whole bOrdered By: Amy Ramsey on 06-28-2025 GFR/1.73 sq M.predicted among non-blacks MDRD (S/P/Bld) [Vol rate/Area] 135 mL/min/{1.73_m2} >60 [facility] Comment on above: mL/min/1.73m2 CKD-EP I Creatinine Equation (2020) Hematocrit Auto (Bld) [Volum e fraction]Ordered By: Amy Ramsey on 06-28-2025 Hematocrit (Bld) [Volume fraction] 40.7 % 37-47 [facility] Hemoglobin measurementOrdere d By: Amy Ramsey on 06-28-2025 Hemoglobin (Bld) [Mass/Vol] 14.1 g/dL 12.0-15. 0 [facility] Immature granulocytes/100 WB C Auto (Bld)Ordered By: Amy Ramsey on 06-28-2025 Immature granulocytes/100 WBC (Bld) 0.400 % 0.0-0.9 [facility] Comment on above: IG% - Immature Granu locytes (promyelocytes, myelocytes and metamyelocytes) > 1% indicates that a LEFT SHIFT is Present. L501.4021on 06-28-2025 Trop T High Sen < 6 Normal <=14 [facility] Comment on above: Performed By: #### L 100.0100, L500.4050, L503.6005, L501.4021 #### [facility] [address] [place], [address] Laboratory - Chemistry and C hemistry - challengeOrdered By: Amy Ramsey on 06-28-2025 AST [Catalytic activity/Vol] 50 U/L High <32 [facility] Lactic Acidon 06-28-2025 Lactate [Moles/Vol] 1.6 mmol/L Normal 0.0-2.0 [facility] Comment on above: Order Comment: Y Performed By: #### L 100.0100, L500.4050, L503.6005, L501.4021 #### [facility] [address] [place], [address] Lactic acid measurementOrder ed By: Amy Ramsey on 06-28-2025 Lactate [Moles/Vol] 1.6 mmol/L 0.0-2.0 [facility] MCV (mean corpuscular volume ) determinationOrdered By: Amy Ramsey on 06-28-2025 MCV (RBC) [Entitic vol] 85.1 fL 81-99 [facility] Mean corpuscular hemoglobin (MCH) determinationOrdered By: Amy Ramsey on 06-28-2025 MCH (RBC) [Entitic mass] 29.5 pg 27.0-32.0 [facility] Mean corpuscular hemoglobin concentration (MCHC) determinationOrdered By: Amy Ramsey on 06-28-2025 MCHC (RBC) [Mass/Vol] 34.6 g/dL 32-36 [facility] Mean platelet volume determi nationOrdered By: Amy Ramsey on 06-28-2025 Platelet mean volume (Bld) [Entitic vol] 9.8 fL 6.2-12.0 [facility] Monocyte percentageOrdered B y: Amy Ramsey on 06-28-2025 Monocytes/100 WBC (Bld) 5.1 % 0-10 [facility] Neutrophil percentageOrdered By: Amy Ramsey on 06-28-2025 Neutrophils/100 WBC (Bld) 79.2 % High 47-70 [facility] Nucleated red blood cell per centageOrdered By: Amy Ramsey on 06-28-2025 Nucleated RBC/100 WBC (Bld) [Ratio] 0 % 0-5 [facility] Platelet countOrdered By: Deangelo Ramsey on 06-28-2025 Platelets (Bld) [#/Vol] 475 10*3/uL High 150-450 [facility] Potassium measurement (mass/ volume)Ordered By: Amy Ramesy on 06-28-2025 Potassium (Unsp spec) [Mass/Vol] 3.5 mmol/L 3.3-5.1 [facility] RBC Auto (Bld) [#/Vol]Ordere d By: Amy Ramsey on 06-28-2025 RBC (Bld) [#/Vol] 4.78 10*6/uL 4.2-5.4 [facility] Serum creatinine measurement (mass/volume)Ordered By: Amy Ramsey on 06-28-2025 Creatinine [Mass/Vol] 0.52 mg/dL Low 0.70-1.20 [facility] Serum globulin measurementOr dered By: Amy Ramsey on 06-28-2025 Globulin (S) [Mass/Vol] 3.4 g/dL 2.2-4.2 [facility] Serum glucose measurement (m ass/volume)Ordered By: Amy Ramsey on 06-28-2025 Glucose [Mass/Vol] 91 mg/dL 70-99 [facility] Serum or plasma alanine gtz otransferase (ALT) measurementOrdered By: Amy Ramsey on 06-28-2025 ALT [Catalytic activity/Vol] 22 U/L <35 [facility] Serum or plasma albumin mary urement (mass/volume)Ordered By: Amy Ramsey on 06-28-2025 Albumin [Mass/Vol] 4.2 g/dL 3.5-5.0 [facility] Serum or plasma albumin/glob ulin mass ratioOrdered By: Amy Ramsey on 06-28-2025 Albumin/Globulin [Mass ratio] 1.2 {ratio} 0.9-2.4 [facility] Serum or plasma alkaline jeny sphatase measurementOrdered By: Amy Ramsey on 06-28-2025 ALP [Catalytic activity/Vol] 65 U/L 35-104 [facility] Serum or plasma calcium mary urement (mass/volume)Ordered By: Amy Ramsey on 06-28-2025 Calcium [Mass/Vol] 9.8 mg/dL 7.6-11.0 [facility] Serum or plasma urea nitroge n measurement (mass/volume)Ordered By: Amy Ramsey on 06-28-2025 Urea nitrogen [Mass/Vol] 4 mg/dL 4- [facility] Sodium levelOrdered By: Young Ramsey on 06-28-2025 Sodium [Moles/Vol] 134 mmol/L 133-145 [facility] Total proteinOrdered By: Adilene Ramsey on 06-28-2025 Protein [Mass/Vol] 7.5 g/dL 5.9-8.4 [facility] Troponin T HS 2 HRon 025 Trop T High Sen < 6 Normal <=14 [facility] Comment on above: Performed By: #### L 499.0042 ####[facility] [address] [place], [place], [address] Troponin T HS 4 HRon 025 Trop T High Sen Normal <=14 [facility] Comment on above: Result Comment: Canc elled via OM: Order cancelled - Patient discharged Performed By: #### L 100.0100, L500.4050, L503.6005, L501.4021 #### [facility] [address] [place], [place], [address] Troponin T.cardiac [Mass/vol ume] in Serum or Plasma by High sensitivity methodOrdered By: Amy Ramsey on 06-28-2025 Troponin T.cardiac High sensitivity method [Mass/Vol] < 6 ng/L <14 [facility] Troponin T.cardiac High sensitivity method [Mass/Vol] < 6 ng/L <14 [facility] White blood cell (WBC) count Ordered By: Amy Ramsey on 06-28-2025 WBC (Bld) [#/Vol] 19.3 10*3/uL High 4.4-11.0 [facility] - Chemistry and C hemistry - challengeOrdered By: Leyda Capellan on 06-17-2025 Glucose Ql (U) Negative [facility] - UrinalysisOrder ed By: Leyda Capellan on 06-17-2025 Protein Ql (U) Negative [facility] NATERAon 06-17-2025 NATURA SEE SCANNED REPORT Normal [facility] Comment on above: Order Comment: Y Performed By: #### L 100.0100, L500.4050, L503.6005, L501.4021 #### [facility] [address] [place], [address] [employer] Worker Office Visit Reporton 06-17-2025 Grey [employer] Worker Office Visit Report [facility]'s [address], [address] [place] [address] OFFICE VISIT Date of Service: 06/17/25 MR#: [id number] Acct: [id number] Name: LEATHA JESSICA Rep #: [id number] : 2000 Provider: CARMELITA Rivera ams Age/Sex: 24/F Location: [facility] [place] Status: Signed Intake Vital Signs 05/30/25 13:06 05/30/25 14:02 06/17/25 14:17 Height 5 ft 7 in 5 ft 7 in 5 ft 7 in Weight: 248 lb 5 oz BMI 38.9 BP 133/85 H Intake Visit Reasons: rescan *per Chief Complaint: Rescan 11wk ob Manager Urgent Care Required: No Is patient in pain?: No Allergies No Known Allergies Allergy (Verified 06/17/25 14:16) Medications ???Medication ???Instructions ???Recorded ???Confirmed ???Type Saccharomyces boulardii 250 mg 250 mg PO BID 07/21/24 06/17/25 Hi story capsule (Daily Probiotic (S. boulardii)) cyanocobalamin-liver extract tablet 1 tab PO DAILY 07/21/24 5 History WELDING MANAGER 2 cap PO DAILY 01/27/25 06/17/25 H istory meth cpg 2 cap PO DAILY 01/27/25 06/17/25 H istory magnesium 200 mg tablet 200 mg PO QDAY PRN 05/27/25 History multivit-min no.71-iron fum 28 cap PO 05/27/25 06/17/25 History mg-folate no.1 1 mg-dha 300 mg capsule (PNV-Otto) Last Menstrual Period: 03/25/25 : No PFSH PFSH Medical History Irregular periods/menstrual cycles Vertigo Wears contact lenses Non-smoker Surgical History History of hymenectomy H/O laparoscopy ( 12/2024) H/O eye surgery Family History Father Hemolytic anemia Lupus Social History adopted: No household members: spouse housing: house number of children: 0 current occupational status: employed 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 OB Visit [place] Calculator Estimated Delivery Date Method Current WG Current Estimate 01/05/26 Ultrasound #1 11w 1d Other Estimates 12/30/25 LMP (Certain) 12w 0d Expected Delivery Route/Plan Labor Preferences- CB/BF classes: [...] list details Initial Weight: Not Recorded Date -???-???-???-???-??? -???-???-???-???-??? -???-???- EGA Weight BP Urine Prot -???-???-???-???-??? -???-???-???-???-??? -???-???- Glucose FHR FuHt Pres Dilation -???-???-???-???-??? -???-???-???-???-??? -???-???- Effaced St Visit Note 05/30/25 -???-???-???-???-??? -???-???-???-???-??? -???-???- 8w 4d 250 lb 133/85 -???-???-???-???-??? -???-???-???-???-??? -???-???- 175 -???-???-???-???-??? -???-???-???-???-??? -???-???- SM- CRL 2.05 cm NOT cons with lmp but consistent with day 19 LH and day 20 intercourse 06/17/25 -???-???-???-???-??? -???-???-???-???-??? -???-???- 11w 1d 248 lb 5 oz 133/85 Negative -???-???-???-???-??? -???-???-???-???-??? -???-???- Negative 160 -???-???-???-???-??? -???-???-???-???-??? -???-???- KW- no vb/cr amping. NOB labs today. MFM US ordered. ACOG First Trime (more content not included)... Normal [facility] Absolute lymphocyte countOrd ered By: Navya Lloyd on 06-11-2025 Lymphocytes Auto (Unsp spec) [#/Vol] 3.67 10*3/uL 0.83-4.51 [facility] Absolute neutrophil countOrd ered By: Navya Lloyd on 06-11-2025 Neutrophils (Bld) [#/Vol] 7.4 10*3/uL 2.0-7.7 [facility] Automated lymphocyte count a s percentage of total leukocytesOrdered By: Navya Lloyd on 06-11-2025 Lymphocytes/100 WBC Auto (Unsp spec) 29.8 % 19-41 [facility] Basophil percentageOrdered B y: Navya Lloyd on 06-11-2025 Basophils/100 WBC (Bld) 0.5 % 0-1 [facility] CBC W/Diff, Automatedon 080 Absolute Lymph 3.67 X10 3/uL Normal 0.83-4.51 [facility] Comment on above: Performed By: #### L 509.4006, L509.8002, L3890.6102, L501.9985, BTS, L3890.6006, L3890.6301, L100.0100 #### [facility] [address] [place], [address] Absolute Neut 7.4 X10 3/uL Normal 2.0-7.7 [facility] Comment on above: Performed By: #### L 509.4006, L509.8002, L3890.6102, L501.9985, BTS, L3890.6006, L3890.6301, L100.0100 #### [facility] [address] [place], [address] Basophils/100 WBC (Bld) 0.5 % Normal 0-1 [facility] Comment on above: Performed By: #### L 509.4006, L509.8002, L3890.6102, L501.9985, BTS, L3890.6006, L3890.6301, L100.0100 #### [facility] [address] [place], [address] Eosinophils/100 WBC (Bld) 1.4 % Normal 0-5 [facility] Comment on above: Performed By: #### L 509.4006, L509.8002, L3890.6102, L501.9985, BTS, L3890.6006, L3890.6301, L100.0100 #### [facility] [address] [place], [address] Erythrocyte distribution width (RBC) [Ratio] 13.0 % Normal 11.6-14.6 [facility] Comment on above: Performed By: #### L 509.4006, L509.8002, L3890.6102, L501.9985, BTS, L3890.6006, L3890.6301, L100.0100 #### [facility] [address] [place], [address] Hematocrit (Bld) [Volume fraction] 42.0 % Normal 37-47 [facility] Comment on above: Performed By: #### L 509.4006, L509.8002, L3890.6102, L501.9985, BTS, L3890.6006, L3890.6301, L100.0100 #### [facility] [address] [place], [address] Hemoglobin (Bld) [Mass/Vol] 14.3 g/dL Normal 12.0-15. 0 [facility] Comment on above: Performed By: #### L 509.4006, L509.8002, L3890.6102, L501.9985, BTS, L3890.6006, L3890.6301, L100.0100 #### [facility] [address] [place], [address] IG% 0.400 Normal 0.0-0.9 [facility] Comment on above: Result Comment: IG% - Immature Granulocytes (promyelocytes, myelocytes and metamyelocytes) > 1% indicates that a LEFT SHIFT is Present. Performed By: #### L 509.4006, L509.8002, L3890.6102, L501.9985, BTS, L3890.6006, L3890.6301, L100.0100 #### [facility] [address] [facility] [place], [address] Lymphocytes/100 WBC (Bld) 29.8 % Normal 19-41 [facility] Comment on above: Performed By: #### L 509.4006, L509.8002, L3890.6102, L501.9985, BTS, L3890.6006, L3890.6301, L100.0100 #### [facility] [address] [place], [address] MCH (RBC) [Entitic mass] 29.0 pg Normal 27.0-32.0 [facility] Comment on above: Performed By: #### L 509.4006, L509.8002, L3890.6102, L501.9985, BTS, L3890.6006, L3890.6301, L100.0100 #### [facility] [address] [place], [address] MCHC (RBC) [Mass/Vol] 34.0 g/dL Normal 32-36 [facility] Comment on above: Performed By: #### L 509.4006, L509.8002, L3890.6102, L501.9985, BTS, L3890.6006, L3890.6301, L100.0100 #### [facility] [address] [place], [address] MCV (RBC) [Entitic vol] 85.2 fL Normal 81-99 [facility] Comment on above: Performed By: #### L 509.4006, L509.8002, L3890.6102, L501.9985, BTS, L3890.6006, L3890.6301, L100.0100 #### [facility] [address] [place], [address] Monocytes/100 WBC (Bld) 7.9 % Normal 0-10 [facility] Comment on above: Performed By: #### L 509.4006, L509.8002, L3890.6102, L501.9985, BTS, L3890.6006, L3890.6301, L100.0100 #### [facility] [address] [place], [address] Neutrophils/100 WBC (Bld) 60.0 % Normal 47-70 [facility] Comment on above: Performed By: #### L 509.4006, L509.8002, L3890.6102, L501.9985, BTS, L3890.6006, L3890.6301, L100.0100 #### [facility] [address] [place], [address] Nucleated RBC (Bld) [#/Vol] 0 10*3/uL Normal 0-5 [facility] Comment on above: Performed By: #### L 509.4006, L509.8002, L3890.6102, L501.9985, BTS, L3890.6006, L3890.6301, L100.0100 #### [facility] [address] [place], [address] Platelet mean volume (Bld) [Entitic vol] 9.6 fL Normal 6.2-12.0 [facility] Comment on above: Performed By: #### L 509.4006, L509.8002, L3890.6102, L501.9985, BTS, L3890.6006, L3890.6301, L100.0100 #### [facility] [address] [place], [address] Platelets (Bld) [#/Vol] 462 10*3/uL High 150-450 [facility] Comment on above: Performed By: #### L 509.4006, L509.8002, L3890.6102, L501.9985, BTS, L3890.6006, L3890.6301, L100.0100 #### [facility] [address] [place], [address] RBC (Bld) [#/Vol] 4.93 10*6/uL Normal 4.2-5.4 [facility] Comment on above: Performed By: #### L 509.4006, L509.8002, L3890.6102, L501.9985, BTS, L3890.6006, L3890.6301, L100.0100 #### [facility] [address] [place], [address] RDW SD 40.0 fl Normal 35.1-43.9 [facility] Comment on above: Performed By: #### L 509.4006, L509.8002, L3890.6102, L501.9985, BTS, L3890.6006, L3890.6301, L100.0100 #### [facility] [address] [place], [address] WBC (Bld) [#/Vol] 12.3 10*3/uL High 4.4-11.0 [facility] Comment on above: Performed By: #### L 509.4006, L509.8002, L3890.6102, L501.9985, BTS, L3890.6006, L3890.6301, L100.0100 #### [facility] [address] [place], [place], [address] Eosinophil percentageOrdered By: Navya Gabino on 06-11-2025 Eosinophils/100 WBC (Bld) 1.4 % 0-5 [facility] Erythrocyte distribution wid th ratioOrdered By: Navya Luis Danieladan on 06-11-2025 Erythrocyte distribution width (RBC) [Ratio] 13.0 % 11.6-14.6 [facility] Erythrocyte distribution wid th standard deviationOrdered By: Navya Lloyd on 06-11-2025 Erythrocyte distribution width (RBC) [Ratio] 40.0 fl 35.1-43.9 [facility] HIVon 06-11-2025 HIV Non-Reactive Normal Nonreactive [facility] Comment on above: Result Comment: Non- Reactive Reactive Repeatedly reactive samples must be confirmed according to CDC recommended confirmatory algorithms. The subresults for either HIVAG or AHIV can be used as an aid in the selection of the confirmation algorithm for reactive samples. Send out specimens with Reactive results to [facility] for confirmation. Order the HIV antibody detection and differentiation: lc#[id number] Performed By: #### L 509.4006, L509.8002, L3890.6102, L501.9985, BTS, L3890.6006, L3890.6301, L100.0100 ####[facility] [address] [place], [place], [address] Hematocrit Auto (Bld) [Volum e fraction]Ordered By: Navya Lloyd on 06-11-2025 Hematocrit (Bld) [Volume fraction] 42.0 % 37-47 [facility] Hemoglobin A1con 06-11-2025 HbA1c (Bld) [Mass fraction] 5.3 % Normal <=5.6 [facility] Comment on above: Result Comment: Norm al < 5.7 % Prediabetic 5.7 - 6.4 % Diabetic >or= 6.5 % Please note range changes. Performed By: #### L 509.4006, L509.8002, L3890.6102, L501.9985, BTS, L3890.6006, L3890.6301, L100.0100 ####[facility] [address] [place], [address] Hemoglobin A1c percentageOrd ered By: Navya Lloyd on 06-11-2025 HbA1c (Bld) [Mass fraction] 5.3 % <5.7 [facility] Comment on above: Normal < 5.7 % Predi abetic 5.7 - 6.4 % Diabetic >or= 6.5 % Please note range changes. Hemoglobin measurementOrdere d By: Navya Lloyd on 06-11-2025 Hemoglobin (Bld) [Mass/Vol] 14.3 g/dL 12.0-15. 0 [facility] Hepatitis C Antibodyon 06-11 Hepatitis C Ab Non-Reactive Normal Nonreactive [facility] Comment on above: Result Comment: Reac tive: Presumptive evidence of antibodies to HCV. Follow CDC recommendations for supplemental testing. Non-Reactive: Antibodies to HCV were not detected; does not exclude the possibility of exposure to HCV Reactive Results are presumptive evidence of antibodies to HCV. Follow CDC recommendations for supplemental testing. Order confirmation testing: HCV Quant by PCR testing - HCVPCR #[id number] Non Reactive: < 0.8 Equivocal: >/= 0.8 to < 1.0 Reactive: >/= 1.0 The CDC requires that a reactive/equivocal HCV antibody result be sent out for confirmation. HCV Quant by PCR testing. Performed By: #### L 509.4006, L509.8002, L3890.6102, L501.9985, BTS, L3890.6006, L3890.6301, L100.0100 ####[facility] [address] [place], [place], [address] Immature granulocytes/100 WB C Auto (Bld)Ordered By: Navya Lloyd on 06-11-2025 Immature granulocytes/100 WBC (Bld) 0.400 % 0.0-0.9 [facility] Comment on above: IG% - Immature Granu locytes (promyelocytes, myelocytes and metamyelocytes) > 1% indicates that a LEFT SHIFT is Present. L3890.6102on 06-11-2025 HEP B Surf Ag Non-Reactive Normal Nonreactive [facility] Comment on above: Result Comment: Reac tive: Presumptive evidence of HBV. Repeatedly reactive samples must be confirmed using a neutralization test ([employer] HBsAg Confirmatory Test) Non-Reactive: HBsAg not detected; does not exclude the possibility of exposure to HBV Performed By: #### L 509.4006, L509.8002, L3890.6102, L501.9985, BTS, L3890.6006, L3890.6301, L100.0100 ####[facility] [address] [facility]. [place], [place], [address] L509.4006on 06-11-2025 Rubella IgG REAC Normal Nonreactive [facility] Comment on above: Result Comment: Anti body Result: Interpretation Non-Reactive: Non-Immune Reactive: Immune The following results were obtained with the [employer] Rubella IgG assay. Results from assays of other manufacturers cannot be used interchangeably. Performed By: #### L 509.4006, L509.8002, L3890.6102, L501.9985, BTS, L3890.6006, L3890.6301, L100.0100 ####[facility] [address] [facility]. [place], [place], [id number] Laboratory - Microbiology an d Antimicrobial susceptibilityOrdered By: Navya Lloyd on 06-11-2025 HBV surface Ag Ql (S) Non-Reactive Nonreactive [facility] Comment on above: Reactive: Presumptiv e evidence of HBV. Repeatedly reactive samples must be confirmed using a neutralization test ([employer] HBsAg Confirmatory Test)Non-Reactive: HBsAg not detected; does not exclude the possibility of exposure to HBV MCV (mean corpuscular volume ) determinationOrdered By: aNvya Lloyd on 06-11-2025 MCV (RBC) [Entitic vol] 85.2 fL 81-99 [facility] Mean corpuscular hemoglobin (MCH) determinationOrdered By: Navya Lloyd on 06-11-2025 MCH (RBC) [Entitic mass] 29.0 pg 27.0-32.0 [facility] Mean corpuscular hemoglobin concentration (MCHC) determinationOrdered By: Navya Lloyd on 06-11-2025 MCHC (RBC) [Mass/Vol] 34.0 g/dL 32-36 [facility] Mean platelet volume determi nationOrdered By: Navya Lloyd on 06-11-2025 Platelet mean volume (Bld) [Entitic vol] 9.6 fL 6.2-12.0 [facility] Monocyte percentageOrdered B y: Navya Lloyd on 06-11-2025 Monocytes/100 WBC (Bld) 7.9 % 0-10 [facility] Neutrophil percentageOrdered By: Navya Lloyd on 06-11-2025 Neutrophils/100 WBC (Bld) 60.0 % 47-70 [facility] No Panel InformationOrdered By: Navya Lloyd on 06-11-2025 HIV (1&2) Antibody Non-Reactive Nonreactive [facility] Comment on above: Non-ReactiveReactive Repeatedly reactive samples must be confirmed according to CDC recommended confirmatory algorithms. The subresults for either HIVAG or AHIV can be used as an aid in the selection of the confirmation algorithm for reactive samples.Send out specimens with Reactive results to [facility] for confirmation.Order the HIV antibody detection and differentiation: #[id number] Nucleated red blood cell per centageOrdered By: Navya Lloyd on 06-11-2025 Nucleated RBC/100 WBC (Bld) [Ratio] 0 % 0-5 [facility] Platelet countOrdered By: Ajit Lloyd on 06-11-2025 Platelets (Bld) [#/Vol] 462 10*3/uL High 150-450 [facility] RBC Auto (Bld) [#/Vol]Ordere d By: Navya Lloyd on 06-11-2025 RBC (Bld) [#/Vol] 4.93 10*6/uL 4.2-5.4 [facility] Syphilis Antibodieson 2024 Syphilis Abs Non-Reactive Normal Nonreactive [facility] Comment on above: Performed By: #### L 509.4006, L509.8002, L3890.6102, L501.9985, BTS, L3890.6006, L3890.6301, L100.0100 ####[facility] [address] [place], [address] Type AND Screenon 06-11-2025 ABO and Rh group Nom (Bld) Blood group O Rh(D) positive Normal [facility] Comment on above: Order Comment: PN Performed By: #### L 509.4006, L509.8002, L3890.6102, L501.9985, BTS, L3890.6006, L3890.6301, L100.0100 ####[facility] [address] [place], [address] White blood cell (WBC) count Ordered By: Navya Lloyd on 06-11-2025 WBC (Bld) [#/Vol] 12.3 10*3/uL High 4.4-11.0 [facility] Chlamydia/GC JESUS aptimaon CHLAMY,NUC ACID Negative Normal Negative [facility] Comment on above: Performed By: #### L 7000.1800, ####[facility] [address] [place], [address] GC BY NUC ACID Negative Normal Negative [facility] Comment on above: Result Comment: Perf ormed at: =G - [facility] [address] [id number] Event Marketing Intern: Amaya Tompkins MD, Phone: [phone] Performed By: #### L 7000.1800, 0 ####[facility] [address] [place], [address] Urine Cultureon 06-02-2025 [facility] Mixed Gram Positive Organisms [place] Count 11,000-25,000 MIX[facility] Mixed contaminants. Submit a new specimen if indicated. Normal [facility] Comment on above: Performed By: #### L 7000.1800, M1.0 ####[facility] [address] [place], [address] Chlamydia trachomatis rRNA d etection by probe and target amplification methodOrdered By: Navya Lloyd on 05-30-2025 C. trachomatis rRNA JESUS+probe Ql (Unsp spec) Negative Negative [facility] Neisseria gonorrhoeae nuclei c acid detection by amplified probe techniqueOrdered By: Navya Lloyd on 05-30-2025 N. gonorrhoeae DNA JESUS+probe Ql (Unsp spec) Negative Negative [facility] Comment on above: Performed at: = - [address] [id number] Director: Amaya Tompkins MD, Phone: [phone] [employer] Worker Office Visit Reporton 05-30-2025 Grey Roll Worker Office Visit Report [facility] [address], [address] [place] [address] OFFICE VISIT Date of Service: 05/30/25 MR#: [id number] Acct: [id number] Name: LEATHA JESSICA Rep #: [id number] : 2000 Provider: Dr. Navya hyde MD Age/Sex: 24/F Location: [facility] [place] Status: Signed Intake Vital Signs 04/26/25 13:10 05/27/25 14:14 05/30/25 13:06 Height 5 ft 7 in 5 ft 7 in 5 ft 7 in Weight: 250 lb BMI 39.1 BP 133/85 H Intake Visit Reasons: *EST* NOB LMP 03/25, [place] 12/30 Manager Urgent Care Required: No Is patient in pain?: No Allergies No Known Allergies Allergy (Verified 05/30/25 13:09) Medications ???Medication ???Instructions ???Recorded ???Confirmed ???Type Saccharomyces boulardii 250 mg 250 mg PO BID 07/21/24 05/30/25 Hi story capsule (Daily Probiotic (S. boulardii)) cyanocobalamin-liver extract tablet 1 tab PO DAILY 07/21/24 5 History WELDING MANAGER 2 cap PO DAILY 03/20/25 07/21/25 H istory meth cpg 2 cap PO DAILY 01/27/25 05/30/25 H istory magnesium 200 mg tablet 200 mg PO QDAY PRN 05/27/25 History multivit-min no.71-iron fum 28 cap PO 05/27/25 05/30/25 History mg-folate no.1 1 mg-dha 300 mg capsule (PNV-Otto) Last Menstrual Period: 03/25/25 Zika: Zika virus screening: Negative : No PFSH PFSH Medical History Irregular periods/menstrual cycles Vertigo Wears contact lenses Non-smoker Surgical History History of hymenectomy H/O laparoscopy ( 12/2024) H/O eye surgery Family History Father Hemolytic anemia Lupus Social History adopted: No household members: spouse housing: house number of children: 0 current occupational status: employed 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 -???-???-???-???-??? -???-???- EGA Weight BP Urine Prot -???-???-???-???-??? -???-???-???-???-??? -???-???- Glucose FHR FuHt Pres Dilation -???-???-???-???-??? -???-???-???-???-??? -???-???- Effaced St Visit Note 05/30/25 -???-???-???-???-??? -???-???-???-???-??? -???-???- 8w 4d 250 lb 133/85 -???-???-???-???-??? -???-???-???-???-??? -???-???- 175 -???-???-???-???-??? -???-???-???-???-??? -???-???- - CRL 2.05 cm NOT cons with lmp but consistent with day 19 LH and day 20 intercourse Menstrual History Last Menstrual Period: 03/25/25 Reported LMP: definite Normal amount/duration: Yes Frequency in days: 30-32 since December On hormonal BC at conception: No hCG+: 04/25/25 Antepartum Record Genetic (more content not included)... Normal [facility] Urine cultureOrdered By: Nadir Lloyd on 05-30-2025 Bacteria identified Cx Nom (U) Positive Abnormal [facility] Office Visit Reporton 2024 Office Visit Report [facility] [address] [place] [address] OFFICE VISIT Date of Service: 05/27/25 MR#: [id number] Acct: [id number] Patient: LEATHA JESSICA Rep #: [id number] : 2000 Provider: Dr. 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 boulardii)) cyanocobalamin-liver extract tablet 1 tab PO DAILY 07/21/24 5 History WELDING MANAGER 2 cap PO DAILY 01/27/25 05/30/25 H istory meth cpg 2 cap PO DAILY 01/27/25 05/30/25 H istory magnesium 200 mg tablet 200 mg PO QDAY PRN 05/27/25 History multivit-min no.71-iron fum 28 cap PO 05/27/25 05/30/25 History mg-folate no.1 1 mg-dha 300 mg capsule (PNV-Otto) Is last menstrual period known: Yes Last [...] high risk , unspecified, unspecified trimester 05/31/25 8759 Date Navya Lloyd MD Cosign Signature: Date (if applicable) CC: Normal [facility] Grey Roll Worker Office Visit Reporton 04-07-2025 Grey Roll Worker Office Visit Report [facility] [address], [address] [place] [address] OFFICE VISIT Date of Service: 04/07/25 MR#: [id number] Acct: [id number] Name: LEATHA JESSICA Rep #: [id number] : 2000 Provider: Dr. 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 current occupational exposures/hazards: No pets and [...] frequency: 1-2 times per week duration: other rashmi/protestant: Mandaeism seatbelt use: always do you feel safe [...] referral 04/07/25 1126 Date Navya Lloyd MD [facility] Signature: Date (if applicable) CC: Normal [facility] Discharge Instructionon Discharge Instruction [facility] Medical Records Department [address] [place] [address] Instructions for Home/Discharge Instructions 03/15/25 1033 MR#: [id number] Acct: [id number] Name: LEATHA JESSICA Rep #: [id number] : 2000 24 From: Navya Lloyd MD PCP: Dr. Abby Haas MD [place] [facility] [place] Diet Discharge Diet: No restrictions [...] Up With: Navya Lloyd MD When: Call [phone] to schedule appointment. Test Results: Test results from this visit will be discussed in further detail at your follow-up appointment, if applicable. Discharge Plan Admission Attending Provider: Navya Lloyd Primary Care Provider: Abby Haas Instructions Print Language: Lebanese Discharge Orders/Prescriptions Prescriptions: No Action One-A-Day 400 mcg- 25 mg tablet,chewable 1 tab PO DAILY Saccharomyces boulardii [Daily Probiotic (S. boulardii)] 250 mg capsule 250 mg PO BID cyanocobalamin-liver extract Tablet 1 tab PO DAILY magnesium 200 mg tablet 200 mg PO QDAY WELDING MANAGER 2 cap PO DAILY black cumin seed [...] can be placed): Home, Self Care 03/15/25 1034 Navya Lloyd MD CC: Dr. Abby Haas MD Signed [facility] MR/POSTOP.[facility] 03-15-2025 MR/POSTOP.[facility] Medical Records Department [address] [place] [address] Anesthesia Postop Eval I 03/15/25 1044 MR#: [id number] Acct: [id number] Name: LEATHA JESSICA Rep #: [id number] : 2000 24 From: Demarco Swartz CRNA PCP: Dr. Abby Haas MD Status:REG SDC Y Race: C Location: [place] [address] Anesthesia: Postop Eval I Current Vital Signs [...] Anesthesia document: Postop Eval 1 completed: Yes 03/15/25 1045 Date Demarco Swartz NEUROLOGY PROFESSOR Cosigner Signature: Date CC: Signed Normal [facility] MR/[id number] 03-15-2025 MR/POSTOPAN2 [facility] Medical Records Department [address] [place] [address] Anesthesia Postop Eval II 03/15/25 1200 MR#: [id number] Acct: [id number] Name: LEATHA JESSICA Rep #: [id number] : 2000 24 From: Rika Toussaint PCP: Dr. Abby Haas MD Status:DEP [facility] [place] Race: C [place] [facility] [place]esthesia Postop Eval I Sum Postop Eval Completion status Anesthesia document: Postop Eval 1 completed: Yes Anesthesia Postop Eval I Summary Anesthesia Postop Eval I Summary: Anesthesia Postop Eval I: Assessment Summary Airway patent Yes 03/15/25 10:45 NEUROLOGY PROFESSOR.ACAR Spontaneous unlabored Yes 03/15/25 10:45 NEUROLOGY PROFESSOR.ACAR respirations Mental status Awake 03/15/25 10:45 NEUROLOGY PROFESSOR.ACAR nausea No 03/15/25 10:45 NEUROLOGY PROFESSOR.ACAR Vomiting No 03/15/25 10:45 NEUROLOGY PROFESSOR.ACAR Anesthesia Postop Eval I: Fluid Summary Crystalloid volume administer 500 03/15/25 10:45 NEUROLOGY PROFESSOR.ACAR (ml) Colloids volume administered ( ml) Blood Product volume administered (ml) Total IV fluid infused 500 03/15/25 10:45 NEUROLOGY PROFESSOR.ACAR Anesthesia Postop Eval I: Summary Notes Anesthesia Complication No 03/15/25 10:45 NEUROLOGY PROFESSOR.ACAR Anesthesia Complication Comment: Post-operative progress note Anesthesia: Postop Eval II Evaluation Mental status: Awake and Calm Pain Level: 0 nausea: No Vomiting: No Complications Anesthesia Complication: No 03/15/25 1201 Date Rika Toussaint Cosigner Signature: Date CC: Signed [facility] Operative Reporton Operative Report [facility] Medical Records Department [address] [place] [address] Operative Report 03/15/25 1030 MR#: [id number] Acct: [id number] Name: LEATHA JESSICA Rep #: [id number] : 2000 24 From: Navya Lloyd MD PCP: Dr. Abby Haas MD Status:[facility] Location: [place] [address] Problems Associated Problem List Diagnoses (1) Dyspareunia: Procedures Urinary/Genital 52xxx-59xxx: 92835 PARTIAL HYMENECTOMY OR REVISION Operative Report (Standard) Operative Information Date of Procedure: 03/15/25 Pre-Operative Diagnosis: Dyspareunia intact hymen Post-Operative Diagnosis: Same Surgery/Procedure Performed: Hymenectomy adjunct teacher: No Type of Anesthesia: Local and MAC RN Documented Start/Stop Times: Operation Date: 03/15/25 08:50 Case Time Into Pre-Op 03/15/25 07:22 Out of Pre-Op 03/15/25 09:52 Anesthesia Start 03/15/25 09:55 Into Room 03/15/25 09:55 Procedure Start 03/15/25 10:15 Procedure Start Time: 10:15 Procedure Stop Time: 10:30 Select all DRAINS/GRAFTS/IMPLAN TS that apply: None Estimated Blood Loss: 75 [...] MD; Dr. Navya Lloyd MD Signed Normal [facility] ,Urineon 03-15-2025 Beta HCG ( test) Ql (U) Negative Normal [facility] Comment on above: Result Comment: Very dilute urine specimens, as indicated by a low specific gravity, may not contain specialty sales representative levels of hCG. If is still suspected, a first morning urine specimen should be collected 48 hours later and tested. Performed By: #### L 400.7600 ####[facility] [address] [place], [address] Urine testOrdered By: Nathanael Krishnamurthy on 03-15-2025 HCG ( test) Ql (U) Negative [facility] Comment on above: Very dilute urine sp ecimens, as indicated by a low specificgravity, may not contain specialty sales representative levels of hCG. If is still suspected, a first morning urinespecimen should be collected 48 hours later and tested. Grey Roll Worker Office Visit Reporton 03-11-2025 Grey Roll Worker Office Visit Report [facility]'s [address], [address] [place] [address] OFFICE VISIT Date of Service: 03/11/25 MR#: [id number] Acct: [id number] Name: LEATHA JESSICA Rep #: [id number] : 2000 Provider: Dr. 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 current occupational exposures/hazards: No pets [...] frequency: 1-2 times per week duration: other rashmi/protestant: Mandaeism seatbelt use: always do you feel safe [...] excessive sweating, heat intolerance or polydipsia Law/Lymph Hematologic/Lymphati c: Denies easy bleeding, Denies easy bruising and Denies lymphadenopathy Exam Const General: cooperative, healthy appearing, comfortable and no acute distress Orientation: alert HENAK Head: normal to inspection and normocephalic Ears: hearing grossly normal bilaterally and external ears normal Nose: external nose normal and nares normal Face and sinus: normal facia (more content not included)... Normal [facility] MR/PAT.ANEon 03-01-2025 MR/PAT.ANE [facility] Medical Records Department [address] [place] [address] PAT - Anesthesia 03/01/25 0838 MR#: [id number] Acct: [id number] Name: LEATHA JESSICA Rep #: [id number] : 2000 24 From: Nathanael Krishnamurthy MD PCP: Dr. 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 Female Yes 03/01/25 08:34 HX of Motion [...] 01/17/25 13:07 Respiratory Assessment Respiratory Assessment - school teacher: Respiratory Tract Infection Hx - school teacher Hx Respiratory Tract Infection No 03/01/25 08:34 STOP Sleep Apnea STOP Sleep Apnea - school teacher: STOP Sleep Apnea - school teacher Hx Hypertension No 03/01/25 08:34 Hx Sleep [...] Tobacco Use History Tobacco Use History - school teacher: Tobacco Use History - school teacher Tobacco Use Smoking Status Never smoker 03/01/25 08:34 Hx Tobacco Use No 03/01/25 08:34 Years Smoking Packs Smoked per Day Smoking Cessation Date was within the last 15 years Hx Smoking Cessation Date Hx Smoking Cessation Counseling Hematologic Medial History Hematologic Hx - school 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 Specify any problems Hx of Preganancy in last 3 No 03/01/25 08:34 Months Nurse Filling Out Transfusion NBUCHER 03/01/25 08:34 Questions: Date: 03/01/25 03/01/25 08:34 Time: 08:35 03/01/25 08:34 Patient unable to answer at this time (ie. confused, unrespo /Reproducti on History /Reproducti ve History - school teacher: /Reproducti ve Hx- school teacher Hx Now No 03/01/25 08:34 Gestational Age [...] mcg-dha 25 mg chewable tablet (One-A-Day ) WELDING MANAGER 2 cap PO DAILY 01/27/25 Unknown Hi [...] 03/01/25 08:30 (more content not included)... Normal [facility] NAS Comprehensive Panelon ANTI-DNA (DS)AB <1 Normal 0-9 [facility] Comment on above: Result Comment: Nega tive <5 Equivocal 5 - 9 Positive >9 Performed By: #### L 500.4050, L3100.7950, L3410.9998, L3100.5440 ####[facility] [address] [place], [place], [address] ANTISCLERODERM <0.2 Normal 0.0-0.9 [facility] Comment on above: Performed By: #### L 500.4050, L3100.7950, L3410.9998, L3100.5440 ####[facility] [address] [place], [place], [address] Antinuclear Antibody, IFAon 01-31-2025 NAS, IFA Positive Abnormal . [facility] Comment on above: Result Comment: Nega tive <1:80 Borderline 1:80 Positive >1:80 Performed By: #### L 500.4050, L3100.7950, L3410.9998, L3100.5440 ####[facility] [address] [place], [place], [address] NAS-NOTE Comment Normal . [facility] Comment on above: Result Comment: Inez dunlap Potential Disease Association Homogeneous Systemic Lupus Erythematosus, Drug Induced Systemic Lupus Erythematosus, Chronic Autoimmune hepatitis, Juvenile Idiopathic Arthritis Speckled Sjogren Syndrome, Systemic Lupus Erythematosus, Subacute Cutaneous Lupus, Lupus, Congenital Heart Block, Mixed Connective Tissue Disease, Scleroderma-diffuse, Scleroderma-Autoimmune Myositis Overlap Syndrome, Systemic Lupus Lvwinkefoaxix-Cnwyzaroxiu-Nsnhtcavao Myositis Overlap Syndrome, Systemic Autoimmune Rheumatic Disease, [...] Cytopenias, Linear Scleroderma, Antiphospholipid Syndrome Performed at: [address] [id number] Event Marketing Intern: Thony Patel PhD, Phone: [phone] Performed By: #### L 643.2374, L3100.7950, L3410.9998, L3100.5440 ####[facility] [address] [place], [address] CENTRIOLE TNP Normal . [facility] Comment on above: Performed By: #### L 500.4050, L3100.7950, L3410.9998, L3100.5440 ####[facility] [address] [place], [address] CENTROMERE PAT. TNP Normal . [facility] Comment on above: Performed By: #### L 500.4050, L3100.7950, L3410.9998, L3100.5440 ####[facility] [address] [place], [address] HOMOGENEOUS PAT 1:640 Abnormal . [facility] Comment on above: Result Comment: ICAP nomenclature: AC-1 Performed By: #### L 500.4050, L3100.7950, L3410.9998, L3100.5440 ####[facility] [address] [place], [address] MIDBODY TNP Normal . [facility] Comment on above: Performed By: #### L 500.4050, L3100.7950, L3410.9998, L3100.5440 ####[facility] [address] [place], [address] NUCLEAR DOT TNP Normal . [facility] Comment on above: Performed By: #### L 500.4050, L3100.7950, L3410.9998, L3100.5440 ####[facility] [address] [place], [address] NUCLEAR MEMBRAN TNP Normal . [facility] Comment on above: Performed By: #### L 500.4050, L3100.7950, L3410.9998, L3100.5440 ####[facility] [address] [place], [address] NUCLEOLAR PAT. TNP Normal . [facility] Comment on above: Performed By: #### L 500.4050, L3100.7950, L3410.9998, L3100.5440 ####[facility] [address] [place], [address] PNCA TNP Normal . [facility] Comment on above: Performed By: #### L 500.4050, L3100.7950, L3410.9998, L3100.5440 ####[facility] [address] [place], [address] SPECKLED PAT. TNP Normal . [facility] Comment on above: Performed By: #### L 500.4050, L3100.7950, L3410.9998, L3100.5440 ####[facility] [address] [place], [address] SPINDLE APPARAT TNP Normal . [facility] Comment on above: Performed By: #### L 500.4050, L3100.7950, L3410.9998, L3100.5440 ####[facility] [address] [place], [address] L3410.9998on 01-28-[address] [facility] [place] Normal . [facility] Comment on above: Order Comment: 66039 5Thyroid Profile Result Comment: Test Ordered: [id number] Thyroid Panel Thyroxine (T4) 13.8 [H ] ug/dL CB Reference Range: 4.5-12.0 T3 Uptake 27 % CB Reference Range: 24-39 Free Thyroxine Index 3.7 CB Reference Range: 1.2-4.9 Performed at: - [facility] [id number] Event Marketing Intern: Thony Patel PhD, Phone: [phone] Performed By: #### L 500.4050, L3100.7950, L3410.9998, L3100.5440 ####[facility] [address] [place], [address] Anion gap in Serum or Plasma Ordered By: Abby Haas on 01-27-2025 Anion gap [Moles/Vol] 14 mmol/L - [facility] Antinuclear antibody (NAS) a ssayOrdered By: Abby Haas on 01-27-2025 Anti-Nuclear Antibody Screen Positive High . [facility] Comment on above: Negative <1:80 Borde rline 1:80 Positive >1:80 BUN/creatinine ratioOrdered By: Abby Haas on 01-27-2025 Urea nitrogen/Creatinine [Mass ratio] 16.6 mg/mg 08-29 [facility] Bilirubin, totalOrdered By: Abby Haas on 01-27-2025 Bilirubin [Mass/Vol] 0.38 mg/dL 0.00-1.30 [facility] Carbon dioxide, total [Moles /volume] in Central venous bloodOrdered By: Abby Haas on 01-27-2025 CO2 [Moles/Vol] 22.7 mmol/L 21.0-32.0 [facility] Centromere B antibody assayO rdered By: Abby Haas on 01-27-2025 Centromere B Antibody [facility] Comment on above: Test not performed Centromere B Antibody <0.2 AI 0.0-0.9 [facility] Comment on above: Previous reported re sult: TNP AIEdited by: STEVE on 01/31/25:1008 AMENDED REPORT 01/31/25 1008 ANTI-CENT B previously reported as: Test not performed Centromere pattern antinucle ar antibody (NAS) detectionOrdered By: Abby Haas on 01-27-2025 Centrosomal nuclear Ab pattern IF Ql (S) [facility] Comment on above: Test not performed Centrosomal nuclear Ab patte rn IF Ql (S)Ordered By: Abby Haas on 01-27-2025 Anti-Nuclear Ab Centromere Pattern [facility] Comment on above: Test not performed Chloride assayOrdered By: Raghav Haas on 01-27-2025 Chloride [Moles/Vol] 104 mmol/L 98-108 [facility] Chromatin antibody assayOrde red By: Abby Haas on 01-27-2025 Antichromatin Antibodies TNP [facility] Comment on above: Test not performed Antichromatin Antibodies 0.3 AI 0.0-0.9 [facility] Comment on above: Previous reported re sult: TNP AIEdited by: STEVE on 01/31/25:1008 AMENDED REPORT 01/31/25 1008 ANTICHROMATIN previously reported as: Test not performed Comprehensive Metabolic Prof ilon 01-27-2025 Albumin [Mass/Vol] 4.4 g/dL Normal 3.5-5.0 [facility] Comment on above: Order Comment: with free T4 index Performed By: #### L 500.4050, L3100.7950, L3410.9998, L3100.5440 ####[facility] [address] [place], [address] Albumin/Globulin [Mass ratio] 1.3 {ratio} Normal 0.9-2.4 [facility] Comment on above: Order Comment: with free T4 index Performed By: #### L 500.4050, L3100.7950, L3410.9998, L3100.5440 ####[facility] [address] [place], [address] ALK PHOS 72 U/L Normal 35-104 [facility] Comment on above: Order Comment: with free T4 index Performed By: #### L 500.4050, L3100.7950, L3410.9998, L3100.5440 ####[facility] [address] [place], [address] ALT [Catalytic activity/Vol] 7 U/L Normal <=34 [facility] Comment on above: Order Comment: with free T4 index Performed By: #### L 500.4050, L3100.7950, L3410.9998, L3100.5440 ####[facility] [address] [place], [address] AST [Catalytic activity/Vol] 20 U/L Normal <=31 [facility] Comment on above: Order Comment: with free T4 index Performed By: #### L 500.4050, L3100.7950, L3410.9998, L3100.5440 ####[facility] [address] [place], [address] Bilirubin [Mass/Vol] 0.38 mg/dL Normal 0.00-1.30 [facility] Comment on above: Order Comment: with free T4 index Performed By: #### L 500.4050, L3100.7950, L3410.9998, L3100.5440 ####[facility] [address] [place], [address] BUN/CRE 16.6 RATIO Normal 10-20 [facility] Comment on above: Order Comment: with free T4 index Performed By: #### L 500.4050, L3100.7950, L3410.9998, L3100.5440 ####[facility] [address] [place], [address] Calcium [Mass/Vol] 9.9 mg/dL Normal 7.6-11.0 [facility] Comment on above: Order Comment: with free T4 index Performed By: #### L 500.4050, L3100.7950, L3410.9998, L3100.5440 ####[facility] [address] [place], [address] Chloride [Moles/Vol] 104 mmol/L Normal 98-108 [facility] Comment on above: Order Comment: with free T4 index Performed By: #### L 500.4050, L3100.7950, L3410.9998, L3100.5440 ####[facility] [address] [place], [address] CO2 [Moles/Vol] 22.7 mmol/L Normal 21.0-32.0 [facility] Comment on above: Order Comment: with free T4 index Performed By: #### L 500.4050, L3100.7950, L3410.9998, L3100.5440 ####[facility] [address] [place], [address] Creatinine [Mass/Vol] 0.69 mg/dL Low 0.70-1.20 [facility] Comment on above: Order Comment: with free T4 index Performed By: #### L 500.4050, L3100.7950, L3410.9998, L3100.5440 ####[facility] [address] [place], [address] GAP 14 Normal 5-15 [facility] Comment on above: Order Comment: with free T4 index Performed By: #### L 500.4050, L3100.7950, L3410.9998, L3100.5440 ####[facility] [address] [place], [address] GFR/1.73 sq M.predicted among non-blacks MDRD (S/P/Bld) [Vol rate/Area] 126 mL/min/{1.73_m2} Normal >60 [facility] Comment on above: Order Comment: with free T4 index Result Comment: mL/m in/1.73m2 CKD-EPI Creatinine Equation (2020) Performed By: #### L 500.4050, L3100.7950, L3410.9998, L3100.5440 ####[facility] [address] [place], [address] Globulin (S) [Mass/Vol] 3.5 g/dL Normal 2.2-4.2 [facility] Comment on above: Order Comment: with free T4 index Performed By: #### L 500.4050, L3100.7950, L3410.9998, L3100.5440 ####[facility] [address] [place], [address] Glucose [Mass/Vol] 84 mg/dL Normal 70-99 [facility] Comment on above: Order Comment: with free T4 index Performed By: #### L 500.4050, L3100.7950, L3410.9998, L3100.5440 ####[facility] [address] [place], [address] Potassium [Moles/Vol] 3.8 mmol/L Normal 3.3-5.1 [facility] Comment on above: Order Comment: with free T4 index Performed By: #### L 500.4050, L3100.7950, L3410.9998, L3100.5440 ####[facility] [address] [place], [address] Sodium [Moles/Vol] 140 mmol/L Normal 133-145 [facility] Comment on above: Order Comment: with free T4 index Performed By: #### L 500.4050, L3100.7950, L3410.9998, L3100.5440 ####[facility] [address] [place], [address] T PROT 8.0 g/dL Normal 5.9-8.4 [facility] Comment on above: Order Comment: with free T4 index Performed By: #### L 500.4050, L3100.7950, L3410.9998, L3100.5440 ####[facility] [address] [place], [address] Urea nitrogen [Mass/Vol] 12 mg/dL Normal 4-19 [facility] Comment on above: Order Comment: with free T4 index Performed By: #### L 500.4050, L3100.7950, L3410.9998, L3100.5440 ####[facility] [address] [place], [address] DNA double strand Ab Qn (S)O rdered By: Abby Haas on 03-20-2025 Anti-Double Strand DNA Antibody <1 IU/mL 0-9 [facility] Comment on above: Negative <5 Equivoca l 5 - 9 Positive >9 GFR/1.73 sq M.predicted nithya g non-blacks MDRD (S/P/Bld) [Vol rate/Area]Ordered By: Abby Haas on 01-27-2025 Estimated GFR (MDRD) Non-Af Amer 126 >60 [facility] Comment on above: mL/min/1.73m2 CKD-EP I Creatinine Equation (2020) Glomerular filtration rate ( GFR) estimation/1.73 sq m using serum, plasma, or whole bOrdered By: Abby Haas on 01-27-2025 GFR/1.73 sq M.predicted among non-blacks MDRD (S/P/Bld) [Vol rate/Area] 126 mL/min/{1.73_m2} >60 [facility] Comment on above: mL/min/1.73m2 CKD-EP I Creatinine Equation (2020) Nerissa-1 antibody assayOrdered B y: Abby Haas on 01-27-2025 [facility] Comment on above: Test not performed NERISSA-1 Antibody <0.2 AI 0.0-0.9 [facility] Comment on above: Previous reported re sult: TNP AIEdited by: STEVE on 01/31/25:1008 AMENDED REPORT 01/31/25 1008 ANTI-NERISSA previously reported as: Test not performed Laboratory - Chemistry and C hemistry - challengeOrdered By: Abby Haas on 01-27-2025 AST [Catalytic activity/Vol] 20 U/L <32 [facility] Midbody Ab IF (S) [Titer]Ord ered By: Abby Haas on 01-27-2025 Anti-Nuclear Ab Midbody Pattern [facility] Comment on above: Test not performed Mitotic spindle apparatus Ab [Titer]Ordered By: Abby Haas on 01-27-2025 NAS Spindle Apparatus Pattern [facility] Comment on above: Test not performed Multiple nuclear dots nuclea r IgG pattern IF (S) [Titer]Ordered By: Abby Haas on 01-27-2025 Anti-Nuclear Ab Nuclear Dot Pattern TNP [facility] Comment on above: Test not performed No Panel InformationOrdered By: Abby Haas on 01-27-2025 Anti-Nuclear Antibody Comment 2 Comment . [facility] Comment on above: Pattern Potential Di arpitae Association Homogeneous Systemic Lupus Erythematosus, Drug Induced Systemic Lupus Erythematosus, Chronic Autoimmune hepatitis, Juvenile Idiopathic Arthritis Speckled Sjogren Syndrome, Systemic Lupus Erythematosus, Subacute Cutaneous Lupus, Lupus, Congenital Heart Block, Mixed Connective Tissue Disease, Scleroderma-diffuse, Scleroderma-Autoimmune Myositis Overlap Syndrome, Systemic Lupus Rmkfvjynbahdo-Iydrfbezrhi-Nrdellmfzp Myositis Overlap Syndrome, Systemic Autoimmune Rheumatic Disease, [...] Cytopenias, Linear Scleroderma, Antiphospholipid Syndrome Performed at: [facility] [id number] Director: Thony Patel PhD, Phone: [phone] Nuclear membrane pores nucle ar Ab pattern IF Ql (S)Ordered By: Abby Haas on 01-27-2025 NAS Nuclear Membrane Pattern [facility] Comment on above: Test not performed Nucleolar nuclear Ab pattern (S) [Titer]Ordered By: Abby Haas on 01-27-2025 Anti-Nuclear Ab Nucleolar Pattern [facility] Comment on above: Test not performed PCNA extractable nuclear Ab IF (S) [Titer]Ordered By: Abby Haas on 01-27-2025 Anti-Nuclear Ab PCNA Pattern [facility] Comment on above: Test not performed Potassium (Unsp spec) [Mass/ Vol]Ordered By: Abby Haas on 01-27-2025 Potassium [Moles/Vol] 3.8 mmol/L 3.3-5.1 [facility] Potassium measurement (mass/ volume)Ordered By: Abby Haas on 01-27-2025 Potassium (Unsp spec) [Mass/Vol] 3.8 mmol/L 3.3-5.1 [facility] [address]IGHWAY TRAFFIC CONTROL TECHNICIAN abOrdered By: Abby dorman on 01-27-[address] TRAFFIC CONTROL TECHNICIAN Antibody [facility] Comment on above: Test not performed HIGHWAY TRAFFIC CONTROL TECHNICIAN Antibody 0.3 AI 0.0-0.9 [facility] Comment on above: Previous reported re sult: TNP AIEdited by: STEVE on 01/31/25:1008 AMENDED REPORT 01/31/[address] TRAFFIC CONTROL TECHNICIAN Ab previously reported as: Test not performed Rim nuclear Ab pattern (S) [ Titer]Ordered By: Abby Haas on 01-27-2025 Anti-Nuclear Ab Homogeneous Pattern 1:640 High . [facility] Comment on above: ICAP nomenclature: A C-1 SCL-70 extractable nuclear A b Qn (S)Ordered By: Abby Haas on 01-27-2025 Scl-70 (Scleroderma) Antibody <0.2 AI 0.0-0.9 [facility] SS-A IgG antibody assayOrder ed By: Abby Haas on 01-27-2025 SS-A/Ro IgG Antibody TNP [facility] Comment on above: Test not performed SS-A/Ro IgG Antibody < 0.2 AI 0.0-0.9 [facility] Comment on above: Previous reported re sult: TNP AIEdited by: STEVE on 01/31/25:1008 AMENDED REPORT 01/31/25 1008 Anti-SS-A previously reported as: Test not performed SS-B IgG antibody assayOrder ed By: Abby Haas on 01-27-2025 SS-B/La IgG Antibody TNP [facility] Comment on above: Test not performed SS-B/La IgG Antibody < 0.2 AI 0.0-0.9 [facility] Comment on above: Previous reported re sult: TNP AIEdited by: STEVE on 01/31/25:1008 AMENDED REPORT 01/31/25 1008 Anti-SS-B previously reported as: Test not performed Serum DNA double strand anti body assay (units/volume)Ordered By: Abby Haas on 01-27-2025 DNA double strand Ab Qn (S) [IU]/mL 0-9 [facility] Comment on above: Negative <5 Equivoca l 5 - 9 Positive >9 Serum Scl-70 antibody assay (units/volume)Ordered By: Abby Haas on 01-27-2025 SCL-70 extractable nuclear Ab Qn (S) <0.2 AI 0.0-0.9 [facility] Serum antinuclear antibody ( NAS) detection with nuclear membrane pores pattern by immOrdered By: Abby Haas on 01-27-2025 Nuclear membrane pores nuclear Ab pattern IF Ql (S) [facility] Comment on above: Test not performed Serum centriole antibody tit er by immunofluorescenceOrdered By: Abby Haas on 01-27-2025 Anti-Nuclear Ab Centriole Pattern [facility] Comment on above: Test not performed Serum creatinine measurement (mass/volume)Ordered By: Abby Haas on 01-27-2025 Creatinine [Mass/Vol] 0.69 mg/dL Low 0.70-1.20 [facility] Serum globulin measurementOr dered By: Abby Haas on 01-27-2025 Globulin (S) [Mass/Vol] 3.5 g/dL 2.2-4.2 [facility] Serum glucose measurement (m ass/volume)Ordered By: Abby Haas on 01-27-2025 Glucose [Mass/Vol] 84 mg/dL 70-99 [facility] Serum midbody antibody titer by immunofluorescenceOrdered By: Abby Haas on 01-27-2025 Midbody Ab IF (S) [Titer] [facility] Comment on above: Test not performed Serum multiple nuclear dot p attern antinuclear IgG antibody (NAS) titer by immunofluoOrdered By: Abby Haas on 01-27-2025 Multiple nuclear dots nuclear IgG pattern IF (S) [Titer] [facility] Comment on above: Test not performed Serum nucleolar nuclear anti body pattern titerOrdered By: Abby Haas on 01-27-2025 Nucleolar nuclear Ab pattern (S) [Titer] [facility] Comment on above: Test not performed Serum or plasma alanine gtz otransferase (ALT) measurementOrdered By: Abby Haas on 01-27-2025 ALT [Catalytic activity/Vol] 7 U/L <35 [facility] Serum or plasma albumin mary urement (mass/volume)Ordered By: Abby Haas on 01-27-2025 Albumin [Mass/Vol] 4.4 g/dL 3.5-5.0 [facility] Serum or plasma albumin/glob ulin mass ratioOrdered By: Abby Haas on 01-27-2025 Albumin/Globulin [Mass ratio] 1.3 {ratio} 0.9-2.4 [facility] Serum or plasma alkaline jeny sphatase measurementOrdered By: Abby Haas on 01-27-2025 ALP [Catalytic activity/Vol] 72 U/L 35-104 [facility] Serum or plasma calcium mary urement (mass/volume)Ordered By: Abby Haas on 01-27-2025 Calcium [Mass/Vol] 9.9 mg/dL 7.6-11.0 [facility] Serum or plasma mitotic spin dle apparatus antibody titerOrdered By: Abby Haas on 01-27-2025 Mitotic spindle apparatus Ab [Titer] [facility] Comment on above: Test not performed Serum or plasma urea nitroge n measurement (mass/volume)Ordered By: Abby Haas on 01-27-2025 Urea nitrogen [Mass/Vol] 12 mg/dL 4-19 [facility] Serum proliferating cell nuc lear antigen (PCNA) antibody titer by immunofluorescenceOrdered By: Abby Haas on 01-27-2025 PCNA extractable nuclear Ab IF (S) [Titer] [facility] Comment on above: Test not performed Serum smooth nuclear envelop e pattern antinuclear antibody (NAS) titerOrdered By: Abby Haas on 01-27-2025 Rim nuclear Ab pattern (S) [Titer] 1:640 High . [facility] Comment on above: ICAP nomenclature: A C-1 Serum speckled pattern antin uclear antibody (NAS) titerOrdered By: Abby Haas on 01-27-2025 Speckled nuclear Ab pattern (S) [Titer] [facility] Comment on above: Test not performed Titus antibody assayOrdered By: Abby Haas on 01-27-2025 SM Antibody [facility] Comment on above: Test not performed SM Antibody <0.2 AI 0.0-0.9 [facility] Comment on above: Previous reported re sult: TNP AIEdited by: STEVE on 01/31/25:1008 AMENDED REPORT 01/31/25 1008 TITUS Ab previously reported as: Test not performed Sodium levelOrdered By: Jaime Haas on 01-27-2025 Sodium [Moles/Vol] 140 mmol/L 133-145 [facility] Speckled nuclear Ab pattern (S) [Titer]Ordered By: Abby Haas on 01-27-2025 Anti-Nuclear Ab Atyp Speckled Inez TNP [facility] Comment on above: Test not performed Total proteinOrdered By: Joe Haas on 01-27-2025 Protein [Mass/Vol] 8.0 g/dL 5.9-8.4 [facility] Internal Medicine Office Vis itosebastián 01-26-2025 Internal Medicine Office Visit [facility] [address] [place] [address] [place] [address] OFFICE VISIT Date of Service: 01/27/25 MR#: [id number] Acct: [id number] Name: LEATHA JESSICA Rep #: [id number] : 2000 Provider: Dr. 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 EST CARE- PT/CONSENT ONLY Details: LEATHA JESSICA, [...] cramping, diarrhea, difficulty swallowing, nausea/dyspepsia or vomiting Genitourinary-Female : Positive for other (irregular menstrual periods); No difficulty urinating, burning urination, painful urination, urinary incontinence, urinary frequency, abnormal vaginal bleeding or pelvic pain Musc Musculoskeletal: No abnormal gait, joint pain, back pain, limited range of motion, neck pain, numbness or tingling Skin (more content not included)... Normal [facility] Thyroidon 01-21-2025 Thyroid [facility] Imaging Services [address] [place], [place] [address] Thyroid MR#: [id number] Acct: [id number] Name: LEATHA JESSICA Rep #: [id number] : 2000 F 24 From: Berry lucas MD PCP: Care Physician,No Primary Status: REG CLI Study: Thyroid Date of Exam: 01/21/25 Exam# [id number] Ordering Dr: Navya Lloyd PROCEDURE: THYROID REASON [...] No sonographic abnormality is seen. Reading Location: [place] [address] CC: Dr. Navya Lloyd MD; No Primary Care Physician Credit Risk Modeler: Signed Normal [facility] Grey Roll Worker Office Visit Reporton 01-17-2025 Grey Roll Worker Office Visit Report [facility] [address], [address] [place] [address] OFFICE VISIT Date of Service: 01/17/25 MR#: [id number] Acct: [id number] Name: LEATHA JESSICA Rep #: [id number] : 2000 Provider: Dr. 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 Smoking Status: Never smoker alcohol [...] hold off on femara for now 01/17/25 1717 Date Navya Lloyd MD Cosigner Signature: Date (if applicable) CC: Normal [facility] Discharge Instructionon 12-11 Discharge Instruction [facility] Medical Records Department [address] [place] [address] Instructions for Home/Discharge Instructions 12/28/24 1200 MR#: [id number] Acct: [id number] Name: LEATHA JESSICA Rep #: [id number] : 2000 From: Navya Lloyd MD PCP: Care Physician,No [...] Provider: Care Physician,No Primary Instructions Print Language: Lebanese Discharge Orders/Prescriptions Prescriptions: New oxycodone-acetaminop hen [Percocet] 5-325 mg tablet 1 tab PO [...] MD CC: No Primary Care Physician Signed [facility] MR/POSTOP.[facility] 12-28-2024 MR/POSTOP.[facility] Medical Records Department [address] [place] [address] Anesthesia Postop Eval I 12/28/24 1021 MR#: [id number] Acct: [id number] Name: LEATHA JESSICA Rep #: [id number] : 2000 24 From: Rika Toussaint PCP: Care Physician,No Primary Status:REG SDC Y Race: C Location: [place] [address] Anesthesia: Postop Eval I Current Vital Signs [...] 1 completed: Yes 12/28/24 1029 Date Rika Sheikhigniman Signature: Date CC: Signed Normal [facility] MR/[id number] 12-28-2024 MR/POSTOPAN2 [facility] Medical Records Department [address] [place] [address] Anesthesia Postop Eval II 12/28/241817 MR#: [id number] Acct: [id number] Name: LEATHA JESSICA Rep #: [id number] : 2000 24 From: Nathanael Krishnamurthy MD PCP: Care Physician,No Primary Status:[facility] Y Race: C [place] [facility] [place]hesia Postop Eval I Sum Postop Eval Completion status Anesthesia document: Postop Eval 1 completed: Yes Anesthesia Postop Eval I Summary Anesthesia Postop Eval I Summary: Anesthesia Postop Eval I: Assessment Summary Airway patent Yes 12/28/24 10:29 NEUROLOGY PROFESSOR.GDOTT Spontaneous unlabored Yes 12/28/24 10:29 NEUROLOGY PROFESSOR.GDOTT respirations Mental status Awake,Calm 12/28/24 10:29 NEUROLOGY PROFESSOR.GDOTT nausea No 12/28/24 10:29 NEUROLOGY PROFESSOR.GDOTT Vomiting No 12/28/24 10:29 NEUROLOGY PROFESSOR.GDOTT Anesthesia Postop Eval I: Fluid Summary Crystalloid volume administer 800 12/28/24 10:29 NEUROLOGY PROFESSOR.GDOTT (ml) Colloids volume administered ( ml) Blood Product volume administered (ml) Total IV fluid infused 800 12/28/24 10:29 NEUROLOGY PROFESSOR.GDOTT Anesthesia Postop Eval I: Summary Notes Anesthesia Complication No 12/28/24 10:29 NEUROLOGY PROFESSOR.GDOTT Anesthesia Complication Comment: Post-operative progress note Anesthesia: Postop Eval II Evaluation Mental status: Awake and Calm Pain Level: 1 nausea: No Vomiting: No Complications Anesthesia Complication: No 12/28/241817 Date Nathanael Krishnamurthy MD Cosigner Signature: Date CC: Signed Normal [facility] Operative Reporton Operative Report [facility] Medical Records Department [address] [place] [address] Operative Report 12/28/24 1200 MR#: [id number] Acct: [id number] Name: LEATHA JESSICA Rep #: [id number] : 2000 24 From: Navya Lloyd MD PCP: Care Physician,No Primary Status:[place] [facility] [place] [facility] [place] Problems Associated Problem List Diagnoses (1) Dysmenorrhea: (2) Polycystic ovarian syndrome: (3) Infertility: (4) Irregular periods/menstrual cycles: Multi Select Codes Urinary/Genital Urinary/Genital CPT Codes: 27291 Chromotubation, [address]6451 Lysis of adhesions, laproscopic and Other Procedure See Report ([id number]) Operative Report (Standard) Operative Information Date of Procedure: 12/28/24 Pre-Operative Diagnosis: See problem list Post-Operative Diagnosis: Same plus pelvic adhesions and bilateral tubal patency Surgery/Procedure Performed: Diagnostic laparoscopy lysis of adhesions chromotubation adjunct teacher: Yes Tree Shear Operator: Mitzy Gotti Tasks completed by first responder: Opening closing Additional senior office assistant?: No Type of Anesthesia: General RN [...] 09:39 Procedure Stop Time: 10:08 Select all DRAINS/GRAFTS/IMPLAN TS that apply: Drains (toledo) Drain details: removed [...] MD; No Primary Care Physician Signed Normal [facility] ,Urineon 12-28-2024 Beta HCG ( test) Ql (U) Negative Normal [facility] Comment on above: Result Comment: Very dilute urine specimens, as indicated by a low specific gravity, may not contain specialty sales representative levels of hCG. If is still suspected, a first morning urine specimen should be collected 48 hours later and tested. Performed By: #### L 400.7600 #### [facility] [address] [facility]. [place], [place], [id number] Type AND Screenon 12-28-2024 Ab SCREEN GEL Negative Normal [facility] Comment on above: Order Comment: S Performed By: #### B TS ####[facility] [address] [facility]. [place], [place], [id number] Urine testOrdered By: Navya Lloyd on 12-28-2024 HCG ( test) Ql (U) Negative [facility] Comment on above: Very dilute urine sp ecimens, as indicated by a low specificgravity, may not contain specialty sales representative levels of hCG. If is still suspected, a first morning urinespecimen should be collected 48 hours later and tested. ,Urineon 12-14-2024 Beta HCG ( test) Ql (U) Normal [facility] Comment on above: Result Comment: NO U RINE COLLECTED. PATIENT HAD PREG URINE TEST DONE ON 12-11-24 Performed By: #### L 400.7600 #### [facility] [address] [place], [address] INTERNAL QC OK? Normal [facility] Comment on above: Result Comment: NO U RINE COLLECTED. PATIENT HAD PREG URINE TEST DONE ON 12-11-24 Performed By: #### L 400.7600 #### [facility] [address] [place], [address] RECORD KIT LOT# Normal [facility] Comment on above: Result Comment: NO U RINE COLLECTED. PATIENT HAD PREG URINE TEST DONE ON 12-11-24 Performed By: #### L 400.7600 #### [facility] [address] [place], [address] CBC-Complete Blood Cnt No Di ffon 12-11-2024 Erythrocyte distribution width (RBC) [Ratio] 12.9 % Normal 11.6-14.6 [facility] Comment on above: Performed By: #### L 100.0100, L500.4050, L503.6005, L501.4021 #### [facility] [address] [place], [address] Hematocrit (Bld) [Volume fraction] 44.7 % Normal 37-47 [facility] Comment on above: Performed By: #### L 100.0100, L500.4050, L503.6005, L501.4021 #### [facility] [address] [place], [address] Hemoglobin (Bld) [Mass/Vol] 15.2 g/dL High 12.0-15. 0 [facility] Comment on above: Performed By: #### L 100.0100, L500.4050, L503.6005, L501.4021 #### [facility] [address] [place], [address] MCH (RBC) [Entitic mass] 29.0 pg Normal 27.0-32.0 [facility] Comment on above: Performed By: #### L 100.0100, L500.4050, L503.6005, L501.4021 #### [facility] [address] [place], [address] MCHC (RBC) [Mass/Vol] 34.0 g/dL Normal 32-36 [facility] Comment on above: Performed By: #### L 100.0100, L500.4050, L503.6005, L501.4021 #### [facility] [address] [place], [address] MCV (RBC) [Entitic vol] 85.1 fL Normal 81-99 [facility] Comment on above: Performed By: #### L 100.0100, L500.4050, L503.6005, L501.4021 #### [facility] [address] [place], [address] Platelet mean volume (Bld) [Entitic vol] 9.5 fL Normal 6.2-12.0 [facility] Comment on above: Performed By: #### L 100.0100, L500.4050, L503.6005, L501.4021 #### [facility] [address] [place], [address] Platelets (Bld) [#/Vol] 485 10*3/uL High 150-450 [facility] Comment on above: Performed By: #### L 100.0100, L500.4050, L503.6005, L501.4021 #### [facility] [address] [place], [address] RBC (Bld) [#/Vol] 5.25 10*6/uL Normal 4.2-5.4 [facility] Comment on above: Performed By: #### L 100.0100, L500.4050, L503.6005, L501.4021 #### [facility] [address] [place], [address] RDW SD 40.0 fl Normal 35.1-43.9 [facility] Comment on above: Performed By: #### L 100.0100, L500.4050, L503.6005, L501.4021 #### [facility] [address] [place], [address] WBC (Bld) [#/Vol] 10.4 10*3/uL Normal 4.4-11.0 [facility] Comment on above: Performed By: #### L 100.0100, L500.4050, L503.6005, L501.4021 #### [facility] [address] [place], [address] Erythrocyte distribution wid th ratioOrdered By: Navya Lloyd on 12-11-2024 Erythrocyte distribution width (RBC) [Ratio] 12.9 % 11.6-14.6 [facility] Erythrocyte distribution wid th standard deviationOrdered By: Navya Lloyd on 12-11-2024 Erythrocyte distribution width (RBC) [Entitic vol] 40.0 fL 35.1-43.9 [facility] Erythrocyte distribution width (RBC) [Ratio] 40.0 fl 35.1-43.9 [facility] Hematocrit Auto (Bld) [Volum e fraction]Ordered By: Navya Lloyd on 12-11-2024 Hematocrit (Bld) [Volume fraction] 44.7 % 37-47 [facility] Hemoglobin measurementOrdere d By: Navya Lloyd on 12-11-2024 Hemoglobin (Bld) [Mass/Vol] 15.2 g/dL High 12.0-15. 0 [facility] MCV (mean corpuscular volume ) determinationOrdered By: Navya Lloyd on 12-11-2024 MCV (RBC) [Entitic vol] 85.1 fL 81-99 [facility] Mean corpuscular hemoglobin (MCH) determinationOrdered By: Navya Lloyd on 12-11-2024 MCH (RBC) [Entitic mass] 29.0 pg 27.0-32.0 [facility] Mean corpuscular hemoglobin concentration (MCHC) determinationOrdered By: Navya Lloyd on 12-11-2024 MCHC (RBC) [Mass/Vol] 34.0 g/dL 32-36 [facility] Mean platelet volume determi nationOrdered By: Navya Lloyd on 12-11-2024 Platelet mean volume (Bld) [Entitic vol] 9.5 fL 6.2-12.0 [facility] Platelet countOrdered By: Ajit Lloyd on 12-11-2024 Platelets (Bld) [#/Vol] 485 10*3/uL High 150-450 [facility] ,Urineon 12-11-2024 Beta HCG ( test) Ql (U) Negative Normal [facility] Comment on above: Result Comment: Very dilute urine specimens, as indicated by a low specific gravity, may not contain specialty sales representative levels of hCG. If is still suspected, a first morning urine specimen should be collected 48 hours later and tested. Performed By: #### L 100.0100, L500.4050, L503.6005, L501.4021 #### [facility] [address] [place], [address] RBC Auto (Bld) [#/Vol]Ordere d By: Navya Lloyd on 12-11-2024 RBC (Bld) [#/Vol] 5.25 10*6/uL 4.2-5.4 [facility] Type AND Screen - PAT ONLYon 12-11-2024 Ab SCREEN GEL Negative Normal [facility] Comment on above: Order Comment: Surge ry Date: 12/14/24Reason for Laboratory Test [id number] LAP, CHROMOTUBATION Performed By: #### L 100.0100, L500.4050, L503.6005, L501.4021 #### [facility] [address] [place], [address] ABO and Rh group Nom (Bld) Blood group O Rh(D) positive Normal [facility] Comment on above: Order Comment: Surge ry Date: 12/14/24Reason for Laboratory Test [id number] LAP, CHROMOTUBATION Performed By: #### L 100.0100, L500.4050, L503.6005, L501.4021 #### [facility] [address] [facility] [place], [place], [id number] White blood cell (WBC) count Ordered By: Navya Lloyd on 12-11-2024 WBC (Bld) [#/Vol] 10.4 10*3/uL 4.4-11.0 [facility] Testosterone Freeon 11-24-19 [facility] FREE 2.8 pg/mL Normal 0.0-4.2 [facility] Comment on above: Result Comment: Perf ormed at: - [facility] [id number] Event Marketing Intern: Johan Engel MD, Phone: [phone] Performed By: #### L 100.0100, L500.4050, L503.6005, L501.4021 #### [facility] [address] [facility] [place], [place], [address] Direct serum free thyroxine (FT4) measurementOrdered By: Navya Lloyd on 11-19-2024 Free T4 [Mass/Vol] 1.87 ng/dL High 0.76-1.46 [facility] Free T3on 11-19-2024 Free T3 [Mass/Vol] 3.3 pg/mL Normal 2.18-3.98 [facility] Comment on above: Performed By: #### L 100.0100, L500.4050, L503.6005, L501.4021 #### [facility] [address] [place], [address] Free [id number] By: Navya le on 11-19-2024 Free Triiodothyronine (T3) pg/dL 3.3 pg/mL 2.18-3.98 [facility] Grey Roll Worker Office Visit Reporton 11-19-2024 Grey Roll Worker Office Visit Report [facility] [address], [address] [place] [address] OFFICE VISIT Date of Service: 11/19/24 MR#: [id number] Acct: [id number] Name: LEATHA JESSICA Rep #: [id number] : 2000 Provider: Dr. Navya hyde MD Age/Sex: 24/F Location: [facility] [place] Status: Signed Intake Vital Signs 07/21/24 08:47 11/19/24 15:17 Height 5 ft 7 in 5 ft 7 in Weight: 254 lb 4 oz BMI 39.8 BP 132/83 H Intake Visit Reasons: Surgical consult Chief Complaint: Fertility consult Manager Urgent Care Required: No Is patient in pain?: No [...] (Updated 11/19/24 @ 15:[address] 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 Smoking Status: Never smoker alcohol [...] Irregular menses: Q33-38 Menopausal symptoms: no Persistent SILVEIRA or visual changes: no Hirsutism: no Previous contraception used: condoms only Duration of regular unprotected intercourse: >1 year history of pelvic infections in patient or partner: no family history of endometriosis: no tobacco use for patient or her partner: no partner fathered any pregnancies: no partner history of testicular issues, ejaculatory dysfunction, or history of Mumps: no Partner medications/vitamins /supplements: no Partner's employment: construction any additional risk [...] excessive sweating, heat intolerance or polydipsia Law/Lymph Hematologic/Lymphati c: Denies easy bleeding, Denies easy bruising and [...] soft and (more content not included)... Normal [facility] T4 Free Directon 11-19-2024 T4 FREE DIRECT 1.87 ng/dL High 0.76-1.46 [facility] Comment on above: Performed By: #### L 100.0100, L500.4050, L503.6005, L501.4021 #### [facility] [address] [facility]. [place], [place], [id number] TSH QnOrdered By: Navya grayson on 11-19-2024 Thyroid Stimulating Hormone (TSH) 1.560 uIU/mL 0.358-3.740 [facility] Testosterone Free [Mass/Vol] Ordered By: Navya Lloyd on 11-19-2024 Free Testosterone 2.8 pg/mL 0.0-4.2 [facility] Comment on above: Performed at: [address] [id number] Director: Johan Engel MD, Phone: [phone] Thyroid Stim Hormone (TSH)on 11-19-2024 TSH 1.560 uIU/mL Normal 0.358-3.740 [facility] Comment on above: Performed By: #### L 100.0100, L500.4050, L503.6005, L501.4021 #### [facility] [address] [place], [place], [id number] Vital Signs Date Time Vital Sign Value Performing Clinician Faci lity 10-06-2025 15:17-0400 Body height 170.[address] Abby Haas MD Work Phone: [facility] 08-15-2025 15:17-0400 Body mass index (BMI) [Ratio] 39 kg/m2 Dr. Abby Haas MD Work Phone: [facility] 08-15-2025 15:17-0400 Body weight 113.[address] Abby Haas MD Work Phone: [facility] 08-15-2025 15:17-0400 Diastolic blood pressure 86 mm[Hg] Dr. Abby Haas MD Work Phone: [facility] 08-15-2025 15:17-0400 Systolic blood pressure 133 mm[Hg] Dr. Abby Haas MD Work Phone: [facility] 07-28-2025 11:01-0400 Body height 170.18 cm No Primary Care Physician [facility] 07-28-2025 10:57-0400 Body mass index (BMI) [Ratio] 38.5 kg/m2 No Primary Care Physician [facility] 07-28-2025 10:57-0400 Body weight 111.64 kg No Primary Care Physician [facility] 07-28-2025 10:57-0400 Diastolic blood pressure 88 mm[Hg] No Primary Care Physician [facility] 07-28-2025 10:57-0400 Systolic blood pressure 131 mm[Hg] No Primary Care Physician [facility] 07-01-2025 11:37-0400 Body height 170.18 cm No Primary Care Physician [facility] 07-01-2025 11:37-0400 Body mass index (BMI) [Ratio] 38.2 kg/m2 No Primary Care Physician [facility] 07-01-2025 11:37-0400 Body weight 110.76 kg No Primary Care Physician [facility] 07-01-2025 11:37-0400 Diastolic blood pressure 86 mm[Hg] No Primary Care Physician [facility] 07-01-2025 11:37-0400 Systolic blood pressure 124 mm[Hg] No Primary Care Physician [facility] 06-28-2025 20:48-0400 Body temperature 98.6 [degF] No Primary Care Physician [facility] 06-28-2025 20:48-0400 Diastolic blood pressure 64 mm[Hg] No Primary Care Physician [facility] 06-28-2025 20:48-0400 Heart rate 99 /min No Primary Care Physician [facility] 06-28-2025 20:48-0400 Respiratory rate 17 /min No Primary Care Physician [facility] 06-28-2025 20:48-0400 SaO2% (BldA) [Mass fraction] 97 % No Primary Care Physician [facility] 06-28-2025 20:48-0400 Systolic blood pressure 108 mm[Hg] No Primary Care Physician [facility] 06-28-2025 16:35-0400 Body height 170.18 cm No Primary Care Physician [facility] 06-28-2025 16:35-0400 Body mass index (BMI) [Ratio] 38.8 kg/m2 No Primary Care Physician [facility] 06-28-2025 16:35-0400 Body weight 112.6 kg No Primary Care Physician [facility] 06-17-2025 14:17-0400 Body height 170.18 cm No Primary Care Physician [facility] 06-17-2025 14:17-0400 Body mass index (BMI) [Ratio] 38.9 kg/m2 No Primary Care Physician [facility] 06-17-2025 14:17-0400 Body weight 112.63 kg No Primary Care Physician [facility] 06-17-2025 14:17-0400 Diastolic blood pressure 85 mm[Hg] No Primary Care Physician [facility] 06-17-2025 14:17-0400 Systolic blood pressure 133 mm[Hg] No Primary Care Physician [facility] 05-30-2025 13:06-0400 Body height 170.18 cm No Primary Care Physician [facility] 05-30-2025 13:06-0400 Body mass index (BMI) [Ratio] 39.1 kg/m2 No Primary Care Physician [facility] 05-30-2025 13:06-0400 Body weight 113.39 kg No Primary Care Physician [facility] 05-30-2025 13:06-0400 Diastolic blood pressure 85 mm[Hg] No Primary Care Physician [facility] 05-30-2025 13:06-0400 Systolic blood pressure 133 mm[Hg] No Primary Care Physician [facility] 05-27-2025 14:14-0400 Body mass index (BMI) [Ratio] 39.2 kg/m2 No Primary Care Physician [facility] 05-27-2025 14:14-0400 Body weight 113.56 kg No Primary Care Physician [facility] 05-27-2025 14:14-0400 Diastolic blood pressure 68 mm[Hg] No Primary Care Physician [facility] 05-27-2025 14:14-0400 Systolic blood pressure 118 mm[Hg] No Primary Care Physician [facility] 04-07-2025 11:03-0400 Body height 170.18 cm No Primary Care Physician [facility] 04-07-2025 11:03-0400 Body mass index (BMI) [Ratio] 39.3 kg/m2 No Primary Care Physician [facility] 04-07-2025 11:03-0400 Body weight 113.9 kg No Primary Care Physician [facility] 04-07-2025 11:03-0400 Diastolic blood pressure 78 mm[Hg] No Primary Care Physician [facility] 04-07-2025 11:03-0400 Systolic blood pressure 147 mm[Hg] No Primary Care Physician [facility] 03-15-2025 10:55-0400 Body temperature 98.9 [degF] No Primary Care Physician [facility] 03-15-2025 10:55-0400 Diastolic blood pressure 82 mm[Hg] No Primary Care Physician [facility] 03-15-2025 10:55-0400 Heart rate 80 /min No Primary Care Physician [facility] 03-15-2025 10:55-0400 Respiratory rate 16 /min No Primary Care Physician [facility] 03-15-2025 10:55-0400 SaO2% (BldA) [Mass fraction] 98 % No Primary Care Physician [facility] 03-15-2025 10:55-0400 Systolic blood pressure 92 mm[Hg] No Primary Care Physician [facility] 03-15-2025 07:38-0400 Body mass index (BMI) [Ratio] 39.6 kg/m2 No Primary Care Physician [facility] 03-15-2025 07:38-0400 Body weight 115 kg No Primary Care Physician [facility] 03-11-2025 15:43-0400 Body mass index (BMI) [Ratio] 39.6 kg/m2 No Primary Care Physician [facility] 03-11-2025 15:43-0400 Body weight 114.75 kg No Primary Care Physician [facility] 03-11-2025 15:43-0400 Diastolic blood pressure 82 mm[Hg] No Primary Care Physician [facility] 03-11-2025 15:43-0400 Systolic blood pressure 135 mm[Hg] No Primary Care Physician [facility] 01-27-2025 10:01-0400 Body height 170.18 cm No Primary Care Physician [facility] 01-27-2025 10:01-0400 Body mass index (BMI) [Ratio] 39.1 kg/m2 No Primary Care Physician [facility] 01-27-2025 10:01-0400 Body temperature 97.6 [degF] No Primary Care Physician [facility] 01-27-2025 10:01-0400 Body weight 113.39 kg No Primary Care Physician [facility] 01-27-2025 10:01-0400 Diastolic blood pressure 82 mm[Hg] No Primary Care Physician [facility] 01-27-2025 10:01-0400 Heart rate 94 /min No Primary Care Physician [facility] 01-27-2025 10:01-0400 Respiratory rate 18 /min No Primary Care Physician [facility] 01-27-2025 10:01-0400 SaO2% (BldA) [Mass fraction] 97 % No Primary Care Physician [facility] 01-27-2025 10:01-0400 Systolic blood pressure 130 mm[Hg] No Primary Care Physician [facility] 01-17-2025 13:06-0400 Body mass index (BMI) [Ratio] 39 kg/m2 No Primary Care Physician [facility] 01-17-2025 13:06-0400 Body weight 113.11 kg No Primary Care Physician [facility] 01-17-2025 13:06-0400 Diastolic blood pressure 78 mm[Hg] No Primary Care Physician [facility] 01-17-2025 13:06-0400 Systolic blood pressure 112 mm[Hg] No Primary Care Physician [facility] 12-28-2024 12:38-0500 Body temperature 98.3 [degF] No Primary Care Physician [facility] 12-28-2024 12:38-0500 Diastolic blood pressure 68 mm[Hg] No Primary Care Physician [facility] 12-28-2024 12:38-0500 Heart rate 97 /min No Primary Care Physician [facility] 12-28-2024 12:38-0500 Respiratory rate 16 /min No Primary Care Physician [facility] 12-28-2024 12:38-0500 SaO2% (BldA) [Mass fraction] 97 % No Primary Care Physician [facility] 12-28-2024 12:38-0500 Systolic blood pressure 113 mm[Hg] No Primary Care Physician [facility] 12-28-2024 10:45-0500 Inhaled oxygen flow rate 2 L/min No Primary Care Physician [facility] 12-28-2024 08:20-0500 Body mass index (BMI) [Ratio] 39.4 kg/m2 No Primary Care Physician [facility] 12-28-2024 08:20-0500 Body weight 114.3 kg No Primary Care Physician [facility] 11-19-2024 15:17-0500 Body mass index (BMI) [Ratio] 39.8 kg/m2 No Primary Care Physician [facility] 11-19-2024 15:17-0500 Body weight 115.32 kg No Primary Care Physician [facility] 11-19-2024 15:17-0500 Diastolic blood pressure 83 mm[Hg] No Primary Care Physician [facility] 11-19-2024 15:17-0500 Systolic blood pressure 132 mm[Hg] No Primary Care Physician [facility] Encounters Encounter Date Encounter Type Care Provider Facility Start: 09-15-2025 End: 09-15-2025 ambulatory Abby Haas Facility:[facility] Start: 08-15-2025 End: 08-15-2025 Patient encounter procedure Leyda BELLE -[facility] Work Phone: Start: 08-15-2025 End: 08-15-[address] Abby Haas MD Work Phone: -[facility] Start: 08-11-2025 End: 08-11-2025 ambulatory [facility] Start: 07-28-2025 End: 07-28-[address] Ava Caro DO -[facility] Work Phone: Start: 07-28-2025 End: 07-28-2025 ambulatory No Primary Care Physician -[facility] Start: 07-01-2025 End: 07-01-2025 Patient encounter procedure Leyda Capellan CNM -[facility] Work Phone: Start: 07-01-2025 End: 07-01-2025 ambulatory No Primary Care Physician [facility] Start: 06-28-2025 End: 06-28-2025 Emergency department patient visit No Primary Care Physician -Emergency Department Work Phone: Start: 06-17-2025 End: 06-17-2025 ambulatory No Primary Care Physician -[facility] Start: 06-17-2025 End: 06-17-2025 Patient encounter procedure Leyda Capellan CNM -[facility] Work Phone: Start: 06-17-2025 End: 06-17-2025 ambulatory Navya Lloyd Facility:[facility] Start: 06-11-2025 End: 06-11-2025 ambulatory No Primary Care Physician -Laboratory Start: 06-11-2025 End: 06-11-[address] Navya Lloyd MD -Laboratory Work Phone: Start: 06-11-2025 End: 06-11-2025 ambulatory Abby Haas Facility:[facility] Start: 05-30-2025 End: 05-30-2025 ambulatory No Primary Care Physician -Laboratory Specimen Start: 05-30-2025 End: 05-30-[address] Navya Lloyd MD -Laboratory Specimen Work Phone: Start: 05-30-2025 End: 05-30-[address] Navya Lloyd MD -[facility] Work Phone: Start: 05-30-2025 End: 05-30-2025 ambulatory No Primary Care Physician -[facility] Start: 05-30-2025 End: 05-30-2025 ambulatory Navya Lloyd Facility:[facility] Start: 05-27-2025 End: 05-27-[address] Navya Lloyd MD -[facility] Work Phone: Start: 05-27-2025 End: 05-27-2025 ambulatory No Primary Care Physician -[facility] Start: 04-07-2025 End: 04-07-[address] Navya Lloyd MD -[facility] Work Phone: Start: 04-07-2025 End: 04-07-2025 ambulatory No Primary Care Physician [facility] Work Phone: Start: 03-23-2025 Encounter for other preprocedural examination Navya Lloyd [facility] Start: 03-15-2025 ambulatory Navya Lloyd Faci lity:[facility] Start: 03-15-2025 Non-patient / Non-visit Dr. Ajit Lloyd MD -[facility] Start: 03-15-2025 End: 03-15-2025 Admission to same day surgery center Dr. Navya Lloyd MD -[facility] Start: 03-15-2025 End: 03-15-2025 ambulatory Navya Lloyd Facility:[facility] Start: 03-11-2025 End: 03-11-[address] Navya Lloyd MD -[facility] Work Phone: Start: 03-11-2025 End: 03-11-2025 ambulatory No Primary Care Physician Facility:[facility] Start: 01-27-2025 End: 01-27-[address] Abby Haas MD -[facility] Work Phone: Start: 01-27-2025 End: 01-27-2025 ambulatory No Primary Care Physician [facility] Work Phone: Start: 01-27-2025 End: 01-27-2025 ambulatory Abby Leming Facility:[facility] Start: 01-21-2025 End: 01-21-2025 ambulatory No Primary Care Physician [facility] Work Phone: Start: 01-21-2025 End: 01-21-[address] Navya Lloyd MD -Ultrasound, [facility] Work Phone: Start: 01-21-2025 End: 01-21-2025 ambulatory No Primary Care Physician Facility:[facility] Start: 01-17-2025 End: 01-17-[address] Navya Lloyd MD -[facility] Work Phone: Start: 01-17-2025 End: 01-17-2025 ambulatory No Primary Care Physician Facility:[facility] Start: 12-28-2024 Non-patient / Non-visit Dr. Ajit Lloyd MD -[facility] Start: 12-28-2024 End: 12-28-2024 Admission to same day surgery center Dr. Navya Lloyd MD -[facility] Start: 12-28-2024 End: 12-28-2024 ambulatory No Primary Care Physician Facility:[facility] Start: 12-27-2024 ambulatory No Primary Car e Physician Facility:[facility] Start: 12-27-2024 Non-patient / Non-visit Dr. Ajit Lloyd MD -[facility] Start: 11-19-2024 End: 11-19-[address] Navya Lloyd MD -[facility] Work Phone: Start: 11-19-2024 End: 11-19-2024 ambulatory No Primary Care Physician Facility:[facility] Start: 11-19-2024 End: 11-19-2024 ambulatory No Primary Care Physician Facility:[facility] Start: 10-19-2024 End: 10-19-2024 Patient encounter procedure Ligia PENDLETON -Radiology, [facility] Work Phone: Start: 10-19-2024 End: 10-19-2024 ambulatory No Primary Care Physician Facility:[facility] Start: 03-26-2024 End: 03-26-2024 ambulatory KAVON DAMON [facility] Procedures Date Procedure Procedure Detail Performing Clinician Start: 06-28-2025 Plain chest X-ray No Pr imary Care Physician Start: 06-28-2025 D-dimer assay, quantitative No Primary Care Physician Comment on above: NORMAL D-Dimer level (<0.50) indicates no DVT or PE. Start: 06-28-2025 Estimated creatinine clearance No Primary Care Physician Start: 06-17-2025 Procedure No Primary Care Physician Start: 06-11-2025 Hepatitis C antibody measurement No Primary Care Physician Comment on above: Reactive: Presumptiv e evidence of antibodies to HCV. Follow CDC recommendations for supplemental testing.Non-Reactive: Antibodies to HCV were not detected; does not exclude the possibility of exposure to HCVReactive Results are presumptive evidence of antibodies to HCV. Follow CDC recommendations for supplemental testing.Order confirmation testing: HCV Quant by PCR testing - HCVPCR #[id number] Non Reactive: < 0.8 Equivocal: >/= 0.8 to < 1.0 Reactive: >/= 1.0The CDC requires that a reactive/equivocal HCV antibody result be sent out for confirmation. HCV Quant by PCR testing. Start: 06-11-2025 Rubella IgG measurement No Primary Care Physician Comment on above: Antibody Result: Int erpretationNon-Reactive: Non- ImmuneReactive: ImmuneThe following results were obtained with the [employer] Rubella IgG assay. Results from assays of other manufacturers cannot be used interchangeably. Start: 06-11-2025 Serologic test for syphilis No Primary Care Physician Start: 05-30-2025 Urine culture No Primar y [...] reported as: Test not performed Start: 01-27-[address] TECHNICIAN antibody measurement No Primary Care Physician Comment on above: Previous reported re sult: TNP AIEdited by: STEVE on 01/31/25:1008 AMENDED REPORT 01/31/[address]OL TECHNICIAN Ab previously reported as: Test not performed Start: 01-21-2025 US scan of thyroid No P [facility] Physician Plan of Treatment Date Care Activity Detail Author Start: 06-28-2025 [facility] Start: 06-28-2025 [facility] Start: 03-15-2025 Anesthesia vaginal procedure w/biopsy nos ANESTH VAGINAL PROCEDURES [facility] Start: 03-15-2025 Prtl hymenectomy/revj hymenal ring PRTL HYMNCTMY/REVJ HYMNL RNG [facility] Start: 03-15-2025 Ambulation without limitation [facility] Start: 03-15-2025 Medical regimen orders management [facility] Start: 03-15-2025 Medication education [facility] Start: 03-15-2025 Patient discharge [facility] Start: 03-15-2025 Procedure discontinued [facility] Start: 03-15-2025 Taking patient vital signs [facility] Start: 03-15-2025 Vital signs measurements [facility] Start: 03-15-2025 [facility] Start: 01-27-2025 [facility] Start: 12-28-2024 Anesthesia intraperitoneal lower abd w/laps nos ANESTH SURG LOWER ABDOMEN [facility] Start: 12-28-2024 Chromotubation oviduct w/materials REOPEN FALLOPIAN TUBE [facility] Start: 12-28-2024 Laparoscopy w/lysis of adhesions LAPAROSCOPY LYSIS [facility] Start: 12-28-2024 Ambulation without limitation [facility] Start: 12-28-2024 Medical regimen orders management [facility] Start: 12-28-2024 Medication education [facility] Start: 12-28-2024 Patient discharge [facility] Start: 12-28-2024 Procedure discontinued [facility] Start: 12-28-2024 Taking patient vital signs [facility] Start: 12-28-2024 Vital signs measurements [facility] Start: 12-28-2024 [facility] Antibody to Scl-70 measurement [facility] CBC W Auto Different ial panel - Blood [facility] Chlamydia deoxyribon ucleic acid detection [facility] DNA double strand Ab [Units/volume] in Serum [facility] Hemoglobin A1c/Hemoglobin.total in Blood [facility] Hepatitis C antibody measurement [facility] Nuclear Ab [Titer] i n Serum by Immunofluorescence [facility] Patient Education ED Chest Pain, Uncertain Cause [facility] Work Phone: Patient referral [facility] Work Phone: Procedure [facility] Rubella IgG measurement [facility] Serologic test for syphilis [facility] Payers Date Payer Category Payer Self-pay 2024 Unknown [id number] 2002 Unknown [id number] 2.16.8 [id number] Unknown [id number] Unknown [id number] 2.16.8 [id number] Unknown [id number] 2.16.8 [id number] Unknown [id number] 2.16.8 [id number] Unknown [id number] 2.16.8 [id number] Unknown [id number] 2.16.8 [id number] Unknown [id number] 2.16.8 [id number] Unknown [id number] 2.16.8 [id number] Unknown [id number] 2.16.8 [id number] Unknown [id number] 2.16.8 [id number] Unknown [id number] 2.16.8 [id number] Unknown [id number] 2.16.8 [id number] Unknown [id number] 2.16.8 [id number] Unknown [id number] 2.16.8 [id number] Unknown [id number] 2.16.8 40.1.592932.3.579.2.462 Unknown [id number] 2.16.8 40.1.011941.3.579.2.462 Unknown [id number] 2.16.8 40.1.597117.3.579.2.462 Unknown [id number] 2.16.8 40.1.645232.3.579.2.462 Unknown [id number] 2.16.8 40.1.478657.3.579.2.462 Unknown [id number] 2.16.8 40.1.923519.3.579.2.462 Unknown [id number] 2.16.8 40.1.374635.3.579.2.462 Unknown [id number] 2.16.8 40.1.565688.3.579.2.462 Unknown [id number] 2.16.8 40.1.953227.3.579.2.462 Unknown [id number] 2.16.8 40.1.683375.3.579.2.462 Unknown [id number] 2.16.8 40.1.490711.3.579.2.462 Unknown [id number] 2.16.8 40.1.267151.3.579.2.462 Social History Date Type Detail Facility Start: 01-27-2025 End: 06-28-2025 Tobacco smoking status NHIS Never smoked tobacco (finding) [facility] Start: 07-28-2019 Non-smoker Non-smoker [facility] Start: 01-31-2025 End: 02-03-2025 Sex Female (finding) [facility] Start: 2000 Sex Assigned At Female [facility] Gender Identity Identifies as fe male gender (finding) [facility] Sexual Orientation Heterosexual (finding) [facility] NEGATED: Highlighted row Not [facility] Medical Equipment Procedure Code Equipment Code Equipment Origin al Text Equipment Identifier Dates Laparoscopy, diagnostic Collagen haemostatic agent, non-antimicrobial ([id number] [facility] Start: 12-28-2024 Goals Date Patient Goal Desired Activity /State Mental Status Date Assessment Result Facility 06-28-2025 Cognitive function Level Of Cons ciousness Awake;Alert;Appropriate;Follo ws Commands [facility] Work Phone: 03-15-2025 Cognitive function Voice/Name [facility] Work Phone: 12-28-2024 Cognitive function Voice/Name;Touch/Shaki ng [facility] Work Phone: Clinical Notes 11-19-2024 to 08-15-2025 Note Date & Type Note Facility 08-15-2025 Progress note [facility] 08-15-2025 Progress note Note Date/Time August 15, 2025 3:29pm [facility] [address], [address] [place] [id number] OFFICE VISIT Date of Service: 08/15/25 MR#: [id number] Acct: [id number] Name: JASKARANLEATHA BLANTON Rep #: [id number] : 2000 Provider: CARMELITA Capellan Age/Sex: 25/F Location: [facility] [place] Status: Signed Intake Vital Signs 06/17/25 14:17 07/28/25 11:01 08/15/25 15:17 Height 5 ft 7 in 5 ft 7 in 5 ft 7 in Weight: 249 lb 9 oz BMI 39.0 BP 133/86 H Intake Visit Reasons: 19wk ob Chief Complaint: 19wk OB Manager Urgent Care Required: No Is patient in pain?: No Allergies No Known Allergies Allergy (Verified 08/15/25 15:15) Medications ?Medication ?Instructions ?Recorded ?Confirmed ?Type Saccharomyces boulardii 250 mg 250 mg PO BID 07/21/24 08/15/25 History capsule (Daily Probiotic (S. boulardii)) cyanocobalamin-liver extract tablet 1 tab PO DAILY 10/0308/15/25 History WELDING MANAGER 2 cap PO DAILY 01/27/2505/04 History meth cpg 2 cap PO DAILY 01/27/2505/04 History magnesium 200 mg tablet 200 mg PO QDAY PRN 07/18/25 10/06/25 History multivit-min no.71-iron fum 28 cap PO 05/27/25 5 History mg-folate no.1 1 mg-dha 300 mg capsule (PNV-Otto) Last Menstrual Period: 03/25/25 : No Have you fallen in the past year?: No PFSH PFSH Medical History Irregular periods/menstrual cycles Vertigo Wears contact lenses Non-smoker Surgical History History of hymenectomy H/O laparoscopy (~12/2024) H/O eye surgery Family History Father Hemolytic anemia Lupus Social History adopted: No household members: spouse housing: house number of children: 0 current occupational status: employed 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 OB Visit [facility] Calculator Estimated Delivery Date Method Current WG Current Estimate 01/05/26 Ultrasound #1 19w 4d Other Estimates 12/30/25 LMP (Certain) 20w 3d Expected Delivery Route/Plan Labor Preferences- CB/BF classes: [...] day 19 LH and day 20 intercourse 06/17/25 -?-?-?-?-?-?-?-?-?-?-?-?- 11w 1d 248 lb 5 oz 133/85 Nega tive -?-?-?-?-?-?-?--?-?-?-?-?- Negative 160 -?-?-?-?-?-?-?-?-?-?-?-?- KW- no vb/jayleen brown. NOB labs today. MFM US ordered. 07/01/25 -?-?-?-?-?-?-?-?-?-?-?-?- 13w 1d 244 lb 3 oz 124/86 Nega tive -?-?-?-?-?-?-?-?-?-?-?-?- Negative 150 -?-?-?-?-?-?-?-?-?-?-?-?- KW- was in ER on for chest pain. no further episodes. no vb/cramping. MFM US ordered. 07/28/25 -?-?-?-?-?-?-?-?-?-?-?-?- 17w 0d 246 lb 2 oz 131/88 Nega tive -?-?-?-?-?-?-?-?-?-?-?-?- Negative 147 -?-?-?-?-?-?-?-?-?-?-?-?- JV- no lof, vagi nal bleeding, or cramping. 08/15/25 -?-?-?-?-?-?-?-?-?-?-?-?- 19w 4d 249 lb 9 oz 133/86 Nega tive -?-?-?-?-?-?-?-?-?-?-?-?- Negative 143 -?-?-?-?-?-?-?-?-?-?-?-?- KW- no vb/crampi ng. possible flutters. US reviewed and normal. declines AFP ACOG First Trimester First Trimester: Desire for [...] no additional complaints, except as documented Eyes Reports system reviewed and no additional complaints, except as documented ENT Reports system reviewed and no additional complaints, except as documented Card Reports system reviewed and no additional complaints, except as documented Resp Reports system reviewed and no additional complaints, except as documented GI Reports system reviewed and no additional complaints, except as documented, Denies nausea and Denies vomiting Reports system reviewed and no additional complaints, [...] and no additional complaints, except as documented Law/Lymph Reports system reviewed and no additional complaints, except as documented Aller/Immun Reports system reviewed and no additional complaints, except as documented Exam Const General: cooperative, healthy appearing and no acute distress Orientation: alert, awake and oriented x3 Neck Neck: normal visual inspection and full ROM Resp Effort & Inspection: normal respiratory effort, able to speak in complete sentences and symmetric chest movement GI Inspection: normal to inspection Palpation: soft and other Other: gravid Skin General: no rashes or lesions noted Neuro General: patient alert, patient awake and patient oriented x3 Cognition: normal cognition Speech: speech normal Gait: normal gait Motor: muscle tone normal throughout Extrem General: normal to inspection and full ROM Psych Appearance: grossly normal Mental Status: mental status grossly normal Mood: congruent mood Affect: normal affect Speech and Movement: speech and movement normal Attitude: cooperative Thought Process: normal Thought Content: normal Judgment: judgment good Results POC Urinalysis 2 Dip (Clinic) Office Urine Glucose Negative Last Edit by Lissa Ty on 08/15/25 15:22 Office Urine Protein Negative Last Edit by Lissa Ty on 08/15/25 15:22 Coding Level of Care Code OB Routine Diagnoses Subchorionic hemorrhage in first trimester O20.8 Unknown varicella vaccination status Z78.9 Supervision of high-risk O09.90 19 weeks gestation of Z3A.19 Weeks of gestation: 19 weeks Obesity affecting O99.210 Anxiety F41.9 Polycystic ovarian syndrome E28.2 Assessment and Plan Assessment and Plan (1) Subchorionic hemorrhage in first trimester: Status: Acute (2) Unknown varicella vaccination status: Status: Acute Comment: labs ordered, thinks she may have been vaccinated (3) Supervision of high-risk : Status: Acute Comment: , [facility] 01/05/26, Dashawn (4) : Status: Acute Qualifiers: Weeks of gestation: 19 weeks Qualified Code(s): Z3A.19 - 19 weeks gestation of Comment: NIPT low risk. gender male (PT DOESN'T KNOW GENDER YET) (5) Obesity affecting : Status: Acute Comment: HgbA1c (6) Anxiety: Status: Acute Comment: mild, non-medicated (7) Polycystic ovarian syndrome: Status: Acute Comment: hga1c ordered Orders: Orders POC Urinalysis 2 Dip (Clinic) Today Plan Details Additional Comments: ACOG trimester education reviewed and updated. see problem list details for updated plan management information and see below for orders placed at this visit. [place] appropriate handout given. Clinical Quality Measures Falls Risk Screening/Assistive Devices Have you fallen in the past year?: No 08/15/25 1529 <Electronically signed by Leyda kaplan CNM> Date _ Leyda Capellan CNM Cosigner Signature: Date (if applicable) CC: ~ [facility] Work Phone: 1(980) 461-665709-18-2025 [facility] [address], [address] [place] [address] OFFICE VISIT Date of Service: 07/28/25 MR#: [id number] Acct: [id number] Name: LEATHA JESSICA Rep #: [id number] : 2000 Provider: Dr. Fernanda Caro DO Age/Sex: 25/F Location: [facility] [place] Status: Signed Intake Vital Signs 05/30/25 13:06 05/30/25 14:02 07/01/25 11:37 07/28/25 10:57 07/28/25 11:01 Height 5 ft 7 in 5 ft 7 in 5 ft 7 in 5 ft 7 in 5 ft 7 in Weight: 244 lb 3 oz 246 lb 2 oz BMI 38.2 38.5 BP 124/86 H 131/88 H Intake Visit Reasons: 16wk ob Chief Complaint: 16 Week OB Manager Urgent Care Required: No Is patient in pain?: No Allergies No Known Allergies Allergy (Verified 07/28/25 10:57) Medications ?Medication ?Instructions ?Recorded ?Confirmed ?Type Saccharomyces boulardii 250 mg 250 mg PO BID 07/21/24 07/28/25 History capsule (Daily Probiotic (S. boulardii)) cyanocobalamin-liver extract tablet 1 tab PO DAILY 10/0307/28/25 History WELDING MANAGER 2 cap PO DAILY 01/27/2507/11 History meth cpg 2 cap PO DAILY 01/27/2507/11 History magnesium 200 mg tablet 200 mg PO QDAY PRN 05/27/25 07/28/25 History multivit-min no.71-iron fum 28 cap PO 05/27/25 5 History mg-folate no.1 1 mg-dha 300 mg capsule (PNV-Otto) Last Menstrual Period: 03/25/25 Zika: Zika virus [...] physical activity do you participate in: none rashmi/protestant: Mandaeism seatbelt use: always do you feel safe at home: Yes additional social history: - [employer]- [employer] History 1 Elective abortions Hx Para 0 Spontaneous abortions Hx # Term Pregnancies Ectopic pregnancies Hx # Pregnancies Multiple births # of living children HPI 16wk ob Details: LEATHA JESSICA is a 25 year old who presents for routine OB visit. OB Visit [facility] Calculator Estimated Delivery Date Method Current WG Current Estimate 01/05/26 Ultrasound #1 17w 0d Other Estimates 12/30/25 LMP (Certain) 17w 6d Expected Delivery Route/Plan Labor Preferences- CB/BF classes: [...] day 19 LH and day 20 intercourse 06/17/25 -?-?-?-?-?-?-?-?-?-?-?-?- 11w 1d 248 lb 5 oz 133/85 Nega tive -?-?-?-?-?-?-?-?-?-?-?-?- Negative 160 -?-?-?-?-?-?-?-?-?-?-?-?- KW- no vb/crampi ng. NOB labs today. [facility] US ordered. 07/01/25 -?-?-?-?-?-?-?-?-?-?-?-?- 13w 1d 244 lb 3 oz 124/86 Nega tive -?--?-?-?-?-?-?-?-?-?-?-?- Negative 150 -?-?-?-?-?-?-?-?-?-?-?-?- KW- was in ER on for chest pain. no further episodes. no vb/cramping. [facility] US ordered. 07/28/25 -?-?-?-?-?-?-?-?-?-?-?-?- 17w 0d 246 lb 2 oz 131/88 Nega tive -?-?-?-?-?-?-?-?-?-?-?-?- Negative 147 -?-?-?-?-?-?-?-?-?-?-?-?- JV- no lof, vagi nal bleeding, or cramping. ACOG First Trimester First Trimester: Desire for , Alcohol, Tobacco Cessation, Illicit/Recreational Drug/Substance Use, Intimate Partner Violence, Barriers to care, Unstable Housing, Communication Barriers, Environmental/Work Hazards, Anticipated Course of Care, Toxoplasmosis Precations, Use of Any med ications, Sexual activity, Exercise, Dental Care, Sauna/Hot tub use, Seat Belt use, Childbirth classes/Hospital facilities, Travel, Indications for Ultrasound and Screening for Aneuploidy; Discussed Results POC Urinalysis 2 Dip (Clinic) Office Urine Glucose Negative Last Edit by Imelda Jaimes on 07/28/25 11 :02 Office Urine Protein Negative Last Edit by Imelda Jaimes on 07/28/25 11 :02 Coding Level of Care Code OB Routine Diagnoses 17 weeks gestation of Z3A.17 Weeks of gestation: 17 weeks Supervision of high-risk O09.90 Unknown varicella vaccination status Z78.9 Subchorionic hemorrhage in first trimester O20.8 Obesity affecting O99.210 Anxiety F41.9 Polycystic ovarian syndrome E28.2 Assessment and Plan Assessment and Plan (1) : Status: Acute Qualifiers: Weeks of gestation: 17 weeks Qualified Code(s): Z3A.17 - 17 weeks gestation of Comment: NIPT low risk. gender male (PT DOESN'T KNOW GENDER YET) (2) Supervision of high-risk : Status: Acute Comment: , [facility] 01/05/26, Dashawn (3) Unknown varicella vaccination status: Status: Acute Comment: labs ordered, thinks she may have been vaccinated (4) Subchorionic hemorrhage in first trimester: Status: Acute (5) Obesity affecting : Status: Acute Comment: HgbA1c (6) Anxiety: Status: Acute Comment: mild, non-medicated (7) Polycystic ovarian syndrome: Status: Acute Comment: hga1c ordered Orders: Orders POC Urinalysis 2 Dip (Clinic) Today 07/28/25 1129 e Cortney DO> Date _ Ava Caro DO [facility] Signature: Date (if applicable) CC: ~ [facility]08-22-2025 [facility] [address] [place] [address], [address] [place] [address] OFFICE VISIT Date of Service: 07/01/25 MR#: [id number] Acct: [id number] Name: LEATHA JESSICA Rep #: [id number] : 2000 Provider: CARMELITA Capellan Age/Sex: 24/F Location: [facility] [place] Status: Signed Intake Vital Signs 04/26/25 13:10 06/28/25 16:35 07/01/25 11:37 Height 5 ft 7 in 5 ft 7 in 5 ft 7 in Weight: 244 lb 3 oz BMI 38.2 BP 124/86 H Intake Visit Reasons: 12 wk ob Chief Complaint: 12wk OB Manager Urgent Care Required: No Is patient in pain?: No Allergies No Known Allergies Allergy (Verified 07/01/25 11:34) Medications ?Medication ?Instructions ?Recorded ?Confirmed ?Type Saccharomyces boulardii 250 mg 250 mg PO BID 07/21/24 07/01/25 History capsule (Daily Probiotic (S. boulardii)) cyanocobalamin-liver extract tablet 1 tab PO DAILY 10/0307/01/25 History WELDING MANAGER 2 cap PO DAILY 01/27/2506/11 History meth cpg 2 cap PO DAILY 01/27/2506/11 History magnesium 200 mg tablet 200 mg PO QDAY PRN 05/27/25 07/01/25 History multivit-min no.71-iron fum 28 cap PO 05/27/25 5 History mg-folate no.1 1 mg-dha 300 mg capsule (PNV-Otto) Last Menstrual Period: 03/25/25 : No PFSH PFSH Medical History Irregular [...] physical activity do you participate in: none rashmi/protestant: Mandaeism seatbelt use: always do you feel safe at home: Yes additional social history: - [employer]- [employer] History 1 Elective abortions Hx Para 0 Spontaneous abortions Hx # Term Pregnancies Ectopic pregnancies Hx # Pregnancies Multiple births # of living children HPI 12 wk ob Details: LEATHA JESSICA is a 24 year old who presents for routine OB visit. OB Visit [facility] Calculator Estimated Delivery Date Method Current WG Current Estimate 01/05/26 Ultrasound #1 13w 1d Other Estimates 12/30/25 LMP (Certain) 14w 0d Expected Delivery Route/Plan Labor Preferences- CB/BF classes: [...] day 19 LH and day 20 intercourse 06/17/25 -?-?-?-?-?-?-?-?-?-?-?-?- 11w 1d 248 lb 5 oz 133/85 Nega tive -?-?-?-?-?-?-?-?-?-?-?-?- Negative 160 -?--?-?-?-?-?-?-?-?-?-?-?- KW- no vb/crampi ng. NOB labs today. MFM US ordered. 07/01/25 -?-?-?-?-?-?-?-?-?-?-?-?- 13w 1d 244 lb 3 oz 124/86 Nega tive -?-?-?-?--?-?-?-?-?-?-?-?- Negative 150 -?-?-?-?-?-?-?-?-?-?-?-?- KW- was in ER on for chest pain. no further episodes. no vb/cramping. [facility] US ordered. ACOG First Trimester First Trimester: Desire for [...] no additional complaints, except as documented Eyes Reports system reviewed and no additional complaints, except as documented ENT Reports system reviewed and no additional complaints, except as documented Card Reports system reviewed and no additional complaints, except as documented Resp Reports system reviewed and no additional complaints, except as documented GI Reports system reviewed and no additional complaints, except as documented, Denies nausea and Denies vomiting Reports system reviewed and no additional complaints, [...] and no additional complaints, except as documented Law/Lymph Reports system reviewed and no additional complaints, except as documented Aller/Immun Reports system reviewed and no additional complaints, except as documented Exam Const General: cooperative, healthy appearing and no acute distress Orientation: alert, awake and oriented x3 Neck Neck: normal visual inspection and full ROM Resp Effort & Inspection: normal respiratory effort, able to speak in complete sentences and symmetric chest movement GI Inspection: normal to inspection Palpation: soft and other Other: gravid Skin General: no rashes or lesions noted Neuro General: patient alert, patient awake and patient oriented x3 Cognition: normal cognition Speech: speech normal Gait: normal gait Motor: muscle tone normal throughout Extrem General: normal to inspection and full ROM Psych Appearance: grossly normal Mental Status: mental status grossly normal Mood: congruent mood Affect: normal affect Speech and Movement: speech and movement normal Attitude: cooperative Thought Process: normal Thought Content: normal Judgment: judgment good Results POC Urinalysis 2 Dip (Clinic) Office Urine Glucose Negative Last Edit by Lissa Ty on 07/01/25 11:46 Office Urine Protein Negative Last Edit by Lissa Ty on 07/01/25 11:46 Coding Level of Care Code OB Routine Diagnoses Chest pain during O99.891; R07.9 Subchorionic hemorrhage in first trimester O20.8 Unknown varicella vaccination status Z78.9 Supervision of high-risk O09.90 13 weeks gestation of Z3A.13 Weeks of gestation: 13 weeks Obesity affecting O99.210 Anxiety F41.9 Polycystic ovarian syndrome E28.2 Assessment and Plan Assessment and Plan (1) Chest pain during : Status: Acute (2) Subchorionic hemorrhage in first trimester: Status: Acute (3) Unknown varicella vaccination status: Status: Acute Comment: labs ordered, thinks she may have been vaccinated (4) Supervision of high-risk : Status: Acute Comment: , [facility] 01/05/26, Dashawn (5) : Status: Acute Qualifiers: Weeks of gestation: 13 weeks Qualified Code(s): Z3A.13 - 13 weeks gestation of Comment: NIPT low risk. gender male (PT DOESN'T KNOW GENDER YET) (6) Obesity affecting : Status: Acute Comment: HgbA1c (7) Anxiety: Status: Acute Comment: mild, non-medicated (8) Polycystic ovarian syndrome: Status: Acute Comment: hga1c ordered Orders: Orders POC Urinalysis 2 Dip (Clinic) Today Plan Details Additional Comments: ACOG trimester education reviewed and updated. see problem list details for updated plan management information and see below for orders placed atthis visit. [place] appropriate handout given. 07/01/25 1201 s CNM> Date _ Leyda Capellan CNM Cosigner Signature: Date (if applicable) CC: ~ [facility]08-19-2025 Radiology Diagnostic study note [facility] Imaging Services [address] [place], [place] [id number] Chest 1 View (Portable) MR#: [id number] Acct: [id number] Name: LEATHA JESSICA Rep #: [id number] : 2000 F 24 From: Jay Rene MD PCP: Dr. Abby Haas MD Status: PRE ER Study:Chest 1 View (Portable) Date of Exam: 06/28/25 Exam# [id number] Ordering Dr: Michael Ramsey DO PROCEDURE: CHEST 1 VIEW (PORTABLE) 06/28/2025 REASON FOR EXAM: CHEST PAIN TECHNIQUE: Frontal view of the chest. COMPARISON: 07/28/2019 FINDINGS: Lungs/Pleura: Clear. No pneumothorax or sizable pleural effusion. Heart/Mediastinum: Normal in size. Bones/Soft tissues: Unremarkable. RAD/Chest 1 View (Portable) IMPRESSION: No acute cardiopulmonary disease. Reading Location: [id number] CC: Dr. Abby Haas MD; Dr. Amy Ramsey DO ~ Credit Risk Modeler: Signed [facility]08-08-2025 [facility] [address], [address] [place] [address] OFFICE VISIT Date of Service: 06/17/25 MR#: [id number] Acct: [id number] Name: LEATHA JESSICA Rep #: [id number] : 2000 Provider: CARMELITA Capellan Age/Sex: 24/F Location: [facility] [place] Status: Signed Intake Vital Signs 05/30/25 13:06 05/30/25 14:02 06/17/25 14:17 Height 5 ft 7 in 5 ft 7 in 5 ft 7 in Weight: 248 lb 5 oz BMI 38.9 BP 133/85 H Intake Visit Reasons: rescan *per Chief Complaint: Rescan 11wk ob Manager Urgent Care Required: No Is patient in pain?: No Allergies No Known Allergies Allergy (Verified 06/17/25 14:16) Medications ?Medication ?Instructions ?Recorded ?Confirmed ?Type Saccharomyces boulardii 250 mg 250 mg PO BID 07/21/24 06/17/25 History capsule (Daily Probiotic (S. boulardii)) cyanocobalamin-liver extract tablet 1 tab PO DAILY 10/0306/17/25 History WELDING MANAGER 2 cap PO DAILY 01/27/2507/04 History meth cpg 2 cap PO DAILY 01/27/2507/04 History magnesium 200 mg tablet 200 mg PO QDAY PRN 05/27/25 06/17/25 History multivit-min no.71-iron fum 28 cap PO 05/27/25 5 History mg-folate no.1 1 mg-dha 300 mg capsule (PNV-Otto) Last Menstrual Period: 03/25/25 : No PFSH PFSH Medical History Irregular [...] physical activity do you participate in: none rashmi/protestant: Mandaeism seatbelt use: always do you feel safe at home: Yes additional social history: - [place]- [employer] History 1 Elective abortions Hx Para 0 Spontaneous abortions Hx # Term Pregnancies Ectopic pregnancies Hx # Pregnancies Multiple births # of living children HPI rescan *per Details: LEATHA JESSICA is a 24 year old who presents for routine OB visit. OB Visit [facility] Calculator Estimated Delivery Date Method Current WG Current Estimate 01/05/26 Ultrasound #1 11w 1d Other Estimates 12/30/25 LMP (Certain) 12w 0d Expected Delivery Route/Plan Labor Preferences- CB/BF classes: [...] Dilation -?-?-?-?-?-?-?-?-?-?-?-?- Effaced St Visit Note 05/30/25 -?-?-?-?--?-?-?-?-?-?-?-?- 8w 4d 250 lb 133/85 -?-?-?-?-?-?-?-?-?-?-?-?- 175 -?-?-?-?-?-?-?-?-?-?-?-?- SM- CRL 2.05 cm NOT cons with lmp but consistent with day 19 LH and day 20 intercourse 06/17/25 -?-?-?-?-?-?-?-?-?-?-?-?- 11w 1d 248 lb 5 oz 133/85 Nega tive -?-?-?-?-?-?-?-?-?-?-?-?- Negative 160 -?-?-?-?-?-?-?-?-?-?-?-?- KW- no vb/crampi ng. NOB labs today. MFM US ordered. ACOG First Trimester First Trimester: Desire for [...] no additional complaints, except as documented Eyes Reports system reviewed and no additional complaints, except as documented ENT Reports system reviewed and no additional complaints, except as documented Card Reports system reviewed and no additional complaints, except as documented Resp Reports system reviewed and no additional complaints, except as documented GI Reports system reviewed and no additional complaints, except as documented, Denies nausea and Denies vomiting Reports system reviewed and no additional complaints, [...] and no additional complaints, except as documented Law/Lymph Reports system reviewed and no additional complaints, except as documented Aller/Immun Reports system reviewed and no additional complaints, except as documented Exam Const General: cooperative, healthy appearing and no acute distress Orientation: alert, awake and oriented x3 Neck Neck: normal visual inspection and full ROM Resp Effort & Inspection: normal respiratory effort, able to speak in complete sentences and symmetric chest movement GI Inspection: normal to inspection Palpation: soft and other Other: gravid Skin General: no rashes or lesions noted Neuro General: patient alert, patient awake and patient oriented x3 Cognition: normal cognition Speech: speech normal Gait: normal gait Motor: muscle tone normal throughout Extrem General: normal to inspection and full ROM Psych Appearance: grossly normal Mental Status: mental status grossly normal Mood: congruent mood Affect: normal affect Speech and Movement: speech and movement normal Attitude: cooperative Thought Process: normal Thought Content: normal Judgment: judgment good Results POC Urinalysis 2 Dip (Clinic) Office Urine Glucose Negative Last Edit by Lissa Ty on 06/17/25 14:23 Office Urine Protein Negative Last Edit by Lissa Ty on 06/17/25 14:23 Coding Level of Care Code OB Routine Diagnoses Subchorionic hemorrhage in first trimester O20.8 Unknown varicella vaccination status Z78.9 Supervision of high-risk O09.90 11 weeks gestation of Z3A.11 Weeks of gestation: 11 weeks Obesity affecting O99.210 Anxiety F41.9 Polycystic ovarian syndrome E28.2 Assessment and Plan Assessment and Plan (1) Subchorionic hemorrhage in first trimester: Status: Acute (2) Unknown varicella vaccination status: Status: Acute Comment: labs ordered, thinks she may have been vaccinated (3) Supervision of high-risk : Status: Acute Comment: , [place] 01/05/26, Dashawn (4) : Status: Acute Qualifiers: Weeks of gestation: 11 weeks Qualified Code(s): Z3A.11 - 11 weeks gestation of Comment: elects NIPT with gender (5) Obesity affecting : Status: Acute Comment: HgbA1c (6) Anxiety: Status: Acute Comment: mild, non-medicated (7) Polycystic ovarian syndrome: Status: Acute Comment: hga1c ordered Orders: Orders POC Urinalysis 2 Dip (Clinic) Today Plan Details Additional Comments: ACOG trimester education reviewed and updated. see problem list details for updated plan management information and see below for orders placed atthis visit. GA appropriate handout given. 06/17/25 1451 s CNM> Date _ Leyda Michael CARMELITA Cosigner Signature: Date (if applicable) CC: ~ [facility]08-08-2025 Progress note Author Leyda Capellan [facility] Note Date/Time June 17, 2025 2:5 1pm [facility] [address], [address] [place] [address] OFFICE VISIT Date of Service: 06/17/25 MR#: [id number] Acct: [id number] Name: LEATHA JESSICA Rep #: [id number] : 2000 Provider: CARMELITA Capellan Age/Sex: 24/F Location: [facility] [place] Status: Signed Intake Vital Signs 05/30/25 13:06 05/30/25 14:02 06/17/25 14:17 Height 5 ft 7 in 5 ft 7 in 5 ft 7 in Weight: 248 lb 5 oz BMI 38.9 BP 133/85 H Intake Visit Reasons: rescan *per SM Chief Complaint: Rescan 11wk ob Manager Urgent Care Required: No Is patient in pain?: No Allergies No Known Allergies Allergy (Verified 06/17/25 14:16) Medications ?Medication ?Instructions ?Recorded ?Confirmed ?Type Saccharomyces boulardii 250 mg 250 mg PO BID 07/21/24 06/17/25 History capsule (Daily Probiotic (S. boulardii)) cyanocobalamin-liver extract tablet 1 tab PO DAILY 10/0306/17/25 History WELDING MANAGER 2 cap PO DAILY 01/27/2507/04 History meth cpg 2 cap PO DAILY 01/27/2507/04 History magnesium 200 mg tablet 200 mg PO QDAY PRN 05/27/25 06/17/25 History multivit-min no.71-iron fum 28 cap PO 05/27/25 5 History mg-folate no.1 1 mg-dha 300 mg capsule (PNV-Otto) Last Menstrual Period: 03/25/25 : No PFSH PFSH Medical History Irregular periods/menstrual cycles Vertigo Wears contact lenses Non-smoker Surgical History History of hymenectomy H/O laparoscopy (~12/2024) H/O eye surgery Family History Father Hemolytic anemia Lupus Social History adopted: No household members: spouse housing: house number of children: 0 current occupational status: employed 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 OB Visit [place] Calculator Estimated Delivery Date Method Current WG Current Estimate 01/05/26 Ultrasound #1 11w 1d Other Estimates 12/30/25 LMP (Certain) 12w 0d Expected Delivery Route/Plan Labor Preferences- CB/BF classes: [...] Dilation -?-?-?-?-?-?-?-?-?-?-?-?- Effaced St Visit Note 05/30/25 -?-?-?-?--?-?-?-?-?-?-?-?- 8w 4d 250 lb 133/85 -?-?-?-?-?-?-?-?-?-?-?-?- 175 -?-?-?-?-?-?-?-?-?-?-?-?- SM- CRL 2.05 cm NOT cons with lmp but consistent with day 19 LH and day 20 intercourse 06/17/25 -?-?-?-?-?-?-?-?-?-?-?-?- 11w 1d 248 lb 5 oz 133/85 Nega tive -?-?-?-?-?-?-?-?-?-?-?-?- Negative 160 -?-?-?-?-?-?-?-?-?-?-?-?- KW- no vb/crampi ng. NOB labs today. MFM US ordered. ACOG First Trimester First Trimester: Desire for [...] no additional complaints, except as documented Eyes Reports system reviewed and no additional complaints, except as documented ENT Reports system reviewed and no additional complaints, except as documented Card Reports system reviewed and no additional complaints, except as documented Resp Reports system reviewed and no additional complaints, except as documented GI Reports system reviewed and no additional complaints, except as documented, Denies nausea and Denies vomiting Reports system reviewed and no additional complaints, [...] and no additional complaints, except as documented Law/Lymph Reports system reviewed and no additional complaints, except as documented Aller/Immun Reports system reviewed and no additional complaints, except as documented Exam Const General: cooperative, healthy appearing and no acute distress Orientation: alert, awake and oriented x3 Neck Neck: normal visual inspection and full ROM Resp Effort & Inspection: normal respiratory effort, able to speak in complete sentences and symmetric chest movement GI Inspection: normal to inspection Palpation: soft and other Other: gravid Skin General: no rashes or lesions noted Neuro General: patient alert, patient awake and patient oriented x3 Cognition: normal cognition Speech: speech normal Gait: normal gait Motor: muscle tone normal throughout Extrem General: normal to inspection and full ROM Psych Appearance: grossly normal Mental Status: mental status grossly normal Mood: congruent mood Affect: normal affect Speech and Movement: speech and movement normal Attitude: cooperative Thought Process: normal Thought Content: normal Judgment: judgment good Results POC Urinalysis 2 Dip (Clinic) Office Urine Glucose Negative Last Edit by Lissa Ty on 06/17/25 14:23 Office Urine Protein Negative Last Edit by Lissa Ty on 06/17/25 14:23 Coding Level of Care Code OB Routine Diagnoses Subchorionic hemorrhage in first trimester O20.8 Unknown varicella vaccination status Z78.9 Supervision of high-risk O09.90 11 weeks gestation of Z3A.11 Weeks of gestation: 11 weeks Obesity affecting O99.210 Anxiety F41.9 Polycystic ovarian syndrome E28.2 Assessment and Plan Assessment and Plan (1) Subchorionic hemorrhage in first trimester: Status: Acute (2) Unknown varicella vaccination status: Status: Acute Comment: labs ordered, thinks she may have been vaccinated (3) Supervision of high-risk : Status: Acute Comment: , [place] 01/05/26, Dashawn (4) : Status: Acute Qualifiers: Weeks of gestation: 11 weeks Qualified Code(s): Z3A.11 - 11 weeks gestation of Comment: elects NIPT with gender (5) Obesity affecting : Status: Acute Comment: HgbA1c (6) Anxiety: Status: Acute Comment: mild, non-medicated (7) Polycystic ovarian syndrome: Status: Acute Comment: hga1c ordered Orders: Orders POC Urinalysis 2 Dip (Clinic) Today Plan Details Additional Comments: ACOG trimester education reviewed and updated. see problem list details for updated plan management information and see below for orders placed at this visit. GA appropriate handout given. 06/17/25 3030 <Electronically signed by Leyda kaplan CNM> Date _ Leyda Capellan CNM Cosigner Signature: Date (if applicable) CC: ~ [facility] Work Phone: 1(475) 569-166807-21-2025 Progress note Author Navya Lloyd [facility] Note Date/Time May 30, 2025 1:59 pm [facility] [address], [address] [place] [address] OFFICE VISIT Date of Service: 05/30/25 MR#: [id number] Acct: [id number] Name: LEATHA JESSICA Rep #: [id number] : 2000 Provider: Dr. Patrice Lloyd MD Age/Sex: 24/F Location: [facility] [place] Status: Signed Intake Vital Signs 04/26/25 13:10 05/27/25 14:14 05/30/25 13:06 Height 5 ft 7 in 5 ft 7 in 5 ft 7 in Weight: 250 lb BMI 39.1 BP 133/85 H Intake Visit Reasons: *EST* NOB LMP 03/25, [place] 12/30 Manager Urgent Care Required: No Is patient in pain?: No Allergies No Known Allergies Allergy (Verified 05/30/25 13:09) Medications ?Medication ?Instructions ?Recorded ?Confirmed ?Type Saccharomyces boulardii 250 mg 250 mg PO BID 07/21/24 05/30/25 History capsule (Daily Probiotic (S. boulardii)) cyanocobalamin-liver extract tablet 1 tab PO DAILY 10/0305/30/25 History WELDING MANAGER 2 cap PO DAILY 01/27/2505/11 History meth cpg 2 cap PO DAILY 01/27/2505/11 History magnesium 200 mg tablet 200 mg PO QDAY PRN 05/27/25 05/30/25 History multivit-min no.71-iron fum 28 cap PO 05/27/25 5 History mg-folate no.1 1 mg-dha 300 mg capsule (PNV-Otto) Last Menstrual Period: 03/25/25 Zika: Zika virus screening: Negative : No PFSH PFSH Medical History Irregular periods/menstrual cycles Vertigo Wears contact lenses Non-smoker Surgical History History of hymenectomy H/O laparoscopy (~12/2024) H/O eye surgery Family History Father Hemolytic anemia Lupus Social History adopted: No household members: spouse housing: house number of children: 0 current occupational status: employed 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[employer], 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 current occupational exposures/hazards: No pets [...] physical activity do you participate in: none rashmi/protestant: Mandaeism seatbelt use: always do you feel safe [...] disorder (PCOS), Psychiatric (anxiety- mild non medicated), Agronomy Specialist surgery (laparoscopic, hymenectomy), Operations/hospitalizations (eye surgery), Infertility [...] Ultrasound and Screening for Aneuploidy; Discussed ROS [employer] Interactive system reviewed and no additional complaints, except [...] comfortable and no acute distress Orientation: alert [facility] Head: normal to inspection, normocephalic and atraumatic [...] in first trimester: Status: Acute 05/30/25 1359 <Electronically signed by Navya shirley MD> Date _ Navya Lloyd MD [facility] Signature: Date (if applicable) CC: ~ [facility] Work Phone: 1(329) 649-261607-21-2025 Progress [facility] [address] [place] [address], [place] [address] OFFICE VISIT Date of Service: 05/30/25 MR#: [id number] Acct: [id number] Name: LEATHA JESSICA Rep #: [id number] : 2000 Provider: Dr. Patrice Lloyd MD Age/Sex: 24/F Location: [facility] [place] Status: Signed Intake Vital Signs 04/26/25 13:10 05/27/25 14:14 05/30/25 13:06 Height 5 ft 7 in 5 ft 7 in 5 ft 7 in Weight: 250 lb BMI 39.1 BP 133/85 H Intake Visit Reasons: *EST* NOB LMP 03/25, [place] 12/30 Manager Urgent Care Required: No Is patient in pain?: No Allergies No Known Allergies Allergy (Verified 05/30/25 13:09) Medications ?Medication ?Instructions ?Recorded ?Confirmed ?Type Saccharomyces boulardii 250 mg 250 mg PO BID 07/21/24 05/30/25 History capsule (Daily Probiotic (S. boulardii)) cyanocobalamin-liver extract tablet 1 tab PO DAILY 10/0305/30/25 History WELDING MANAGER 2 cap PO DAILY 01/27/2505/11 History meth cpg 2 cap PO DAILY 01/27/2505/11 History magnesium 200 mg tablet 200 mg PO QDAY PRN 05/27/25 05/30/25 History multivit-min no.71-iron fum 28 cap PO 05/27/25 5 History mg-folate no.1 1 mg-dha 300 mg capsule (PNV-Otto) Last Menstrual Period: 03/25/25 Zika: Zika virus screening: Negative : No PFSH PFSH Medical History Irregular periods/menstrual cycles Vertigo Wears contact lenses Non-smoker Surgical History History of hymenectomy H/O laparoscopy (~12/2024) H/O eye surgery Family History Father Hemolytic anemia Lupus Social History adopted: No household members: spouse housing: house number of children: 0 current occupational status: employed 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[employer], 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 current occupational exposures/hazards: No pets [...] physical activity do you participate in: none rashmi/protestant: Mandaeism seatbelt use: always do you feel safe [...] disorder (PCOS), Psychiatric (anxiety- mild non medicated), Agronomy Specialist surgery (laparoscopic, hymenectomy), Operations/hospitalizations (eye surgery), Infertility [...] comfortable and no acute distress Orientation: alert [facility] Head: normal to inspection, normocephalic and atraumatic [...] Unknown varicella vaccination status Z78.9 Supervision of [facility]-risk O09.90 9 weeks gestation of Z3A.09 Weeks [...] casper ESTES> Date _ Navya Lloyd MD [facility] Signature: Date (if applicable) CC: ~ [facility]07-18-2025 Evaluation note* Diagnosis Onset Date Resolution Status Admit Date Anxiety acute May 27 12:51pm Obesity affecting [...] n status acute May 30, 2025 1:00pm Anxiety acute June 17 2:13pm Obesity affecting acute June 17, 2025 2:13pm Polycystic ovarian syndrome acute June 17, 2025 2:13pm acute June 17 2:13pm Subchorionic hemorrhage in first trimester acute June 17, 2025 2:13pm Supervision of high-risk acute June 17, 2025 2:13pm Unknown varicella vaccinatio n status acute June 17, 2025 2:13pm Anxiety acute July 01, 025 11:27am Obesity affecting acute July 01, 2025 11:27am Polycystic ovarian syndrome acute July 01, 2025 11:27am acute July 01, 025 11:27am Subchorionic hemorrhage in first trimester acute July 01 11:27am Supervision of high-risk acute July 01 11:27am Unknown varicella vaccinatio n status acute July 01 11:27am Chest pain during inactive July 01, 2025 11:27am Anxiety acute July 10:54am Obesity affecting acute July 28, 2025 10:54am Polycystic ovarian syndrome acute July 28, 2025 10:54am acute July 10:54am Subchorionic hemorrhage in first trimester acute July 28, 2025 10:54am Supervision of high-risk acute July 28, 2025 10:54am Unknown varicella vaccinatio n status acute July 28, 2025 10:54am Anxiety acute August 15, 025 3:13pm Obesity affecting acute August 15, 2025 3:13pm Polycystic ovarian syndrome acute August 15, 2025 3:13pm acute August 15 025 3:13pm Subchorionic hemorrhage in first trimester acute August 15 3:13pm Supervision of high-risk acute August 15 3:13pm Unknown varicella vaccinatio n status acute August 15 3:13pm [facility] Work Phone: 1(756) 587-160205-29-2025 Evaluation note* Diagnosis Onset Date Resolution Status Admit Date Dyspareunia resolved April 07 10:53am Anxiety acute [...] n status acute May 30, 2025 1:00pm Anxiety acute June 17 2:13pm Obesity affecting acute June 17, 2025 2:13pm Polycystic ovarian syndrome acute June 17, 2025 2:13pm acute June 17 2:13pm Subchorionic hemorrhage in first trimester acute June 17, 2025 2:13pm Supervision of high-risk acute June 17, 2025 2:13pm Unknown varicella vaccinatio n status acute June 17, 2025 2:13pm Anxiety acute July 01, 2 025 11:27am Obesity affecting acute July 01, 2025 11:27am Polycystic ovarian syndrome acute July 01, 2025 11:27am acute July 01, 2 025 11:27am Subchorionic hemorrhage in first trimester acute July 01 11:27am Supervision of high-risk acute July 01 11:27am Unknown varicella vaccinatio n status acute July 01 11:27am Chest pain during inactive July 01, 2025 11:27am Anxiety acute July 10:54am Obesity affecting acute July 28, 2025 10:54am Polycystic ovarian syndrome acute July 28, 2025 10:54am acute July 10:54am Subchorionic hemorrhage in first trimester acute July 28, 2025 10:54am Supervision of high-risk acute July 28, 2025 10:54am Unknown varicella vaccinatio n status acute July 28, 2025 10:54am [facility] Work Phone: [phone]) 766-870105-29-2025 Progress [facility] [address] [place] [address], [address] [place] [address] OFFICE VISIT Date of Service: 04/07/25 MR#: [id number] Acct: [id number] Name: LEATHA JESSICA Rep #: [id number] : 2000 Provider: Dr. Patrice Lloyd MD Age/Sex: 24/F Location: [facility] [place] Status: Signed Intake Vital Signs 01/17/25 13:07 03/15/25 07:38 04/07/25 10:59 04/07/25 11:03 Height 5 ft 7 in 5 ft 7 in 5 ft 7 in 5 ft 7 in Weight: 251 lb 2 oz BMI 39.3 BP 147/78 H Intake Visit Reasons: 2 wk Hymenectomy Manager Urgent Care Required: No Is patient in pain?: No Allergies No Known Allergies Allergy (Verified 04/07/25 10:59) Medications ?Medication ?Instructions ?Recorded ?Confirmed ?Type Saccharomyces boulardii 250 mg 250 mg PO BID 07/21/24 04/07/25 History capsule (Daily Probiotic (S. 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 current occupational exposures/hazards: No pets [...] frequency: 1-2 times per week duration: other rashmi/protestant: Mandaeism seatbelt use: always do you feel safe [...] if persistent dysparuenia recommend PFPT referral 04/07/25 Venessa shirley MD> Date _ Navya Lloyd MD [facility] Signature: Date (if applicable) CC: ~ [facility]05-06-2025 [facility] Medical Records Department [address] [place] [address] History Physical Exam 03/15/25 0939 MR#: [id number] Acct: [id number] Name: LEATHA JESSICA Rep #: [id number] : 2000 From: Navya Lloyd MD PCP: Dr. 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 current occupational exposures/hazards: No pets [...] frequency: 1-2 times per week duration: other rashmi/protestant: Mandaeism seatbelt use: always do you feel safe [...] normal Face and sinus: (more content not included)...[facility] 03-11-2025 Evaluation note* Diagnosis Onset [...] n status acute May 30, 2025 1:00pm [facility] Work Phone: 1(358) 180-940605-02-2025 Evaluation note* Diagnosis Onset Date Resolution Status [...] n status acute May 30, 2025 1:00pm [facility] Work Phone: 1([phone]) 495-244305-02-2025 Evaluation note* Diagnosis Onset Date Resolution Status [...] n status acute May 30, 2025 1:00pm Anxiety acute June 17 2:13pm Obesity affecting acute June 17, 2025 2:13pm Polycystic ovarian syndrome acute June 17, 2025 2:13pm acute June 17 2:13pm Subchorionic hemorrhage in first trimester acute June 17, 2025 2:13pm Supervision of high-risk acute June 17, 2025 2:13pm Unknown varicella vaccinatio n status acute June 17, 2025 2:13pm [facility] Work Phone: [phone]) 927-232505-02-2025 Evaluation note* Diagnosis Onset Date Resolution Status [...] n status acute May 30, 2025 1:00pm Anxiety acute June 17 2:13pm Obesity affecting acute June 17, 2025 2:13pm Polycystic ovarian syndrome acute June 17, 2025 2:13pm acute June 17 2:13pm Subchorionic hemorrhage in first trimester acute June 17, 2025 2:13pm Supervision of high-risk acute June 17, 2025 2:13pm Unknown varicella vaccinatio n status acute June 17, 2025 2:13pm Anxiety acute July 01, 2 025 11:27am Chest pain during acute July 01, 2025 11:27am Obesity affecting acute July 01, 2025 11:27am Polycystic ovarian syndrome acute July 01, 2025 11:27am acute July 01, 025 11:27am Subchorionic hemorrhage in first trimester acute July 01 11:27am Supervision of high-risk acute July 01 11:27am Unknown varicella vaccinatio n status acute July 01 11:27am [facility] Work Phone: 1([phone]) 768-342203-20-2025 Evaluation note* Diagnosis Onset Date Resolution Status [...] 2025 7:16am Dyspareunia acute April 07 10:53am [facility] Work Phone: 1([phone]) 265-397603-14-2025 Radiology Diagnostic study note [facility] Imaging Services [address] [place] [address] Thyroid MR#: [id number] Acct: [id number] Name: LEATHA JESSICA Rep #: [id number] : 2000 F 24 From: Garth Swartz MD PCP: Care Physician,No Primary Status: REG CLI Study:Thyroid Date of Exam: 01/21/25 Exam# [id number] Ordering Dr: Navya Rivero MD PROCEDURE: THYROID [...] No sonographic abnormality is seen. Reading Location: [facility] CC: Dr. Navya Lloyd MD; No Primary Care Physician ~ Credit Risk Modeler: Signed [facility]02-18-2025 Evaluation note* Diagnosis Onset Date [...] 2025 7:16am Dyspareunia acute April 07 10:53am [facility] Work Phone: 1([phone]) 653-132602-17-2025 [facility] Medical Records Department [address] [place] [address] History Physical Exam 12/27/24 1728 MR#: [id number] Acct: [id number] Name: LEATHA JESSICA Rep #: [id number] : 2000 24 From: Navya Lloyd MD PCP: Care Physician,No [place] [facility] [place] [place] [facility] History and Physical Date of Admission: 12/28/24 [facility] [address] [place] [address], [address] [place] [address] OFFICE VISIT Date of Service: 11/19/24 MR#: [id number] Acct: [id number] Name: LEATHA JESSICA Rep #: [id number] : 2000 Provider: Dr. 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 she take ibuprofen with some relief. Cycles are irregular 33-70 days growing more irreuglar Irregular menses: Q33-38 Menopausal symptoms: no Persistent SILVEIRA or visual changes: no Hirsutism: no Previous [...] no acute distress Or (more content not included)...[facility]01-10-2025 Evaluation note* Diagnosis Onset Date [...] 9:53am Enlarged thyroid noneactive January 272024 9:53am [facility] Work Phone: Hospital Discharge instructionsAdditional Instructions Your white blood cell count was elevated today. The remainder of your workup was largely normal. As we discussed we are not able to fully test for aortic dissection. Should you have further chest pain, feel lightheaded, passout or have any numbness or tingling of your extremities please go to the nearest emergency room. There were no signs of a blood clot based on your blood work today. Please follow-up with your CHILD WELFARE WORKER or family doctor as needed.[facility] Work Phone: Progress note Author Navya Lloyd [facility] Note Date/Time April 07, 2025 11:26 am [facility] [address], [address] [place] [address] OFFICE VISIT Date of Service: 04/07/25 MR#: [id number] Acct: [id number] Name: LEATHA JESSICA Rep #: [id number] : 2000 Provider: Dr. Patrice Lloyd MD Age/Sex: 24/F Location: [facility] [place] Status: Signed Intake Vital Signs 01/17/25 13:07 03/15/25 07:38 04/07/25 10:59 04/07/25 11:03 Height 5 ft 7 in 5 ft 7 in 5 ft 7 in 5 ft 7 in Weight: 251 lb 2 oz BMI 39.3 BP 147/78 H Intake Visit Reasons: 2 wk Hymenectomy Manager Urgent Care Required: No Is patient in pain?: No Allergies No Known Allergies Allergy (Verified 04/07/25 10:59) Medications ?Medication ?Instructions ?Recorded ?Confirmed ?Type Saccharomyces boulardii 250 mg 250 mg PO BID 07/21/24 04/07/25 History capsule (Daily Probiotic (S. 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 current occupational exposures/hazards: No pets [...] frequency: 1-2 times per week duration: other rashmi/protestant: Mandaeism seatbelt use: always do you feel safe [...] shirley MD> Date _ Navya Lloyd MD Cosigner Signature: Date (if applicable) CC: ~ [facility] Work Phone: Progress note Author Leyda Capellan [facility] Note Date/Time July 01, 2025 12 :01pm [facility] [address], [address] [place] [address] OFFICE VISIT Date of Service: 07/01/25 MR#: [id number] Acct: [id number] Name: LEATHA JESSICA Rep #: [id number] : 2000 Provider: CARMELITA Capellan Age/Sex: 24/F Location: [facility] [place] Status: Signed Intake Vital Signs 04/26/25 13:10 06/28/25 16:35 07/01/25 11:37 Height 5 ft 7 in 5 ft 7 in 5 ft 7 in Weight: 244 lb 3 oz BMI 38.2 BP 124/86 H Intake Visit Reasons: 12 wk ob Chief Complaint: 12wk OB Manager Urgent Care Required: No Is patient in pain?: No Allergies No Known Allergies Allergy (Verified 07/01/25 11:34) Medications ?Medication ?Instructions ?Recorded ?Confirmed ?Type Saccharomyces boulardii 250 mg 250 mg PO BID 07/21/24 07/01/25 History capsule (Daily Probiotic (S. boulardii)) cyanocobalamin-liver extract tablet 1 tab PO DAILY 10/0307/01/25 History WELDING MANAGER 2 cap PO DAILY 01/27/2506/11 History meth cpg 2 cap PO DAILY 01/27/2506/11 History magnesium 200 mg tablet 200 mg PO QDAY PRN 05/27/25 07/01/25 History multivit-min no.71-iron fum 28 cap PO 05/27/25 5 History mg-folate no.1 1 mg-dha 300 mg capsule (PNV-Otto) Last Menstrual Period: 03/25/25 : No PFSH PFSH Medical History Irregular periods/menstrual cycles Vertigo Wears contact lenses Non-smoker Surgical History History of hymenectomy H/O laparoscopy (~12/2024) H/O eye surgery Family History Father Hemolytic anemia Lupus Social History adopted: No household members: spouse housing: house number of children: 0 current occupational status: employed 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 OB Visit [facility] Calculator Estimated Delivery Date Method Current WG Current Estimate 01/05/26 Ultrasound #1 13w 1d Other Estimates 12/30/25 LMP (Certain) 14w 0d Expected Delivery Route/Plan Labor Preferences- CB/BF classes: [...] day 19 LH and day 20 intercourse 06/17/25 -?-?-?-?-?-?-?-?-?-?-?-?- 11w 1d 248 lb 5 oz 133/85 Nega tive -?-?-?-?-?-?-?-?-?-?-?-?- Negative 160 -?--?-?-?-?-?-?-?-?-?-?-?- KW- no vb/crampi ng. NOB labs today. MFM US ordered. 07/01/25 -?-?-?-?-?-?-?-?-?-?-?-?- 13w 1d 244 lb 3 oz 124/86 Nega tive -?-?-?-?--?-?-?-?-?-?-?-?- Negative 150 -?-?-?-?-?-?-?-?-?-?-?-?- KW- was in ER on for chest pain. no further episodes. no vb/cramping. MFM US ordered. ACOG First Trimester First Trimester: Desire for [...] no additional complaints, except as documented Eyes Reports system reviewed and no additional complaints, except as documented ENT Reports system reviewed and no additional complaints, except as documented Card Reports system reviewed and no additional complaints, except as documented Resp Reports system reviewed and no additional complaints, except as documented GI Reports system reviewed and no additional complaints, except as documented, Denies nausea and Denies vomiting Reports system reviewed and no additional complaints, [...] and no additional complaints, except as documented Law/Lymph Reports system reviewed and no additional complaints, except as documented Aller/Immun Reports system reviewed and no additional complaints, except as documented Exam Const General: cooperative, healthy appearing and no acute distress Orientation: alert, awake and oriented x3 Neck Neck: normal visual inspection and full ROM Resp Effort & Inspection: normal respiratory effort, able to speak in complete sentences and symmetric chest movement GI Inspection: normal to inspection Palpation: soft and other Other: gravid Skin General: no rashes or lesions noted Neuro General: patient alert, patient awake and patient oriented x3 Cognition: normal cognition Speech: speech normal Gait: normal gait Motor: muscle tone normal throughout Extrem General: normal to inspection and full ROM Psych Appearance: grossly normal Mental Status: mental status grossly normal Mood: congruent mood Affect: normal affect Speech and Movement: speech and movement normal Attitude: cooperative Thought Process: normal Thought Content: normal Judgment: judgment good Results POC Urinalysis 2 Dip (Clinic) Office Urine Glucose Negative Last Edit by Lissa Ty on 07/01/25 11:46 Office Urine Protein Negative Last Edit by Lissa Ty on 07/01/25 11:46 Coding Level of Care Code OB Routine Diagnoses Chest pain during O99.891; R07.9 Subchorionic hemorrhage in first trimester O20.8 Unknown varicella vaccination status Z78.9 Supervision of high-risk O09.90 13 weeks gestation of Z3A.13 Weeks of gestation: 13 weeks Obesity affecting O99.210 Anxiety F41.9 Polycystic ovarian syndrome E28.2 Assessment and Plan Assessment and Plan (1) Chest pain during : Status: Acute (2) Subchorionic hemorrhage in first trimester: Status: Acute (3) Unknown varicella vaccination status: Status: Acute Comment: labs ordered, thinks she may have been vaccinated (4) Supervision of high-risk : Status: Acute Comment: , [facility] 01/05/26, Dashawn (5) : Status: Acute Qualifiers: Weeks of gestation: 13 weeks Qualified Code(s): Z3A.13 - 13 weeks gestation of Comment: NIPT low risk. gender male (PT DOESN'T KNOW GENDER YET) (6) Obesity affecting : Status: Acute Comment: HgbA1c (7) Anxiety: Status: Acute Comment: mild, non-medicated (8) Polycystic ovarian syndrome: Status: Acute Comment: hga1c ordered Orders: Orders POC Urinalysis 2 Dip (Clinic) Today Plan Details Additional Comments: ACOG trimester education reviewed and updated. see problem list details for updated plan management information and see below for orders placed at this visit. GA appropriate handout given. 07/01/25 1201 <Electronically signed by Leyda kaplan CNM> Date _ Leyda Capellan CNM Cosigner Signature: Date (if applicable) CC: ~ [facility] Work Phone: Progress note Author Ava Barr [facility] Note Date/Time July 28, 2025 11:27am [facility] [address] [place] [address], [address] [place] [address] OFFICE VISIT Date of Service: 07/28/25 MR#: [id number] Acct: [id number] Name: LEATHA JESSICA Rep #: [id number] : 2000 Provider: Dr. Fernanda Caro DO Age/Sex: 25/F Location: [facility] [place] Status: Signed Intake Vital Signs 05/30/25 13:06 05/30/25 14:02 07/01/25 11:37 07/28/25 10:57 07/28/25 11:01 Height 5 ft 7 in 5 ft 7 in 5 ft 7 in 5 ft 7 in 5 ft 7 in Weight: 244 lb 3 oz 246 lb 2 oz BMI 38.2 38.5 BP 124/86 H 131/88 H Intake Visit Reasons: 16wk ob Chief Complaint: 16 Week OB Manager Urgent Care Required: No Is patient in pain?: No Allergies No Known Allergies Allergy (Verified 07/28/25 10:57) Medications ?Medication ?Instructions ?Recorded ?Confirmed ?Type Saccharomyces boulardii 250 mg 250 mg PO BID 07/21/24 07/28/25 History capsule (Daily Probiotic (S. boulardii)) cyanocobalamin-liver extract tablet 1 tab PO DAILY 10/0307/28/25 History WELDING MANAGER 2 cap PO DAILY 01/27/2507/11 History meth cpg 2 cap PO DAILY 01/27/2507/11 History magnesium 200 mg tablet 200 mg PO QDAY PRN 05/27/25 07/28/25 History multivit-min no.71-iron fum 28 cap PO 05/27/25 5 History mg-folate no.1 1 mg-dha 300 mg capsule (PNV-Otto) Last Menstrual Period: 03/25/25 Zika: Zika virus screening: Negative : No PFSH PFSH Medical History Irregular periods/menstrual cycles Vertigo Wears contact lenses Non-smoker Surgical History History of hymenectomy H/O laparoscopy (~12/2024) H/O eye surgery Family History Father Hemolytic anemia Lupus Social History adopted: No household members: spouse housing: house number of children: 0 current occupational status: employed 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 OB Visit [place] Calculator Estimated Delivery Date Method Current WG Current Estimate 01/05/26 Ultrasound #1 17w 0d Other Estimates 12/30/25 LMP (Certain) 17w 6d Expected Delivery Route/Plan Labor Preferences- CB/BF classes: [...] day 19 LH and day 20 intercourse 06/17/25 -?-?-?-?-?-?-?-?-?-?-?-?- 11w 1d 248 lb 5 oz 133/85 Nega tive -?-?-?-?-?-?-?-?-?-?-?-?- Negative 160 -?-?-?-?-?-?-?-?-?-?-?-?- KW- no vb/jayleen brown. NOB labs today. M US ordered. 07/01/25 -?-?-?-?-?-?-?-?-?-?-?-?- 13w 1d 244 lb 3 oz 124/86 Nega tive -?--?-?-?-?-?-?-?-?-?-?-?- Negative 150 -?-?-?-?-?-?-?-?-?-?-?-?- KW- was in ER on tu for chest pain. no further episodes. no vb/cramping. MFM US ordered. 07/28/25 -?-?-?-?-?-?-?-?-?-?-?-?- 17w 0d 246 lb 2 oz 131/88 Nega tive -?-?-?-?-?-?-?-?-?-?-?-?- Negative 147 -?-?-?-?-?-?-?-?-?-?-?-?- JV- no lof, vagi nal bleeding, or cramping. ACOG First Trimester First Trimester: Desire for , Alcohol, Tobacco Cessation, Illicit/Recreational Drug/Substance Use, Intimate Partner Violence, Barriers to care, Unstable Housing, Communication Barriers, Environmental/Work Hazards, Anticipated Course of Care, Toxoplasmosis Precations, Use of Any medications, Sexual activity, Exercise, Dental Care, Sauna/Hot tub use, Seat Belt use, Childbirth classes/Hospital facilities, Travel, Indications for Ultrasound and Screening for Aneuploidy; Discussed Results POC Urinalysis 2 Dip (Clinic) Office Urine Glucose Negative Last Edit by Imelda Jaimes on 07/28/25 11 :02 Office Urine Protein Negative Last Edit by Imelda Jaimes on 07/28/25 11 :02 Coding Level of Care Code OB Routine Diagnoses 17 weeks gestation of Z3A.17 Weeks of gestation: 17 weeks Supervision of high-risk O09.90 Unknown varicella vaccination status Z78.9 Subchorionic hemorrhage in first trimester O20.8 Obesity affecting O99.210 Anxiety F41.9 Polycystic ovarian syndrome E28.2 Assessment and Plan Assessment and Plan (1) : Status: Acute Qualifiers: Weeks of gestation: 17 weeks Qualified Code(s): Z3A.17 - 17 weeks gestation of Comment: NIPT low risk. gender male (PT DOESN'T KNOW GENDER YET) (2) Supervision of high-risk : Status: Acute Comment: , [place] 01/05/26, Dashawn (3) Unknown varicella vaccination status: Status: Acute Comment: labs ordered, thinks she may have been vaccinated (4) Subchorionic hemorrhage in first trimester: Status: Acute (5) Obesity affecting : Status: Acute Comment: HgbA1c (6) Anxiety: Status: Acute Comment: mild, non-medicated (7) Polycystic ovarian syndrome: Status: Acute Comment: hga1c ordered Orders: Orders POC Urinalysis 2 Dip (Clinic) Today 07/28/25 1129 <Electronically signed by Ava Benito DO> Date _ Ava Caro DO Cosigner Signature: Date (if applicable) CC: ~ [facility] Work Phone: Reason for referral (narrative)No reason for referral information [facility] Work Phone: Summary Purpose Family History No Family History Records Found Relationship Condition Age at Onset Recorded Date/T mike father Hemolytic anemia Unknown Lupus Unknown Advance Directives No Advanced Directives Records Found Advance Directive Response Recorded Date/ Time Living Will No December 03 11:05am Do you have a Healthcare Power of Store Protection Specialist? No December 03, 2024 11:05am Advance Directive Response Recorded Date/ Time Living Will No December 03 11:05am Do you have a Healthcare Power of Store Protection Specialist? No December 03, 2024 11:05am Living Will No March 01, 2025 8:34am Do you have a Healthcare Power of Store Protection Specialist? No March 01, 2025 8:34am Advance Directive Response Recorded Date/ Time Living Will No March 01, 2025 8:34am Do you have a Healthcare Power of Store Protection Specialist? No March 01, 2025 8:34am Advance Directive Response Recorded Date/ Time Do you have a Healthcare Power of Store Protection Specialist? No June 28, 2025 4:48pm Living Will No March 01, 2025 8:34am Do you have a Healthcare Power of Store Protection Specialist? No March 01, 2025 8:34am Advance Directive Response Recorded Date/ Time Do you have a Healthcare Power of Store Protection Specialist? No June 28, 2025 4:48pm Chief Complaint and Reason for Visit Chief Complaint Admit Date INFERTILITY October 19, 2024 11:40am Surgical consult November 19, 2024 3 :01pm Diagnostic Laparoscopy, Chromtubation Fe bruary 2024 5:28pm Diagnostic Laparoscopy, Chromtubation Fe bruary 2024 7:54am Diagnostic Laparoscopy, Chromtubation Fe bruary 2024 12:00pm 3 WK F/U January 17, 2025 12: 49pm ABM FINDING IN BLOOD January 21, 2025 11 :44am FOOD AND BEVERAGE DIRECTOR. EST CARE - PT/CONSENT ONLY January 27, 2025 9:53am Reason for Visit Admit Date Dysmenorrhea November 19, 2024 3 :01pm Infertility November 19, 2024 3 :01pm Irregular periods/menstrual cycles Janua 2024 3:01pm Polycystic ovarian syndrome November 3:01pm Dysmenorrhea December 28, 2024 7:54am Infertility December 28, 2024 7:54am Irregular periods/menstrual cycles Febru veronica 2024 7:54am Polycystic ovarian syndrome December 7:54am [...] IN BLOOD January 21, 2025 11 :44am FOOD AND BEVERAGE DIRECTOR. EST CARE - PT/CONSENT ONLY January 27, 2025 9:53am 6 wk FU/preop Hymenectomy March 11, 2025 3:32pm Hymenectomy March 15, 2025 7:16am Hymenectomy March 15, 2025 9:39am 2 wk Hymenectomy April 07, 2025 10:53 am Reason for Visit Admit Date Dysmenorrhea December 28, 2024 7:54am Infertility December 28, 2024 7:54am Irregular periods/menstrual cycles Febru veronica 2024 7:54am Polycystic ovarian syndrome December 7:54am [...] 2025 10:53 am Chief Complaint Admit Date FOOD AND BEVERAGE DIRECTOR. EST CARE - PT/CONSENT ONLY January 27, 2025 9:53am 6 wk FU/preop Hymenectomy March 11, 2025 3:32pm Hymenectomy March 15, 2025 7:16am Hymenectomy March 15, 2025 9:39am 2 wk Hymenectomy April 07, 2025 10:53 am PRE NEW OB, COMFIRM PREG, VITALS May 272024 12:51pm Reason [...] April 07, 2025 10:53 am PRE NEW OB, COMFIRM PREG, VITALS May 272024 12:51pm *EST* [...] 1:00pm Unknown varicella vaccination status May 1:00pm Chief Complaint Admit Date 6 wk FU/preop Hymenectomy March 11, 2025 3:32pm Hymenectomy March 15, 2025 7:16am Hymenectomy March 15, 2025 9:39am 2 wk Hymenectomy April 07, 2025 10:53 am PRE NEW OB, COMFIRM PREG, VITALS May 272024 12:51pm *EST* NOB LMP 03/25, [facility] 12/30May 30, 2025 1:00pm E ORDER June 11, 2025 11: 34am rescan *per SM June 17, 2025 2:1 3pm Reason for Visit Admit Date Dyspareunia March [...] 1:00pm Unknown varicella vaccination status May 1:00pm Anxiety June 17, 2025 2:1 3pm Obesity affecting June 17, 2025 2:13pm Polycystic ovarian syndrome June 17, 2025 2:13pm June 17, 2025 2:1 3pm Subchorionic hemorrhage in first trimest er June 17, 2025 2:13pm Supervision of high-risk Augus t 2024 2:13pm Unknown varicella vaccination status Jun ust 2024 2:13pm Chief Complaint Admit Date 6 wk FU/preop Hymenectomy March 11, 2025 3:32pm Hymenectomy March 15, 2025 7:16am Hymenectomy March 15, 2025 9:39am 2 wk Hymenectomy April 07, 2025 10:53 am PRE NEW OB, COMFIRM PREG, VITALS May 272024 12:51pm *EST* NOB LMP 03/25, [place] 12/30May 30, 2025 1:00pm E ORDER June 11, 2025 11: 34am rescan *per SM June 17, 2025 2:1 3pm abd pain June 28, 2025 4: 33pm Chief Complaint Admit Date 6 wk FU/preop Hymenectomy March 11, 2025 3:32pm Hymenectomy March 15, 2025 7:16am Hymenectomy March 15, 2025 9:39am 2 wk Hymenectomy April 07, 2025 10:53 am PRE NEW OB, COMFIRM PREG, VITALS May 272024 12:51pm *EST* NOB LMP 03/25, [place] 12/30May 30, 2025 1:00pm E ORDER June 11, 2025 11: 34am rescan *per SM June 17, 2025 2:1 3pm abd pain June 28, 2025 4: 33pm 12 wk ob July 01, 2025 11 :27am Reason for Visit Admit Date Dyspareunia March [...] 1:00pm Unknown varicella vaccination status May 1:00pm Anxiety June 17, 2025 2:1 3pm Obesity affecting June 17, 2025 2:13pm Polycystic ovarian syndrome June 17, 2025 2:13pm June 17, 2025 2:1 3pm Subchorionic hemorrhage in first trimest er June 17, 2025 2:13pm Supervision of high-risk Augus t 2024 2:13pm Unknown varicella vaccination status Aug ust 2024 2:13pm Anxiety July 01, 2025 11 :27am Chest pain during July 01, 2025 11:27am Obesity affecting July 01, 2025 11:27am Polycystic ovarian syndrome July 01, 2025 11:27am July 01, 2025 11 :27am Subchorionic hemorrhage in first trimest er July 01, 2025 11:27am Supervision of high-risk Augus t 2024 11:27am Unknown varicella vaccination status Aug ust 2024 11:27am Chief Complaint Admit Date 2 wk Hymenectomy April 07, 2025 10:53 am PRE NEW OB, COMFIRM PREG, VITALS May 272024 12:51pm *EST* NOB LMP 03/25, [place] 12/30May 30, 2025 1:00pm E ORDER June 11, 2025 11: 34am rescan *per SM June 17, 2025 2:1 3pm abd pain June 28, 2025 4: 33pm 12 wk ob July 01, 2025 11 :27am 16wk ob July 28, 2025 10:54am Reason for Visit Admit Date Dyspareunia April 07, 2025 10:53 am Anxiety [...] 1:00pm Unknown varicella vaccination status May 1:00pm Anxiety June 17, 2025 2:1 3pm Obesity affecting June 17, 2025 2:13pm Polycystic ovarian syndrome June 17, 2025 2:13pm June 17, 2025 2:1 3pm Subchorionic hemorrhage in first trimest er June 17, 2025 2:13pm Supervision of high-risk Augus t 2024 2:13pm Unknown varicella vaccination status Aug ust 2024 2:13pm Anxiety July 01, 2025 11 :27am Obesity affecting July 01, 2025 11:27am Polycystic ovarian syndrome July 01, 2025 11:27am July 01, 2025 11 :27am Subchorionic hemorrhage in first trimest er July 01, 2025 11:27am Supervision of high-risk Augus t 2024 11:27am Unknown varicella vaccination status Aug ust 2024 11:27am Chest pain during July 01, 2025 11:27am Anxiety July 28, 2025 10:54am Obesity affecting July 282024 10:54am Polycystic ovarian syndrome July 282024 10:54am July 28, 2025 10:54am Subchorionic hemorrhage in first trimest er July 28, 2025 10:54am Supervision of high-risk Septe [facility] 2024 10:54am Unknown [facility]ella [facility] 10:54am Chief Complaint Admit Date PRE NEW OB, COMFIRM PREG, VITALS May 272024 12:51pm *EST* NOB LMP 03/25, [place] 12/30May 30, 2025 1:00pm E ORDER June 11, 2025 11: 34am rescan *per SM June 17, 2025 2:1 3pm abd pain June 28, 2025 4: 33pm 12 wk ob July 01, 2025 11 :27am 16wk ob July 28, 2025 10:54am 19wk ob August 15, 2025 3: 13pm Reason for Visit Admit Date Anxiety May 27, 2025 12:5 1pm Obesity affecting May 27, 025 12:51pm Polycystic ovarian syndrome May 27, 2 025 12:51pm May 27, 2025 12:5 1pm Supervision of high-risk May 27, 2025 12:51pm Unknown varicella vaccination status Thomas y 2024 12:51pm Anxiety May 30, 2025 1:00 pm Obesity affecting May 30, 2 025 1:00pm Polycystic ovarian syndrome May 30, 2 025 1:00pm May 30, 2025 1:00 pm Subchorionic hemorrhage in first trimest er May 30, 2025 1:00pm Supervision of high-risk May 30, 2025 1:00pm Unknown varicella vaccination status Thomas y 2024 1:00pm Anxiety June 17, 2025 2:1 3pm Obesity affecting June 17, 2025 2:13pm Polycystic ovarian syndrome June 17, 2025 2:13pm June 17, 2025 2:1 3pm Subchorionic hemorrhage in first trimest er June 17, 2025 2:13pm Supervision of high-risk Augus t 2024 2:13pm Unknown varicella vaccination status Aug us2024 2:13pm Anxiety July 01, 2025 11 :27am Obesity affecting July 01, 2025 11:27am Polycystic ovarian syndrome July 01, 2025 11:27am July 01, 2025 11 :27am Subchorionic hemorrhage in first trimest er July 01, 2025 11:27am Supervision of high-risk Augus t 2024 11:27am Unknown varicella vaccination status Aug ust 2024 11:27am Chest pain during July 01, 2025 11:27am Anxiety July 28, 2025 10:54am Obesity affecting July 282024 10:54am Polycystic ovarian syndrome July 282024 10:54am July 28, 2025 10:54am Subchorionic hemorrhage in first trimest er July 28, 2025 10:54am Supervision of high-risk Septe mber 2024 10:54am Unknown varicella vaccination status Sep tember 2024 10:54am Anxiety August 15, 2025 3: 13pm Obesity affecting August 15, 2025 3:13pm Polycystic ovarian syndrome August 15, 2025 3:13pm August 15, 2025 3: 13pm Subchorionic hemorrhage in first trimest er August 15, 2025 3:13pm Supervision of high-risk Octob er 2024 3:13pm Unknown varicella vaccination status Oct clementine 2024 3:13pm Additional Source Comments INFORMATION SOURCE (unrecogn ized section and content) DATE CREATED AUTHOR 03/29/2024 [facility] DATE CREATED AUTHOR AUTHOR'S ORGANIZ ATION 08/15/2025 [facility] DATE CREATED AUTHOR AUTHOR'S ORGANIZ ATION 09/16/2025 [facility] Care Teams (unrecognized sec tion and content) [...] 2024 End: October 19, 2024 Ligia Nguyen FOOD AND BEVERAGE DIRECTOR, FOOD AND BEVERAGE DIRECTOR-C Attending Provider Active Start: October 19, 2024 End: October 19, 2024 Ligia Nguyen FOOD AND BEVERAGE DIRECTOR, FOOD AND BEVERAGE DIRECTOR-C Referring Provider Active Start: October 19, 2024 End: October 19, 2024 Team Status: Inactive Member Role Status Dates No Primary Care Physician Primary Care Provider Active Start: November 19, 2024 End: November 19, 2024 No Primary Care Physician Referring Provider Active Start: November 19, 2024 End: November 19, 2024 Dr. Navya Llody MD Attending Provider Active Start: November 19, [...] 2025 End: May 30, 2025 Team Status: Active Member Role/Relationship Status Dates Dr. Abby Haas MD Primary Care Provider Active Start: June 11, 2025 Dr. Navya Lloyd MD Attending Provider Active Start: June 11, 2025 Dr. Navya Lloyd MD Referring Provider Active Start: June 11, 2025 Team Status: Active Member Role/Relationship Status Dates Dr. Abby Haas MD Primary Care Provider Active Start: June 17, 2025 Dr. Navya Lloyd MD Attending Provider Active Start: June 17, 2025 Dr. Navya Lloyd MD Referring Provider Active Start: June 17, 2025 Team Status: Inactive Member Role/Relationship Status Dates Dr. Abby Haas MD Primary Care Provider Active Start: June 17, 2025 End: June 17, 2025 Dr. Abby Haas MD Referring Provider Active Start: June 17, 2025 End: June 17, 2025 Leyda Capellan CNM Attending Provider Active S tart: June 17, 2025 End: June 17, 2025 Team Status: Inactive Member Role/Relationship Status Dates Dr. Abby Haas MD Primary Care Provider Active Start: June 11, 2025 End: June 11, 2025 Dr. Navya Lloyd MD Attending Provider Active Start: June 11, 2025 End: June 11, 2025 Dr. Navya Lloyd MD Referring Provider Active Start: June 11, 2025 End: June 11, 2025 Team Status: Inactive Member Role/Relationship Status Dates Dr. Abby Haas MD Primary Care Provider Active Start: June 17, 2025 End: June 17, 2025 Dr. Navya Lloyd MD Attending Provider Active Start: June 17, 2025 End: June 17, 2025 Dr. Navya Lloyd MD Referring Provider Active Start: June 17, 2025 End: June 17, 2025 Team Status: Inactive Member Role/Relationship Status Dates Dr. Abby Haas MD Primary Care Provider Active Start: June 28, 2025 End: June 28, 2025 Dr. Amy Ramsey DO Emergency Provider Active Start: June 28, 2025 End: June 28, 2025 Team Status: Inactive Member Role/Relationship Status Dates Dr. Abby Haas MD Primary Care Provider Active Start: July 01, 2025 End: July 01, 2025 Dr. Abby Haas MD Referring Provider Active Start: July 01, 2025 End: July 01, 2025 Leyda Capellan CNM Attending Provider Active S tart: July 01, 2025 End: July 01, 2025 Team Status: Active Member Role/Relationship Status Dates Dr. Abby Haas MD Primary care physician Active Team Status: Inactive Member Role/Relationship Status Dates No Primary Care Physician Referring Provider Active Start: April 07, 2025 End: April 07, 2025 Dr. Navya Lloyd MD Attending physician Active Start: April 07, 2025 End: April 07, 2025 Dr. Abby Haas MD Primary care physician Active Start: April 07, 2025 End: April 07, 2025 Team Status: Inactive Member Role/Relationship Status Dates Dr. Abby Haas MD Primary care physician Active Start: May 27, 2025 End: May 27, 2025 Dr. Abby Haas MD Referring Provider Active Start: May 27, 2025 End: May 27, 2025 Dr. Navya Lloyd MD Attending physician Active Start: May 27, 2025 End: May 27, 2025 Team Status: Inactive Member Role/Relationship Status Dates Dr. Abby Haas MD Primary care physician Active Start: May 30, 2025 End: May 30, 2025 Dr. Abby Haas MD Referring Provider Active Start: May 30, 2025 End: May 30, 2025 Dr. Navya Lloyd MD Attending physician Active Start: May 30, 2025 End: May 30, 2025 Team Status: Inactive Member Role/Relationship Status Dates Dr. Abby Haas MD Primary care physician Active Start: May 30, 2025 End: May 30, 2025 Dr. Navya Lloyd MD Attending physician Active Start: May 30, 2025 End: May 30, 2025 Dr. Navya Lloyd MD Referring Provider Active Start: May 30, 2025 End: May 30, 2025 Team Status: Inactive Member Role/Relationship Status Dates Dr. Abby Haas MD Primary care physician Active Start: June 11, 2025 End: June 11, 2025 Dr. Navya Lloyd MD Attending physician Active Start: June 11, 2025 End: June 11, 2025 Dr. Navya Lloyd MD Referring Provider Active Start: June 11, 2025 End: June 11, 2025 Team Status: Inactive Member Role/Relationship Status Dates Dr. Abby Haas MD Primary care physician Active Start: June 17, 2025 End: June 17, 2025 Dr. Navya Lloyd MD Attending physician Active Start: June 17, 2025 End: June 17, 2025 Dr. Navya Lloyd MD Referring Provider Active Start: June 17, 2025 End: June 17, 2025 Team Status: Inactive Member Role/Relationship Status Dates Dr. Abby Haas MD Primary care physician Active Start: June 17, 2025 End: June 17, 2025 Dr. Abby Haas MD Referring Provider Active Start: June 17, 2025 End: June 17, 2025 Leyda Capellan CNM Attending physician Active Start: June 17, 2025 End: June 17, 2025 Team Status: Inactive Member Role/Relationship Status Dates Dr. Abby Haas MD Primary care physician Active Start: June 28, 2025 End: June 28, 2025 Dr. Amy Ramsey DO Attending physician Active Start: June 28, 2025 End: June 28, 2025 Dr. Amy Ramsey DO Emergency Depart ent Physician Active Start: June 28, 2025 End: June 28, 2025 Team Status: Inactive Member Role/Relationship Status Dates Dr. Abby Haas MD Primary care physician Active Start: July 01, 2025 End: July 01, 2025 Dr. Abby Haas MD Referring Provider Active Start: July 01, 2025 End: July 01, 2025 Leyda Capellan CNM Attending physician Active Start: July 01, 2025 End: July 01, 2025 Team Status: Inactive Member Role/Relationship Status Dates Dr. Abby Haas MD Primary care physician Active Start: July 28, 2025 End: July 28, 2025 Dr. Abby Haas MD Referring Provider Active Start: July 28, 2025 End: July 28, 2025 Dr. Ava Caro DO Attending physician Active Start: July End: July 28, 2025 Team Status: Inactive Member Role/Relationship Status Dates Dr. Abby Haas MD Primary care physician Active Start: May 27, 2025 End: May 27, 2025 Dr. Abby Haas MD Referring Provider Active Start: May 27, 2025 End: May 27, 2025 Dr. Navya Lloyd MD Attending physician Active Start: May 27, 2025 End: May 27, 2025 Team Status: Inactive Member Role/Relationship Status Dates Dr. Abby Haas MD Primary care physician Active Start: May 30, 2025 End: May 30, 2025 Dr. Abby Haas MD Referring Provider Active Start: May 30, 2025 End: May 30, 2025 Dr. Navya Lloyd MD Attending physician Active Start: May 30, 2025 End: May 30, 2025 Team Status: Inactive Member Role/Relationship Status Dates Dr. Abby Haas MD Primary care physician Active Start: May 30, 2025 End: May 30, 2025 Dr. Navya Lloyd MD Attending physician Active Start: May 30, 2025 End: May 30, 2025 Dr. Navya Lloyd MD Referring Provider Active Start: May 30, 2025 End: May 30, 2025 Team Status: Inactive Member Role/Relationship Status Dates Dr. Abby Haas MD Primary care physician Active Start: June 11, 2025 End: June 11, 2025 Dr. Navya Lloyd MD Attending physician Active Start: June 11, 2025 End: June 11, 2025 Dr. Navya Lloyd MD Referring Provider Active Start: June 11, 2025 End: June 11, 2025 Team Status: Inactive Member Role/Relationship Status Dates Dr. Abby Haas MD Primary care physician Active Start: June 17, 2025 End: June 17, 2025 Dr. Navya Lloyd MD Attending physician Active Start: June 17, 2025 End: June 17, 2025 Dr. Navya Lloyd MD Referring Provider Active Start: June 17, 2025 End: June 17, 2025 Team Status: Inactive Member Role/Relationship Status Dates Dr. Abby Haas MD Primary care physician Active Start: June 17, 2025 End: June 17, 2025 Dr. Abby Haas MD Referring Provider Active Start: June 17, 2025 End: June 17, 2025 Leyda Capellan CNM Attending physician Active Start: June 17, 2025 End: June 17, 2025 Team Status: Inactive Member Role/Relationship Status Dates Dr. Abby Haas MD Primary care physician Active Start: June 28, 2025 End: June 28, 2025 Dr. Amy Ramsey DO Attending physician Active Start: June 28, 2025 End: June 28, 2025 Dr. Amy Ramsey DO Emergency Depart ent Physician Active Start: June 28, 2025 End: June 28, 2025 Team Status: Inactive Member Role/Relationship Status Dates Dr. Abby Haas MD Primary care physician Active Start: July 01, 2025 End: July 01, 2025 Dr. Abby Haas MD Referring Provider Active Start: July 01, 2025 End: July 01, 2025 Leyda Capellan CNM Attending physician Active Start: July 01, 2025 End: July 01, 2025 Team Status: Inactive Member Role/Relationship Status Dates Dr. Abby Haas MD Primary care physician Active Start: July 28, 2025 End: July 28, 2025 Dr. Abby Haas MD Referring Provider Active Start: July 28, 2025 End: July 28, 2025 Dr. Ava Caro DO Attending physician Active Start: July End: July 28, 2025 Team Status: Inactive Member Role/Relationship Status Dates Dr. Abby Haas MD Primary care physician Active Start: August 15, 2025 End: August 15, 2025 Dr. Abby Haas MD Referring Provider Active Start: August 15, 2025 End: August 15, 2025 Leyda Capellan CNM Attending physician Active Start: August 15, 2025 End: August 15, 2025 Goals (unrecognized section and content) Type Care Experience Labor Preferences-CB /BF classes: []labor support person: []labor intervention preferences: []pain management options preferred: []cut cord/dad catch: []: []PP control planned: []discussed possible routes of delivery and associated risks: []special requests: [] FOR RECORDS PERTAINING TO PATIENTS WHO ARE [...] BE BASED ON THE PRIMARY CLINICAL RECORDS. [facility]. provides no warranty or guarantee of the accuracy or completeness of information in this document.
--- NOTE | 2025-10-21 23:29 | EDS_ITS ---
HPI History of Present Illness Chief Complaint: Chest Pain Narrative Narrative: Patient was seen and examined after presenting to ED for chest pain that was radiating into her back and down into her stomach she states that she was here after having a similar pain when she was approximately 13 weeks she is 29 weeks now she initially stated that she did not want any blood work she just wanted bedside ultrasound done to evaluate the fetus she reports that she had a fairly extensive workup the last time and she follows with [place] [facility] denies any collagenous or other disorders or history of DVT or PE reports that she is otherwise healthy at baseline. PFSH PFSH Medical History Irregular periods/menstrual cycles Vertigo Wears contact lenses Non-smoker Home Medications ?Medication ?Instructions ?Recorded ?Last Taken ?Type multivit-min no.71-iron fum 28 1 cap PO 05/27/25 Unkno wn History mg-folate no.1 1 mg-dha 300 mg capsule (PNV-Accokeek) Allergy/AdvReac Type Severity Reaction Status Date / Time No Known Allergies Allergy Verified 10/21/25 22:06 Family History Father Hemolytic anemia Lupus Surgical History History of hymenectomy H/O laparoscopy (~12/2024) H/O eye surgery Social History adopted: No household members: spouse housing: house number of children: 0 current occupational status: employed 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[employer], 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 current occupational exposures/hazards: No pets and animals: Yes pets and animals: dog(s) leisure activities: fishing history of recent travel: Yes ([place], [place], [place]- May) out of state: Yes out of country: No sexually active: Yes Smoking Status: Never smoker second hand exposure: No alcohol intake: current alcohol intake frequency: holidays/special occasions only details: Not while substance use type: does not use well-balanced diet: about half the time caffeine: Yes (occasionally) Type: carbonated beverages Number of servings: 1 eating out: 1-3 times/week during the past year weight has: remained stable what type of physical activity do you participate in: none rashmi/orthodoxy: Anabaptism seatbelt use: always do you feel safe at home: Yes additional social history: - [employer] ROS ROS ED ROS Narrative Pertinent Positives: Chest pain radiating into the back and abdomen momentary shortness of breath although pain has resolved on its own Pertinent Negatives: No noticeable exertional symptoms or anything that exacerbates or improves her symptoms The remainder of review of systems negative unless otherwise stated in the HPI above. Systems reviewed including constitutional, psychiatric, cardiovascular, respiratory, integument, HENT, gastrointestinal. EXAM Physical Exam Narrative Exam Narrative: Patient is afebrile hemodynamically stable does not appear toxic or in distress no cephalic and atraumatic normal heart and lung sounds. She has intact and equal MSPs in all of her extremities no lower extremity calf tenderness. Abdomen is soft is gravid but nontender. Bedside ultrasound was performed images were not saved heart rate was 136 no noticeable abnormalities by my interpretation Const Vital Signs: 10/21/25 22:03 10/21/25 22:52 10/22/25 00:03 Temperature 98.0 F Temperature Source Temporal Pulse Rate 99 87 Respiratory Rate 18 22 H Respiratory Effort Normal Non-Labored Blood Pressure 136/80 H 120/81 H Blood Pressure Mean 98 94 Pulse Ox 100 99 Oxygen Delivery Method Nasal Cannula MDM MDM MDM Narrative Medical decision making narrative: Nursing notes, triage notes, available previous documentation, and vital signs were reviewed. Any discrepancies noted were addressed. Differential Diagnoses: Low suspicion for PE or aortic etiology does not seem to be musculoskeletal as she was not reproducible on palpation she has no overlying rash or erythema or crepitus vesicular changes or hemorrhagic bullae Labs Reviewed: Patient does have a leukocytosis of 16.2 could be reactive we will just be the itself. She does have leukocytosis in the past. Hemoglobin is 11.5 D-dimer is unremarkable at 0.39 no significant electrolyte abnormality or renal insufficiency or transaminitis troponin was less than 6 proBNP was less than 36 quantitative hCG was 4400 delta troponin is pending. Imaging Reviewed: Personally reviewed and interpreted by me: Bedside ultrasound images were not saved fetus was moving heart rate was 136 EKG: Normal sinus rhythm rate of 92. I do not see evidence of ACS. No evidence of prolonged QT syndrome. No evidence of AV Block. No short IA intervals, wide QRS, or Delta waves indicative of WPW. No evidence of dagger-like q waves or LVH indicative of Hypertrophic Cardiomyopathy. No evidence of Brugada Syndrome. EKG interpretation is noted and agreed to in the EMR. The interpretation of this patient's EKG contributed directly to the care and management of this patient. Previous Documentation Reviewed: None available or applicable at this time. ED Course: Patient presenting with symptoms as stated above she initially did not want blood work or anything but after discussing the risks she was agreeable to it we did do bedside ultrasound heart rate of 136. 10/22/2025 at 0053: Patient's labs so far unremarkable besides a slight leukocy tosis which could be reactive as well as consistent with being . Delta troponin is pending barring any significant changes with that patient will be discharged home with return precautions and follow-up recommendations. 0137: Delta troponin was less than 6 patient will be discharged This note was made utilizing voice recognition software. All attempts were made to correct spelling or other errors prior to note completion. However, due to the fast-paced nature of emergency medicine, some errors may still be present. Lab Data Labs: Laboratory Results - last 24 hr 10/21/25 10/22/25 22:50 01:00 WBC 16.2 H RBC 3.78 L Hgb 11.5 L Hct 33.2 L MCV 87.8 MCH 30.4 MCHC 34.6 RDW Std Deviation 42.3 RDW Coeff of Zhang 13.2 Plt Count 356 MPV 9.6 Immature Gran % (Auto) 0.600 Neut % (Auto) 76.8 H Lymph % (Auto) 15.0 L Hudson % (Auto) 6.2 Eos % (Auto) 1.2 Baso % (Auto) 0.2 Absolute Neuts (auto) 12.5 H Absolute Lymphs (auto) 2.44 Nucleated RBC % 0 D-Dimer Quant (PE/DVT) 0.39 Sodium 137 Potassium 3.6 Chloride 105 Carbon Dioxide 19.1 L Anion Gap 12 BUN 6 Creatinine 0.48 L Estim Creat Clear Calc 236.88 Est GFR (MDRD) Non-Af 136 BUN/Creatinine Ratio 12.6 Glucose 114 H Calcium 9.1 Total Bilirubin < 0.15 AST 15 ALT < 5 Alkaline Phosphatase 65 Troponin T High Sens < 6 Troponin T Hi Sens 2 Hr < 6 NT pro BNP II < 36 Total Protein 6.1 Albumin 3.2 L Globulin 2.9 Albumin/Globulin Ratio 1.1 HCG, Quant 4473 H Discharge Plan Triage Chief Complaint: Chest Pain ED Provider: Esperanza Gonzales Dx/Rx/DC Orders Clinical Impression: Chest pain during , Instructions: ED Chest Pain, Uncertain Cause Prescriptions: No Action PNV-Accokeek 28-1-300 mg capsule 1 cap PO Primary Care Provider: Abby Haas Referrals: Abby Haas MD [Primary Care Provider, Internal Medicine] Activity Restrictions/Additional Instructions: Be sure to follow-up with your primary care doctor as well as your [facility] do not hesitate to return if you are having worsening symptoms Print Language: Chadian Disposition Disposition: Home, Self Care
[2025-10-21 23:36] LABS: Hematocrit 33.2 % (37-47); Hemoglobin 11.5 g/dL (12.0-15.0); Immature Granulocytes Count 0.100 X10^3/uL (0.0-0.0); Mean Corp Hgb Conc 34.6 g/dL (32-36); Mean Corpuscular Volume 87.8 fL (81-99); Mean Platelet Vol. 9.6 fl (6.2-12.0); NRBC Flagged by Analyzer 0 % (0-5); Platelet Count 356 K/mm3 (150-450); RBC Distribution Width CV 13.2 % (11.6-14.6); RBC Distribution Width SD 42.3 fl (35.1-43.9); Red Blood Count 3.78 M/mm3 (4.2-5.4); White Blood Count 16.2 K/mm3 (4.4-11.0)
[2025-10-21 23:59] LABS: D-Dimer Quantitative (DVT/PE) 0.39 FEU/ug/m (0.27-0.49)
[2025-10-22 00:03] VITALS: BP 120/81; PULSE 87; RESP 22; O2SAT 99
[2025-10-22 00:20] LABS: AST(SGOT) 15 U/L (<=31); Alanine Aminotransfer ALT/SGPT < 5 U/L (<=34); Albumin, Serum 3.2 g/dL (3.5-5.0); Alkaline Phosphatase 65 U/L (35-104); Anion Gap 12 (5-15); BUN 6 mg/dL (4-19); BUN/Creat Ratio 12.6 RATIO (10-20); Calcium,Total 9.1 mg/dL (7.6-11.0); Carbon Dioxide 19.1 mmol/L (21.0-32.0); Chloride 105 mmol/L (98-108); Estimated Creatinine Clearance 236.88 ml/min (50-250); Globulin 2.9 g/dL (2.2-4.2); Glucose 114 mg/dL (70-99); Potassium 3.6 mmol/L (3.3-5.1); Pro- Brain NATRIURETIC PEPTIDE < 36 pg/mL (<=450)
[2025-10-22 00:23] LABS: hCG Titer Quant., Serum 4473 mIU/mL (<9 non-preg)
[2025-10-22 00:41] LABS: Troponin T High Sensitivity < 6 ng/L (<=14)
[2025-10-22 01:26] LABS: Troponin T High Sens 2 HR < 6 ng/L (<=14)
[2025-10-22 01:42] VITALS: BP 129/78; PULSE 81; RESP 16; TEMP 36.6; O2SAT 100
== END 2025-10-22 01:42 | disposition home or self-care (01) ==
PROVIDERS: Emergency Provider Specialist/Technologist Athletic Trainer; PCP Internal Medicine; Visit Provider Specialist/Technologist Athletic Trainer
DX: O99.891 Other specified diseases and conditions complicating pregnancy (principal); R07.89 Other chest pain; R06.02 Shortness of breath; Z3A.29 29 weeks gestation of pregnancy
CPT/HCPCS: 80053; 83880; 84484; 84702; 85025; 85379; 93005; 99284; A4216